=== PATIENT | male | born 1985 | race Asian ===

== ENCOUNTER 2016-11-24 19:05 | Outpatient (CLI) | payer MEDICAID, OTHER | END 2016-11-24 19:06 | disposition EMS.NT | LOC: EMS 19:05 | PROVIDERS: ATTEND Surgery | DX: M79.622 Pain in left upper arm (principal); V03.19XA Pedestrian with other conveyance injured in collision with car, pick-up truck or van in traffic accident, initial encounter; Y92.488 Other paved roadways as the place of occurrence of the external cause ==

== ENCOUNTER 2016-11-24 20:21 | Emergency (ER) | payer OTHER, MEDICAID ==
--- NOTE | 2016-11-24 21:12 | XRAY Preliminary Report ---
Exam: XR Wrist 3 View LT IMPRESSION: No fracture or subluxation. [facility] SITE ID: [id number]
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
--- NOTE | 2016-11-24 21:15 | XRAY Preliminary Report ---
Exam: XR Humerus LT IMPRESSION: No acute fracture. [facility] SITE ID: [id number]
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
--- NOTE | 2016-11-24 21:22 | XRAY Preliminary Report ---
Exam: XR Forearm LT IMPRESSION: No fracture demonstrated. [facility] SITE ID: [id number]
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
[2016-11-24] MEDS ORDERED: IBUPROFEN 600 MG TABLET PO STA (21:47)
[2016-11-24] MEDS ORDERED: ACETAMINOPHEN 325 MG TABLET PO STA (21:47)
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
[2016-11-24 21:52] VITALS: BP 137/75
[2016-11-24] MEDS ORDERED: ACETAMINOPHEN 325 MG TABLET PO ONE (21:52)
[2016-11-24] MEDS ORDERED: IBUPROFEN 600 MG TABLET PO ONE (21:52)
== END 2016-11-24 22:07 | disposition home or self-care (01) ==
LOC: ED 20:21
DX: S40.022A Contusion of left upper arm, initial encounter (principal); V89.2XXA Person injured in unspecified motor-vehicle accident, traffic, initial encounter; Y92.413 State road as the place of occurrence of the external cause; G71.12 Myotonia congenita; J45.909 Unspecified asthma, uncomplicated; K21.9 Gastro-esophageal reflux disease without esophagitis
CPT/HCPCS: 73060; 73090; 73110; 99283; A9270

== ENCOUNTER 2017-01-31 13:31 | Outpatient (CLI) | payer MEDICAID ==
[2017-01-31 14:20] LABS: BASOPHILS % (AUTO) 0.8 %; EOSINOPHILS # (AUTO) 0.1 10^3/uL (0.0-0.7); EOSINOPHILS % (AUTO) 1.7 %; HCT - HEMATOCRIT 48.3 % (42.0-52.0); HGB - HEMOGLOBIN 15.9 g/dL (14.0-18.0); LYMPHOCYTES # (AUTO) 1.9 10^3/uL (1.5-3.5); MEAN CORPUSCULAR HEMOGLOBIN 27.9 pg (27.0-31.0); MEAN CORPUSCULAR HGB CONC 32.9 g/dL (32.0-36.0); MEAN CORPUSCULAR VOLUME 84.6 fL (80.0-94.0); MEAN PLATELET VOLUME 9.7 fL (7.4-11.4); MONOCYTES # (AUTO) 0.5 10^3/uL (0.0-1.0); NEUTROPHILS # (AUTO) 2.7 10^3/uL (1.5-6.6); NEUTROPHILS % (AUTO) 52.5 %; RED BLOOD COUNT 5.71 10^6/uL (4.70-6.10); RED CELL DISTRIBUTION WIDTH 15.4 % (12.0-15.0); UNCORRECTED WHITE BLOOD COUNT 5.2 x10^3/uL; WHITE BLOOD COUNT 5.2 x10^3/uL (4.8-10.8)
[2017-01-31 14:35] LABS: ALBUMIN/GLOBULIN RATIO 1.5 (1.0-2.2); BILIRUBIN,TOTAL 0.6 mg/dL (0.2-1.0); BUN - BLOOD UREA NITROGEN 12 mg/dL (6-20); CALCIUM 9.5 mg/dL (8.5-10.3); CARBON DIOXIDE - CO2 28 mmol/L (21-32); CHLORIDE 108 mmol/L (101-111); CHOL/HDL RATIO 7.1 (<5.0); CHOLESTEROL 228 mg/dL; CREATININE 0.7 mg/dL (0.6-1.2); GFR - MDRD 133 (>89); GLUCOSE 93 mg/dL (70-100); HDL CHOLESTEROL 32 mg/dL; LDL/HDL RATIO 3.7 (<3.6); SODIUM 144 mmol/L (135-145); TOTAL PROTEIN 6.7 g/dL (6.7-8.2); TRIGLYCERIDES 395 mg/dL; VLDL CHOLESTEROL 79 mg/dL
[2017-01-31 14:44] LABS: PLATELET ESTIMATE, MANUAL NORMAL (130-450,000) (NORMAL); PLATELET MORPHOLOGY 1+ LARGE PLATELETS (NORMAL)
== END 2017-01-31 13:32 | disposition home or self-care (01) ==
LOC: LAB 13:31
PROVIDERS: ATTEND Family Medicine
DX: Z00.00 Encounter for general adult medical examination without abnormal findings (principal)
CPT/HCPCS: 36415; 80053; 80061; 84443; 85025

== ENCOUNTER 2017-09-16 00:12 | Emergency (ER) | payer MEDICAID ==
[2017-09-16] MEDS ORDERED: ONDANSETRON 4 MG/2 ML VIAL IVP STA (00:33)
[2017-09-16] MEDS ORDERED: SODIUM CHLORIDE 0.9% 1,000 ML IV ONE (00:33)
[2017-09-16] MEDS ORDERED: MORPHINE 2 MG/ML CARPUJECT IVP STA ×2 (00:33→01:34)
[2017-09-16 00:45] LABS: BASOPHILS % (AUTO) 0.5 %; EOSINOPHILS % (AUTO) 0.4 %; HGB - HEMOGLOBIN 17.1 g/dL (14.0-18.0); LYMPHOCYTES # (AUTO) 1.2 10^3/uL (1.5-3.5); LYMPHOCYTES % (AUTO) 15.6 %; MEAN CORPUSCULAR HEMOGLOBIN 28.3 pg (27.0-31.0); MEAN CORPUSCULAR HGB CONC 34.1 g/dL (32.0-36.0); MEAN CORPUSCULAR VOLUME 82.9 fL (80.0-94.0); MEAN PLATELET VOLUME 9.3 fL (7.4-11.4); MONOCYTES # (AUTO) 0.4 10^3/uL (0.0-1.0); MONOCYTES % (AUTO) 5.4 %; NEUTROPHILS # (AUTO) 6.1 10^3/uL (1.5-6.6); NEUTROPHILS % (AUTO) 78.1 %; PLT - PLATELET COUNT 187 10^3/uL (130-450); RED BLOOD COUNT 6.05 10^6/uL (4.70-6.10); WHITE BLOOD COUNT 7.8 x10^3/uL (4.8-10.8)
[2017-09-16 00:55] LABS: ALBUMIN 4.1 g/dL (3.2-5.5); ALBUMIN/GLOBULIN RATIO 1.4 (1.0-2.2); BILIRUBIN,TOTAL 0.2 mg/dL (0.2-1.0); CALCIUM 8.9 mg/dL (8.5-10.3); CREATININE 0.8 mg/dL (0.6-1.2)
[2017-09-16 01:08] LABS: BILIRUBIN,URINE NEGATIVE (NEGATIVE); GLUCOSE, URINE (UA) NEGATIVE (NEGATIVE); KETONES,URINE (UA) NEGATIVE (NEGATIVE); LEUKOCYTE ESTERASE, URINE NEGATIVE (NEGATIVE); NITRITE,URINE NEGATIVE (NEGATIVE); OCCULT BLOOD,URINE NEGATIVE (NEGATIVE); PROTEIN,URINE NEGATIVE (NEGATIVE); UROBILINOGEN,URINE 0.2 (NORMAL) E.U./dL (NORMAL)
[2017-09-16 01:09] LABS: CLARITY,URINE CLEAR (CLEAR)
[2017-09-16] MEDS ORDERED: IOPAMIDOL-300 100 ML VIAL ONE (01:29)
[2017-09-16] MEDS ORDERED: IOPAMIDOL-300 100 ML VIAL IVP ONE (02:02)
--- NOTE | 2017-09-16 02:36 | CT Preliminary Report ---
Exam: CT ABDOMEN/PELVIS W/ IMPRESSION: Acute appendicitis without apparent complication. [facility] SITE ID: [id number]
--- NOTE | 2017-09-16 02:40 | CT Report ---
EXAM: CT ABDOMEN AND PELVIS EXAM DATE: 09/16/2017 02:15 AM. CLINICAL HISTORY: Diffuse abdominal pain, worse periumbilical region. COMPARISONS: None. TECHNIQUE: Routine helical CT imaging was performed through the abdomen and pelvis. IV contrast: Yes . Enteric contrast: No . Reconstructions: Coronal and sagittal. In accordance with CT protocol optimization, one or more of the following dose reduction techniques w ere utilized for this exam: automated exposure control, adjustment of mA and/or KV based on patient s ize, or use of iterative reconstructive technique. FINDINGS: Lung Bases: Unremarkable. Liver: Unremarkable. No suspicious masses. Gallbladder/Bile Ducts: Unremarkable. Spleen: Unremarkable. Pancreas: Unremarkable. Adrenal Glands: Unremarkable. Kidneys: Unremarkable. No suspicious masses or hydronephrosis. Peritoneal Cavity/Bowel: Abnormal inflamed appendix is best visualized on axial images 56 through 62 in the posterolateral right lower abdomen with a maximum diameter of 13 mm and mild surrounding infl ammatory changes. No gross perforation or abscess. Bowel otherwise appears unremarkable. Pelvic Organs: Bladder and prostate appear unremarkable. Vasculature: No aneurysms or other significant abnormality. Bones: No significant abnormality. Other: None. IMPRESSION: Acute appendicitis without apparent complication. [facility] Referring Provider Line: [phone] SITE ID: [id number]
--- NOTE | 2017-09-16 02:59 | ED Physician Documentation ---
PD HPI ABD PAIN - Stated complaint Stated Complaint: ABDOMINAL PAIN - Chief complaint Chief Complaint: Abd Pain - History obtained from History obtained from: Patient, Family - History of Present Illness Timing - onset: Today Timing - details: Gradual onset, Still present Quality: Cramping, Sharp Location: Periumbilical Worsened by: Eating Associated symptoms: Nausea. No: Fever, Vomiting, Diarrhea, Constipation Similar symptoms before: Has not had sx before Recently seen: Not recently seen - Additional information Additional information: Patient is a 32 year old male with a history of muscular dystrophy who is presenting to the emergency department for abdominal pain. Mother states that his symptoms started this evening. The pain is sharp and cramping and near the umbilicus. Patient has an issue with urinary retention at times but does not need to self cath. patient had chills but no fever. Upon initial evaluation in the emergency department patient is dry heaving and crying in pain. Review of Systems Constitutional: reports: Chills. denies: Fever Eyes: reports: Reviewed and negative Ears: reports: Reviewed and negative Nose: reports: Reviewed and negative Throat: reports: Reviewed and negative Cardiac: reports: Reviewed and negative Respiratory: reports: Reviewed and negative GI: reports: Abdominal Pain, Nausea. denies: Vomiting, Constipation, Diarrhea : denies: Dysuria, Frequency Skin: denies: Rash, Lesions Neurologic: denies: Generalized weakness, Focal weakness Immunocompromised: denies: Immunocompromised PD PAST MEDICAL HISTORY - Past Medical History Past Medical History: Yes Cardiovascular: None Respiratory: Asthma Neuro: None Endocrine/Autoimmune: None GI: GERD, Other : None HEENT: None Psych: None Musculoskeletal: Other Derm: None Other Past Medical History: Myotonic Dystrophy - Past Surgical History Past Surgical History: Yes HEENT: Cataracts - Present Medications Home Medications: Ambulatory Orders Medication Instructions Recorded Confirmed Albuterol [Ventolin Hfa] 2 puffs INH Q4H PRN 08/09/13 08/20/15 Omeprazole [PriLOSEC] 20 mg PO BID 08/09/13 08/20/15 traMADol [Ultram] 50 mg PO Q4-6H 08/09/13 08/20/15 - Allergies Allergies/Adverse Reactions: Allergies Allergy/AdvReac Type Severity Reaction Status Date / Time promethazine HCl * AdvReac Unknown Anxiety Verified 09/16/17 01:08 [From Phenergan] Sulfa (Sulfonamide AdvReac Unknown Rash Verified 09/16/17 01:08 Antibiotics) - Social History Does the pt smoke?: No Smoking Status: Never smoker Does the pt drink ETOH?: No Does the pt have substance abuse?: No - Immunizations Immunizations are current?: Yes - POLST Patient has POLST: No PD ED PE NORMAL - Vitals Vital signs reviewed: Yes - General General: Alert and oriented X 3 - HEENT HEENT: Atraumatic - Cardiac Cardiac: RRR - Respiratory Respiratory: No respiratory distress - Abdomen Abdomen: Soft - Derm Derm: Normal color, No rash - Neuro Neuro: Alert and oriented X 3 Eye Opening: Spontaneous PD ED PE EXPANDED - General General: Alert, In Pain - HEENT HEENT: Dental decay - Abdomen Abdomen: Tender to palpation, Periumbilical. No: Rebound, Guarding - Extremities Extremities: Right foot, Left foot (contractures of bilateral feet) Results - Vitals Vitals: Vital Signs - 24 hr 09/16/17 09/16/17 09/16/17 00:17 01:07 01:35 Temperature 36.6 C Heart Rate 116 H 80 75 Respiratory 20 18 18 Rate Blood Pressure 133/99 H 124/85 H 127/79 O2 Saturation 98 100 100 09/16/17 09/16/17 09/16/17 01:50 02:27 03:28 Temperature 36.3 C L Heart Rate 86 81 97 Respiratory 16 16 16 Rate Blood Pressure 127/79 132/82 H 114/71 O2 Saturation 100 98 97 09/16/17 04:19 Temperature 36.3 C L Heart Rate 94 Respiratory 16 Rate Blood Pressure 105/66 O2 Saturation 98 Oxygen O2 Source Room air - Labs Labs: Laboratory Tests 09/16/17 09/16/17 09/16/17 00:30 00:30 01:05 WBC 7.8 RBC 6.05 Hgb 17.1 Hct 50.2 MCV 82.9 MCH 28.3 MCHC 34.1 RDW 15.0 Plt Count 187 MPV 9.3 Neut # 6.1 Lymph # 1.2 L [place] # 0.4 Eos # 0.0 Baso # 0.0 Absolute Nucleated RBC 0.01 Nucleated RBC % 0.1 PT INR APTT Sodium 144 Potassium 3.3 L Chloride 111 Carbon Dioxide 22 Anion Gap 11.0 BUN 16 Creatinine 0.8 Estimated GFR (MDRD) 114 Glucose 148 H Calcium 8.9 Total Bilirubin 0.2 AST 31 ALT 31 Alkaline Phosphatase 85 Total Protein 7.0 Albumin 4.1 Globulin 2.9 Albumin/Globulin Ratio 1.4 Lipase 28 Urine Color YELLOW Urine Clarity CLEAR Urine pH 8.0 H Ur Specific [place] 1.015 Urine Protein NEGATIVE Urine Glucose (UA) NEGATIVE Urine Ketones NEGATIVE Urine Occult Blood NEGATIVE Urine Nitrite NEGATIVE Urine Bilirubin NEGATIVE Urine Urobilinogen 0.2 (NORMAL) Ur Leukocyte Esterase NEGATIVE Ur Microscopic Review NOT INDICATED Urine Culture Comments NOT INDICATED Blood Type Blood Type Recheck Antibody Screen 09/16/17 09/16/17 09/16/17 03:20 03:20 03:20 WBC RBC Hgb Hct MCV MCH MCHC RDW Plt Count MPV Neut # Lymph # [place] # Eos # Baso # Absolute Nucleated RBC Nucleated RBC % PT 11.6 INR 1.0 APTT 27.5 Sodium Potassium Chloride Carbon Dioxide Anion Gap BUN Creatinine Estimated GFR (MDRD) Glucose Calcium Total Bilirubin AST ALT Alkaline Phosphatase Total Protein Albumin Globulin Albumin/Globulin Ratio Lipase Urine Color Urine Clarity Urine pH Ur Specific [place] Urine Protein Urine Glucose (UA) Urine Ketones Urine Occult Blood Urine Nitrite Urine Bilirubin Urine Urobilinogen Ur Leukocyte Esterase Ur Microscopic Review Urine Culture Comments Blood Type A POSITIVE Blood Type Recheck A POSITIVE Antibody Screen NEGATIVE - Rads (name of study) ct abdomen and pelvis Radiology: Final report received (acute appendicits) PD MEDICAL DECISION MAKING - ED course Complexity details: reviewed old records, reviewed results, re-evaluated patient , considered differential, d/w patient, d/w family, d/w pres[facility] consultant ED course: patient was seen and examined at bedside. IV access was gained and labs were drawn. patient was started on IV fluids, zofran and morphine 4 mg. Urine was collected. patient had no signs of acute urinary retention. Patient continued to cry out in pain and was treated with additional morphine and imaging was ordered. when patient returned from imaging the results were reviewed and patient was found to have acute appendicitis. [employer] surgery was contacted and the case was discussed with him. He wanted zosyn and flagyl. While he was evaluating the patient the family stated that they wanted to go to [facility] where patient had been treated in the past. Patient signed out ama. Copies of the imaging and labs were made. [facility] er was contacted and made aware that the family was signing out and heading there. Departure - Departure Disposition: 07 Against Medical Advice Clinical Impression: Appendicitis, acute Condition: Good Discharge Date/Time: 09/16/17 04:28
[2017-09-16] MEDS ORDERED: PIPERACILLIN/TAZOBACTAM 4.5 GM in SODIUM CHLORIDE 0.9% MINIBAG 100 ML IV STA (03:04)
[2017-09-16] MEDS ORDERED: metroNIDAZOLE 500 MG/100 ML 500 MG/100 ML BAG IV ONE (03:05)
[2017-09-16 03:54] LABS: PT - PROTHROMBIN TIME 11.6 secs (9.9-12.6)
[2017-09-16 04:20] VITALS: BP 105/66
--- NOTE | 2017-09-18 13:46 | CONSULTATION NOTE ---
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 He had nausea and vomiting x3 with dry heaves. No fever. No prior episodes. ER doc ended up getting a CT scan and labs, and his white count is normal. The CT scan shows apparent early appendicitis and they called me around 2:30 in the morning. His regular doctor is somebody named Della, at [facility] in [place]. ALLERGIES: HE IS ALLERGIC TO SULFA. MEDICATIONS Include: 1. Prilosec. 2. Tramadol. 3. Albuterol. 4. Senna. PAST SURGICAL HISTORY: Operations include laparoscopy, cataracts, hernias, arm fractures, leg fractures. The patient's history is obtained through him and his parents. PAST MEDICAL HISTORY: He denies hypertension, diabetes, tuberculosis, seizures or transfusion. SOCIAL HISTORY: Does not smoke or use alcohol. There is no history of thromboembolic disease. He lives with his parents. His hobbies are riding a scooter, working with his [employer], board games. REVIEW OF SYSTEMS His review of systems is positive for: 1. Myotonic dystrophy. 2. Being a little bit overweight. 3. Negative for [place]. Negative for angina. Negative for stroke. Negative for lung disease. Positive for this current GI issue. It sounds like he has had a history of GI problems with what appears to be constipation, probably related to immobility. Negative for musculoskeletal problems, but has had some procedures to try to get his bones straightened out. Negative for problems or skin problems such as psoriasis. Negative for blood problems. Negative for lymphatic problems. Negative for endocrine problems. Positive for myotonic dystrophy and disability. PHYSICAL EXAMINATION HEAD, EYES, EARS, NOSE, AND THROAT: Appear normal. His dentition is somewhat compromised. NECK: Without jugular venous distention, masses, or bruits. CHEST: While he is lying on the gurney I can hear okay breath sounds anteriorly on his chest. ABDOMEN: Obese. He has got bowel tones and he showed periumbilically where he had the pain. I do not detect any right lower quadrant tenderness. I did review the CT scan and CT report, where there is apparent early appendicitis. My primary recommendation was going to be to the family to tuck him in, give him antibiotics, take him to the OR the first thing in the morning. I initially saw him around 3 a.m. The patient's parents have concerns about him being a special needs patient due to his other issues, and they have had his healthcare at elsewhere places. They were somewhat concerned about his ability to tolerate anesthesia here at [facility], and I tried to reassure them that we had excellent anesthesia. They wanted to make some phone calls. I did tell them that if they were nervous and concerned about having his healthcare here, that it certainly is okay for them to go somewhere else to be managed, and I did advise them that if he goes to another institution, they may elect to observe him and watch him. They may recommend appendectomy, either open or laparoscopic, in my hands it is usually open, and told them that I would expect him to have a good outcome wherever he went. They got on the phone later in the middle of the night and talked to some physician somewhere, and the short and long of it is that with that telephone discussion, the patient and the patient's parents have decided that they want to go to [facility], which I think is okay. This is Sofie. You are allowed to negotiate for your care. ER doc should arrange him to get out of here, and we wish everybody good luck, good health, and I think it is a reasonable decision. The parents were quite concerned about their child with other medical issues to go to a larger institution if that is what they wish. In my hands, I would not make him sign out AMA just because I do not normally do that. I just make sure people understand they have options and understand what my recommendations are. I did not go into any PARQ about the expected conduct of surgery, potential complications, etc., etc., with the patient or his family, once I realized that it appeared that they were going to want to be going somewhere else. TD: 09/16/2017 04:33
== END 2017-09-16 04:28 | disposition left against medical advice (07) ==
LOC: ED 00:12
DX: K35.80 Unspecified acute appendicitis (principal); Z53.29 Procedure and treatment not carried out because of patient's decision for other reasons; J45.909 Unspecified asthma, uncomplicated; K21.9 Gastro-esophageal reflux disease without esophagitis
CPT/HCPCS: 36415; 51798; 74177; 80053; 81003; 83690; 85025; 85610; 85730; 86850; 86900; 86901; 96361; 96365; 96368; 96375; 96376; 99284; Q9967; 81001; 87086

== ENCOUNTER 2017-10-04 13:50 | Outpatient (CLI) | payer MEDICAID ==
[2017-10-04 15:23] LABS: BASOPHILS % (AUTO) 0.7 %; EOSINOPHILS # (AUTO) 0.2 10^3/uL (0.0-0.7); EOSINOPHILS % (AUTO) 2.7 %; HGB - HEMOGLOBIN 11.6 g/dL (14.0-18.0); LYMPHOCYTES # (AUTO) 0.9 10^3/uL (1.5-3.5); LYMPHOCYTES % (AUTO) 15.5 %; MEAN CORPUSCULAR HEMOGLOBIN 26.8 pg (27.0-31.0); MEAN CORPUSCULAR HGB CONC 31.8 g/dL (32.0-36.0); MEAN CORPUSCULAR VOLUME 84.4 fL (80.0-94.0); MEAN PLATELET VOLUME 9.2 fL (7.4-11.4); MONOCYTES # (AUTO) 0.6 10^3/uL (0.0-1.0); MONOCYTES % (AUTO) 10.2 %; NEUTROPHILS # (AUTO) 4.2 10^3/uL (1.5-6.6); NEUTROPHILS % (AUTO) 70.9 %; PLT - PLATELET COUNT 451 10^3/uL (130-450); RED BLOOD COUNT 4.33 10^6/uL (4.70-6.10); RED CELL DISTRIBUTION WIDTH 14.9 % (12.0-15.0); WHITE BLOOD COUNT 5.9 x10^3/uL (4.8-10.8)
[2017-10-04 15:54] LABS: BUN - BLOOD UREA NITROGEN < 5 mg/dL (6-20); CALCIUM 8.2 mg/dL (8.5-10.3); CARBON DIOXIDE - CO2 29 mmol/L (21-32); CHLORIDE 102 mmol/L (101-111); CREATININE 0.5 mg/dL (0.6-1.2); GFR - MDRD 195 (>89); GLUCOSE 62 mg/dL (70-100); SODIUM 144 mmol/L (135-145)
== END 2017-10-04 13:51 | disposition home or self-care (01) ==
LOC: LAB.R 13:50
PROVIDERS: ATTEND Family Medicine
DX: K65.9 Peritonitis, unspecified (principal)
CPT/HCPCS: 80048; 85025

== ENCOUNTER 2017-12-12 09:54 | Outpatient (CLI) | payer MEDICAID ==
[2017-12-12] MEDS ORDERED: IOPAMIDOL-300 50 ML VIAL ONE (10:12)
[2017-12-12] MEDS ORDERED: IOPAMIDOL-300 100 ML VIAL ONE (10:12)
[2017-12-12] MEDS ORDERED: IOPAMIDOL-300 100 ML VIAL IVP ONE (13:49)
[2017-12-12] MEDS ORDERED: IOPAMIDOL-300 50 ML VIAL PO ONE (13:49)
--- NOTE | 2017-12-13 11:05 | CT Report ---
Procedure Date: 12/12/2017 Accession Number: [id number] / [id number] Procedure: CT - Abdomen/Pelvis W/ CPT Code: FULL RESULT: EXAM: CT ABDOMEN AND PELVIS EXAM DATE: 12/12/2017 12:04 PM. CLINICAL HISTORY: RLQ ABDOMINAL PAIN AND NAUSEA AFTER RECENT APPENDICITIS AND INTERVENTION. PREVIOUSLY SHE HAD 3 DRAINS IN RIGHT LOWER QUADRANT TO DRAIN. APPENDICEAL ABSCESS. COMPARISONS: 09/16/2017. 08/03/2014. TECHNIQUE: Routine helical CT imaging was performed through the abdomen and pelvis. IV contrast: ISOVUE 300 100mL. Enteric contrast: Positive. Reconstructions: Coronal and sagittal. In accordance with CT protocol optimization, one or more of the following dose reduction techniques were utilized for this exam: automated exposure control, adjustment of mA and/or KV based on patient size, or use of iterative reconstructive technique. FINDINGS: Lung Bases: Unremarkable. Liver: Normal. No masses. Gallbladder/Bile Ducts: Unremarkable. Spleen: Normal. Pancreas: Normal. Adrenal Glands: Normal. Kidneys: Normal. No masses or hydronephrosis. Peritoneal Cavity/Bowel: Stomach is mildly distended and unremarkable. No small bowel wall thickening although details limited due to motion. No free air. Small volume of stool in the colon. No diverticulitis. Appendix measures up to 12-13 months and by the base of the appendix there are inflammatory changes which have progressed in the interval compared to the CT from 09/16/2017. No evidence for abscess. Pelvic Organs: Normal. The bladder and visualized pelvic organs are within normal limits. Vasculature: No aneurysms or other significant abnormality. Bones: No significant abnormality. Other: None. IMPRESSION: 1. Enlarged appendix measuring 12-13 mm with interval development periappendiceal inflammatory changes surrounding the base and proximal appendix consistent with acute appendicitis. No periappendiceal abscess or free air. Findings are new compared to 09/16/2017 [facility]
== END 2017-12-12 09:55 | disposition home or self-care (01) ==
LOC: DI 09:54
PROVIDERS: ATTEND Family Medicine
DX: R10.31 Right lower quadrant pain (principal); R11.2 Nausea with vomiting, unspecified
CPT/HCPCS: 74177; Q9967

== ENCOUNTER 2018-02-20 00:02 | Outpatient (CLI) | payer MEDICAID | END 2018-02-20 00:03 | disposition critical access hospital (66) | LOC: EMS 00:02 | PROVIDERS: ATTEND Surgery | DX: R10.31 Right lower quadrant pain (principal) | CPT/HCPCS: A0425; A0429 ==

== ENCOUNTER 2018-02-21 00:37 | Emergency (ER) | payer MEDICAID ==
--- NOTE | 2018-02-21 00:48 | ED Physician Documentation ---
PD HPI ABD PAIN - Stated complaint Stated Complaint: ABD PAIN - Chief complaint Chief Complaint: Abd Pain - History obtained from History obtained from: Patient, Family, EMS - History of Present Illness Timing - onset: Today Timing - details: Abrupt onset, Still present Quality: Cramping, Aching, Sharp Location: RLQ Associated symptoms: No: Fever, Nausea, Vomiting, Diarrhea, Constipation, Dysuria Similar symptoms before: Work up / diagnostics, Treatment Recently seen: Not recently seen - Additional information Additional information: Patient is a 32 year old male with a history of muscular dystrophy and recurrent appendicitis who is presenting to the emergency department for right lower quadrant pain. According to patient, family, previous records and ems patient was diagnosed with appendicitis. Patient signed out ama and patient was eventually treated with IV antibiotics because of being a high surgical risk. Patient subsequently developed an abscess and had drains placed and went through a prolonged course of antibiotics. Patient never ended up having surgery. Mother states that tonight the patient developed abdominal pain in the right lower quadrant. patient was treated with a left over hydrocodone. Upon initial evaluation in the emergency department patient's pain was well controlled. family denied nausea, vomiting, fever or chills. Review of Systems Ten Systems: 10 systems reviewed and negative Constitutional: denies: Fever, Chills GI: denies: Nausea, Vomiting, Constipation, Diarrhea : denies: Dysuria PD PAST MEDICAL HISTORY - Past Medical History Cardiovascular: None Respiratory: Asthma Endocrine/Autoimmune: None GI: GERD, Other : None HEENT: None Psych: None Musculoskeletal: Other Derm: None - Past Surgical History Past Surgical History: Yes HEENT: Cataracts - Present Medications Home Medications: Ambulatory Orders Medication Instructions Recorded Confirmed Albuterol [Ventolin Hfa] 2 puffs INH Q4H PRN 08/09/13 02/21/18 Omeprazole [PriLOSEC] 20 mg PO BID 08/09/13 02/21/18 traMADol [Ultram] 50 mg PO Q4-6H 08/09/13 02/21/18 Hydrocodone/Acetaminophen 1 tab PO Q6H PRN 02/21/18 02/21/18 [Hydrocodone-Acetamin 5-325 mg] - Allergies Allergies/Adverse Reactions: Allergies Allergy/AdvReac Type Severity Reaction Status Date / Time promethazine HCl * AdvReac Unknown Anxiety Verified 02/21/18 00:44 [From Phenergan] Sulfa (Sulfonamide AdvReac Unknown Rash Verified 02/21/18 00:44 Antibiotics) - Social History Does the pt smoke?: No Smoking Status: Never smoker Does the pt drink ETOH?: No Does the pt have substance abuse?: No - Immunizations Immunizations are current?: Yes - POLST Patient has POLST: No PD ED PE NORMAL - Vitals Vital signs reviewed: Yes - General General: No acute distress - HEENT HEENT: Atraumatic - Cardiac Cardiac: RRR, No murmur - Respiratory Respiratory: No respiratory distress - Abdomen Abdomen: Soft, Non distended - Derm Derm: Normal color, Warm and dry - Neuro Neuro: Alert and oriented X 3 Eye Opening: Spontaneous PD ED PE EXPANDED - Abdomen Abdomen: Tender to palpation, RLQ. No: Rebound, Guarding Results - Vitals Vitals: Vital Signs - 24 hr 02/21/18 02/21/18 02/21/18 00:41 02:04 02:35 Temperature 36.9 C 36.5 C 36.2 C L Heart Rate 92 95 72 Respiratory 18 18 16 Rate Blood Pressure 120/76 123/79 123/76 O2 Saturation 99 98 99 Oxygen O2 Source Room air - Labs Labs: Laboratory Tests 02/21/18 02/21/18 00:50 00:50 WBC 3.5 L RBC 4.51 L Hgb 14.1 Hct 41.1 L MCV 91.3 MCH 31.4 H MCHC 34.4 RDW 17.6 H Plt Count 219 MPV 8.2 Neut # (Auto) 2.2 Lymph # (Auto) 0.9 L [place] # (Auto) 0.3 Eos # (Auto) 0.0 Baso # (Auto) 0.0 Absolute Nucleated RBC 0.00 Nucleated RBC % 0.1 Sodium 141 Potassium 3.2 L Chloride 105 Carbon Dioxide 28 Anion Gap 8.0 BUN 10 Creatinine 0.5 L Estimated GFR (MDRD) 195 Glucose 103 H Calcium 8.2 L Total Bilirubin 0.4 AST 24 ALT 17 Alkaline Phosphatase 74 Total Protein 5.0 L Albumin 2.4 L Globulin 2.6 Albumin/Globulin Ratio 0.9 L Lipase 24 - Rads (name of study) ct abd and pelvis Radiology: Final report received, Discussed with rads (multiple chronic findings including inflammation of right lower quadrant but no signs of acute appendicitis.) PD MEDICAL DECISION MAKING - ED course Complexity details: reviewed old records, reviewed results, re-evaluated patient , considered differential, d/w patient, d/w family ED course: Patient was seen and examined at bedside. IV access was gained and labs were drawn. Imaging was ordered. When patient returned from imaging the case was discussed with the radiologist. there were multiple chronic findings but no acute changes. Patient and family were made aware of the findings. patient required no further inpatient work up and was stable for discharge with outpatient follow up. - Sepsis Event Vital Signs: Vital Signs - 24 hr 02/21/18 02/21/18 02/21/18 00:41 02:04 02:35 Temperature 36.9 C 36.5 C 36.2 C L Heart Rate 92 95 72 Respiratory 18 18 16 Rate Blood Pressure 120/76 123/79 123/76 O2 Saturation 99 98 99 Oxygen O2 Source Room air Departure - Departure Disposition: 01 Home, Self Care Clinical Impression: Right lower quadrant pain Condition: Good Instructions: ED Abdominal Pain Appendx Poss Follow-Up: Edy Hull MD [Primary Care Provider] - Tomorrow Comments: Your diagnostics today showed no acute changes. You still have inflammation in the area of your appendix from all of your previous infections and procedures but no new acute process. You should follow up with your doctor/surgeon if the symptoms persist or become more frequent. You can continue with your home medications. You should return to the emergency department at any time for new , worsening or uncontrollable symptoms. Discharge Date/Time: 02/21/18 02:37
[2018-02-21] MEDS ORDERED: IOPAMIDOL-300 100 ML VIAL ONE (01:04)
[2018-02-21 01:17] LABS: BASOPHILS % (AUTO) 0.9 %; EOSINOPHILS % (AUTO) 0.8 %; HGB - HEMOGLOBIN 14.1 g/dL (14.0-18.0); LYMPHOCYTES # (AUTO) 0.9 10^3/uL (1.5-3.5); LYMPHOCYTES % (AUTO) 26.5 %; MEAN CORPUSCULAR HEMOGLOBIN 31.4 pg (27.0-31.0); MEAN CORPUSCULAR HGB CONC 34.4 g/dL (32.0-36.0); MEAN CORPUSCULAR VOLUME 91.3 fL (80.0-94.0); MEAN PLATELET VOLUME 8.2 fL (7.4-11.4); MONOCYTES # (AUTO) 0.3 10^3/uL (0.0-1.0); MONOCYTES % (AUTO) 8.7 %; NEUTROPHILS # (AUTO) 2.2 10^3/uL (1.5-6.6); NEUTROPHILS % (AUTO) 63.1 %; PLT - PLATELET COUNT 219 10^3/uL (130-450); RED BLOOD COUNT 4.51 10^6/uL (4.70-6.10); RED CELL DISTRIBUTION WIDTH 17.6 % (12.0-15.0); WHITE BLOOD COUNT 3.5 x10^3/uL (4.8-10.8)
[2018-02-21 01:22] LABS: ALBUMIN 2.4 g/dL (3.2-5.5); ALBUMIN/GLOBULIN RATIO 0.9 (1.0-2.2); BILIRUBIN,TOTAL 0.4 mg/dL (0.2-1.0); CALCIUM 8.2 mg/dL (8.5-10.3); CREATININE 0.5 mg/dL (0.6-1.2)
[2018-02-21] MEDS ORDERED: IOPAMIDOL-300 100 ML VIAL IVP ONE (01:57)
--- NOTE | 2018-02-21 02:23 | CT Report ---
Procedure Date: 02/21/2018 Accession Number: [id number] / [id number] Procedure: CT - Abdomen/Pelvis W/ CPT Code: FULL RESULT: EXAM: CT ABDOMEN AND PELVIS EXAM DATE: 02/21/2018 01:58 AM. CLINICAL HISTORY: Right lower quadrant pain, hx of appendicitis and periappendiceal abscess drainage. COMPARISONS: ABDOMEN/PELVIS W/ 12/12/2017 11:54 AM. TECHNIQUE: Routine helical CT imaging was performed through the abdomen and pelvis. IV contrast: ISOVUE 300 100mL. Enteric contrast: No. Reconstructions: Coronal and sagittal. In accordance with CT protocol optimization, one or more of the following dose reduction techniques were utilized for this exam: automated exposure control, adjustment of mA and/or KV based on patient size, or use of iterative reconstructive technique. FINDINGS: Lung Bases: Unremarkable. Liver: Fatty infiltration. Gallbladder/Bile Ducts: Unremarkable. Spleen: Normal. Pancreas: Normal. Adrenal Glands: Normal. Kidneys: Normal. No masses or hydronephrosis. Peritoneal Cavity/Bowel: Images are degraded due to motion artifact. There is mild dilatation and fecalization of distal small bowel loops. No abnormal air-fluid levels are seen. No diverticulitis is noted. There is moderate stool in the colon. No free air or free fluid is identified. No lymphadenopathy is seen. Appendix is not optimally seen due to motion. There could be a persistent dilated inflamed appendix but no abscess is seen. Pelvic Organs: Normal. The bladder and visualized pelvic organs are within normal limits. Vasculature: No aneurysms or other significant abnormality. Bones: No significant abnormality. Other: None. IMPRESSION: 1. Appendix suboptimally seen due to motion artifact. Persistent dilated inflamed appendix could be present but no periappendiceal abscess is seen. 2. Mild dilatation and fecalization of distal small bowel possibly representing low-grade chronic obstruction related to the inflammatory process. 3. No free air or free fluid. 4. Fatty liver. RADIA The above findings were discussed with Oleg Joseph by Dr. Dawson Garg at 02:22 hrs on 02/21/18.
[2018-02-21 02:37] VITALS: BP 123/76
== END 2018-02-21 02:37 | disposition home or self-care (01) ==
LOC: EDUNIT# → ED 00:37 → SUPCPDRO 00:37 → ED 02:37
DX: R10.31 Right lower quadrant pain (principal); G71.0 Muscular dystrophy
CPT/HCPCS: 36415; 74177; 80053; 83690; 85025; 99283; Q9967

== ENCOUNTER 2018-11-05 05:43 | Outpatient (CLI) | payer MEDICAID | END 2018-11-05 05:44 | disposition critical access hospital (66) | LOC: EMS 05:43 | PROVIDERS: ATTEND Surgery | DX: R10.9 Unspecified abdominal pain (principal) | CPT/HCPCS: A0425; A0429; A0999 ==

== ENCOUNTER 2018-11-05 06:22 | Emergency (ER) | payer MEDICAID ==
[2018-11-05 06:49] LABS: BILIRUBIN,URINE NEGATIVE (NEGATIVE); GLUCOSE, URINE (UA) NEGATIVE (NEGATIVE); KETONES,URINE (UA) NEGATIVE (NEGATIVE); LEUKOCYTE ESTERASE, URINE NEGATIVE (NEGATIVE); NITRITE,URINE NEGATIVE (NEGATIVE); OCCULT BLOOD,URINE NEGATIVE (NEGATIVE); PH,URINE 7.5 PH (5.0-7.5); PROTEIN,URINE NEGATIVE (NEGATIVE); UROBILINOGEN,URINE 0.2 (NORMAL) E.U./dL (NORMAL)
[2018-11-05 06:53] LABS: BASOPHILS % (AUTO) 0.7 %; EOSINOPHILS # (AUTO) 0.1 10^3/uL (0.0-0.7); EOSINOPHILS % (AUTO) 1.2 %; LYMPHOCYTES # (AUTO) 0.9 10^3/uL (1.5-3.5); LYMPHOCYTES % (AUTO) 14.1 %; MEAN CORPUSCULAR HEMOGLOBIN 28.7 pg (27.0-31.0); MEAN CORPUSCULAR HGB CONC 33.3 g/dL (32.0-36.0); MEAN CORPUSCULAR VOLUME 86.4 fL (80.0-94.0); MEAN PLATELET VOLUME 9.1 fL (7.4-11.4); MONOCYTES # (AUTO) 0.4 10^3/uL (0.0-1.0); MONOCYTES % (AUTO) 6.6 %; NEUTROPHILS # (AUTO) 4.7 10^3/uL (1.5-6.6); NEUTROPHILS % (AUTO) 77.4 %; PLT - PLATELET COUNT 189 10^3/uL (130-450); RED BLOOD COUNT 4.88 10^6/uL (4.70-6.10); RED CELL DISTRIBUTION WIDTH 14.4 % (12.0-15.0); WHITE BLOOD COUNT 6.1 x10^3/uL (4.8-10.8)
[2018-11-05 06:55] LABS: CLARITY,URINE CLEAR (CLEAR)
[2018-11-05 07:08] LABS: ALBUMIN 3.5 g/dL (3.2-5.5); ALBUMIN/GLOBULIN RATIO 1.1 (1.0-2.2); BILIRUBIN,TOTAL 0.2 mg/dL (0.2-1.0); CALCIUM 8.9 mg/dL (8.5-10.3); CREATININE 0.7 mg/dL (0.6-1.2); TOTAL PROTEIN 6.6 g/dL (6.7-8.2)
[2018-11-05] MEDS ORDERED: SODIUM CHLORIDE 0.9% 500 ML IV ONE (07:13)
[2018-11-05] MEDS ORDERED: LACTATED RINGERS 1,000 ML IV STA (07:13)
--- NOTE | 2018-11-05 07:21 | ED Physician Documentation ---
PD HPI ABD PAIN - Stated complaint Stated Complaint: ABD PAIN - Chief complaint Chief Complaint: Abd Pain - History obtained from History obtained from: Patient, Family, EMS - History of Present Illness Timing - onset: How many hours ago (4) Timing - duration: Hours (4) Timing - details: Abrupt onset Pain level max: 10 Pain level now: 4 Quality: Aching, Pain Location: Other (Right flank) Radiation: Other (Nonradiating) Improved by: Meds (Oxycodone) Worsened by: Moving, Palpation Associated symptoms: Constipation (Started while having a hard bowel movement). No: Fever, Nausea, Vomiting, Hematemesis, Diarrhea, Melena, Hematochezia, Dysuria, Hematuria, Chest pain, Dizzy, Near syncope / syncope, Loss of appetite, Weight loss, Testicular pain Recently seen: Not recently seen - Additional information Additional information: 33-year-old male with muscular dystrophy presents to the emergency department with right-sided abdominal pain today. No history of ureteral stones. Mother states he was screaming at home. Pain improved with oxycodone. Review of Systems Constitutional: denies: Fever, Chills Cardiac: denies: Chest pain / pressure Respiratory: denies: Cough GI: denies: Vomiting, Diarrhea Skin: denies: Rash Musculoskeletal: denies: Neck pain, Back pain Neurologic: denies: Focal weakness, Numbness, Headache PD PAST MEDICAL HISTORY - Past Medical History Past Medical History: Yes Cardiovascular: None Respiratory: Asthma Endocrine/Autoimmune: None GI: GERD, Other : None HEENT: None Psych: None Musculoskeletal: Other Derm: None Other Past Medical History: muscular dystrophy - Past Surgical History Past Surgical History: Yes General: Appendectomy HEENT: Cataracts - Present Medications Home Medications: Ambulatory Orders Medication Instructions Recorded Confirmed Albuterol [Ventolin Hfa] 2 puffs INH Q4H PRN 08/09/13 11/05/18 Omeprazole [PriLOSEC] 20 mg PO BID 08/09/13 11/05/18 oxyCODONE ER [OxyCONTIN] 5 mg PO Q12H PRN 11/05/18 11/05/18 - Allergies Allergies/Adverse Reactions: Allergies Allergy/AdvReac Type Severity Reaction Status Date / Time promethazine HCl * AdvReac Unknown Anxiety Verified 02/21/18 00:44 [From Phenergan] Sulfa (Sulfonamide AdvReac Unknown Rash Verified 02/21/18 00:44 Antibiotics) - Social History Does the pt smoke?: No Smoking Status: Never smoker Does the pt drink ETOH?: No Does the pt have substance abuse?: No - Immunizations Immunizations are current?: Yes - POLST Patient has POLST: No PD ED PE NORMAL - Vitals Vital signs reviewed: Yes - General General: Alert and oriented X 3, No acute distress - HEENT HEENT: Moist mucous membranes - Neck Neck: Supple, no meningeal sign - Cardiac Cardiac: RRR - Respiratory Respiratory: No respiratory distress, Clear bilaterally - Abdomen Abdomen: Soft, Non distended, Other (Tender to palpation right lower quadrant. No peritoneal signs) - Back Back: No CVA TTP, No spinal TTP - Derm Derm: Warm and dry, No rash - Neuro Neuro: Alert and oriented X 3 - Psych Psych: Normal mood, Normal affect Results - Vitals Vitals: Vital Signs - 24 hr 11/05/18 11/05/18 06:21 06:30 Temperature 36.1 C L Heart Rate 89 86 Respiratory 16 Rate Blood Pressure 144/97 H O2 Saturation 96 Oxygen O2 Source Room air - Labs Labs: Laboratory Tests 11/05/18 11/05/18 11/05/18 06:42 06:43 06:43 WBC 6.1 RBC 4.88 Hgb 14.0 Hct 42.2 MCV 86.4 MCH 28.7 MCHC 33.3 RDW 14.4 Plt Count 189 MPV 9.1 Neut # (Auto) 4.7 Lymph # (Auto) 0.9 L [place] # (Auto) 0.4 Eos # (Auto) 0.1 Baso # (Auto) 0.0 Absolute Nucleated RBC 0.01 Nucleated RBC % 0.1 Sodium 146 H Potassium 4.1 Chloride 110 Carbon Dioxide 27 Anion Gap 9.0 BUN 16 Creatinine 0.7 Estimated GFR (MDRD) 132 Glucose 110 H Calcium 8.9 Total Bilirubin 0.2 AST 29 ALT 27 Alkaline Phosphatase 98 Total Protein 6.6 L Albumin 3.5 Globulin 3.1 Albumin/Globulin Ratio 1.1 Lipase 31 Urine Color YELLOW Urine Clarity CLEAR Urine pH 7.5 Ur [address] [place] 1.015 Urine Protein NEGATIVE Urine Glucose (UA) NEGATIVE Urine Ketones NEGATIVE Urine Occult Blood NEGATIVE Urine Nitrite NEGATIVE Urine Bilirubin NEGATIVE Urine Urobilinogen 0.2 (NORMAL) Ur Leukocyte Esterase NEGATIVE Ur Microscopic Review NOT INDICATED Urine Culture Comments NOT INDICATED - Rads (name of study) CT abdomen pelvis Radiology: Prelim report reviewed, EMP read contemporaneously, See rad report (Mildly prominent appendix measuring up to 7 mm although smaller compared to the prior studies. No significant surrounding inflammatory changes are identified on the current study. Adjacent to the expected position of the distal aspect of the appendix is a low-density area measuring 1.5 x 0.9 cm which may represent a small volume of residual fluid adjacent and amongst clustered right lower quadrant bowel loops. No surrounding inflammatory changes are identified. 2. No nephrolithiasis. No hydronephrosis. No CT evidence of pyelonephritis. 3. No diverticulitis. No bowel obstruction. ) PD MEDICAL DECISION MAKING - ED course Complexity details: reviewed results, re-evaluated patient, considered differential, d/w patient, d/w family ED course: 33-year-old male with muscular dystrophy who presents with right flank pain. Unclear etiology. No evidence of ureteral stone. Pain resolved in the emergency department. His low back was hurting prior to the symptoms starting, possible muscle spasm? Will have him follow-up with his doctor for further evaluation and care. he is well-appearing, nontoxic. Patient and family counseled regarding signs and symptoms for which I believe and urgent re-evaluation would be necessary. Patient with good understanding of and agreement to plan and is comfortable going home at this time This document was made in part using voice recognition software. While efforts are made to proofread this document, sound alike and grammatical errors may occur. Abdomen is soft, nontender nondistended on serial exam Departure - Departure Disposition: 01 Home, Self Care Clinical Impression: Flank pain Condition: Good Instructions: ED Abdominal Pain Unkn Cause Follow-Up: Edy Hull MD [Primary Care Provider] - Within 1 week Comments: The cause of your symptoms is unclear. Return if you worsen. Your testing is normal today. Follow-up with your doctor for further care.
[2018-11-05] MEDS ORDERED: IOVERSOL 320 100 ML VIAL IVP ONE ×2 (07:32→14:04)
--- NOTE | 2018-11-05 08:26 | CT Report ---
Reason: RLQ abd pain Procedure Date: 11/05/2018 Accession Number: [id number] / [id number] Procedure: CT - Abdomen/Pelvis W CPT Code: FULL RESULT: EXAM: CT ABDOMEN AND PELVIS EXAM DATE: 11/05/2018 07:53 AM. CLINICAL HISTORY: Right lower quadrant pain. COMPARISONS: ABDOMEN/PELVIS W/ 02/21/2018 1:47 AM ABDOMEN/PELVIS W/ 12/12/2017 11:54 AM. TECHNIQUE: Routine helical CT imaging was performed through the abdomen and pelvis. IV contrast: OPTI 320 100 mL. Enteric contrast: No. Reconstructions: Coronal and sagittal. In accordance with CT protocol optimization, one or more of the following dose reduction techniques were utilized for this exam: automated exposure control, adjustment of mA and/or KV based on patient size, or use of iterative reconstructive technique. FINDINGS: Lung Bases: Minimal bibasilar scarring/atelectasis. Heart size is normal. Small hiatal hernia. Liver: 3 mL low attenuation lesion in the posterior medial right lobe of the liver, unchanged. Patent portal vein. Gallbladder/Bile Ducts: Mild gallbladder wall enhancement, unchanged. No biliary ductal dilatation. No pericholecystic edema. Spleen: Normal. Pancreas: Normal. Adrenal Glands: Normal. Kidneys: Normal. No masses or hydronephrosis. Peritoneal Cavity/Bowel: Stomach is nondistended. No small bowel obstruction or small bowel wall thickening. No intra-abdominal fluid collections. Small to moderate volume of stool in the colon. No diverticulitis. No enlarged retroperitoneal or mesenteric lymph nodes. No free air. The appendix, if present, is small and is present along the margins of the distal small bowel in the right lower quadrant except for the presumed distal aspect of which there is a focal area of low attenuation seen on axial image 73, series 3 measuring 1.5 x 0.9 cm which may represent either distal aspect of the appendix or small volume of fluid. The appendix is smaller in comparison to the prior studies and if present measures a maximal size of 7 mm. This is smaller compared to the CT scans. No significant adjacent inflammatory changes. Pelvic Organs: Urinary bladder is mildly distended and unremarkable. Prostate gland and seminal vesicles are unremarkable. No pelvic adenopathy. No pelvic free fluid. Vasculature: No aneurysms or other significant abnormality. Bones: No acute osseous abnormalities. Mild degenerative changes. Other: None. IMPRESSION: 1. Mildly prominent appendix measuring up to 7 mm although smaller compared to the prior studies. No significant surrounding inflammatory changes are identified on the current study. Adjacent to the expected position of the distal aspect of the appendix is a low-density area measuring 1.5 x 0.9 cm which may represent a small volume of residual fluid adjacent and amongst clustered right lower quadrant bowel loops. No surrounding inflammatory changes are identified. 2. No nephrolithiasis. No hydronephrosis. No CT evidence of pyelonephritis. 3. No diverticulitis. No bowel obstruction. RADIA The call report notification system was initiated by Dr. Tan Lau at 08:09 AM on 11/05/2018. The above call report findings were discussed with Chito Cunningham by Dr. Tan Lau at 08:24 AM on 11/05/2018.
[2018-11-05 09:04] VITALS: BP 120/74
== END 2018-11-05 09:04 | disposition home or self-care (01) ==
LOC: EDUNIT# → ED 06:22
DX: R10.31 Right lower quadrant pain (principal); M54.5 Low back pain; G71.00 Muscular dystrophy, unspecified
CPT/HCPCS: 36415; 74177; 80053; 81003; 83690; 85025; 99283; J7120; Q9967; 81001; 87086

== ENCOUNTER 2019-06-23 19:49 | Outpatient (CLI) | payer MEDICAID | END 2019-06-23 19:50 | disposition critical access hospital (66) | LOC: EMS 19:49 | PROVIDERS: ATTEND Surgery | DX: R10.33 Periumbilical pain (principal); R11.10 Vomiting, unspecified | CPT/HCPCS: A0425; A0427; A0999 ==

== ENCOUNTER 2019-06-23 20:23 | Emergency (ER) | payer MEDICAID ==
[2019-06-23] MEDS ORDERED: SODIUM CHLORIDE 0.9% 1,000 ML IV ONE (20:31)
--- NOTE | 2019-06-23 20:35 | ED Physician Documentation ---
PD HPI ABD PAIN - Stated complaint Stated Complaint: N/V/D - History obtained from History obtained from: Patient (limited due to DD), Family - History of Present Illness Timing - onset: How many days ago (3) Timing - duration: Days (3) Timing - details: Waxing and waning Location: All over / everywhere Improved by: Other (nothing) Worsened by: Other (no apparent exacerbating factors) Associated symptoms: Vomiting, Diarrhea Recently seen: Not recently seen - Additional information Additional information: BIBA. Limited HPI / ROS due to DD. abdominal pain x 3 days. diarrhea on days 1 and 2 but no BM all day today. Vomiting x 3 days. family gave patient a dose of PRN oxycodone (brought rx to ED and it 02/22/19; per family's description, I believe this was written for post- appendectomy pain control). patient reportedly had no relief of symptoms after oxycodone. family says patient has h/o bowel obstructions. Review of Systems Unable to obtain: Other (limited due to DD (repeatedly saying he doesn't want ID bracelet because it itches; repeatedly asks me to spell my name for him).) GI: reports: Abdominal Pain, Vomiting, Diarrhea PD PAST MEDICAL HISTORY - Past Medical History Cardiovascular: None Respiratory: Asthma Endocrine/Autoimmune: None GI: GERD, Other : None HEENT: None Psych: None Musculoskeletal: Other Derm: None - Past Surgical History Past Surgical History: Yes General: Appendectomy HEENT: Cataracts - Present Medications Home Medications: Ambulatory Orders Medication Instructions Recorded Confirmed Albuterol [Ventolin Hfa] 2 puffs INH Q4H PRN 08/09/13 11/05/18 Omeprazole [PriLOSEC] 20 mg PO BID 08/09/13 11/05/18 oxyCODONE ER [OxyCONTIN] 5 mg PO Q12H PRN 11/05/18 11/05/18 - Allergies Allergies/Adverse Reactions: Allergies Allergy/AdvReac Type Severity Reaction Status Date / Time promethazine HCl * AdvReac Unknown Anxiety Verified 02/21/18 00:44 [From Phenergan] Sulfa (Sulfonamide AdvReac Unknown Rash Verified 02/21/18 00:44 Antibiotics) - Social History Does the pt smoke?: No Smoking Status: Never smoker Does the pt drink ETOH?: No Does the pt have substance abuse?: No - Immunizations Immunizations are current?: Yes - POLST Patient has POLST: No PD ED PE NORMAL - Vitals Vital signs reviewed: Yes - General General: No acute distress, Well developed/nourished, Other (awake, alert, animated, loudly repeating that he does not want ID bracelet put on him because it itches ) - HEENT HEENT: Moist mucous membranes - Neck Neck: Supple, no meningeal sign - Cardiac Cardiac: RRR, No murmur - Respiratory Respiratory: No respiratory distress, Clear bilaterally - Abdomen Abdomen: Normal bowel sounds, Soft, Non distended, Other (epigastric and periumbilical tenderness, LLQ tenderness; there is a strong distractable component (stops reacting to palpation when palpation is accompanied by questions about PMH, HPI)) - Back Back: No CVA TTP - Derm Derm: Normal color, Warm and dry Results - Vitals Vitals: Vital Signs - 24 hr 06/23/19 06/23/19 06/24/19 20:25 22:36 00:00 Temperature 37.4 C Heart Rate 90 73 81 Respiratory 18 18 18 Rate Blood Pressure 133/83 H 125/67 126/81 H O2 Saturation 97 98 98 06/24/19 01:34 Temperature Heart Rate 83 Respiratory 18 Rate Blood Pressure 126/72 O2 Saturation 99 Oxygen O2 Source Room air - Labs Labs: Laboratory Tests 06/23/19 06/23/19 06/23/19 20:40 20:40 21:15 WBC 5.4 RBC 5.69 Hgb 15.7 Hct 48.7 MCV 85.6 MCH 27.6 MCHC 32.2 RDW 14.5 Plt Count 250 MPV 11.3 Neut # (Auto) 3.6 Lymph # (Auto) 1.1 L [place] # (Auto) 0.7 Eos # (Auto) 0.1 Baso # (Auto) 0.0 Absolute Nucleated RBC 0.00 Nucleated RBC % 0.0 Sodium 143 Potassium 3.6 Chloride 104 Carbon Dioxide 26 Anion Gap 13.0 BUN 19 Creatinine 0.9 Estimated GFR (MDRD) 98 Glucose 107 H Calcium 9.0 Total Bilirubin 0.9 AST 17 ALT 18 Alkaline Phosphatase 85 Total Protein 7.0 Albumin 3.8 Globulin 3.2 Albumin/Globulin Ratio 1.2 Lipase 22 Urine Color YELLOW Urine Clarity CLEAR Urine pH 5.5 Ur Specific [place] 1.020 Urine Protein NEGATIVE Urine Glucose (UA) NEGATIVE Urine Ketones 15 H Urine Occult Blood NEGATIVE Urine Nitrite NEGATIVE Urine Bilirubin MODERATE H Urine Urobilinogen 0.2 (NORMAL) Ur Leukocyte Esterase NEGATIVE Ur Microscopic Review NOT INDICATED Urine Culture Comments NOT INDICATED - Rads (name of study) CT A/P Radiology: Prelim report reviewed, See rad report PD MEDICAL DECISION MAKING - ED course Complexity details: reviewed old records, reviewed results, re-evaluated patient, considered differential, d/w patient, d/w family ED course: Appears well on reevaluation, sleeping but easily awoken. He reports resolution of pain, has not vomited during ED stay, tolerated both the PO contrast as well as juice, and is passing gas. Labs are reassuring. I discussed the case, including CT findings, with on-call surgery (Dr. Loo); as patient has had this before and has had resolution of SBO without surgical intervention (I confirmed this with patient's mother), and patient is feeling well, tolerating PO, and passing gas, can d/c with return if worse, f/u w/ his PMD (or GI or surgeon). Patient and mother are comfortable with this plan Departure - Departure Disposition: 01 Home, Self Care Clinical Impression: Intestinal obstruction Condition: Good Instructions: ED Abdominal Pain Unkn Cause Discharge Date/Time: 06/24/19 02:05
[2019-06-23] MEDS ORDERED: IOVERSOL 320 100 ML VIAL IVP ONE ×2 (20:41→22:41)
[2019-06-23] MEDS ORDERED: IOVERSOL 320 50 ML VIAL ONE (20:41)
[2019-06-23 20:44] LABS: BASOPHILS % (AUTO) 0.4 %; EOSINOPHILS # (AUTO) 0.1 10^3/uL (0.0-0.7); EOSINOPHILS % (AUTO) 1.1 %; HGB - HEMOGLOBIN 15.7 g/dL (14.0-18.0); LYMPHOCYTES # (AUTO) 1.1 10^3/uL (1.5-3.5); LYMPHOCYTES % (AUTO) 19.7 %; MEAN CORPUSCULAR HEMOGLOBIN 27.6 pg (27.0-31.0); MEAN CORPUSCULAR HGB CONC 32.2 g/dL (32.0-36.0); MEAN CORPUSCULAR VOLUME 85.6 fL (80.0-94.0); MEAN PLATELET VOLUME 11.3 fL (7.4-11.4); MONOCYTES # (AUTO) 0.7 10^3/uL (0.0-1.0); MONOCYTES % (AUTO) 13.3 %; NEUTROPHILS # (AUTO) 3.6 10^3/uL (1.5-6.6); NEUTROPHILS % (AUTO) 65.3 %; PLT - PLATELET COUNT 250 10^3/uL (130-450); RED BLOOD COUNT 5.69 10^6/uL (4.70-6.10); RED CELL DISTRIBUTION WIDTH 14.5 % (12.0-15.0); WHITE BLOOD COUNT 5.4 x10^3/uL (4.8-10.8)
[2019-06-23] MEDS ORDERED: KETOROLAC 30 MG/ML VIAL IVP STA (20:46)
[2019-06-23 20:58] LABS: ALBUMIN 3.8 g/dL (3.2-5.5); ALBUMIN/GLOBULIN RATIO 1.2 (1.0-2.2); BILIRUBIN,TOTAL 0.9 mg/dL (0.2-1.0); CREATININE 0.9 mg/dL (0.6-1.2)
[2019-06-23 21:35] LABS: GLUCOSE, URINE (UA) NEGATIVE (NEGATIVE); KETONES,URINE (UA) 15 mg/dL (NEGATIVE); LEUKOCYTE ESTERASE, URINE NEGATIVE (NEGATIVE); NITRITE,URINE NEGATIVE (NEGATIVE); OCCULT BLOOD,URINE NEGATIVE (NEGATIVE); PH,URINE 5.5 PH (5.0-7.5); PROTEIN,URINE NEGATIVE (NEGATIVE); UROBILINOGEN,URINE 0.2 (NORMAL) E.U./dL (NORMAL)
[2019-06-23 21:42] LABS: BILIRUBIN,URINE MODERATE (NEGATIVE); CLARITY,URINE CLEAR (CLEAR); ICTOTEST,URINE POSITIVE
[2019-06-23] MEDS ORDERED: IOVERSOL 320 50 ML VIAL PO ONE (22:35)
--- NOTE | 2019-06-23 23:00 | CT Report ---
Reason: abd. pain Procedure Date: 06/23/2019 Accession Number: [id number] / [id number] Procedure: CT - Abdomen/Pelvis W CPT Code: Final Report FULL RESULT: EXAM: CT ABDOMEN AND PELVIS EXAM DATE: 06/23/2019 10:38 PM. CLINICAL HISTORY: Abd. pain. COMPARISONS: ABDOMEN/PELVIS W/ 11/05/2018 7:43 AM ABDOMEN/PELVIS W02/21/2018 1:47 AM ABDOMEN/PELVIS W12/12/2017 11:54 AM. TECHNIQUE: Routine helical CT imaging was performed through the abdomen and pelvis. IV contrast: OPTI 320 100ML. Enteric contrast: Yes. Reconstructions: Coronal and sagittal. In accordance with CT protocol optimization, one or more of the following dose reduction techniques were utilized for this exam: automated exposure control, adjustment of mA and/or KV based on patient size, or use of iterative reconstructive technique. FINDINGS: Lung Bases: Unremarkable. Liver: Normal. No masses. Gallbladder/Bile Ducts: Unremarkable. Spleen: Normal. Pancreas: Normal. Adrenal Glands: Normal. Kidneys: Normal. No masses or hydronephrosis. Peritoneal Cavity/Bowel: Small bowel dilatation, extending to the terminal ileum, where there is an abrupt caliber change and abnormal enhancement of the wall of the terminal ileum, suggestive of Crohn's disease. Pelvic Organs: Normal. The bladder and visualized pelvic organs are within normal limits. Vasculature: No aneurysms or other significant abnormality. Bones: No significant abnormality. Other: None. IMPRESSION: Small bowel dilatation, terminating at the terminal ileum, where there is a thickened, nondilated, enhancing segment of the ileum, suggestive of Crohn's disease. No perforation. RADIA
[2019-06-24 01:36] VITALS: BP 126/72
== END 2019-06-24 02:05 | disposition home or self-care (01) ==
LOC: EDUNIT# → ED 20:23
DX: K56.609 Unspecified intestinal obstruction, unspecified as to partial versus complete obstruction (principal)
CPT/HCPCS: 36415; 74177; 80053; 81003; 83690; 85025; 96361; 96374; 99283; 99284; Q9967; 81001; 87086

== ENCOUNTER 2019-08-20 02:09 | Outpatient (CLI) | payer MEDICAID | END 2019-08-20 02:10 | disposition critical access hospital (66) | LOC: EMS 02:09 | PROVIDERS: ATTEND Surgery | DX: M54.5 Low back pain (principal) | CPT/HCPCS: A0425; A0429 ==

== ENCOUNTER 2019-08-20 02:44 | Emergency (ER) | payer MEDICAID ==
--- NOTE | 2019-08-20 03:16 | ED Physician Documentation ---
PD HPI BACK PAIN - Stated complaint Stated Complaint: LOW BACK PAIN - Chief complaint Chief Complaint: Back Pain - History obtained from History obtained from: Patient, Family - History of Present Illness Timing - onset: Enter time (11PM), Today Timing - duration: Hours Timing - details: Gradual onset Location: Mid, Lower Quality: Pain, Similar to prior episodes Associated symptoms: No: Fever, Weakness Similar symptoms before: Diagnosis (chronic back pain, per mother (in ED at bedside)) Recently seen: Not recently seen - Additional information Additional information: unable to obtain HPI/ROS from patient due to baseline mental status and communication problems. mother says he has had gradually increasing midline low back pain since 11PM. she indicates he has chronic back pain. he says she gave him a dose of oxycontin (per mother), but he vomited it back up. Review of Systems Constitutional: denies: Fever Cardiac: reports: Reviewed and negative Respiratory: reports: Reviewed and negative GI: reports: Reviewed and negative : denies: Dysuria, Frequency, Hematuria Musculoskeletal: reports: Back pain Neurologic: denies: Generalized weakness, Focal weakness, Numbness PD PAST MEDICAL HISTORY - Past Medical History Cardiovascular: None Respiratory: Asthma Neuro: None Endocrine/Autoimmune: None GI: GERD, Other : None HEENT: None Psych: None Musculoskeletal: Other Derm: None Other Past Medical History: myotonic dystrophy - Past Surgical History Past Surgical History: Yes General: Appendectomy HEENT: Cataracts - Present Medications Home Medications: Ambulatory Orders Medication Instructions Recorded Confirmed Albuterol [Ventolin Hfa] 2 puffs INH Q4H PRN 08/09/13 11/05/18 Omeprazole [PriLOSEC] 20 mg PO BID 08/09/13 11/05/18 oxyCODONE ER [OxyCONTIN] 5 mg PO Q12H PRN 11/05/18 11/05/18 Cyclobenzaprine [Flexeril] 10 mg PO TID PRN #20 tablet 08/20/19 - Allergies Allergies/Adverse Reactions: Allergies Allergy/AdvReac Type Severity Reaction Status Date / Time promethazine HCl * AdvReac Unknown Anxiety Verified 02/21/18 00:44 [From Phenergan] Sulfa (Sulfonamide AdvReac Unknown Rash Verified 02/21/18 00:44 Antibiotics) - Social History Does the pt smoke?: No Smoking Status: Never smoker Does the pt drink ETOH?: No Does the pt have substance abuse?: No - Immunizations Immunizations are current?: Yes - POLST Patient has POLST: No PD ED PE NORMAL - Vitals Vital signs reviewed: Yes - General General: Well developed/nourished, Other (awake, alert, answers few questions with one-word answers; crying out in pain episodically) - HEENT HEENT: Moist mucous membranes - Cardiac Cardiac: RRR, No murmur - Respiratory Respiratory: No respiratory distress, Clear bilaterally - Abdomen Abdomen: Normal bowel sounds, Soft, Non tender - Back Back: No CVA TTP - Derm Derm: No rash Results - Vitals Vitals: Oxygen O2 Source Room air PD MEDICAL DECISION MAKING - ED course Complexity details: reviewed old records, reviewed results, re-evaluated patient, considered differential, d/w patient, d/w family ED course: excellent relief with toradol and dilaudid. on reevaluation, he is awake, alert, doing a word-search in NAD Departure - Departure Disposition: 01 Home, Self Care Clinical Impression: Back pain Condition: Good Instructions: ED Neck Back Pain General Prescriptions: Cyclobenzaprine [Flexeril] 10 mg PO TID PRN #20 tablet PRN Reason: Spasms Discharge Date/Time: 08/20/19 06:31
[2019-08-20] MEDS ORDERED: KETOROLAC 60 MG/2 ML VIAL IM STA (03:22)
[2019-08-20] MEDS ORDERED: HYDROmorphone 2 MG/ML VIAL IM STA (03:22)
--- NOTE | 2019-08-20 04:01 | XRAY Report ---
Reason: low back pain Procedure Date: 08/20/2019 Accession Number: [id number] / [id number] Procedure: XR - Lumbar Spine 2 View CPT Code: Final Report FULL RESULT: EXAM: LUMBOSACRAL SPINE RADIOGRAPHY EXAM DATE: 08/20/2019 03:52 AM. CLINICAL HISTORY: Low back pain. COMPARISONS: None. TECHNIQUE: 2 views. FINDINGS: Alignment: Normal. No spondylolisthesis or scoliosis. Bones: Five [id number] lumbar vertebral bodies are present. No fractures or bone lesions. Disks: Normal. Disk heights are maintained. Facets: No degenerative changes. Sacroiliac Joints: Unremarkable. Soft Tissues: Normal. The visualized bowel gas pattern is normal. IMPRESSION: Normal lumbar spine radiography. RADIA
[2019-08-20 06:30] VITALS: BP 138/79
== END 2019-08-20 06:31 | disposition home or self-care (01) ==
LOC: EDUNIT# → ED 02:44
DX: M54.5 Low back pain (principal); G89.29 Other chronic pain
CPT/HCPCS: 72100; 96372; 99284; J1170

== ENCOUNTER 2020-06-10 15:48 | Emergency (ER) | payer MEDICAID ==
[2020-06-10] MEDS ORDERED: SODIUM CHLORIDE 0.9% 1,000 ML IV STA (16:46)
[2020-06-10] MEDS ORDERED: ONDANSETRON 4 MG/2 ML VIAL IVP STA (16:46)
[2020-06-10] MEDS ORDERED: MORPHINE 2 MG/ML CARPUJECT IVP STA (16:46)
--- NOTE | 2020-06-10 16:50 | ED Physician Documentation ---
PD HPI ABD PAIN - Stated complaint Stated Complaint: FLU SYMPTOMS - Chief complaint Chief Complaint: Abd Pain - History obtained from History obtained from: Patient, Family (dad) - History of Present Illness Timing - onset: Today (35-year-old gentleman with history of muscular dystrophy started vomiting today and then while vomiting developed some high upper mid back pain and some chest pain. In contrast the nurses notes he denies abdominal pain to me. No diarrhea. No sick contacts. No fever.) Review of Systems Constitutional: denies: Fever, Chills Cardiac: reports: Chest pain / pressure. denies: Palpitations, Pedal edema, Calf pain Respiratory: reports: Cough. denies: Dyspnea GI: reports: Nausea, Vomiting. denies: Abdominal Pain, Diarrhea PD PAST MEDICAL HISTORY - Past Medical History Past Medical History: Yes Cardiovascular: None Respiratory: Asthma Neuro: None Endocrine/Autoimmune: None GI: GERD, Other : None HEENT: None Psych: None Musculoskeletal: Other Derm: None Other Past Medical History: MD - Past Surgical History Past Surgical History: Yes General: Appendectomy HEENT: Cataracts - Present Medications Home Medications: Ambulatory Orders Medication Instructions Recorded Confirmed Albuterol [Ventolin Hfa] 2 puffs INH Q4H PRN 08/09/13 06/10/20 Omeprazole [PriLOSEC] 40 mg PO DAILY 08/09/13 06/10/20 oxyCODONE ER [OxyCONTIN] 5 mg PO Q12H PRN 11/05/18 06/10/20 Ibuprofen [Motrin] 800 mg PO Q8H PRN #10 tablet 06/10/20 Ondansetron Odt [Zofran] 4 mg TL Q6H PRN #10 tablet 06/10/20 - Allergies Allergies/Adverse Reactions: Allergies Allergy/AdvReac Type Severity Reaction Status Date / Time promethazine HCl * AdvReac Unknown Anxiety Verified 06/10/20 15:59 [From Phenergan] Sulfa (Sulfonamide AdvReac Unknown Rash Verified 06/10/20 15:59 Antibiotics) - Social History Does the pt smoke?: No Smoking Status: Never smoker Does the pt drink ETOH?: No Does the pt have substance abuse?: No - Immunizations Immunizations are current?: Yes - POLST Patient has POLST: No PD ED PE NORMAL - Vitals Vital signs reviewed: Yes - General General: No acute distress, Well developed/nourished - HEENT HEENT: PERRL, EOMI - Neck Neck: Supple, no meningeal sign, No bony TTP - Cardiac Cardiac: RRR, No murmur - Respiratory Respiratory: No respiratory distress, Clear bilaterally - Abdomen Abdomen: Non tender - Back Back: No spinal TTP, Other (Muscular tenderness of the upper thoracic musc ulature on either side without midline spinal tenderness) - Derm Derm: Normal color, Warm and dry - Neuro Neuro: Alert and oriented X 3 - Psych Psych: Normal mood, Normal affect Results - Vitals Vitals: Vital Signs - 24 hr 06/10/20 06/10/20 06/10/20 15:55 17:01 17:53 Temperature 36.8 C 37.3 C 37 C Heart Rate 100 94 84 Respiratory 14 18 16 Rate Blood Pressure 132/88 H 124/77 115/69 O2 Saturation 96 95 94 06/10/20 18:25 Temperature 36.8 C Heart Rate 93 Respiratory 20 Rate Blood Pressure 102/68 O2 Saturation 98 Oxygen O2 Source Room air - Labs Labs: Laboratory Tests 06/10/20 06/10/20 17:00 17:00 WBC 8.3 RBC 5.99 Hgb 15.6 Hct 50.0 MCV 83.5 MCH 26.0 L MCHC 31.2 L RDW 15.7 H Plt Count 237 MPV 11.9 H Neut # (Auto) 6.7 H Lymph # (Auto) 0.8 L [place] # (Auto) 0.8 Eos # (Auto) 0.1 Baso # (Auto) 0.0 Absolute Nucleated RBC 0.00 Nucleated RBC % 0.0 Sodium 142 Potassium 3.9 Chloride 106 Carbon Dioxide 27 Anion Gap 9.0 BUN 16 Creatinine 0.7 Estimated GFR (MDRD) 130 Glucose 106 H Calcium 9.4 Total Bilirubin 0.7 AST 28 ALT 26 Alkaline Phosphatase 132 H Total Protein 8.0 Albumin 4.4 Globulin 3.6 Albumin/Globulin Ratio 1.2 Lipase 22 PD MEDICAL DECISION MAKING - ED course ED course: 35-year-old gentleman with now upper back pain and chest pain after vomiting. Suspect it is muscular from the vomiting but differential would also include Boerhaave syndrome. We will check a chest x-ray do some labs and treat him symptomatically. This 35-year-old gentleman with muscular dystrophy developed what seems like uncomplicated muscular pain of the chest and back while vomiting. His symptoms were relatively easy to control here with 2 mg of morphine and a dose of Zofran. He felt better after that. Chest x-ray, 2 views interpreted contemporaneously by me were negative. Departure - Departure Disposition: 01 Home, Self Care Clinical Impression: Vomiting, Back pain Condition: Good Record reviewed to determine appropriate education?: Yes Instructions: ED Nausea Vomiting Prescriptions: Ibuprofen [Motrin] 800 mg PO Q8H PRN #10 tablet PRN Reason: PAIN &/OR FEVER Ondansetron Odt [Zofran] 4 mg TL Q6H PRN #10 tablet PRN Reason: Nausea / Vomiting Comments: You have a Covid test pending. You need to self quarantine until the result is done and negative. Do not leave your house. Do not get near anybody. The results should be done in 48 to 72 hours. We will call with a positive result, the fastest way to get a negative result for confirmation though is to go to the hospital website at [email or web address], click on the my [facility] [employer] tab and sign up for the patient portal. If any friends or family get sick and would like to have a Covid test done, but do not have signs or symptoms that would necessitate being hospitalized, we encourage testing through our coronavirus swabbing station, call [phone] to schedule an appointment. Return in 24 hours if not improved, anytime if worsening. Discharge Date/Time: 06/10/20 18:42
[2020-06-10 17:15] LABS: BASOPHILS % (AUTO) 0.2 %; EOSINOPHILS # (AUTO) 0.1 10^3/uL (0.0-0.7); EOSINOPHILS % (AUTO) 0.7 %; HGB - HEMOGLOBIN 15.6 g/dL (14.0-18.0); LYMPHOCYTES # (AUTO) 0.8 10^3/uL (1.5-3.5); LYMPHOCYTES % (AUTO) 9.7 %; MEAN CORPUSCULAR HGB CONC 31.2 g/dL (32.0-36.0); MEAN CORPUSCULAR VOLUME 83.5 fL (80.0-94.0); MEAN PLATELET VOLUME 11.9 fL (7.4-11.4); MONOCYTES # (AUTO) 0.8 10^3/uL (0.0-1.0); MONOCYTES % (AUTO) 9.1 %; NEUTROPHILS # (AUTO) 6.7 10^3/uL (1.5-6.6); NEUTROPHILS % (AUTO) 80.1 %; PLT - PLATELET COUNT 237 10^3/uL (130-450); RED BLOOD COUNT 5.99 10^6/uL (4.70-6.10); RED CELL DISTRIBUTION WIDTH 15.7 % (12.0-15.0); WHITE BLOOD COUNT 8.3 x10^3/uL (4.8-10.8)
[2020-06-10 17:28] LABS: ALBUMIN 4.4 g/dL (3.2-5.5); ALBUMIN/GLOBULIN RATIO 1.2 (1.0-2.2); BILIRUBIN,TOTAL 0.7 mg/dL (0.2-1.0); CALCIUM 9.4 mg/dL (8.5-10.3); CREATININE 0.7 mg/dL (0.6-1.2)
--- NOTE | 2020-06-10 17:34 | XRAY Report ---
PROCEDURE: Chest 2 View X-Ray INDICATIONS: back pain/vomiting TECHNIQUE: 2 view(s) of the chest. COMPARISON: None. FINDINGS: Surgical changes and devices: None. Lungs and pleura: No pleural effusions or pneumothorax. Lungs are clear. Mediastinum: Mediastinal contours are normal. Heart size is normal. Bones and chest wall: No suspicious bony abnormalities. Soft tissues appear unremarkable. IMPRESSION: No acute cardiopulmonary pathology. Reviewed by: Enrique Nelson MD on 06/10/2020 4:32 PM [facility] Approved by: Enrique Nelson MD on 06/10/2020 4:32 PM [facility] Station ID: [id number]
[2020-06-10 18:26] VITALS: BP 102/68
== END 2020-06-10 18:42 | disposition home or self-care (01) ==
LOC: ED 15:48
DX: R11.2 Nausea with vomiting, unspecified (principal); M54.6 Pain in thoracic spine; R07.9 Chest pain, unspecified; G71.00 Muscular dystrophy, unspecified; Z20.828 Contact with and (suspected) exposure to other viral communicable diseases
CPT/HCPCS: 36415; 80053; 83690; 85025; 96374; 99283

== ENCOUNTER 2020-06-12 04:55 | Observation (INO) | payer MEDICAID ==
--- NOTE | 2020-06-12 05:13 | ED Physician Documentation ---
PD HPI ABD PAIN - Stated complaint Stated Complaint: ABD PX - History obtained from History obtained from: Patient, Family (mother) - History of Present Illness Timing - onset: Enter time (2199), Last night Timing - duration: Hours Timing - details: Abrupt onset, Still present Quality: Sharp, Pain Location: Periumbilical Improved by: Laying still Worsened by: Moving, Breathing, Position, Palpation Associated symptoms: Nausea, Vomiting. No: Fever, Diarrhea, Constipation Similar symptoms before: Diagnosis (appendicitis) Recently seen: Emergency Dept - Additional information Additional information: 35-year-old male with a history of muscular dystrophy has developed vomiting yesterday and ended up with some back pain was seen in the emergency department. Today he has abdominal pain in the periumbilical area that is severe he has been whining and crying since about 10 PM last night. His mother states that he was feeling well all day long and then about 10 PM began to have pain he vomited 3 times and pain has progressed and persisted. She indicates that this was similar to what happened to him when he had appendicitis and at that time he had an attempt at treatment with antibiotic which failed and he required a drainage tube. They were reluctant to operate on him at [facility] secondary to some difficulty with breathing. Review of Systems Constitutional: denies: Fever Eyes: denies: Decreased vision Ears: denies: Ear pain Nose: denies: Congestion Throat: denies: Sore throat Cardiac: denies: Chest pain / pressure, Palpitations Respiratory: denies: Dyspnea, Cough GI: reports: Abdominal Pain, Nausea, Vomiting : denies: Dysuria, Frequency PD PAST MEDICAL HISTORY - Past Medical History Cardiovascular: None Respiratory: Asthma Neuro: None Endocrine/Autoimmune: None GI: GERD, Other : None HEENT: None Psych: None Musculoskeletal: Other Derm: None - Past Surgical History Past Surgical History: Yes General: Appendectomy HEENT: Cataracts - Present Medications Home Medications: Ambulatory Orders Medication Instructions Recorded Confirmed Albuterol [Ventolin Hfa] 2 puffs INH Q4H PRN 08/09/13 06/12/20 Omeprazole [PriLOSEC] 40 mg PO DAILY 08/09/13 06/12/20 oxyCODONE ER [OxyCONTIN] 5 mg PO Q12H PRN 11/05/18 06/12/20 Ibuprofen [Motrin] 800 mg PO Q8H PRN #10 tablet 06/10/20 06/12/20 Ondansetron Odt [Zofran] 4 mg TL Q6H PRN #10 tablet 06/10/20 06/12/20 - Allergies Allergies/Adverse Reactions: Allergies Allergy/AdvReac Type Severity Reaction Status Date / Time promethazine HCl * AdvReac Unknown Anxiety Verified 06/12/20 05:11 [From Phenergan] Sulfa (Sulfonamide AdvReac Unknown Rash Verified 06/12/20 05:11 Antibiotics) - Social History Does the pt smoke?: No Smoking Status: Never smoker Does the pt drink ETOH?: No Does the pt have substance abuse?: No - Immunizations Immunizations are current?: Yes - POLST Patient has POLST: No PD ED PE NORMAL - Vitals Vital signs reviewed: Yes - General General: Alert and oriented X 3, Well developed/nourished, Other (a whine is heard with breathing) - HEENT HEENT: Atraumatic, PERRL, EOMI - Cardiac Cardiac: RRR, No murmur - Respiratory Respiratory: No respiratory distress, Clear bilaterally - Abdomen Abdomen: Soft, Non distended, No organomegaly, Other (There are diminished bowel sounds and specific tenderness to the librado-umbilical area with some garding. ) - Back Back: No CVA TTP, No spinal TTP - Derm Derm: Normal color, Warm and dry, No rash - Extremities Extremities: No deformity, No edema - Neuro Neuro: Alert and oriented X 3, hot patcher 2-12 intact, Other (speech is dysarthric at baseline) Motor: Obeys Commands Verbal: Oriented Results - Vitals Vitals: Vital Signs - 24 hr 06/12/20 06/12/20 06/12/20 05:00 05:45 06:04 Temperature 36.8 C Heart Rate 84 80 91 Respiratory 17 17 16 Rate Blood Pressure 131/73 H 134/87 H 150/83 H O2 Saturation 99 92 91 L Oxygen O2 Source Oxymask - Labs Labs: Laboratory Tests 06/12/20 06/12/20 05:18 05:18 WBC 6.6 RBC 5.48 Hgb 14.4 Hct 45.5 MCV 83.0 MCH 26.3 L MCHC 31.6 L RDW 15.3 H Plt Count 204 MPV 11.1 Neut # (Auto) 5.5 Lymph # (Auto) 0.4 L [place] # (Auto) 0.6 Eos # (Auto) 0.1 Baso # (Auto) 0.0 Absolute Nucleated RBC 0.00 Nucleated RBC % 0.0 Sodium 142 Potassium 3.7 Chloride 106 Carbon Dioxide 24 Anion Gap 12.0 BUN 9 Creatinine 0.7 Estimated GFR (MDRD) 130 Glucose 126 H Calcium 9.0 Total Bilirubin 1.3 H AST 18 ALT 21 Alkaline Phosphatase 108 Total Protein 6.9 Albumin 3.7 Globulin 3.2 Albumin/Globulin Ratio 1.2 Lipase 16 L - Rads (name of study) CT ab/pel with Radiology: Prelim report reviewed (Impression: 1. Mechanical small bowel obstruction. No perforation identified. Severity is similar to previous CT scan. 2 Nonobstructing polyp in the proximal jejunum unchanged. 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 He is subsequently administered Dilaudid 1 mg intravenously with good relief and some apnea. The patient has had small bowel obstruction previously even prior to his appendectomy and this was eventually thought to be secondary to his myotonic dystrophy.He is administered maintenance IV fluids and the surgeon, Dr. Cerda is consulted in the case and recommends admission to medicine and he will consult between cases today. Dr. Keenan is consulted in the case and will admit to observation. The patient has previously cleared this in a short period of time. Departure - Departure Disposition: ED Place in Observation Clinical Impression: Small bowel obstruction Condition: Stable
[2020-06-12] MEDS ORDERED: MORPHINE 2 MG/ML CARPUJECT IVP STA (05:14)
[2020-06-12] MEDS ORDERED: ONDANSETRON 4 MG/2 ML VIAL IVP STA (05:15)
[2020-06-12] MEDS ORDERED: IOVERSOL 320 100 ML VIAL IVP ONE (05:23)
[2020-06-12 05:27] LABS: BASOPHILS % (AUTO) 0.3 %; EOSINOPHILS # (AUTO) 0.1 10^3/uL (0.0-0.7); EOSINOPHILS % (AUTO) 0.9 %; HGB - HEMOGLOBIN 14.4 g/dL (14.0-18.0); LYMPHOCYTES # (AUTO) 0.4 10^3/uL (1.5-3.5); LYMPHOCYTES % (AUTO) 6.2 %; MEAN CORPUSCULAR HEMOGLOBIN 26.3 pg (27.0-31.0); MEAN CORPUSCULAR HGB CONC 31.6 g/dL (32.0-36.0); MEAN PLATELET VOLUME 11.1 fL (7.4-11.4); MONOCYTES # (AUTO) 0.6 10^3/uL (0.0-1.0); MONOCYTES % (AUTO) 9.7 %; NEUTROPHILS # (AUTO) 5.5 10^3/uL (1.5-6.6); NEUTROPHILS % (AUTO) 82.6 %; PLT - PLATELET COUNT 204 10^3/uL (130-450); RED BLOOD COUNT 5.48 10^6/uL (4.70-6.10); RED CELL DISTRIBUTION WIDTH 15.3 % (12.0-15.0); WHITE BLOOD COUNT 6.6 x10^3/uL (4.8-10.8)
[2020-06-12] MEDS ORDERED: HYDROmorphone 1 MG/ML CARPUJECT IVP STA (05:32)
[2020-06-12 05:40] LABS: ALBUMIN 3.7 g/dL (3.2-5.5); ALBUMIN/GLOBULIN RATIO 1.2 (1.0-2.2); BILIRUBIN,TOTAL 1.3 mg/dL (0.2-1.0); CREATININE 0.7 mg/dL (0.6-1.2); TOTAL PROTEIN 6.9 g/dL (6.7-8.2)
[2020-06-12] MEDS ORDERED: SODIUM CHLORIDE 0.9% 1,000 ML IV STA (06:41)
[2020-06-12] MEDS ORDERED: ONDANSETRON 4 MG/2 ML VIAL IVP PRN (06:52)
[2020-06-12] MEDS ORDERED: SODIUM CHLORIDE FLUSH 0.9% 10 ML SYRINGE IVP PRN (06:52)
[2020-06-12] MEDS ORDERED: MORPHINE 2 MG/ML CARPUJECT IVP PRN (06:52)
[2020-06-12] MEDS: LACTATED RINGERS 1,000 ML IV SCH ×2 (08:11→18:55)
[2020-06-12] MEDS: SODIUM CHLORIDE FLUSH 0.9% 10 ML SYRINGE IVP SCH ×2 (08:15→18:49)
--- NOTE | 2020-06-12 08:16 | CT Report ---
PROCEDURE: Abdomen/Pelvis W INDICATIONS: periumbilical pain/tenderness CONTRAST: IV CONTRAST: Optiray 320 ml: 100 PO CONTRAST: *NO PO CONTRAST TECHNIQUE: After the administration of IV contrast, 5 mm thick sections acquired from the diaphragms to the symp hysis. 5 mm thick coronal and sagittal reformats were acquired. For radiation dose reduction, the f ollowing was used: automated exposure control, adjustment of mA and/or kV according to patient size. COMPARISON: CT abdomen pelvis dated 06/23/2019. FINDINGS: Image quality: Excellent. ABDOMEN: Lung bases: Question bilateral lower lobe ill-defined and patchy opacities. Heart size is normal. Solid organs: Liver and spleen are normal in size and enhancement. Gallbladder unremarkable Biliar y system is non dilated. Pancreas enhances normally. No adrenal nodules. Kidneys demonstrate alicia l size and enhancement, without hydronephrosis. Peritoneum and bowel: Small bowel obstruction is seen with dilated small bowel loops, scattered air-f luid levels. No definite mural thickening. Probable transition point seen in the mid ileum in the mid right abdomen, for example image 47/3 The colon appears relatively decompressed. Nodule within the jejunum is noted on image 49/3, present on the prior study and grossly unchanged. On image 49/3 this measures 2.6 x 1.4 cm. No free fluid or air. Normal appendix. Nodes and vessels: No retroperitoneal or mesenteric adenopathy by size criteria. Aorta and inferior vena cava are normal in size. Miscellaneous: No ventral hernias. PELVIS: Genitourinary: Bladder wall thickness is normal. Miscellaneous: No inguinal hernias or adenopathy. Bones: No suspicious bony lesions. No vertebral body compression fractures. IMPRESSION: Small bowel obstruction as detailed above, with severity similar to prior CT scan from 1 08/24/2018 Redemonstrated intraluminal polyp within the jejunum, grossly unchanged. Bibasilar patchy opacities in both lung bases posteriorly. Recommend clinical correlation to assess f or infection, aspiration and/or scarring/atelectasis. Findings are concordant with the preliminary study interpretation provided at the time of the study. Reviewed by: Chance Avelar MD on 06/12/2020 8:15 AM PST Approved by: Chance Avelar MD on 06/12/2020 8:15 AM PST Station ID: [id number]
[2020-06-12] MEDS ORDERED: ENOXAPARIN 40 MG/0.4 ML SYRINGE SUBQ SCH (09:00)
[2020-06-12 09:46] LABS: CLARITY,URINE CLEAR (CLEAR); GLUCOSE, URINE (UA) NEGATIVE (NEGATIVE); KETONES,URINE (UA) 15 mg/dL (NEGATIVE); LEUKOCYTE ESTERASE, URINE NEGATIVE (NEGATIVE); NITRITE,URINE NEGATIVE (NEGATIVE); OCCULT BLOOD,URINE NEGATIVE (NEGATIVE); PH,URINE 6.5 PH (5.0-7.5); PROTEIN,URINE NEGATIVE (NEGATIVE); UROBILINOGEN,URINE 1 (NORMAL) E.U./dL (NORMAL)
[2020-06-12 09:49] LABS: BILIRUBIN,URINE NEGATIVE (NEGATIVE); ICTOTEST,URINE NEGATIVE
[2020-06-12] MEDS: ACETAMINOPHEN 325 MG TABLET PO PRN ×2 (09:49→16:10)
--- NOTE | 2020-06-12 09:53 | HISTORY & PHYSICAL EXAMINATION ---
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 His abdominal pain started last night around 9 or 10pm after dinner. It is noted by both the patient and his mother that he has had abdominal pain many times in the past due to small bowel obstruction. He had a exploratory laparoscopy in 2011 that did not show any abnormality. Patient has oxycodone PRN at home for his abdominal pain. He reports taking 5mg of oxycodone last night but did not get any pain relief. It was decided he should go to the emergency room to be evaluated. Patient denies fever, chills, or changes in weight. He is not dyspneic and denies any respiratory symptoms. He does not have any chest pain. He admits to having severe abdominal pain last night but is now resolved after a dose of IV morphine. He received Zofran in the emergency room for nausea, which he also says has improved. His last bowel movement was last night and is passing gas. No melena, hematochezia, or hematuria. Denies urinary urgency, frequency, or dysuri a. His vitals in the emergency room was heart rate in the 80s, slightly hypertensive 150s/70s--most likely due to pain. Repeat blood pressure is normal. Saturating well on room air and is afebrile. His labs are within normal range. No leukocytosis. An abdominal/pelvis CT was done showing small bowel obstruction and dilated small bowel loops. Because of patient's severe abdominal pain, nausea/vomiting, and small bowel obstruction on CT, it was determined to admit him to observations. General surgery consulted and will assess patient. (Arabella Stockton) Attestation that the patient was seen and examined with a separate encounter after being seen by DNP student Arabella Stockton. I reviewed the student's documentation including patient history, physical examination, laboratory, imaging, clinical assessment and treatment plan. I have discussed the management of the patient with the student, with the patient, and with his mother. There are no changes. (Gila Chung) History - Past Medical History Cardiovascular: reports: None Respiratory: reports: Asthma Neuro: reports: None Endocrine/Autoimmune: reports: None GI: reports: GERD, Hiatal hernia, Other : reports: None HEENT: reports: None Psych: reports: None Musculoskeletal: reports: Other Derm: reports: None MRSA Hx?: No Other Past Medical History: Myotonic dystrophy, sleep apnea, ruptured appendix - Past Surgical History General: reports: Other HEENT: reports: Cataracts - Family & Social History Family History: Mother: Alive and Well, Father: Alive and Well, Brother: Alive and Well Family History Comment/Other: Non-contributory Living arrangement: Assisted living Living Situation: With family Social History Notes: Patient is a 35 year old male with myotonia dystrophy who lives with his parents and younger brother in [place]. He is on disability and does not work. He denies ever smoking, drinking, or other drug use. - Substance History Use: Uses substance without health or social issues: NONE - POLST Patient has POLST: No POLST Status: Full Code <Arabella Stockton - Last Filed: 06/12/20 10:02> Meds/Allgy <Arabella Stockton - Last Filed: 06/12/20 10:02> <Gila Chung - Last Filed: 06/12/20 17:41> - Home Medications Home Medications: Ambulatory Orders Medication Instructions Recorded Confirmed Albuterol [Ventolin Hfa] 2 puffs INH Q4H PRN 08/09/13 06/12/20 Omeprazole [PriLOSEC] 20 mg PO BID 08/09/13 06/12/20 Ibuprofen [Motrin] 800 mg PO Q8H PRN #10 tablet 06/10/20 06/12/20 Ondansetron Odt [Zofran Odt] 4 mg TL Q6H PRN #10 tablet 06/10/20 06/12/20 - Allergies Allergies/Adverse Reactions: Allergies Allergy/AdvReac Type Severity Reaction Status Date / Time promethazine HCl * AdvReac Unknown Anxiety Verified 06/12/20 05:11 [From Phenergan] Sulfa (Sulfonamide AdvReac Unknown Rash Verified 06/12/20 05:11 Antibiotics) Review of Systems - Constitutional Constitutional: denies: Fatigue, Fever, Chills, Malaise, Weakness, Diaphoresis, Night sweats, Weight gain, Weight loss - Eyes Eyes: denies: Pain, Irritation, Blurred vision, Field loss, Vision loss, Corrective lenses - Ears, Nose & Throat Ears, Nose & Throat: denies: Ear pain, Hearing loss, Nasal pain, Nasal congestion, Sore throat - Cardiovascular Cariovascular: denies: Irregular heart rate, Palpitations, Chest pain, Edema, Lightheadedness, Syncope, Exertional dyspnea - Respiratory Respiratory: denies: Cough, Sputum production, Wheezing, Hemoptysis, Orthopnea, SOB at rest - Gastrointestinal Gastrointestinal: reports: Abdominal pain, Nausea, Vomiting, Reflux/heartburn. denies: Abdominal distention, Constipation, Diarrhea, Change in bowel habits, Black stools, Bloody stools, Bile emesis, Juan blood emesis, Coffee grounds emesis, Bloating - Genitourinary Genitourinary: denies: Dysuria, Frequency, Urgency, Hematuria, Incontinence, Flank pain - Musculoskeletal Musculoskeletal: reports: Muscle weakness - Integumentary Integumentary: denies: Rash, Pruritis, Lesions, Dryness - Neurological Neurological: denies: General weakness, Headache, Dizziness, Numbness, Seizures, Incoordination, Slurred speech - Psychiatric Psychiatric: denies: Depression - Endocrine Endocrine: denies: Polyuria, Polydypsia, Polyphagia - Hematologic/Lymphatic Hematologic/Lymphatic: denies: Anemia, Blood clots, Bleeding tendencies <Arabella Stockton - Last Filed: 06/12/20 10:02> <Arabella Stockton - Last Filed: 06/12/20 10:02> Prior Level of Functionality: Patient has weakness of his lower and upper extremities due to muscular d ystrophy. He is able to ambulate with a walker and can walk around his house and a block outside without any issues. He is able to perform his ADLs such as dressing, bathing, and feeding himself. He is dependent on his parents to drive him to places, cook, and get groceries. (Arabella Stockton) Exam - Vital Signs Reviewed Vital Signs: Yes - Physical Exam General Appearance: positive: No acute distress, Alert, Other (His physical appearance correlates with patients with muscular dystrophy: hypotonia of his limbs, neck, and facial muscles. He is alert and is conversing appropriately.) Eyes Bilateral: positive: Normal inspection, PERRL, EOMI, No lid inflammation, Conjunctivae nml, No scleral icterus ENT: positive: ENT inspection nml, Pharynx nml, No signs of dehydration, Dry mucous membranes Neck: positive: Nml inspection, Thyroid nml, No JVD, Trachea midline. negative: Thyromegaly, Stiff neck, Carotid bruit, Tracheal deviation Respiratory: positive: Chest non-tender, No respiratory distress, Breath sounds nml. negative: Wheezes, Rales, Rhonchi Cardiovascular: positive: Regular rate & rhythm, No murmur, No gallop. negative: JVD present, Systolic murmur, Diastolic murmur, Gallop/S3, Gallop/S4 Peripheral Pulses: positive: 2+ Abdomen: positive: Nml bowel sounds, Tenderness (mild tenderness in the LUQ to palpation. No rebound tenderness or guarding.). negative: Guarding, Rebound Skin: positive: Color nml, No rash, Warm, Dry. negative: Cyanosis, Diaphoresis, Pallor Extremities: positive: Non-tender, Other (Inward clubfoot of the right foot. 4/5 strength in all extremities.) Neurologic/Psychiatric: positive: Oriented x3, Sensation nml, Mood/affect nml. negative: Sensory loss, Facial droop, Slurred/abnml speech, Depressed mood/affect <Arabella Stockton - Last Filed: 06/12/20 10:02> - Vital Signs Vital Signs: Vital Signs x48h Temp Pulse Resp BP Pulse Ox 06/12/20 15:51 36.8 C 72 18 122/70 94 06/12/20 11:41 36.8 C 69 16 121/88 H 95 Conclusion/Plan - Problem List (1) Small bowel obstruction Conclusion/Plan: Patient's abdominal/pelvis CT shows small bowel obstruction with dilated bowel loops and scattered air and fluid level that is unchanged from his previous CT from 06/23/2019. He was having severe pain and nausea/vomiting overnight and this morning that was unrelieved by PO oxygen at home. Because of his unrelieved abdominal pain and nausea, he was admitted to observations. However, when I evaluated the patient on the acute care unit, the patient reports feeling much better after the morphine and zofran and no longer has abdominal pain or nausea. His mother states his symptoms were similar to the past when he had small bowel obstructions. He never had to undergo surgical interventions as they all resolved on its own. Will plan on starting him on a liquid diet then advanced to a general diet if tolerated. If patient does not have abdominal pain or nausea/vomiting, he may be discharged home today. (2) Abdominal pain Conclusion/Plan: His abdominal pain is most likely secondary to small bowel obstruction seen on today's abdominal/pelvis CT scan. His abdominal pain is now resolved per patient. Patient has oxycodone PRN for pain. Will continue to monitor his pain for the next few hours. If no worsening of pain after eating, he will mostly daniel redmond be discharged home today. - Lab Results Lab results reviewed: Yes Addison Dee: 06/12/20 05:18 06/12/20 05:18 - Diagnostic Imaging Results Diagnostic Imaging Results: positive: Prelim report reviewed, Final report reviewed - EKG Results EKG Interpreted Independently: Yes EKG Comparison: Unchanged from prior EKG <Arabella Stockton - Last Filed: 06/12/20 10:02> - Lab Results Addison Dee: 06/12/20 05:18 06/12/20 05:18 <Gila Chung - Last Filed: 06/12/20 17:41> Core Measures - Anticipated LOS I expect patient to be DC'd or transferred within 96 hours.: Yes - DVT/VTE - Prophylaxis VTE/DVT Device ordered at admit?: Yes VTE/DVT Prophylaxis med ordered at admit?: No Not Ordered - Medical Reason: Not indicated - Stroke - Rehab Assessment Rehab services assessment to be ordered?: No Not Ordered - Medical Reason: Not indicated - AMI - Statin at Admit Aspirin Prescribed on Admit: No Not Ordered - Medical Reason: Not indicated <Arabella Stockton - Last Filed: 06/12/20 10:02>
--- NOTE | 2020-06-12 13:43 | PHARMACY PROGRESS NOTE ---
- Best Possible Medication History Admit Date and Time: 06/12/20 0652 Processed by: Pharmacy Medication History completed: Yes Patient Interview: Completed Secondary Source(s): Pharmacy records, Insurance records As the person ultimately responsible for medication therapy, providers are able to order a medication from an existing home medication list in [facility] via the "Reconcile Routine" prior to Confirmation of that medication by learning support services director. Such practice is discouraged except when the physician, in their clinical judgment, deems that a medical need exists for a medication without regard to previous use.
--- NOTE | 2020-06-12 15:32 | Discharge Plan ---
Discharge Plan Problem Reviewed?: Yes Disposition: Home, Self Care Condition: Stable Diet: Regular (but low fiber) Activity Restrictions: Activity as Tolerated Shower Restrictions: No Driving Restrictions: Yes (no driving) Health Concerns: You have a known history of multiple small bowel obstructions starting from a very young age. You had an exploratory laparotomy in 2011. You have also had a ruptured appendix. At times your disease has been attributed to muscle dysfunction from your myotonic dystrophy history of. You presented again with abdominal pain, nausea and vomiting. Your last bowel movement was yesterday, and you came to the emergency room. In the emergency room you did not have a fever. Your lab work was normal. CT of the abdomen showed the small bowel obstruction. Within a few hours you were passing flatus. You were hungry. You tolerated clear liquids and advance to a regular diet and wanted to go home. Plan of Treatment: 1. Follow-up with your primary care provider in the next 1 to 2 weeks. 2. Eat a low fiber diet to see if that will help in avoiding recurrent episodes. Care Goals: Patient and his mother who is at the bedside understand care goals and will follow through No Smoking: If you smoke, Please STOP! Call for help. Follow-up with: LUPE PACHECO MD [Primary Care Provider] -
--- NOTE | 2020-06-12 17:32 | PROVIDER PROGRESS NOTE ---
Progress Note June 12, 2020 1730 p.m. Patient was placed in observation for recurrent small bowel obstruction. He has had numerous episodes throughout his lifetime and he and his mother are very cognizant aware of his body and his changes. He did not have a fever or white cell count. He was seen in the emergency room and even by the time he was trans ferred to [facility], his abdominal pain had resolved and he was having flatus. We immediately gave him a clear liquid diet. He tolerated that. We then progressed him to a regular diet and he tolerated that. No nausea, no vomiting, normal bowel sounds. Flatus. Last bowel movement was yesterday. He and his mom would prefer for him to be home now. As such he is discharged in stable condition with a temperature 36.8, pulse 72, blood pressure 122/70, respirations 18 and 94% on room air. He is a 95 kg white male who is 5 foot 9 inches tall, disheveled, cranial malformation, lungs low-lying jawline, prominent upper bite, slurred speech which is his baseline. Coarse upper airway breath sounds. No tachypnea. Normal bowel sounds, nontender. No distention. He is asked to follow-up with his primary care provider. To try to start eating a low fiber diet.
[2020-06-12 18:58] VITALS: BP 119/75
== END 2020-06-12 19:10 | disposition home or self-care (01) ==
LOC: ED 04:55 → MS2 06:52
PROVIDERS: ADMIT Internal Medicine; ATTEND Specialist
DX: K56.609 Unspecified intestinal obstruction, unspecified as to partial versus complete obstruction (principal); G71.11 Myotonic muscular dystrophy; G47.30 Sleep apnea, unspecified
CPT/HCPCS: 36415; 74177; 80053; 81003; 83690; 85025; 96372; 96374; 96375; 99284; 99285; A9270; G0378; J1170; J1650; J7120; Q9967; 81001; 87086

== ENCOUNTER 2020-08-21 23:00 | Emergency (ER) | payer MEDICAID ==
--- NOTE | 2020-08-21 23:03 | ED Physician Documentation ---
PD HPI CHEST PAIN - Stated complaint Stated Complaint: CP - History obtained from History obtained from: Patient - History of Present Illness Timing - onset: How many hours ago (3), Today Timing - onset during: Rest Timing - duration: Hours (3) Timing - details: Abrupt onset (while sitting in chair. Had eaten hour or two prior without problems.) Quality: Tightness, Aching, Pain Location: Substernal Radiation: Back. No: Jaw, Neck, Abdominal Improved by: No: Rest Worsened by: No: Inspiration, Palpation Associated symptoms: Nausea, Feeling faint / dizzy. No: Shortness of air, Palpitations, Cough Similar symptoms before: Has not had sx before (history of reflux but had not had pain like this with it.) Review of Systems Constitutional: denies: Fever, Chills Nose: denies: Rhinorrhea / runny nose, Congestion Throat: denies: Sore throat Cardiac: reports: Pedal edema (commonly with legs down for the day). denies: Palpitations, Calf pain Respiratory: denies: Dyspnea, Cough GI: reports: Nausea. denies: Abdominal Pain, Vomiting Neurologic: denies: Focal weakness, Near syncope PD PAST MEDICAL HISTORY - Past Medical History Cardiovascular: None Respiratory: Asthma Neuro: Cerebral palsy Endocrine/Autoimmune: None GI: GERD, Hiatal hernia, Other : None HEENT: None Psych: None Musculoskeletal: Other Derm: None - Past Surgical History Past Surgical History: Yes General: Other HEENT: Cataracts - Present Medications Home Medications: Ambulatory Orders Medication Instructions Recorded Confirmed Albuterol [Ventolin Hfa] 2 puffs INH Q4H PRN 08/09/13 08/21/20 Omeprazole [PriLOSEC] 20 mg PO BID 08/09/13 08/21/20 Ibuprofen [Motrin] 800 mg PO Q8H PRN #10 tablet 06/10/20 08/21/20 Ondansetron Odt [Zofran Odt] 4 mg TL Q6H PRN #10 tablet 06/10/20 08/21/20 Lidocaine Viscous 2% [Xylocaine 5 ml PO Q4H PRN #100 ml 08/22/20 Viscous 2%] Sucralfate [Carafate] 1 gm PO ACHS #28 tab 08/22/20 - Allergies Allergies/Adverse Reactions: Allergies Allergy/AdvReac Type Severity Reaction Status Date / Time promethazine HCl * AdvReac Unknown Anxiety Verified 08/21/20 23:10 [From Phenergan] Sulfa (Sulfonamide AdvReac Unknown Rash Verified 08/21/20 23:10 Antibiotics) - Social History Does the pt smoke?: No Smoking Status: Never smoker Does the pt drink ETOH?: No Does the pt have substance abuse?: No - Immunizations Immunizations are current?: Yes - POLST Patient has POLST: No POLST Status: Full Code PD ED PE NORMAL - Vitals Vital signs reviewed: Yes - General General: Alert and oriented X 3, Well developed/nourished - HEENT HEENT: Moist mucous membranes, Pharynx benign - Neck Neck: Supple, no meningeal sign, No adenopathy - Cardiac Cardiac: RRR, No murmur - Respiratory Respiratory: No respiratory distress, Clear bilaterally, Other (there is some local tenderness upper left parasternal cartilage without redness, rash nor deformity. ) - Abdomen Abdomen: Soft, Non tender - Derm Derm: Normal color, Warm and dry - Extremities Extremities: No calf tenderness / cord, Other (1+ edema in both lower legs without tenderness nor rash. some clubbing deformity noted of ankles, and strength/movement of legs antalgic c/w CP.) - Neuro Neuro: Alert and oriented X 3, Normal speech Results - Vitals Vitals: Vital Signs - 24 hr 08/21/20 08/21/20 08/22/20 23:07 23:10 00:41 Temperature 36.8 C 36.8 C 36.8 C Heart Rate 99 84 74 Respiratory 18 18 17 Rate Blood Pressure 144/77 H 144/77 H 134/78 H O2 Saturation 99 99 99 08/22/20 01:06 Temperature 36.8 C Heart Rate 78 Respiratory 17 Rate Blood Pressure 133/78 H O2 Saturation 99 Oxygen O2 Source Room air - EKG (time done) 23:04 Rate: Rate (enter#) (98) Rhythm: NSR [place]: Normal Intervals: Normal SC QRS: Normal Ischemia: Normal ST segments, ST elevation c/w repol. No: ST depression - Labs Labs: Laboratory Tests 08/22/20 08/22/20 08/22/20 00:00 00:00 00:00 WBC 5.0 RBC 5.31 Hgb 13.9 L Hct 45.4 MCV 85.5 MCH 26.2 L MCHC 30.6 L RDW 16.1 H Plt Count 214 MPV 11.5 H Neut # (Auto) 3.9 Lymph # (Auto) 0.8 L [place] # (Auto) 0.3 Eos # (Auto) 0.0 Baso # (Auto) 0.0 Absolute Nucleated RBC 0.00 Nucleated RBC % 0.0 Sodium 144 Potassium 3.5 Chloride 110 Carbon Dioxide 26 Anion Gap 8.0 BUN 10 Creatinine 0.7 Estimated GFR (MDRD) 130 Glucose 103 H Calcium 8.7 Total Bilirubin 0.5 AST 27 ALT 30 Alkaline Phosphatase 103 Troponin I High Sens 6.7 C-Reactive Protein < 1.0 Total Protein 6.4 L Albumin 3.7 Globulin 2.7 Albumin/Globulin Ratio 1.4 Lipase 24 - Rads (name of study) chest xray Radiology: Prelim report reviewed, See rad report PD MEDICAL DECISION MAKING - ED course Complexity details: reviewed results, re-evaluated patient (improved with GI cocktail, so suggests esophagitis. However he did have fairly distinct chest wall tenderness left parasternal area. No redness nor rash. So ma also have some element of costchondral tenderness/pain. ), considered differential (more likely esophagitis or costochondritis, but still concern for AMI, myocarditis, lung process, so will get CXR, ECG, troponin, CRP. ), d/w patient Departure - Departure Disposition: 01 Home, Self Care Clinical Impression: Substernal pain, Esophagitis Condition: Stable Record reviewed to determine appropriate education?: Yes Instructions: ED GERD Follow-Up: LUPE PACHECO MD [Primary Care Provider] - Prescriptions: Sucralfate [Carafate] 1 gm PO ACHS #28 tab Lidocaine Viscous 2% [Xylocaine Viscous 2%] 5 ml PO Q4H PRN #100 ml PRN Reason: Pain Comments: Continue usual medicines. Add sucralfate 4 times a day as directed to coat the esophagus better. You can also add antacids periodically if needed for discomfort and makes some lidocaine with it if needed, similar to what we gave you here. Add Tylenol 500 mg 4 times a day as needed for pains. Recheck if not consistently better over the next several days and resolved by 3 to 5 days. Your EKG shows some changes that are likely consistent with being younger and muscular in the chest wall, called early repolarization. No signs of acute injury. Blood tests and chest x-ray are normal as well. We can provide you a copy of your EKG to have on hand for comparisons if it is repeated again as prior EKGs are often helpful when assessing them. Discharge Date/Time: 08/22/20 01:20
[2020-08-21] MEDS ORDERED: MAG HYDROX/AL HYDROX/SIMETH 30 ML UDC PO STA (23:38)
[2020-08-21] MEDS ORDERED: KETOROLAC 30 MG/ML VIAL IVP STA (23:38)
[2020-08-21] MEDS ORDERED: LIDOCAINE VISCOUS 2% 15 ML UDC MM STA (23:38)
[2020-08-21] MEDS ORDERED: MORPHINE 2 MG/ML CARPUJECT IVP STA (23:38)
[2020-08-22 00:09] LABS: BASOPHILS % (AUTO) 0.6 %; EOSINOPHILS % (AUTO) 0.4 %; HGB - HEMOGLOBIN 13.9 g/dL (14.0-18.0); LYMPHOCYTES # (AUTO) 0.8 10^3/uL (1.5-3.5); LYMPHOCYTES % (AUTO) 16.2 %; MEAN CORPUSCULAR HEMOGLOBIN 26.2 pg (27.0-31.0); MEAN CORPUSCULAR HGB CONC 30.6 g/dL (32.0-36.0); MEAN CORPUSCULAR VOLUME 85.5 fL (80.0-94.0); MEAN PLATELET VOLUME 11.5 fL (7.4-11.4); MONOCYTES # (AUTO) 0.3 10^3/uL (0.0-1.0); MONOCYTES % (AUTO) 5.6 %; NEUTROPHILS # (AUTO) 3.9 10^3/uL (1.5-6.6); PLT - PLATELET COUNT 214 10^3/uL (130-450); RED BLOOD COUNT 5.31 10^6/uL (4.70-6.10); RED CELL DISTRIBUTION WIDTH 16.1 % (12.0-15.0)
[2020-08-22 00:24] LABS: ALBUMIN 3.7 g/dL (3.2-5.5); ALBUMIN/GLOBULIN RATIO 1.4 (1.0-2.2); ALKALINE PHOSPHATASE 103 IU/L (42-121); ALT ALANINE AMINOTRANSFERASE 30 IU/L (10-60); AST ASPARTATE AMINOTRANSFERASE 27 IU/L (10-42); BILIRUBIN,TOTAL 0.5 mg/dL (0.2-1.0); BUN - BLOOD UREA NITROGEN 10 mg/dL (6-20); CALCIUM 8.7 mg/dL (8.5-10.3); CARBON DIOXIDE - CO2 26 mmol/L (21-32); CHLORIDE 110 mmol/L (101-111); CREATININE 0.7 mg/dL (0.6-1.2); GLUCOSE 103 mg/dL (70-100); LIPASE 24 U/L (22-51); TOTAL PROTEIN 6.4 g/dL (6.7-8.2)
[2020-08-22 00:26] LABS: CRP - C-REACTIVE PROTEIN < 1.0 mg/dL (0-1.0)
[2020-08-22 01:08] VITALS: BP 133/78
--- NOTE | 2020-08-22 10:03 | XRAY Report ---
PROCEDURE: Chest 1 View X-Ray INDICATIONS: Chest Pain TECHNIQUE: One view of the chest was acquired. COMPARISON: 06/10/2020 FINDINGS: Surgical changes and devices: None. Lungs and pleura: An incomplete inspiratory result is noted, with low lung volumes and crowding of t he vascular markings. No focal infiltrates are seen. No large pneumothorax or large pleural effusion can be seen. Mediastinum: Mediastinal contours appear normal. Heart size is normal. Bones and chest wall: No suspicious bony lesions. Overlying soft tissues appear unremarkable. IMPRESSION: Portable chest within normal limits for age. Note: No significant discrepancy from the preliminary report. Reviewed by: Julio C Bullard MD on 08/22/2020 9:01 AM [facility] Approved by: Julio C Bullard MD on 08/22/2020 9:01 AM [facility] Station ID: [id number]
== END 2020-08-22 01:20 | disposition home or self-care (01) ==
LOC: ED 23:00
DX: K21.00 Gastro-esophageal reflux disease with esophagitis, without bleeding (principal); R07.89 Other chest pain; G80.9 Cerebral palsy, unspecified
CPT/HCPCS: 36415; 71045; 80053; 83690; 84484; 85025; 86140; 93005; 96374; 96375; 99284; A9270

== ENCOUNTER 2020-12-16 21:49 | Emergency (ER) | payer MEDICAID ==
[2020-12-16] MEDS ORDERED: SODIUM CHLORIDE 0.9% 1,000 ML IV STA (22:48)
[2020-12-16] MEDS ORDERED: FAMOTIDINE 20 MG/2 ML VIAL IVP STA (22:48)
[2020-12-16] MEDS ORDERED: ONDANSETRON 4 MG/2 ML VIAL IVP STA (22:48)
[2020-12-16 23:06] LABS: BASOPHILS % (AUTO) 0.3 %; EOSINOPHILS % (AUTO) 0.4 %; HCT - HEMATOCRIT 49.5 % (42.0-52.0); HGB - HEMOGLOBIN 15.3 g/dL (14.0-18.0); LYMPHOCYTES # (AUTO) 0.6 10^3/uL (1.5-3.5); LYMPHOCYTES % (AUTO) 6.5 %; MEAN CORPUSCULAR HEMOGLOBIN 25.7 pg (27.0-31.0); MEAN CORPUSCULAR HGB CONC 30.9 g/dL (32.0-36.0); MEAN CORPUSCULAR VOLUME 83.1 fL (80.0-94.0); MEAN PLATELET VOLUME 11.2 fL (7.4-11.4); MONOCYTES # (AUTO) 0.8 10^3/uL (0.0-1.0); MONOCYTES % (AUTO) 7.8 %; NEUTROPHILS # (AUTO) 8.1 10^3/uL (1.5-6.6); NEUTROPHILS % (AUTO) 84.7 %; PLT - PLATELET COUNT 268 10^3/uL (130-450); RED BLOOD COUNT 5.96 10^6/uL (4.70-6.10); WHITE BLOOD COUNT 9.6 x10^3/uL (4.8-10.8)
[2020-12-16 23:16] LABS: ALBUMIN 4.1 g/dL (3.2-5.5); ALBUMIN/GLOBULIN RATIO 1.3 (1.0-2.2); BILIRUBIN,TOTAL 0.8 mg/dL (0.2-1.0); CALCIUM 9.3 mg/dL (8.5-10.3); CREATININE 0.8 mg/dL (0.6-1.2); POTASSIUM 4.4 mmol/L (3.5-5.0); TOTAL PROTEIN 7.3 g/dL (6.7-8.2)
[2020-12-17 00:08] LABS: GLUCOSE, URINE (UA) NEGATIVE (NEGATIVE); KETONES,URINE (UA) TRACE mg/dL (NEGATIVE); LEUKOCYTE ESTERASE, URINE NEGATIVE (NEGATIVE); NITRITE,URINE NEGATIVE (NEGATIVE); OCCULT BLOOD,URINE NEGATIVE (NEGATIVE); PROTEIN,URINE NEGATIVE (NEGATIVE); UROBILINOGEN,URINE 0.2 (NORMAL) E.U./dL (NORMAL)
[2020-12-17 00:09] LABS: CLARITY,URINE CLEAR (CLEAR)
[2020-12-17 00:12] LABS: BILIRUBIN,URINE NEGATIVE (NEGATIVE); ICTOTEST,URINE NEGATIVE
[2020-12-17 01:06] VITALS: BP 125/70
--- NOTE | 2020-12-17 01:20 | ED Physician Documentation ---
History of Present Illness - Stated complaint Stated Complaint: ABD PX, VOMITING - Chief complaint Chief Complaint: Abd Pain - History obtained from History obtained from: Patient, Family (mother) - Additonal information Additional information: 35-year-old man with history of cerebral palsy, myotonic dystrophy, GERD, asthma, presents with 7 episodes of nonbloody nonbilious nausea and vomiting since 10 AM today not relieved with Pepcid or Pepto-Bismol, as well as mild epigastric abdominal pain that is burning in quality, nonradiating, gradual in onset, worse with vomiting. Patient also had a forehead temperature of 100 degrees that then resolved later in the day. Denies diarrhea, back pain, urinary symptoms. No sick contacts or recent travel. Review of Systems Ten Systems: 10 systems reviewed and negative Constitutional: reports: Fever Cardiac: denies: Chest pain / pressure GI: reports: Abdominal Pain, Nausea, Vomiting. denies: Diarrhea : denies: Dysuria PD PAST MEDICAL HISTORY - Past Medical History Past Medical History: Yes Cardiovascular: None Respiratory: Asthma Neuro: Cerebral palsy Endocrine/Autoimmune: None GI: GERD, Hiatal hernia, Other : None HEENT: None Psych: None Musculoskeletal: Other Derm: None - Past Surgical History Past Surgical History: Yes General: Other HEENT: Cataracts - Present Medications Home Medications: Ambulatory Orders Medication Instructions Recorded Confirmed Omeprazole [PriLOSEC] 20 mg PO BID 08/09/13 12/17/20 Famotidine [Pepcid] 20 mg PO BID PRN #60 tablet 12/17/20 Ondansetron Odt [Zofran] 4 mg TL Q6H PRN #10 tablet 12/17/20 - Allergies Allergies/Adverse Reactions: Allergies Allergy/AdvReac Type Severity Reaction Status Date / Time promethazine HCl * AdvReac Unknown Anxiety Verified 12/16/20 22:33 [From Phenergan] Sulfa (Sulfonamide AdvReac Unknown Rash Verified 12/16/20 22:33 Antibiotics) - Social History Does the pt smoke?: No Smoking Status: Never smoker Does the pt drink ETOH?: No Does the pt have substance abuse?: No - Immunizations Immunizations are current?: Yes - POLST Patient has POLST: No POLST Status: Full Code PD ED PE NORMAL - Vitals Vital signs reviewed: Yes - General General: Alert and oriented X 3, No acute distress, Well developed/nourished - HEENT HEENT: Atraumatic, PERRL, EOMI - Neck Neck: Supple, no meningeal sign - Cardiac Cardiac: RRR - Respiratory Respiratory: No respiratory distress, Clear bilaterally - Abdomen Abdomen: Non tender, Non distended - Back Back: No CVA TTP - Derm Derm: Normal color, Warm and dry - Extremities Extremities: Other (Muscle wasting to extremities) - Neuro Neuro: Alert and oriented X 3 - Psych Psych: Normal mood, Normal affect Results - Vitals Vitals: Vital Signs - 24 hr 12/16/20 12/16/20 12/17/20 22:31 22:55 00:33 Temperature 36.2 C L Heart Rate 105 H 102 H 86 Respiratory 16 15 16 Rate Blood Pressure 116/83 H 118/75 103/68 O2 Saturation 97 91 L 95 12/17/20 01:06 Temperature Heart Rate 93 Respiratory 16 Rate Blood Pressure 125/70 O2 Saturation 95 Oxygen O2 Source Room air - Labs Labs: Laboratory Tests 12/16/20 12/16/20 12/17/20 22:55 22:55 00:00 WBC 9.6 RBC 5.96 Hgb 15.3 Hct 49.5 MCV 83.1 MCH 25.7 L MCHC 30.9 L RDW 15.0 Plt Count 268 MPV 11.2 Neut # (Auto) 8.1 H Lymph # (Auto) 0.6 L [place] # (Auto) 0.8 Eos # (Auto) 0.0 Baso # (Auto) 0.0 Absolute Nucleated RBC 0.00 Nucleated RBC % 0.0 Sodium 146 H Potassium 4.4 Chloride 107 Carbon Dioxide 27 Anion Gap 12.0 BUN 16 Creatinine 0.8 Estimated GFR (MDRD) 111 Glucose 122 H Calcium 9.3 Total Bilirubin 0.8 AST 23 ALT 29 Alkaline Phosphatase 112 Total Protein 7.3 Albumin 4.1 Globulin 3.2 Albumin/Globulin Ratio 1.3 Lipase 20 L Urine Color YELLOW Urine Clarity CLEAR Urine pH 7.0 Ur Specific [place] 1.015 Urine Protein NEGATIVE Urine Glucose (UA) NEGATIVE Urine Ketones TRACE Urine Occult Blood NEGATIVE Urine Nitrite NEGATIVE Urine Bilirubin NEGATIVE Urine Urobilinogen 0.2 (NORMAL) Ur Leukocyte Esterase NEGATIVE Ur Microscopic Review NOT INDICATED Urine Culture Comments NOT INDICATED PD MEDICAL DECISION MAKING - ED course ED course: 35-year-old man with past medical history of gastroesophageal reflux presents with burning epigastric pain and nausea and vomiting intermittent since 10 AM. Differential considered. Patient with normal lab work and benign abdominal exam as well as normal vital signs. He is feeling better after symptomatic treatment here in the emergency department. Strict return precautions given. He will follow up with his primary doctor. Departure - Departure Disposition: Home, Self Care Clinical Impression: Abdominal pain, Nausea Condition: Good Instructions: ED Abdominal Pain Unkn Cause Follow-Up: TREVON HAMMER MD [Physician No Access] - Prescriptions: Famotidine [Pepcid] 20 mg PO BID PRN #60 tablet PRN Reason: Nausea / Vomiting Ondansetron Odt [Zofran] 4 mg TL Q6H PRN #10 tablet PRN Reason: Nausea / Vomiting Comments: You were seen in the emergency department for nausea and abdominal pain. Your lab work was noncontributory. Since you are feeling better, I am going to have you go home and follow-up with your doctor in regards to your symptoms. You may benefit from seeing a trade specialist. I am referring you to one of our [place] based gastroenterologists. Please return to the emergency department if you experience any new or worsening symptoms or have other concerns. Discharge Date/Time: 12/17/20 01:45
== END 2020-12-17 01:45 | disposition home or self-care (01) ==
LOC: ED 21:49
DX: R10.13 Epigastric pain (principal); R11.2 Nausea with vomiting, unspecified; K21.9 Gastro-esophageal reflux disease without esophagitis; G80.9 Cerebral palsy, unspecified; G71.11 Myotonic muscular dystrophy; J45.909 Unspecified asthma, uncomplicated
CPT/HCPCS: 36415; 80053; 81001; 81003; 83690; 85025; 87086; 96361; 96374; 96375; 99284

== ENCOUNTER 2021-03-25 10:40 | Outpatient (CLI) | payer MEDICAID | END 2021-03-25 10:41 | disposition EMS.NT | LOC: EMS 10:40 | DX: S01.01XA Laceration without foreign body of scalp, initial encounter (principal); W05.0XXA Fall from non-moving wheelchair, initial encounter; Y93.89 Activity, other specified; Y92.009 Unspecified place in unspecified non-institutional (private) residence as the place of occurrence of the external cause ==

== ENCOUNTER 2021-03-25 11:46 | Emergency (ER) | payer MEDICAID ==
[2021-03-25 12:00] VITALS: BP 144/77
[2021-03-25] MEDS ORDERED: LIDOCAINE-EPINEPH-TETRACAINE 3 ML SYRINGE TOP STA (12:09)
--- NOTE | 2021-03-25 12:10 | ED Physician Documentation ---
PD HPI HEAD INJURY - Stated complaint Stated Complaint: GLF/HEAD LAC - Chief complaint Chief Complaint: Laceration - History obtained from History obtained from: Patient, Family - Additional information Additional information: 35-year-old gentleman with muscular dystrophy fell and hit his head on the wall while transferring today. He has a scalp laceration. He had no loss of consciousness. He does have a headache and mid neck pain. No other injuries. Tetanus status is unknown. That said review of [place] immunization system shows that last tetanus was on 01/13/2017. Review of Systems Constitutional: denies: Fever, Chills Nose: denies: Rhinorrhea / runny nose, Congestion Throat: denies: Sore throat Cardiac: denies: Chest pain / pressure Respiratory: denies: Dyspnea PD PAST MEDICAL HISTORY - Past Medical History Cardiovascular: None Respiratory: Asthma Neuro: Cerebral palsy Endocrine/Autoimmune: None GI: GERD, Hiatal hernia, Other : None HEENT: None Psych: None Musculoskeletal: Other Derm: None - Past Surgical History Past Surgical History: Yes General: Other HEENT: Cataracts - Present Medications Home Medications: Ambulatory Orders Medication Instructions Recorded Confirmed Omeprazole [PriLOSEC] 20 mg PO BID 08/09/13 12/17/20 Famotidine [Pepcid] 20 mg PO BID PRN #60 tablet 12/17/20 Ondansetron Odt [Zofran] 4 mg TL Q6H PRN #10 tablet 12/17/20 - Allergies Allergies/Adverse Reactions: Allergies Allergy/AdvReac Type Severity Reaction Status Date / Time promethazine HCl * AdvReac Unknown Anxiety Verified 03/25/21 12:00 [From Phenergan] Sulfa (Sulfonamide AdvReac Unknown Rash Verified 03/25/21 12:00 Antibiotics) - Social History Does the pt smoke?: No Smoking Status: Never smoker Does the pt drink ETOH?: No Does the pt have substance abuse?: No - Immunizations Immunizations are current?: Yes - POLST Patient has POLST: No POLST Status: Full Code PD ED PE NORMAL - Vitals Vital signs reviewed: Yes - General General: No acute distress, Well developed/nourished - HEENT HEENT: PERRL, EOMI, Other (4 cm right high parietal scalp laceration) - Neck Neck: Other (Mild upper C-spine tenderness) - Neuro Neuro: Alert and oriented X 3 Eye Opening: Spontaneous Motor: Obeys Commands Verbal: Confused GCS Score: 14 - Psych Psych: Normal mood, Normal affect Results - Vitals Vitals: Vital Signs - 24 hr 03/25/21 11:51 Temperature 36.9 C Heart Rate 107 H Respiratory 17 Rate Blood Pressure 144/77 H O2 Saturation 98 Oxygen O2 Source Room air - Rads (name of study) CT Head and Cspine Radiology: EMP read contemporaneously (NAD, thyroid nodule, bony overgrowth) Procedures - Laceration (location) scalp Length in cm: 4 Wound type: Linear, Into subcut fat Anesthesia: LET Wound preparation: Irrigated copiously NS Skin layer closure: Darshan (9) Other: Tetanus UTD Departure - Departure Disposition: 01 Home, Self Care Clinical Impression: Scalp laceration, Head injury, Neck strain Condition: Good Record reviewed to determine appropriate education?: Yes Instructions: ED Head Injury Closed, ED Laceration Scalp Stitch Or Stap Comments: Come back for any signs of infection which would include: Redness, swelling, drainage, increased pain, or fevers. You can wash it soap and water. Keep it covered and moist with bacitracin ointment which is available over the counter; avoid neosporin. Follow-up with your physician in 7-10 days for staple removal (9) removal.
--- NOTE | 2021-03-25 12:38 | CT Report ---
PROCEDURE: CERVICAL SPINE WO INDICATIONS: head inj/neck pain TECHNIQUE: Noncontrast 3 mm thick sections acquired from the skull base to the T4 level. Sagittal and coronal r eformats were then constructed. For radiation dose reduction, the following was used: automated exp osure control, adjustment of mA and/or kV according to patient size. COMPARISON: Correlation is made with a gambling head CT, 03/25/2021. FINDINGS: Image quality: This study is limited by quantum mottle artifact. Bones: No fractures or dislocations. Visualized superior ribs are intact. Soft tissues: Prevertebral soft tissues are normal in thickness. No paravertebral hematomas. No ap ical pneumothoraces. There is an apparent exophytic nodule along the inferior aspect of the left thy roid that measures 2.8 cm, with internal calcification. IMPRESSION: Negative for fracture. Apparent exophytic nodule is incidentally noted along the inferior aspect of the left thyroid. When c linically appropriate, please consider a dedicated thyroid ultrasound for further evaluation. Reviewed by: Julio C Bullard MD on 03/25/2021 11:36 AM KAVITHA Approved by: Julio C Bullard MD on 03/25/2021 11:36 AM KAVITHA Station ID: [id number]
--- NOTE | 2021-03-25 12:39 | CT Report ---
PROCEDURE: HEAD WO INDICATIONS: head inj/neck pain TECHNIQUE: Noncontrast 4.5 mm thick angled axial sections acquired from the foramen magnum to the vertex. For r adiation dose reduction, the following was used: automated exposure control, adjustment of mA and/or kV according to patient size. COMPARISON: Correlation is made with the accompanying cervical spine CT, 03/25/2021 FINDINGS: Image quality: Excellent. CSF spaces: Basal cisterns are patent. No extra-axial fluid collections. Ventricles are normal in size and shape. Brain: No midline shift. No intracranial masses or hemorrhage. [place]-white matter interface is norm al. Skull and face: Calvarium and visualized facial bones are intact, without suspicious lesions. There is prominent chalky-appearing bony overgrowth seen of the calvarium, particularly anteriorly. Sinuses: Visualized sinuses and mastoids are clear. IMPRESSION: No intracranial hemorrhage is seen. No significant intracranial abnormality is seen. Prominent bony overgrowth can be seen of the calvarium. Please correlate with known patient history a nd please consider an underlying metabolic disorder, such as Paget's disease. No displaced calvarial fracture is seen. Reviewed by: Julio C Bullard MD on 03/25/2021 11:38 AM KAVITHA Approved by: Julio C Bullard MD on 03/25/2021 11:38 AM KAVITHA Station ID: [id number]
== END 2021-03-25 13:12 | disposition home or self-care (01) ==
LOC: ED 11:46
DX: S01.01XA Laceration without foreign body of scalp, initial encounter (principal); S09.90XA Unspecified injury of head, initial encounter; W19.XXXA Unspecified fall, initial encounter; G71.00 Muscular dystrophy, unspecified
CPT/HCPCS: 12002; 99283; 99284

== ENCOUNTER 2021-04-05 11:12 | Emergency (ER) | payer MEDICAID ==
[2021-04-05 11:22] VITALS: BP 138/82
--- NOTE | 2021-04-05 12:04 | ED Physician Documentation ---
PD HPI SKIN - Stated complaint Stated Complaint: SAMANTHA REMOVAL - Chief complaint Chief Complaint: Wound - History obtained from History obtained from: Patient, Family - Additional information Additional information: Pt is brought to the ED by mom for CC of needing scalp samantha removed. Placed 10 days ago. No drainage. No other complaints at this time. Review of Systems Ten Systems: 10 systems reviewed and negative Constitutional: reports: Reviewed and negative Eyes: reports: Reviewed and negative Ears: reports: Reviewed and negative Nose: reports: Reviewed and negative Throat: reports: Reviewed and negative Cardiac: reports: Reviewed and negative Respiratory: reports: Reviewed and negative GI: reports: Reviewed and negative : reports: Reviewed and negative Skin: reports: Reviewed and negative Musculoskeletal: reports: Reviewed and negative Neurologic: reports: Reviewed and negative Psychiatric: reports: Reviewed and negative Endocrine: reports: Reviewed and negative Immunocompromised: reports: Reviewed and negative PD PAST MEDICAL HISTORY - Past Medical History Cardiovascular: None Respiratory: Asthma Neuro: Cerebral palsy Endocrine/Autoimmune: None GI: GERD, Hiatal hernia, Other : None HEENT: None Psych: None Musculoskeletal: Other Derm: None - Past Surgical History Past Surgical History: Yes General: Other HEENT: Cataracts - Present Medications Home Medications: Ambulatory Orders Medication Instructions Recorded Confirmed Omeprazole [PriLOSEC] 20 mg PO BID 08/09/13 12/17/20 Famotidine [Pepcid] 20 mg PO BID PRN #60 tablet 12/17/20 Ondansetron Odt [Zofran] 4 mg TL Q6H PRN #10 tablet 12/17/20 - Allergies Allergies/Adverse Reactions: Allergies Allergy/AdvReac Type Severity Reaction Status Date / Time promethazine HCl * AdvReac Unknown Anxiety Verified 03/25/21 12:00 [From Phenergan] Sulfa (Sulfonamide AdvReac Unknown Rash Verified 03/25/21 12:00 Antibiotics) - Social History Does the pt smoke?: No Smoking Status: Never smoker Does the pt drink ETOH?: No Does the pt have substance abuse?: No - Immunizations Immunizations are current?: Yes - POLST Patient has POLST: No POLST Status: Full Code PD ED PE NORMAL - Vitals Vital signs reviewed: Yes - General General: Alert and oriented X 3, No acute distress - HEENT HEENT: PERRL, Other (Well-healed linear scalp laceration at crown of head with [address] No induration, erythema, or fluctuance.) - Neck Neck: Supple, no meningeal sign - Cardiac Cardiac: RRR, No murmur - Respiratory Respiratory: Clear bilaterally - Abdomen Abdomen: Normal bowel sounds, Soft, Non tender, Non distended - Derm Derm: Warm and dry - Extremities Extremities: No deformity - Neuro Neuro: Alert and oriented X 3 - Psych Psych: Normal mood, Normal affect Results - Vitals Vitals: Vital Signs - 24 hr 04/05/21 11:17 Temperature 36.4 C L Heart Rate 72 Respiratory 16 Rate Blood Pressure 138/82 H O2 Saturation 100 Oxygen O2 Source Room air Procedures - Suture/staple Removal (location) scalp Suture/staple removal: # samantha (9), No complications PD MEDICAL DECISION MAKING - ED course Complexity details: considered differential, d/w patient, d/w family ED course: Samantha removed. We have discussed wound management at home. Departure - Departure Disposition: 01 Home, Self Care Clinical Impression: Removal of samantha Condition: Stable Instructions: ED Stap Removal No Complication Discharge Date/Time: 04/05/21 12:12
== END 2021-04-05 12:12 | disposition home or self-care (01) ==
LOC: ED 11:12
DX: S01.01XD Laceration without foreign body of scalp, subsequent encounter (principal); X58.XXXD Exposure to other specified factors, subsequent encounter
CPT/HCPCS: 99281; 99282

== ENCOUNTER 2022-07-05 10:32 | Outpatient (CLI) | payer MEDICAID ==
[2022-07-05 11:11] LABS: BASOPHILS % (AUTO) 0.4 %; EOSINOPHILS # (AUTO) 0.1 10^3/uL (0.0-0.7); HCT - HEMATOCRIT 52.8 % (42.0-52.0); HGB - HEMOGLOBIN 17.1 g/dL (14.0-18.0); LYMPHOCYTES # (AUTO) 1.5 10^3/uL (1.5-3.5); LYMPHOCYTES % (AUTO) 29.5 %; MEAN CORPUSCULAR HEMOGLOBIN 28.8 pg (27.0-31.0); MEAN CORPUSCULAR HGB CONC 32.4 g/dL (32.0-36.0); MEAN PLATELET VOLUME 10.7 fL (7.4-11.4); MONOCYTES # (AUTO) 0.5 10^3/uL (0.0-1.0); MONOCYTES % (AUTO) 9.4 %; NEUTROPHILS # (AUTO) 2.9 10^3/uL (1.5-6.6); NEUTROPHILS % (AUTO) 58.3 %; PLT - PLATELET COUNT 220 10^3/uL (130-450); RED BLOOD COUNT 5.93 10^6/uL (4.70-6.10); RED CELL DISTRIBUTION WIDTH 14.3 % (12.0-15.0)
[2022-07-05 11:20] LABS: ALBUMIN 3.9 g/dL (3.2-5.5); ALBUMIN/GLOBULIN RATIO 1.3 (1.0-2.2); BILIRUBIN,TOTAL 0.6 mg/dL (0.2-1.0); CALCIUM 9.1 mg/dL (8.5-10.3); CREATININE 0.7 mg/dL (0.6-1.2); POTASSIUM 4.1 mmol/L (3.5-5.0); TOTAL PROTEIN 6.8 g/dL (6.7-8.2)
== END 2022-07-05 10:33 | disposition home or self-care (01) ==
LOC: LAB 10:32
PROVIDERS: ATTEND Internal Medicine Medical Oncology
DX: D64.9 Anemia, unspecified (principal)
CPT/HCPCS: 36415; 80053; 85025

== ENCOUNTER 2022-08-06 01:08 | Emergency (ER) | payer MEDICAID ==
--- NOTE | 2022-08-06 01:41 | ED Physician Documentation ---
PD HPI ABD PAIN - Stated complaint Stated Complaint: ABD PAIN - Chief complaint Chief Complaint: Abd Pain - History obtained from History obtained from: Family (mother of patient (patient has DD)) - Additional information Additional information: HPI is primarily from patient's mother due to patient's DD. Patient slept most of the day which is atypical for him. He woke this evening with abdominal pain, waxing and waning intensity, associated with vomiting. Mother says this is a similar pattern of symptoms associated with his many previous SBO. She says they often resolve spontaneously , sometimes within hours of onset. Review of Systems Unable to obtain: Other (limited due to DD) Constitutional: denies: Fever GI: reports: Abdominal Pain, Vomiting PD PAST MEDICAL HISTORY - Past Medical History Past Medical History: Yes Cardiovascular: None Respiratory: Asthma Neuro: Cerebral palsy Endocrine/Autoimmune: None GI: GERD, Hiatal hernia, Other : None HEENT: None Psych: None Musculoskeletal: Other Derm: None - Past Surgical History Past Surgical History: Yes General: Other HEENT: Cataracts - Present Medications Home Medications: Ambulatory Orders Medication Instructions Recorded Confirmed Omeprazole [PriLOSEC] 20 mg PO BID 08/09/13 08/06/22 Metoclopramide [Reglan] 10 mg PO Q6H PRN #14 tablet 08/06/22 - Allergies Allergies/Adverse Reactions: Allergies Allergy/AdvReac Type Severity Reaction Status Date / Time promethazine HCl * AdvReac Unknown Anxiety Verified 08/06/22 01:16 [From Phenergan] Sulfa (Sulfonamide AdvReac Unknown Rash Verified 08/06/22 01:16 Antibiotics) - Social History Does the pt smoke?: No Smoking Status: Never smoker Does the pt drink ETOH?: No Does the pt have substance abuse?: No - Immunizations Immunizations are current?: Yes - POLST Patient has POLST: No POLST Status: Full Code PD ED PE NORMAL - Vitals Vital signs reviewed: Yes - General General: Well developed/nourished, Other (awake, alert, makes eye contact. episodically cries out in apparent painful distress) - Cardiac Cardiac: RRR, No murmur - Respiratory Respiratory: No respiratory distress, Clear bilaterally - Abdomen Abdomen: Normal bowel sounds, Soft, Non distended, Other (difficult to assess for tenderness; does not seem to react (wincing, guarding) with palpation. ) Results - Vitals Vitals: Oxygen O2 Source Room air - Labs Labs: Laboratory Tests 08/06/22 08/06/22 08/06/22 01:25 01:25 02:19 WBC 10.3 RBC 6.38 H Hgb 18.3 H Hct 56.5 H MCV 88.6 MCH 28.7 MCHC 32.4 RDW 14.3 Plt Count 272 MPV 11.2 Neut # (Auto) 7.8 H Lymph # (Auto) 1.6 [place] # (Auto) 0.8 Eos # (Auto) 0.1 Baso # (Auto) 0.0 Absolute Nucleated RBC 0.00 Nucleated RBC % 0.0 Sodium 144 Potassium 3.4 L Chloride 107 Carbon Dioxide 20 L Anion Gap 17.0 H BUN 19 Creatinine 0.9 Estimated GFR (MDRD) 96 Glucose 161 H Calcium 9.8 Total Bilirubin 0.9 AST 28 ALT 39 Alkaline Phosphatase 127 H Total Protein 7.5 Albumin 4.4 Globulin 3.1 Albumin/Globulin Ratio 1.4 Lipase 27 Urine Color YELLOW Urine Clarity CLEAR Urine pH 5.5 Ur Specific [place] >=1.030 H Urine Protein NEGATIVE Urine Glucose (UA) NEGATIVE Urine Ketones TRACE Urine Occult Blood NEGATIVE Urine Nitrite NEGATIVE Urine Bilirubin NEGATIVE Urine Urobilinogen 0.2 (NORMAL) Ur Leukocyte Esterase NEGATIVE Ur Microscopic Review NOT INDICATED Urine Culture Comments NOT INDICATED - Rads (name of study) CT A/P with IV contrast Radiology: Prelim report reviewed, EMP read indepedently, See rad report PD Medical Decision Making - ED course Complexity details: reviewed old records, reviewed results, re-evaluated patient, considered differential, d/w patient, d/w family ED course: IV established and patient is given 1mg IV dilaudid, 4mg IV zofran, 10mg IV reglan, and 1 liter NS IV. Tests ordered and reviewed by me: CBC, ER abdominal panel, UA, CT A/P with IV contrast. No concerning findings on blood tests. Mildly elevated hgb, suspect due to dehydration. CT A/P consistent with partial SBO. On reevaluation, he is awake and alert and in NAD. He is nontender on reexamination of abdomen. He is no longer crying out in pain. Previous notes reviewed from admission to [facility] 06/12/20 for SBO: patient was discharged same day as admission, as the symptoms had improved rapidly and he was passing gas and stool shortly after arriving to floor (consistent with mother's report that patient's small bowel obstructions typically resolve within hours of onset of symptoms). I discussed results with patient and mother of patient. They are comfortable with d/c home at this time. Given take-home pack of percocet. Return precautions discussed. Departure - Departure Disposition: 01 Home, Self Care Clinical Impression: Small bowel obstruction Condition: Good Instructions: Obstruction Sm Bowel Follow-Up: Kamala Oconnell MD [Primary Care Provider] - Prescriptions: Metoclopramide [Reglan] 10 mg PO Q6H PRN #14 tablet PRN Reason: Nausea / Vomiting Comments: There were no significant nor concerning abnormalities on the blood tests performed tonight. The CT scan does show a small bowel obstruction, although it appears to be a partial (and not a complete) obstruction. It is possible that the obstruction resolves without any specific treatment; of course, it is also possible that the partial bowel obstruction progresses to a complete bowel obstruction. A complete bowel obstruction is typically associated with increasingly frequent waves of pain, becoming constant, as well as episodes of nausea and vomiting that progressed to the point of not being able to tolerate anything including liquids by mouth, as well as no gas or stool output from below. Based on several of your previous episodes of bowel obstruction resolving rapidly and, quite often, without any specific intervention, and given that your symptoms appear to be well controlled at this time, it is reasonable to discharge you home provided that you come back if your symptoms worsen. You are given an antinausea medication (Zofran) in the emergency department towards the beginning of your stay, and you are also given a dose of a different antinausea and (metoclopramide) prior to discharge. This second antinauseant was given because it has some effect on the intestines, specifically that it can help increase the motility of the intestines which, in turn, can sometimes prevent a partial bowel obstruction from progressing to a complete bowel obstruction. I have electronically submitted a prescription for this antinausea medication to the [facility] in [place]. Discharge Date/Time: 08/06/22 04:36
[2022-08-06 01:43] LABS: BASOPHILS % (AUTO) 0.4 %; EOSINOPHILS # (AUTO) 0.1 10^3/uL (0.0-0.7); EOSINOPHILS % (AUTO) 1.3 %; HCT - HEMATOCRIT 56.5 % (42.0-52.0); HGB - HEMOGLOBIN 18.3 g/dL (14.0-18.0); LYMPHOCYTES # (AUTO) 1.6 10^3/uL (1.5-3.5); LYMPHOCYTES % (AUTO) 15.1 %; MEAN CORPUSCULAR HEMOGLOBIN 28.7 pg (27.0-31.0); MEAN CORPUSCULAR HGB CONC 32.4 g/dL (32.0-36.0); MEAN CORPUSCULAR VOLUME 88.6 fL (80.0-94.0); MEAN PLATELET VOLUME 11.2 fL (7.4-11.4); MONOCYTES # (AUTO) 0.8 10^3/uL (0.0-1.0); NEUTROPHILS # (AUTO) 7.8 10^3/uL (1.5-6.6); NEUTROPHILS % (AUTO) 74.9 %; PLT - PLATELET COUNT 272 10^3/uL (130-450); RED BLOOD COUNT 6.38 10^6/uL (4.70-6.10); RED CELL DISTRIBUTION WIDTH 14.3 % (12.0-15.0); WHITE BLOOD COUNT 10.3 x10^3/uL (4.8-10.8)
[2022-08-06 01:56] LABS: ALBUMIN 4.4 g/dL (3.2-5.5); ALBUMIN/GLOBULIN RATIO 1.4 (1.0-2.2); BILIRUBIN,TOTAL 0.9 mg/dL (0.2-1.0); CALCIUM 9.8 mg/dL (8.5-10.3); CREATININE 0.9 mg/dL (0.6-1.2); POTASSIUM 3.4 mmol/L (3.5-5.0); TOTAL PROTEIN 7.5 g/dL (6.7-8.2)
[2022-08-06] MEDS ORDERED: SODIUM CHLORIDE 0.9% 1,000 ML IV STA (02:06)
[2022-08-06] MEDS ORDERED: ONDANSETRON 4 MG/2 ML VIAL IVP STA (02:06)
[2022-08-06] MEDS ORDERED: HYDROmorphone 1 MG/ML CARPUJECT IVP STA (02:06)
[2022-08-06] MEDS ORDERED: HYDROmorphone 1 MG/ML CARPUJECT ONE (02:07)
[2022-08-06] MEDS ORDERED: ONDANSETRON 4 MG/2 ML VIAL ONE (02:08)
[2022-08-06] MEDS ORDERED: iohexoL-300 100 ML VIAL ONE (02:16)
[2022-08-06 02:37] LABS: BILIRUBIN,URINE NEGATIVE (NEGATIVE); GLUCOSE, URINE (UA) NEGATIVE (NEGATIVE); KETONES,URINE (UA) TRACE mg/dL (NEGATIVE); LEUKOCYTE ESTERASE, URINE NEGATIVE (NEGATIVE); NITRITE,URINE NEGATIVE (NEGATIVE); OCCULT BLOOD,URINE NEGATIVE (NEGATIVE); PH,URINE 5.5 PH (5.0-7.5); PROTEIN,URINE NEGATIVE (NEGATIVE); UROBILINOGEN,URINE 0.2 (NORMAL) E.U./dL (NORMAL)
[2022-08-06 02:38] LABS: CLARITY,URINE CLEAR (CLEAR)
[2022-08-06] MEDS ORDERED: iohexoL-300 100 ML VIAL IVP ONE (03:04)
[2022-08-06 04:08] VITALS: BP 104/69
[2022-08-06] MEDS ORDERED: oxyCODONE/ACET 5/325 Prepack 4 PO STA (04:25)
[2022-08-06] MEDS ORDERED: METOCLOPRAMIDE 10 MG/2 ML VIAL IVP STA (04:25)
--- OUTSIDE RECORDS SUMMARY | 2022-08-06 08:14 | EXTERNAL MEDICAL SUMMARY RPT | Continuity of Care Document ---
:1985 Author Organization [place] Address [address] [place] [address] Phone Allergies No information. Encounters No information. Functional Status No information. Immunizations No information. Medications No information. 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 [facility] 2022-06-23 09:37 Iron deficiency anemia, unspecified [facility] 2022-06-23 09:37 Decreased white blood cell count, [facility] 2022-06-23 09:37 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 [facility] 2022-07-04 08:53 Iron deficiency anemia, unspecified [facility] 2022-07-04 08:53 Decreased white blood cell count, [facility] 2022-07-04 08:53 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 [facility] 2022-07-04 09:49 Iron deficiency anemia, unspecified [facility] 2022-07-04 09:49 Decreased white blood cell count, [facility] 2022-07-04 09:49 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 [facility] 2022-07-04 14:40 Iron deficiency anemia, unspecified [facility] 2022-07-04 14:40 Decreased white blood cell count, [facility] 2022-07-04 14:40 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 [facility] 2022-07-05 10:21 Iron deficiency anemia, unspecified [facility] 2022-07-05 10:21 Decreased white blood cell count, [facility] 2022-07-05 10:21 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 Results/Labs test date author facility value unit interpret ation Result panel 1 (unknown) (no (unknown) (unknown) (no value) (units (unk nown) date) unknown) (unknown) (no (unknown) (unknown) % Saturation 10 % (units (unknown) date) (20-50) L 10/06/21 unknown) 14:57 (unknown) (no (unknown) (unknown) (1) Leukopenia (units (unknown) date) unknown) (unknown) (no (unknown) (unknown) - Date of Visit (units (unknown) date) unknown) (unknown) (no (unknown) (unknown) - Imaging (units (unkn own) date) unknown) (unknown) (no (unknown) (unknown) - Labs (units (unkno wn) date) unknown) (unknown) (no (unknown) (unknown) - Patient (units (unkn own) date) Self-Reported unknown) Symptoms (unknown) (no (unknown) (unknown) 07/06/22 14:47 (units (unknown) date) 98.2 F 70 18 127/78 unknown) 97 (unknown) (no (unknown) (unknown) 36 year old male (units (unknown) date) referred for unknown) evaluation of leukopenia and anemia after recent (unknown) (no (unknown) (unknown) ALT 61 IU/L (<50) (units (unknown) date) H 10/06/21 14:57 unknown) (unknown) (no (unknown) (unknown) ANTIBIOTICS)] (units ( unknown) date) unknown) (unknown) (no (unknown) (unknown) AST 51 IU/L (units (un known) date) (17-59) 10/06/21 unknown) 14:57 (unknown) (no (unknown) (unknown) Additional (units (unk nown) date) studies: unknown) (unknown) (no (unknown) (unknown) Age/Sex: 37 / M (units (unknown) date) unknown) (unknown) (no (unknown) (unknown) Albumin (PEP) 3.3 (units (unknown) date) g/dL (2.9-4.4) unknown) 10/06/21 14:57 (unknown) (no (unknown) (unknown) Albumin 3.7 g/dL (units (unknown) date) (3.5-5.0) 10/06/21 unknown) 14:57 (unknown) (no (unknown) (unknown) Albumin/Globulin (units (unknown) date) (PEP) 1.1 (0.7-1.7) unknown) 10/06/21 14:57 (unknown) (no (unknown) (unknown) Albumin/Globulin (units (unknown) date) Ratio 1.3 (1.0-2.8) unknown) 10/06/21 14:57 (unknown) (no (unknown) (unknown) Alkaline (units (unkno wn) date) Phosphatase 107 U/L unknown) (38-126) 10/06/21 14:57 (unknown) (no (unknown) (unknown) Allergies (units (unkn own) date) unknown) (unknown) (no (unknown) (unknown) Allergy/AdvReac (units (unknown) date) Type Severity unknown) Reaction Status Date / Time (unknown) (no (unknown) (unknown) Knbfh-9-Fdgddrxrz (units (unknown) date) 0.3 g/dL (0.0-0.4) unknown) 10/06/21 14:57 (unknown) (no (unknown) (unknown) Ntwfu-7-Mmrohkmdu (units (unknown) date) 0.9 g/dL (0.4-1.0) unknown) 10/06/21 14:57 (unknown) (no (unknown) (unknown) Antibiotics) (units (u nknown) date) unknown) (unknown) (no (unknown) (unknown) Approach, New (units ( unknown) date) Technology Group 5 unknown) (08/13/21) (unknown) (no (unknown) (unknown) Assessment and (units (unknown) date) Plan unknown) (unknown) (no (unknown) (unknown) BUN 7 mg/dL (9-20) (units (unknown) date) L 10/06/21 14:57 unknown) (unknown) (no (unknown) (unknown) BUN/Creatinine (units (unknown) date) Ratio 11.3 (6-22) unknown) 10/06/21 14:57 (unknown) (no (unknown) (unknown) Baso # (Auto) 100 (units (unknown) date) /uL (0-100) unknown) 12/22/21 11:13 (unknown) (no (unknown) (unknown) Baso % (Auto) 1.4 (units (unknown) date) % (0-2) 12/22/21 unknown) 11:13 (unknown) (no (unknown) (unknown) Beta Globulins 1.2 (units (unknown) date) g/dL (0.7-1.3) unknown) 10/06/21 14:57 (unknown) (no (unknown) (unknown) Calcium 8.8 mg/dL (units (unknown) date) (8.4-10.2) 10/06/21 unknown) 14:57 (unknown) (no (unknown) (unknown) Carbon Dioxide 28 (units (unknown) date) mmol/L (22-32) unknown) 10/06/21 14:57 (unknown) (no (unknown) (unknown) Chief Complaint: (units (unknown) date) Follow-up anemia unknown) (unknown) (no (unknown) (unknown) Chloride 112 (units (u nknown) date) mmol/L (98-107) H unknown) 10/06/21 14:57 (unknown) (no (unknown) (unknown) Creatinine 0.62 (units (unknown) date) mg/dL (0.66-1.25) L unknown) 10/06/21 14:57 (unknown) (no (unknown) (unknown) : 1985 (units (unknown) date) Acct:[id number] unknown) (unknown) (no (unknown) (unknown) Date of Service: (units (unknown) date) 07/06/22 unknown) (unknown) (no (unknown) (unknown) Date of visit: (units (unknown) date) 07/06/22 unknown) (unknown) (no (unknown) (unknown) Eos # (Auto) 100 (units (unknown) date) /uL (0-450) unknown) 12/22/21 11:13 (unknown) (no (unknown) (unknown) Eos % (Auto) 2.5 % (units (unknown) date) (2-4) 12/22/21 unknown) 11:13 (unknown) (no (unknown) (unknown) Estimated GFR > (units (unknown) date) 60.0 mL/min (>60) unknown) 10/06/21 14:57 (unknown) (no (unknown) (unknown) Exam (units (unkno wn) date) unknown) (unknown) (no (unknown) (unknown) Ferritin 5 ng/mL (units (unknown) date) (18-464) L 10/06/21 unknown) 14:57 (unknown) (no (unknown) (unknown) Folate 9.2 ng/mL (units (unknown) date) (2.76-20.0) unknown) 10/06/21 14:57 (unknown) (no (unknown) (unknown) GI workup. He will (units (unknown) date) talk to his primary unknown) care provider about this as well. (unknown) (no (unknown) (unknown) Gamma Glob/Tot (units (unknown) date) Protein 2.9 g/dL unknown) (2.2-3.9) 10/06/21 14:57 (unknown) (no (unknown) (unknown) Gamma Globulins (units (unknown) date) 0.6 g/dL (0.4-1.8) unknown) 10/06/21 14:57 (unknown) (no (unknown) (unknown) Globulin 2.9 g/dL (units (unknown) date) (1.7-4.1) 10/06/21 unknown) 14:57 (unknown) (no (unknown) (unknown) Glucose 98 mg/dL (units (unknown) date) (70-100) 10/06/21 unknown) 14:57 (unknown) (no (unknown) (unknown) Hct 43.5 % (41-53) (units (unknown) date) 12/22/21 11:13 unknown) (unknown) (no (unknown) (unknown) Hgb 13.9 g/dL (units ( unknown) date) (13.5-17.5) unknown) 12/22/21 11:13 (unknown) (no (unknown) (unknown) Home Medications (units (unknown) date) and Allergies unknown) (unknown) (no (unknown) (unknown) Home Medications (units (unknown) date) unknown) (unknown) (no (unknown) (unknown) Interval history: (units (unknown) date) unknown) (unknown) (no (unknown) (unknown) Introduction of (units (unknown) date) Baricitinib into unknown) Mouth and Pharynx, External Approach, New (unknown) (no (unknown) (unknown) Introduction of (units (unknown) date) Remdesivir unknown) Anti-infective into Peripheral Vein, Percutaneous (unknown) (no (unknown) (unknown) Iron 52 ug/dL (units ( unknown) date) (49-181) 10/06/21 unknown) 14:57 (unknown) (no (unknown) (unknown) [facility] (units (unknown) date) [address] [place] [address] unknown) [place] [address] (unknown) (no (unknown) (unknown) Jesse is a very (units (unknown) date) pleasant unknown) 36-year-old gentleman referred for evaluation of (unknown) (no (unknown) (unknown) Lab results today (units (unknown) date) indicate that he unknown) does have vitamin B12 deficiency as well as (unknown) (no (unknown) (unknown) Laboratory Last (units (unknown) date) Values unknown) (unknown) (no (unknown) (unknown) Lactate (units (unkno wn) date) Dehydrogenase 544 unknown) U/L (313-618) 10/06/21 14:57 (unknown) (no (unknown) (unknown) Lymph # (Auto) (units (unknown) date) 1600 /uL unknown) (7162-2185) 12/22/21 11:13 (unknown) (no (unknown) (unknown) Lymph % (Auto) (units (unknown) date) 43.1 % (25-40) H unknown) 12/22/21 11:13 (unknown) (no (unknown) (unknown) M-Lloyd Not (units (un known) date) observed g/dL (Not unknown) Observed) 10/06/21 14:57 (unknown) (no (unknown) (unknown) [id number] (units (unk nown) date) unknown) (unknown) (no (unknown) (unknown) MCH 26.0 PG (units (un known) date) (26-34) 12/22/21 unknown) 11:13 (unknown) (no (unknown) (unknown) MCHC 32.0 % (units (un known) date) (30-36) 12/22/21 unknown) 11:13 (unknown) (no (unknown) (unknown) MCV 81.3 fL (units (un known) date) (80-100) 12/22/21 unknown) 11:13 (unknown) (no (unknown) (unknown) Medication (units (unk nown) date) Instructions unknown) Recorded Confirmed Type (unknown) (no (unknown) (unknown) Dukes # (Auto) 400 (units (unknown) date) /uL (0-900) unknown) 12/22/21 11:13 (unknown) (no (unknown) (unknown) Dukes % (Auto) 10.3 (units (unknown) date) % (3-14) 12/22/21 unknown) 11:13 (unknown) (no (unknown) (unknown) Neut # (Auto) 1600 (units (unknown) date) /uL (5050-1864) unknown) 12/22/21 11:13 (unknown) (no (unknown) (unknown) Neut % (Auto) 42.7 (units (unknown) date) % (50-75) L unknown) 12/22/21 11:13 (unknown) (no (unknown) (unknown) Okay to stop iron (units (unknown) date) and B12 unknown) (unknown) (no (unknown) (unknown) Oncology Progress (units (unknown) date) Note unknown) (unknown) (no (unknown) (unknown) PN -Subjective (units (unknown) date) unknown) (unknown) (no (unknown) (unknown) Patient: (units (unkno wn) date) Anthony Tejeda W unknown) MR#: (unknown) (no (unknown) (unknown) Plan (units (unkno wn) date) unknown) (unknown) (no (unknown) (unknown) Plt Count 189 (units ( unknown) date) X103/uL (150-400) unknown) 12/22/21 11:13 (unknown) (no (unknown) (unknown) Potassium 4.4 (units ( unknown) date) mmol/L (3.4-5.1) unknown) 10/06/21 14:57 (unknown) (no (unknown) (unknown) Procedures (units (unk nown) date) unknown) (unknown) (no (unknown) (unknown) Provider: (units (unkn own) date) Finn Swift MD unknown) (unknown) (no (unknown) (unknown) RBC 5.35 X106/uL (units (unknown) date) (4.5-5.9) 12/22/21 unknown) 11:13 (unknown) (no (unknown) (unknown) RDW 18.8 % (units (unk nown) date) (11.6-14.8) H unknown) 12/22/21 11:13 (unknown) (no (unknown) (unknown) Ref Lab Notation (units (unknown) date) Comment (.) unknown) 10/06/21 14:57 (unknown) (no (unknown) (unknown) Results (units (unkno wn) date) unknown) (unknown) (no (unknown) (unknown) Return to clinic (units (unknown) date) in 6 months for unknown) ongoing monitoring of his anemia. (unknown) (no (unknown) (unknown) SR Cardiovascular (units (unknown) date) issues: Extreme unknown) swelling (unknown) (no (unknown) (unknown) SR Constitution: (units (unknown) date) Fatigue/Malaise unknown) (unknown) (no (unknown) (unknown) SR Endocrine (units (u nknown) date) issues: Excessive unknown) thirst (unknown) (no (unknown) (unknown) SR (units (unkno wn) date) Gastrointestinal unknown) issues: Heartburn (unknown) (no (unknown) (unknown) SR Genitourinary (units (unknown) date) issues: Frequent unknown) urination (unknown) (no (unknown) (unknown) SR Musculoskeletal (units (unknown) date) issues: Joint pain unknown) or swelling, Muscle weakness, Muscle pain (unknown) (no (unknown) (unknown) SR Neuro issues: (units (unknown) date) Difficulty unknown) balancing (unknown) (no (unknown) (unknown) SR Skin issues: (units (unknown) date) Dry skin unknown) (unknown) (no (unknown) (unknown) SR ears, nose, (units (unknown) date) mouth, throat unknown) issues: Cough (unknown) (no (unknown) (unknown) SR respiratory (units (unknown) date) issues: Cough unknown) (unknown) (no (unknown) (unknown) Signed By: (units (unk nown) date) unknown) (unknown) (no (unknown) (unknown) Sodium 144 mmol/L (units (unknown) date) (137-145) 10/06/21 unknown) 14:57 (unknown) (no (unknown) (unknown) Status: Acute (units ( unknown) date) unknown) (unknown) (no (unknown) (unknown) Sulfa (Sulfonamide (units (unknown) date) Allergy Unknown unknown) Verified 08/13/21 14:34 (unknown) (no (unknown) (unknown) TIBC 530 ug/dL (units (unknown) date) (261-462) H unknown) 10/06/21 14:57 (unknown) (no (unknown) (unknown) Technology Group 6 (units (unknown) date) (08/13/21) unknown) (unknown) (no (unknown) (unknown) Temp Pulse Resp BP (units (unknown) date) Pulse Ox unknown) (unknown) (no (unknown) (unknown) Total Bilirubin (units (unknown) date) 0.3 mg/dL (0.2-1.3) unknown) 10/06/21 14:57 (unknown) (no (unknown) (unknown) Total Protein (units ( unknown) date) (PEP) 6.2 g/dL unknown) (6.0-8.5) 10/06/21 14:57 (unknown) (no (unknown) (unknown) Total Protein 6.6 (units (unknown) date) g/dL (6.3-8.2) unknown) 10/06/21 14:57 (unknown) (no (unknown) (unknown) Transferrin 430 (units (unknown) date) mg/dL (206-381) H unknown) 10/06/21 14:57 (unknown) (no (unknown) (unknown) Vital Signs (units (un known) date) unknown) (unknown) (no (unknown) (unknown) Vital signs: (units (u nknown) date) unknown) (unknown) (no (unknown) (unknown) Vitamin B12 204 (units (unknown) date) pg/mL (239-931) L unknown) 10/06/21 14:57 (unknown) (no (unknown) (unknown) WBC 3.7 X103/uL (units (unknown) date) (4.5-11.0) L unknown) 12/22/21 11:13 (unknown) (no (unknown) (unknown) [SULFA (units (unkno wn) date) (SULFONAMIDE unknown) (unknown) (no (unknown) (unknown) an iron (units (unkno wn) date) deficiency. He unknown) started iron sulfate 325 mg 3 times a day and is also on (unknown) (no (unknown) (unknown) appears to have (units (unknown) date) normalized now with unknown) good response. With continued improvement (unknown) (no (unknown) (unknown) covid infection (units (unknown) date) requiring unknown) hospitalization. He has recovered from his covid (unknown) (no (unknown) (unknown) famotidine 10 (units ( unknown) date) mg/mL intravenous unknown) 10 mg BID 10/06/21 07/06/22 History (unknown) (no (unknown) (unknown) fevers chills (units ( unknown) date) nausea vomiting unknown) headaches or blood in the stools. He was started (unknown) (no (unknown) (unknown) followed by (units (un known) date) monthly. Presents unknown) today for further follow-up after initiating (unknown) (no (unknown) (unknown) have continued (units ( unknown) date) decreases in his unknown) hematocrit consideration may be given to further (unknown) (no (unknown) (unknown) his visit on (units (u nknown) date) initial unknown) consultation. Currently he is feeling well and denies any (unknown) (no (unknown) (unknown) in his hematocrit (units (unknown) date) now at 52% he can unknown) discontinue his iron and B12. We will plan (unknown) (no (unknown) (unknown) infection but was (units (unknown) date) noted to have unknown) abnormalities on his cbc. (unknown) (no (unknown) (unknown) leukopenia and (units (unknown) date) anemia. He did have unknown) a recent COVID infection/pneumonia prior to (unknown) (no (unknown) (unknown) months with (units (un known) date) improved energy unknown) levels overall. (unknown) (no (unknown) (unknown) omeprazole 20 mg (units (unknown) date) capsule,delayed 20 unknown) mg PO QAM 08/13/21 07/06/22 History (unknown) (no (unknown) (unknown) on iron sulfate 325 (units (unknown) date) mg 3 times a day as unknown) well as vitamin B12 injections weekly x4 (unknown) (no (unknown) (unknown) or cramps, Back or (units (unknown) date) neck pain, Cold unknown) hands or feet, Difficulty walking (unknown) (no (unknown) (unknown) promethazine (units (u nknown) date) [PROMETHAZINE] unknown) AdvReac Unknown Verified 08/13/21 14:34 (unknown) (no (unknown) (unknown) release (units (unkno wn) date) unknown) (unknown) (no (unknown) (unknown) solution (units (unkno wn) date) unknown) (unknown) (no (unknown) (unknown) to monitor him (units (unknown) date) after this and have unknown) her return to clinic in 6 months. He does (unknown) (no (unknown) (unknown) treatment. (units (unk nown) date) Currently feels unknown) well and has no complaints. Now on treatment for 6 (unknown) (no (unknown) (unknown) vitamin B12 (units (un known) date) injections and has unknown) done well on these. Overall his hematocrit Result panel 2 (unknown) (no (unknown) (unknown) (no value) (units (unk nown) date) unknown) (unknown) (no (unknown) (unknown) % Saturation 10 % (units (unknown) date) (20-50) L 10/06/21 unknown) 14:57 (unknown) (no (unknown) (unknown) (1) Leukopenia (units (unknown) date) unknown) (unknown) (no (unknown) (unknown) - Date of Visit (units (unknown) date) unknown) (unknown) (no (unknown) (unknown) - Imaging (units (unkn own) date) unknown) (unknown) (no (unknown) (unknown) - Labs (units (unkno wn) date) unknown) (unknown) (no (unknown) (unknown) - Patient (units (unkn own) date) Self-Reported unknown) Symptoms (unknown) (no (unknown) (unknown) 07/06/22 14:47 (units (unknown) date) 98.2 F 70 18 127/78 unknown) 97 (unknown) (no (unknown) (unknown) 36 year old male (units (unknown) date) referred for unknown) evaluation of leukopenia and anemia after recent (unknown) (no (unknown) (unknown) ALT 61 IU/L (<50) (units (unknown) date) H 10/06/21 14:57 unknown) (unknown) (no (unknown) (unknown) ANTIBIOTICS)] (units ( unknown) date) unknown) (unknown) (no (unknown) (unknown) AST 51 IU/L (units (un known) date) (17-59) 10/06/21 unknown) 14:57 (unknown) (no (unknown) (unknown) Additional (units (unk nown) date) studies: unknown) (unknown) (no (unknown) (unknown) Age/Sex: 37 / M (units (unknown) date) unknown) (unknown) (no (unknown) (unknown) Albumin (PEP) 3.3 (units (unknown) date) g/dL (2.9-4.4) unknown) 10/06/21 14:57 (unknown) (no (unknown) (unknown) Albumin 3.7 g/dL (units (unknown) date) (3.5-5.0) 10/06/21 unknown) 14:57 (unknown) (no (unknown) (unknown) Albumin/Globulin (units (unknown) date) (PEP) 1.1 (0.7-1.7) unknown) 10/06/21 14:57 (unknown) (no (unknown) (unknown) Albumin/Globulin (units (unknown) date) Ratio 1.3 (1.0-2.8) unknown) 10/06/21 14:57 (unknown) (no (unknown) (unknown) Alkaline (units (unkno wn) date) Phosphatase 107 U/L unknown) (38-126) 10/06/21 14:57 (unknown) (no (unknown) (unknown) Allergies (units (unkn own) date) unknown) (unknown) (no (unknown) (unknown) Allergy/AdvReac (units (unknown) date) Type Severity unknown) Reaction Status Date / Time (unknown) (no (unknown) (unknown) Bgjcw-4-Ebhnbqaxj (units (unknown) date) 0.3 g/dL (0.0-0.4) unknown) 10/06/21 14:57 (unknown) (no (unknown) (unknown) Gueqi-2-Rclxpmrgn (units (unknown) date) 0.9 g/dL (0.4-1.0) unknown) 10/06/21 14:57 (unknown) (no (unknown) (unknown) Antibiotics) (units (u nknown) date) unknown) (unknown) (no (unknown) (unknown) Approach, New (units ( unknown) date) Technology Group 5 unknown) (08/13/21) (unknown) (no (unknown) (unknown) Assessment and (units (unknown) date) Plan unknown) (unknown) (no (unknown) (unknown) BUN 7 mg/dL (9-20) (units (unknown) date) L 10/06/21 14:57 unknown) (unknown) (no (unknown) (unknown) BUN/Creatinine (units (unknown) date) Ratio 11.3 (6-22) unknown) 10/06/21 14:57 (unknown) (no (unknown) (unknown) Baso # (Auto) 100 (units (unknown) date) /uL (0-100) unknown) 12/22/21 11:13 (unknown) (no (unknown) (unknown) Baso % (Auto) 1.4 (units (unknown) date) % (0-2) 12/22/21 unknown) 11:13 (unknown) (no (unknown) (unknown) Beta Globulins 1.2 (units (unknown) date) g/dL (0.7-1.3) unknown) 10/06/21 14:57 (unknown) (no (unknown) (unknown) Calcium 8.8 mg/dL (units (unknown) date) (8.4-10.2) 10/06/21 unknown) 14:57 (unknown) (no (unknown) (unknown) Carbon Dioxide 28 (units (unknown) date) mmol/L (22-32) unknown) 10/06/21 14:57 (unknown) (no (unknown) (unknown) Chief Complaint: (units (unknown) date) Follow-up anemia unknown) (unknown) (no (unknown) (unknown) Chloride 112 (units (u nknown) date) mmol/L (98-107) H unknown) 10/06/21 14:57 (unknown) (no (unknown) (unknown) Creatinine 0.62 (units (unknown) date) mg/dL (0.66-1.25) L unknown) 10/06/21 14:57 (unknown) (no (unknown) (unknown) : 1985 (units (unknown) date) Acct:[id number] unknown) (unknown) (no (unknown) (unknown) Date of Service: (units (unknown) date) 07/06/22 unknown) (unknown) (no (unknown) (unknown) Date of visit: (units (unknown) date) 07/06/22 unknown) (unknown) (no (unknown) (unknown) Eos # (Auto) 100 (units (unknown) date) /uL (0-450) unknown) 12/22/21 11:13 (unknown) (no (unknown) (unknown) Eos % (Auto) 2.5 % (units (unknown) date) (2-4) 12/22/21 unknown) 11:13 (unknown) (no (unknown) (unknown) Estimated GFR > (units (unknown) date) 60.0 mL/min (>60) unknown) 10/06/21 14:57 (unknown) (no (unknown) (unknown) Exam (units (unkno wn) date) unknown) (unknown) (no (unknown) (unknown) Ferritin 5 ng/mL (units (unknown) date) (18-464) L 10/06/21 unknown) 14:57 (unknown) (no (unknown) (unknown) Folate 9.2 ng/mL (units (unknown) date) (2.76-20.0) unknown) 10/06/21 14:57 (unknown) (no (unknown) (unknown) GI workup. He will (units (unknown) date) talk to his primary unknown) care provider about this as well. (unknown) (no (unknown) (unknown) Gamma Glob/Tot (units (unknown) date) Protein 2.9 g/dL unknown) (2.2-3.9) 10/06/21 14:57 (unknown) (no (unknown) (unknown) Gamma Globulins (units (unknown) date) 0.6 g/dL (0.4-1.8) unknown) 10/06/21 14:57 (unknown) (no (unknown) (unknown) Globulin 2.9 g/dL (units (unknown) date) (1.7-4.1) 10/06/21 unknown) 14:57 (unknown) (no (unknown) (unknown) Glucose 98 mg/dL (units (unknown) date) (70-100) 10/06/21 unknown) 14:57 (unknown) (no (unknown) (unknown) Hct 43.5 % (41-53) (units (unknown) date) 12/22/21 11:13 unknown) (unknown) (no (unknown) (unknown) Hgb 13.9 g/dL (units ( unknown) date) (13.5-17.5) unknown) 12/22/21 11:13 (unknown) (no (unknown) (unknown) Home Medications (units (unknown) date) and Allergies unknown) (unknown) (no (unknown) (unknown) Home Medications (units (unknown) date) unknown) (unknown) (no (unknown) (unknown) Interval history: (units (unknown) date) unknown) (unknown) (no (unknown) (unknown) Introduction of (units (unknown) date) Baricitinib into unknown) Mouth and Pharynx, External Approach, New (unknown) (no (unknown) (unknown) Introduction of (units (unknown) date) Remdesivir unknown) Anti-infective into Peripheral Vein, Percutaneous (unknown) (no (unknown) (unknown) Iron 52 ug/dL (units ( unknown) date) (49-181) 10/06/21 unknown) 14:57 (unknown) (no (unknown) (unknown) [facility] (units (unknown) date) [address] unknown) [place] [address] (unknown) (no (unknown) (unknown) Jesse is a very (units (unknown) date) pleasant unknown) 36-year-old gentleman referred for evaluation of (unknown) (no (unknown) (unknown) Lab results today (units (unknown) date) indicate that he unknown) does have vitamin B12 deficiency as well as (unknown) (no (unknown) (unknown) Laboratory Last (units (unknown) date) Values unknown) (unknown) (no (unknown) (unknown) Lactate (units (unkno wn) date) Dehydrogenase 544 unknown) U/L (313-618) 10/06/21 14:57 (unknown) (no (unknown) (unknown) Lymph # (Auto) (units (unknown) date) 1600 /uL unknown) ([id number]) 12/22/21 11:13 (unknown) (no (unknown) (unknown) Lymph % (Auto) (units (unknown) date) 43.1 % (25-40) H unknown) 12/22/21 11:13 (unknown) (no (unknown) (unknown) M-Lloyd Not (units (un known) date) observed g/dL (Not unknown) Observed) 10/06/21 14:57 (unknown) (no (unknown) (unknown) [id number] (units (unk nown) date) unknown) (unknown) (no (unknown) (unknown) MCH 26.0 PG (units (un known) date) (26-34) 12/22/21 unknown) 11:13 (unknown) (no (unknown) (unknown) MCHC 32.0 % (units (un known) date) (30-36) 12/22/21 unknown) 11:13 (unknown) (no (unknown) (unknown) MCV 81.3 fL (units (un known) date) (80-100) 12/22/21 unknown) 11:13 (unknown) (no (unknown) (unknown) Medication (units (unk nown) date) Instructions unknown) Recorded Confirmed Type (unknown) (no (unknown) (unknown) Dukes # (Auto) 400 (units (unknown) date) /uL (0-900) unknown) 12/22/21 11:13 (unknown) (no (unknown) (unknown) Dukes % (Auto) 10.3 (units (unknown) date) % (3-14) 12/22/21 unknown) 11:13 (unknown) (no (unknown) (unknown) Neut # (Auto) 1600 (units (unknown) date) /uL (7195-5272) unknown) 12/22/21 11:13 (unknown) (no (unknown) (unknown) Neut % (Auto) 42.7 (units (unknown) date) % (50-75) L unknown) 12/22/21 11:13 (unknown) (no (unknown) (unknown) Okay to stop iron (units (unknown) date) and B12 unknown) (unknown) (no (unknown) (unknown) Oncology Progress (units (unknown) date) Note unknown) (unknown) (no (unknown) (unknown) PN -Subjective (units (unknown) date) unknown) (unknown) (no (unknown) (unknown) Patient: (units (unkno wn) date) Anthony Tejeda W unknown) MR#: (unknown) (no (unknown) (unknown) Plan (units (unkno wn) date) unknown) (unknown) (no (unknown) (unknown) Plt Count 189 (units ( unknown) date) X103/uL (150-400) unknown) 12/22/21 11:13 (unknown) (no (unknown) (unknown) Potassium 4.4 (units ( unknown) date) mmol/L (3.4-5.1) unknown) 10/06/21 14:57 (unknown) (no (unknown) (unknown) Procedures (units (unk nown) date) unknown) (unknown) (no (unknown) (unknown) Provider: (units (unkn own) date) Finn Swift MD unknown) (unknown) (no (unknown) (unknown) RBC 5.35 X106/uL (units (unknown) date) (4.5-5.9) 12/22/21 unknown) 11:13 (unknown) (no (unknown) (unknown) RDW 18.8 % (units (unk nown) date) (11.6-14.8) H unknown) 12/22/21 11:13 (unknown) (no (unknown) (unknown) Ref Lab Notation (units (unknown) date) Comment (.) unknown) 10/06/21 14:57 (unknown) (no (unknown) (unknown) Results (units (unkno wn) date) unknown) (unknown) (no (unknown) (unknown) Return to clinic (units (unknown) date) in 6 months for unknown) ongoing monitoring of his anemia. (unknown) (no (unknown) (unknown) SR Cardiovascular (units (unknown) date) issues: Extreme unknown) swelling (unknown) (no (unknown) (unknown) SR Constitution: (units (unknown) date) Fatigue/Malaise unknown) (unknown) (no (unknown) (unknown) SR Endocrine (units (u nknown) date) issues: Excessive unknown) thirst (unknown) (no (unknown) (unknown) SR (units (unkno wn) date) Gastrointestinal unknown) issues: Heartburn (unknown) (no (unknown) (unknown) SR Genitourinary (units (unknown) date) issues: Frequent unknown) urination (unknown) (no (unknown) (unknown) SR Musculoskeletal (units (unknown) date) issues: Joint pain unknown) or swelling, Muscle weakness, Muscle pain (unknown) (no (unknown) (unknown) SR Neuro issues: (units (unknown) date) Difficulty unknown) balancing (unknown) (no (unknown) (unknown) SR Skin issues: (units (unknown) date) Dry skin unknown) (unknown) (no (unknown) (unknown) SR ears, nose, (units (unknown) date) mouth, throat unknown) issues: Cough (unknown) (no (unknown) (unknown) SR respiratory (units (unknown) date) issues: Cough unknown) (unknown) (no (unknown) (unknown) Signed (units (unkno wn) date) By:<Electronically unknown) signed by Finn Swift MD>07/06/22 1602 (unknown) (no (unknown) (unknown) Sodium 144 mmol/L (units (unknown) date) (137-145) 10/06/21 unknown) 14:57 (unknown) (no (unknown) (unknown) Status: Acute (units ( unknown) date) unknown) (unknown) (no (unknown) (unknown) Sulfa (Sulfonamide (units (unknown) date) Allergy Unknown unknown) Verified 08/13/21 14:34 (unknown) (no (unknown) (unknown) TIBC 530 ug/dL (units (unknown) date) (261-462) H unknown) 10/06/21 14:57 (unknown) (no (unknown) (unknown) [employer] 6 (units (unknown) date) (08/13/21) unknown) (unknown) (no (unknown) (unknown) Temp Pulse Resp BP (units (unknown) date) Pulse Ox unknown) (unknown) (no (unknown) (unknown) Total Bilirubin (units (unknown) date) 0.3 mg/dL (0.2-1.3) unknown) 10/06/21 14:57 (unknown) (no (unknown) (unknown) Total Protein (units ( unknown) date) (PEP) 6.2 g/dL unknown) (6.0-8.5) 10/06/21 14:57 (unknown) (no (unknown) (unknown) Total Protein 6.6 (units (unknown) date) g/dL (6.3-8.2) unknown) 10/06/21 14:57 (unknown) (no (unknown) (unknown) Transferrin 430 (units (unknown) date) mg/dL (206-381) H unknown) 10/06/21 14:57 (unknown) (no (unknown) (unknown) Vital Signs (units (un known) date) unknown) (unknown) (no (unknown) (unknown) Vital signs: (units (u nknown) date) unknown) (unknown) (no (unknown) (unknown) Vitamin B12 204 (units (unknown) date) pg/mL (239-931) L unknown) 10/06/21 14:57 (unknown) (no (unknown) (unknown) WBC 3.7 X103/uL (units (unknown) date) (4.5-11.0) L unknown) 12/22/21 11:13 (unknown) (no (unknown) (unknown) [SULFA (units (unkno wn) date) (SULFONAMIDE unknown) (unknown) (no (unknown) (unknown) an iron (units (unkno wn) date) deficiency. He unknown) started iron sulfate 325 mg 3 times a day and is also on (unknown) (no (unknown) (unknown) appears to have (units (unknown) date) normalized now with unknown) good response. With continued improvement (unknown) (no (unknown) (unknown) covid infection (units (unknown) date) requiring unknown) hospitalization. He has recovered from his covid (unknown) (no (unknown) (unknown) famotidine 10 (units ( unknown) date) mg/mL intravenous unknown) 10 mg BID 10/06/21 07/06/22 History (unknown) (no (unknown) (unknown) fevers chills (units ( unknown) date) nausea vomiting unknown) headaches or blood in the stools. He was started (unknown) (no (unknown) (unknown) followed by (units (un known) date) monthly. Presents unknown) today for further follow-up after initiating (unknown) (no (unknown) (unknown) have continued (units ( unknown) date) decreases in his unknown) hematocrit consideration may be given to further (unknown) (no (unknown) (unknown) his visit on (units (u nknown) date) initial unknown) consultation. Currently he is feeling well and denies any (unknown) (no (unknown) (unknown) in his hematocrit (units (unknown) date) now at 52% he can unknown) discontinue his iron and B12. We will plan (unknown) (no (unknown) (unknown) infection but was (units (unknown) date) noted to have unknown) abnormalities on his cbc. (unknown) (no (unknown) (unknown) leukopenia and (units (unknown) date) anemia. He did have unknown) a recent COVID infection/pneumonia prior to (unknown) (no (unknown) (unknown) months with (units (un known) date) improved energy unknown) levels overall. (unknown) (no (unknown) (unknown) omeprazole 20 mg (units (unknown) date) capsule,delayed 20 unknown) mg PO QAM 08/13/21 07/06/22 History (unknown) (no (unknown) (unknown) on iron sulfate 325 (units (unknown) date) mg 3 times a day as unknown) well as vitamin B12 injections weekly x4 (unknown) (no (unknown) (unknown) or cramps, Back or (units (unknown) date) neck pain, Cold unknown) hands or feet, Difficulty walking (unknown) (no (unknown) (unknown) promethazine (units (u nknown) date) [PROMETHAZINE] unknown) AdvReac Unknown Verified 08/13/21 14:34 (unknown) (no (unknown) (unknown) release (units (unkno wn) date) unknown) (unknown) (no (unknown) (unknown) solution (units (unkno wn) date) unknown) (unknown) (no (unknown) (unknown) to monitor him (units (unknown) date) after this and have unknown) her return to clinic in 6 months. He does (unknown) (no (unknown) (unknown) treatment. (units (unk nown) date) Currently feels unknown) well and has no complaints. Now on treatment for 6 (unknown) (no (unknown) (unknown) vitamin B12 (units (un known) date) injections and has unknown) done well on these. Overall his hematocrit Result panel 3 (unknown) (no (unknown) (unknown) (no value) (units (unk nown) date) unknown) (unknown) (no (unknown) (unknown) 07/29/22 (units (unkno wn) date) unknown) (unknown) (no (unknown) (unknown) [address] [place] [address] (units (unknown) date) unknown) (unknown) (no (unknown) (unknown) 3 compartments (units (unknown) date) of the knee. unknown) Small knee joint effusion. No fracture or (unknown) (no (unknown) (unknown) : [id number] (units (u nknown) date) unknown) (unknown) (no (unknown) (unknown) Accession (units (unkn own) date) Number: unknown) [id number] (unknown) (no (unknown) (unknown) Accession (units (unkn own) date) Number: unknown) [id number] (unknown) (no (unknown) (unknown) Age/Sex: 37 / M (units (unknown) date) Date of Service: unknown) (unknown) (no (unknown) (unknown) CHOCO Najera (units ( unknown) date) [id number] unknown) (unknown) (no (unknown) (unknown) Approved by: (units (u nknown) date) Austin Bryant, unknown) Aileen on 07/29/2022 at 15:02 (unknown) (no (unknown) (unknown) Approved by: (units (u nknown) date) noel Johnson) M.D. on 07/29/2022 at 15:03 (unknown) (no (unknown) (unknown) Bones: Joint (units (u nknown) date) spaces unknown) maintained. Features of arthritis or degenerative change. (unknown) (no (unknown) (unknown) COMPARISON: (units (un known) date) None. unknown) (unknown) (no (unknown) (unknown) : 1985 (units (unknown) date) Acct:[id number] unknown) (unknown) (no (unknown) (unknown) Dictated by: (units (u nknown) date) Austin Bryant unknown) M.D. on 07/29/2022 at 15:00 (unknown) (no (unknown) (unknown) Dictated by: (units (u nknown) date) Austin Bryant unknown) M.D. on 07/29/2022 at 15:02 (unknown) (no (unknown) (unknown) FINDINGS: (units (unkn own) date) unknown) (unknown) (no (unknown) (unknown) IMPRESSION: No (units (unknown) date) acute finding or unknown) significant degenerative change. (unknown) (no (unknown) (unknown) IMPRESSION: (units (un known) date) Small knee joint unknown) effusion with mild osteoarthritic change in the (unknown) (no (unknown) (unknown) INDICATIONS: (units (u nknown) date) BILATERAL KNEE unknown) PAIN (unknown) (no (unknown) (unknown) [facility] (units (unknown) date) unknown) (unknown) (no (unknown) (unknown) Loc: RAD (units (unkno wn) date) unknown) (unknown) (no (unknown) (unknown) Mild narrowing (units (unknown) date) of the lateral unknown) patellofemoral compartment with mild patellar (unknown) (no (unknown) (unknown) No (units (unkno wn) date) unknown) (unknown) (no (unknown) (unknown) Ordering (units (unkno wn) date) Provider: unknown) Angella Mccormack (unknown) (no (unknown) (unknown) PROCEDURE: XR (units ( unknown) date) KNEE LT 3V unknown) (unknown) (no (unknown) (unknown) PROCEDURE: XR (units ( unknown) date) KNEE RT 3V unknown) (unknown) (no (unknown) (unknown) Patient: (units (unkno wn) date) Dre Tejedaathan unknown) W MR# (unknown) (no (unknown) (unknown) Procedure: XR (units ( unknown) date) knee LT 3V unknown) (unknown) (no (unknown) (unknown) Procedure: XR (units ( unknown) date) knee RT 3V unknown) (unknown) (no (unknown) (unknown) Signed (units (unkno wn) date) unknown) (unknown) (no (unknown) (unknown) Soft tissues: No (units (unknown) date) joint effusion. unknown) No suspicious soft tissue calcifications. (unknown) (no (unknown) (unknown) TECHNIQUE: 3 (units (u nknown) date) views of the knee unknown) were acquired. (unknown) (no (unknown) (unknown) XRay Report (units (un known) date) unknown) (unknown) (no (unknown) (unknown) dislocation. (units (u nknown) date) unknown) (unknown) (no (unknown) (unknown) fractures or (units (u nknown) date) dislocations. No unknown) suspicious bony lesions. (unknown) (no (unknown) (unknown) medial (units (unkno wn) date) femorotibial unknown) compartment joint space narrowing. Small marginal (unknown) (no (unknown) (unknown) osteophytes in (units (unknown) date) all unknown) (unknown) (no (unknown) (unknown) patellofemoral (units (unknown) date) and medial unknown) femorotibial compartments. (unknown) (no (unknown) (unknown) tilt. Mild (units (unk nown) date) unknown) Social History No information. Vital Signs No information.
--- NOTE | 2022-08-06 09:23 | CT Report ---
PROCEDURE: CT abdomen pelvis with contrast INDICATIONS: abd. pain, n/v, h/o SBO CONTRAST: 100 ml omni 300 TECHNIQUE: After the administration of contrast, 5 mm thick sections acquired from the diaphragms to the sym physis. 5 mm thick coronal and sagittal reformats were acquired. For radiation dose reduction, the following was used: automated exposure control, adjustment of mA and/or kV according to patient size . COMPARISON: 06/12/2020 FINDINGS: Image quality: Excellent. ABDOMEN: Lung bases: Lung bases are clear. Heart size is normal. Solid organs: Liver and spleen are normal in size and enhancement. Gallbladder unremarkable Biliar y system is non dilated. Pancreas enhances normally. No adrenal nodules. Kidneys demonstrate alicia l size and enhancement, without hydronephrosis. Peritoneum and bowel: Proximal small bowel is dilated up to 4 cm, and the distal small bowel is decom pressed. There is evidence of stasis in the mid small bowel on the right with a focal area of transit ion in the central mid small bowel on image 3/15. No evidence of free air or free fluid. No organized abscess. Nodes and vessels: No retroperitoneal or mesenteric adenopathy by size criteria. Aorta and inferior vena cava are normal in size. Miscellaneous: No ventral hernias. PELVIS: Genitourinary: Bladder wall thickness is normal. Miscellaneous: No inguinal hernias or adenopathy. Bones: No suspicious bony lesions. No vertebral body compression fractures. IMPRESSION: Small bowel obstruction. No evidence of perforation or abscess Note: Final report is concordant with preliminary interpretation provided by [employer] Reviewed by: Antonio Kilgore MD on 08/06/2022 8:21 AM [facility] Approved by: Antonio Kilgore MD on 08/06/2022 8:21 AM [place] Station ID: [id number]
== END 2022-08-06 04:36 | disposition home or self-care (01) ==
LOC: ED 01:08
DX: K56.609 Unspecified intestinal obstruction, unspecified as to partial versus complete obstruction (principal)
CPT/HCPCS: 36415; 74177; 80053; 81003; 83690; 85025; 96361; 96374; 96375; 99283; 99284; J1170; J2765; Q9967; 81001; 87086

== ENCOUNTER 2022-10-25 20:12 | Emergency (ER) | payer MEDICAID ==
--- OUTSIDE RECORDS SUMMARY | 2022-10-25 20:44 | EXTERNAL MEDICAL SUMMARY RPT | Continuity of Care Document ---
:1985 Author Organization [facility] Address [address] [place] [address] Phone Allergies No information. Encounters No information. Functional Status No information. Immunizations No information. Medications No information. Problems date description facility 2022-07-29 14:21 Pain in right knee [facility] 2022-07-29 14:21 Pain in left knee [facility] 2022-09-18 11:28 Acute respiratory failure with hypoxia [facility] 2022-09-18 11:28 Unspecified abnormal findings in urine [facility] 2022-09-18 11:28 [facility] [place] [address] Procedures No information. Results/Labs test date author facility value unit interpret ation Result panel 1 (unknown) (no (unknown) (unknown) (no value) (units (unk nown) date) unknown) (unknown) (no (unknown) (unknown) 07/29/22 (units (unkno wn) date) unknown) (unknown) (no (unknown) (unknown) [address] [place] [address] (units (unknown) date) unknown) (unknown) (no (unknown) (unknown) 3 compartments (units (unknown) date) of the knee. unknown) Small knee joint effusion. No fracture or (unknown) (no (unknown) (unknown) : [id number] (units (u nknown) date) unknown) (unknown) (no (unknown) (unknown) Accession (units (unkn own) date) Number: unknown) [id number] (unknown) (no (unknown) (unknown) Accession (units (unkn own) date) Number: unknown) [id number] (unknown) (no (unknown) (unknown) Age/Sex: 37 / M (units (unknown) date) Date of Service: unknown) (unknown) (no (unknown) (unknown) [place] Najera (units ( unknown) date) [id number] unknown) (unknown) (no (unknown) (unknown) Approved by: (units (u nknown) date) Austin Bryant unknown) Aileen on 07/29/2022 at 15:02 (unknown) (no (unknown) (unknown) Approved by: (units (u nknown) date) noel Johnson) Aileen on 07/29/2022 at 15:03 (unknown) (no (unknown) (unknown) Bones: Joint (units (u nknown) date) spaces unknown) maintained. Features of arthritis or degenerative change. (unknown) (no (unknown) (unknown) COMPARISON: (units (un known) date) None. unknown) (unknown) (no (unknown) (unknown) : 1985 (units (unknown) date) Acct:[id number] unknown) (unknown) (no (unknown) (unknown) Dictated by: (units (u nknown) date) noel Johnson) Aileen on 07/29/2022 at 15:00 (unknown) (no (unknown) (unknown) Dictated by: (units (u nknown) date) noel Johnson) Aileen on 07/29/2022 at 15:02 (unknown) (no [...] KNEE unknown) PAIN (unknown) (no (unknown) (unknown) [facility] (units (unknown) date) unknown) (unknown) (no (unknown) [...]
[2022-10-25] MEDS ORDERED: SODIUM CHLORIDE 0.9% 1,000 ML IV STA (20:48)
[2022-10-25 20:58] LABS: BASOPHILS % (AUTO) 0.3 %; EOSINOPHILS % (AUTO) 0.3 %; HCT - HEMATOCRIT 56.1 % (42.0-52.0); HGB - HEMOGLOBIN 18.2 g/dL (14.0-18.0); LYMPHOCYTES # (AUTO) 0.8 10^3/uL (1.5-3.5); LYMPHOCYTES % (AUTO) 12.9 %; MEAN CORPUSCULAR HEMOGLOBIN 28.7 pg (27.0-31.0); MEAN CORPUSCULAR HGB CONC 32.4 g/dL (32.0-36.0); MEAN CORPUSCULAR VOLUME 88.5 fL (80.0-94.0); MONOCYTES # (AUTO) 0.8 10^3/uL (0.0-1.0); MONOCYTES % (AUTO) 12.4 %; NEUTROPHILS # (AUTO) 4.5 10^3/uL (1.5-6.6); NEUTROPHILS % (AUTO) 73.9 %; PLT - PLATELET COUNT 286 10^3/uL (130-450); RED BLOOD COUNT 6.34 10^6/uL (4.70-6.10); RED CELL DISTRIBUTION WIDTH 14.3 % (12.0-15.0); WHITE BLOOD COUNT 6.1 x10^3/uL (4.8-10.8)
[2022-10-25] MEDS ORDERED: iohexoL-300 100 ML VIAL ONE (21:04)
[2022-10-25 21:05] VITALS: BP 130/87
[2022-10-25 21:11] LABS: ALBUMIN 4.2 g/dL (3.2-5.5); ALBUMIN/GLOBULIN RATIO 1.3 (1.0-2.2); BILIRUBIN,TOTAL 0.8 mg/dL (0.2-1.0); CALCIUM 9.4 mg/dL (8.5-10.3); CREATININE 0.7 mg/dL (0.6-1.2); POTASSIUM 3.9 mmol/L (3.5-5.0); TOTAL PROTEIN 7.4 g/dL (6.7-8.2)
--- NOTE | 2022-10-25 21:33 | ED Physician Documentation ---
History of Present Illness - Stated complaint Stated Complaint: ABD PX - Chief complaint Chief Complaint: Abd Pain - Additonal information Additional information: 35-year-old man with history of cerebral palsy, myotonic dystrophy, GERD, asth ma, presents with cramping mid LQ abd pain and nonbloody bilious vomiting since 299. Last BM yesterday. Patient has a history of recurrent SBO. Denies diarrhea, back pain, urinary symptoms. No sick contacts or recent travel. Review of Systems Constitutional: denies: Fever GI: reports: Abdominal Pain, Nausea, Vomiting. denies: Diarrhea : denies: Dysuria PD PAST MEDICAL HISTORY - Past Medical History Cardiovascular: None Respiratory: Asthma Neuro: Cerebral palsy Endocrine/Autoimmune: None GI: GERD, Hiatal hernia, Other : None HEENT: None Psych: None Musculoskeletal: Other Derm: None - Past Surgical History Past Surgical History: Yes General: Other HEENT: Cataracts - Present Medications Home Medications: Ambulatory Orders Medication Instructions Recorded Confirmed Omeprazole [PriLOSEC] 20 mg PO BID 08/09/13 10/25/22 Metoclopramide [Reglan] 10 mg PO Q6H PRN #14 tablet 08/06/22 10/25/22 - Allergies Allergies/Adverse Reactions: Allergies Allergy/AdvReac Type Severity Reaction Status Date / Time promethazine HCl * AdvReac Unknown Anxiety Verified 10/25/22 20:37 [From Phenergan] Sulfa (Sulfonamide AdvReac Unknown Rash Verified 10/25/22 20:37 Antibiotics) - Social History Does the pt smoke?: No Smoking Status: Never smoker Does the pt drink ETOH?: No Does the pt have substance abuse?: No - Immunizations Immunizations are current?: Yes - POLST Patient has POLST: No POLST Status: Full Code PD ED PE NORMAL - Vitals Vital signs reviewed: Yes - General General: Alert and oriented X 3, No acute distress - HEENT HEENT: Atraumatic, PERRL, EOMI - Neck Neck: Supple, no meningeal sign - Cardiac Cardiac: RRR - Respiratory Respiratory: No respiratory distress, Clear bilaterally - Abdomen Abdomen: Non tender, Non distended, Other (discomfort diffusely to palpation) - Back Back: No CVA TTP - Derm Derm: Normal color, Warm and dry - Extremities Extremities: Other (muscle wasting to extremities c/w muscular dystrophy) - Neuro Neuro: Alert and oriented X 3 Results - Vitals Vitals: Vital Signs - 24 hr 10/25/22 10/25/22 10/25/22 20:35 21:04 21:34 Temperature 36.0 C L Heart Rate 104 H 95 Respiratory 19 16 16 Rate Blood Pressure 138/104 H 130/87 H O2 Saturation 96 96 10/25/22 10/25/22 21:45 22:31 Temperature Heart Rate 89 Respiratory 20 17 Rate Blood Pressure O2 Saturation 96 Oxygen O2 Source Room air - Labs Labs: Laboratory Tests 10/25/22 10/25/22 20:50 20:50 WBC 6.1 RBC 6.34 H Hgb 18.2 H Hct 56.1 H MCV 88.5 MCH 28.7 MCHC 32.4 RDW 14.3 Plt Count 286 MPV 11.0 Neut # (Auto) 4.5 Lymph # (Auto) 0.8 L Peach # (Auto) 0.8 Eos # (Auto) 0.0 Baso # (Auto) 0.0 Absolute Nucleated RBC 0.00 Nucleated RBC % 0.0 Sodium 144 Potassium 3.9 Chloride 108 Carbon Dioxide 25 Anion Gap 11.0 BUN 19 Creatinine 0.7 Estimated GFR (MDRD) 128 Glucose 124 H Calcium 9.4 Total Bilirubin 0.8 AST 22 ALT 42 Alkaline Phosphatase 124 H Total Protein 7.4 Albumin 4.2 Globulin 3.2 Albumin/Globulin Ratio 1.3 Lipase 24 PD Medical Decision Making - ED course ED course: 37yM with hx severe MR and recurrent sbo p/w n/v and abdominal pain today. He was provided with IVF and IV morphine with improvement in pain. Labwork ordered including cbc, abdominal panel unremarkable with only some polycythemia 18.[address]. will f/u results. Patient with partial SBO, multiple air fluid levels. d/w Dr. Echols, surgeon threat monitoring analyst who will evaluate. no beds available. mother requesting to take him home. they are refusing ng tube. I advised that if they leave now they will need to do so AMA. we will wait for Dr. Echols's recs. Last time in august was very similar and improved with ivf and bowel rest. Dr. Echols recommends observing in the ED overnight and then hopefully discharge in the morning if passing flatus and continuing to feel better. d/w parents who request to sign out AMA. risks of leaving including /disability discussed. advised to return gaye for worsening symptoms. plan to f/u outpatient surgery clinic. Departure - Departure Disposition: 07 Against Medical Advice Clinical Impression: SBO (small bowel obstruction) Condition: Serious Instructions: Obstruction Sm Bowel Follow-Up: Chelsy Echols MD [Provider Admit Priv/Credential] - Comments: Your child was seen in the emergency department for small bowel obstruction. He should avoid eating or drinking anything for at least 12 to 24 hours and then progress to clear liquid diet before going back to normal food. Please return immediately if your symptoms worsen.
[2022-10-25] MEDS ORDERED: MORPHINE 2 MG/ML CARPUJECT IVP STA (21:35)
[2022-10-25] MEDS ORDERED: ONDANSETRON 4 MG/2 ML VIAL IVP STA (21:45)
--- NOTE | 2022-10-25 23:20 | CT Report ---
PROCEDURE: ABDOMEN/PELVIS W INDICATIONS: abd pain CONTRAST: 100mL Omni 300 TECHNIQUE: After the administration of intravenous contrast, 5 mm thick sections acquired from the diaphragms to the symphysis. 5 mm thick coronal and sagittal reformats were acquired. For radiation dose reducti on, the following was used: automated exposure control, adjustment of mA and/or kV according to earnest ent size. COMPARISON: CT abdomen pelvis 08/06/2022 FINDINGS: Image quality: Excellent. Lung bases:There is mild dependent atelectasis. Heart: Heart is normal in size. There is mild fluid distention of the visualized distal esophagus. ABDOMEN: Liver: No mass lesion. Gallbladder: Within normal limits without calcified gallstones. Biliary ducts: No biliary ductal dilatation. Pancreas: Unremarkable. Spleen: Normal in size. Adrenal Glands: No adrenal nodules. Kidneys and Ureters: No hydronephrosis. Stomach and Bowel:There is segmental distention of multiple loops of small bowel measuring up to yas roximately 4.1 cm with air-fluid levels. There is a gradual transition in the right lower quadrant to nondistended distal ileal loops. Colon is normal in caliber and wall thickness, with nondistention o f the distal colon. Appendix appears within normal limits. Peritoneum: No abnormal intraperitoneal fluid. No free air. Ventral Wall: No hernia. Abdominal Nodes: No retroperitoneal or mesenteric adenopathy by size criteria. Vessels: Aorta and inferior vena cava are normal in size. PELVIS: Pelvic Organs: Unremarkable. Bladder: Unremarkable. Pelvic Nodes: No enlarged lymph nodes. Miscellaneous: No inguinal hernias. Bones: Visualized osseous structures demonstrate no suspicious lesions. IMPRESSION: 1. Multiple distended loops of small bowel with air-fluid levels extending to a gradual transition po int in the right lower quadrant. The differential includes an incomplete obstruction versus ileus or gastroenteritis. Reviewed by: Oleg Norman MD on 10/25/2022 11:19 PM PDT Approved by: Oleg Norman MD on 10/25/2022 11:19 PM PDT Station ID: [id number]
[2022-10-25] MEDS ORDERED: SODIUM CHLORIDE 0.9% 1,000 ML IV SCH (23:45)
[2022-10-25] MEDS ORDERED: iohexoL-300 100 ML VIAL IVP ONE (23:58)
[2022-10-26] MEDS ORDERED: MORPHINE 2 MG/ML CARPUJECT IVP PRN (00:01)
[2022-10-26] MEDS ORDERED: oxyCODONE/ACET 5/325 Prepack 4 PO STA (00:31)
== END 2022-10-26 01:37 | disposition left against medical advice (07) ==
LOC: ED 20:12
DX: K56.600 Partial intestinal obstruction, unspecified as to cause (principal)
CPT/HCPCS: 36415; 74177; 80053; 83690; 85025; 96374; 96375; 99284; 99285; Q9967

== ENCOUNTER 2023-02-16 05:58 | Emergency (ER) | payer MEDICAID ==
[2023-02-16] MEDS ORDERED: HYDROmorphone 1 MG/ML CARPUJECT IVP STA (06:16)
[2023-02-16] MEDS ORDERED: METOCLOPRAMIDE 10 MG/2 ML VIAL IVP STA (06:16)
[2023-02-16] MEDS ORDERED: SODIUM CHLORIDE 0.9% 1,000 ML IV STA (06:18)
[2023-02-16 06:21] LABS: BASOPHILS % (AUTO) 0.2 %; EOSINOPHILS % (AUTO) 0.3 %; HCT - HEMATOCRIT 47.7 % (42.0-52.0); HGB - HEMOGLOBIN 15.5 g/dL (14.0-18.0); LYMPHOCYTES # (AUTO) 1.1 10^3/uL (1.5-3.5); LYMPHOCYTES % (AUTO) 11.6 %; MEAN CORPUSCULAR HEMOGLOBIN 28.3 pg (27.0-31.0); MEAN CORPUSCULAR HGB CONC 32.5 g/dL (32.0-36.0); MEAN PLATELET VOLUME 10.4 fL (7.4-11.4); MONOCYTES # (AUTO) 0.7 10^3/uL (0.0-1.0); NEUTROPHILS # (AUTO) 7.6 10^3/uL (1.5-6.6); NEUTROPHILS % (AUTO) 80.7 %; PLT - PLATELET COUNT 219 10^3/uL (130-450); RED BLOOD COUNT 5.48 10^6/uL (4.70-6.10); RED CELL DISTRIBUTION WIDTH 14.4 % (12.0-15.0); WHITE BLOOD COUNT 9.4 x10^3/uL (4.8-10.8)
[2023-02-16 06:33] LABS: ALBUMIN/GLOBULIN RATIO 1.7 (1.0-2.2); BILIRUBIN,TOTAL 0.5 mg/dL (0.2-1.0); CREATININE 0.6 mg/dL (0.6-1.2); POTASSIUM 3.8 mmol/L (3.5-5.0); TOTAL PROTEIN 6.4 g/dL (6.7-8.2)
--- NOTE | 2023-02-16 06:55 | ED Physician Documentation ---
PD HPI ABD PAIN - Stated complaint Stated Complaint: STOMACH PX - Chief complaint Chief Complaint: Abd Pain - History obtained from History obtained from: Patient, Family - Additional information Additional information: Patient presents with abdominal pain, diffuse and sudden onset approximately 8 PM last night. Onset of pain was at home, at rest; no inciting event, nor exacerbating/ameliorating factors. Patient is in obvious painful distress, episodically crying out in painful distress, limiting HPI/ROS at this time. Patient has had several similar previous presentations to this emergency department due to SBO. Review of Systems GI: reports: Abdominal Pain. denies: Abdominal Swelling, Nausea, Vomiting PD PAST MEDICAL HISTORY - Past Medical History Past Medical History: Yes Cardiovascular: None Respiratory: Asthma Neuro: Cerebral palsy Endocrine/Autoimmune: None GI: GERD, Hiatal hernia, Other : None HEENT: None Psych: None Musculoskeletal: Other Derm: None - Past Surgical History Past Surgical History: Yes General: Other HEENT: Cataracts - Present Medications Home Medications: Ambulatory Orders Medication Instructions Recorded Confirmed Omeprazole [PriLOSEC] 20 mg PO BID 08/09/13 10/25/22 Metoclopramide [Reglan] 10 mg PO Q6H PRN #14 tablet 08/06/22 10/25/22 - Allergies Allergies/Adverse Reactions: Allergies Allergy/AdvReac Type Severity Reaction Status Date / Time promethazine HCl * AdvReac Unknown Anxiety Verified 02/16/23 06:08 [From Phenergan] Sulfa (Sulfonamide AdvReac Unknown Rash Verified 02/16/23 06:08 Antibiotics) - Social History Does the pt smoke?: No Smoking Status: Never smoker Does the pt drink ETOH?: No Does the pt have substance abuse?: No - Immunizations Immunizations are current?: Yes - POLST Patient has POLST: No POLST Status: Full Code PD ED PE NORMAL - Vitals Vital signs reviewed: Yes - General General: Well developed/nourished, Other (crying out in pain ) - Cardiac Cardiac: RRR - Respiratory Respiratory: No respiratory distress, Clear bilaterally - Abdomen Abdomen: Soft, Non tender, Other (absent bowel sounds) Results - Vitals Vitals: Vital Signs - 24 hr 02/16/23 02/16/23 02/16/23 06:04 06:34 06:50 Temperature 36.4 C L Heart Rate 83 71 74 Respiratory 18 14 16 Rate Blood Pressure 130/89 H 124/94 H 124/94 H O2 Saturation 99 79 L 99 If not protocol 2 : Oxygen Flow, liters/minute Oxygen O2 Source Nasal cannula Oxygen Flow Rate 2 - Labs Labs: Laboratory Tests 02/16/23 02/16/23 02/16/23 06:17 06:17 07:35 WBC 9.4 RBC 5.48 Hgb 15.5 Hct 47.7 MCV 87.0 MCH 28.3 MCHC 32.5 RDW 14.4 Plt Count 219 MPV 10.4 Neut # (Auto) 7.6 H Lymph # (Auto) 1.1 L [place] # (Auto) 0.7 Eos # (Auto) 0.0 Baso # (Auto) 0.0 Absolute Nucleated RBC 0.00 Nucleated RBC % 0.0 Sodium 142 Potassium 3.8 Chloride 109 Carbon Dioxide 27 Anion Gap 6.0 BUN 12 Creatinine 0.6 Estimated GFR (MDRD) 153 Glucose 125 H Calcium 9.0 Total Bilirubin 0.5 AST 29 ALT 34 Alkaline Phosphatase 107 Total Protein 6.4 L Albumin 4.0 Globulin 2.4 Albumin/Globulin Ratio 1.7 Lipase 28 Urine Color YELLOW Urine Clarity CLEAR Urine pH 7.5 Ur Specific [place] 1.015 Urine Protein NEGATIVE Urine Glucose (UA) NEGATIVE Urine Ketones NEGATIVE Urine Occult Blood NEGATIVE Urine Nitrite NEGATIVE Urine Bilirubin NEGATIVE Urine Urobilinogen 0.2 (NORMAL) Ur Leukocyte Esterase NEGATIVE Ur Microscopic Review NOT INDICATED Urine Culture Comments NOT INDICATED PD Medical Decision Making - ED course Complexity details: considered differential, d/w patient, d/w family ED course: No remarkable nor diagnostic findings on blood tests (CBC, ER abdominal panel). He is given 1mg IV dilaudid, 10mg IV reglan, and 1 liter NS IV bolus. Shortly after the dilaudid was given, patient stopped yelling/crying out. He subsequently had hypoxia down to upper 70s with good pleth. I went into the room and he appears to be asleep. I was about to wake him and tell him to take deep breaths, but he then opened his eyes briefly and his pulse ox rapidly increased to 93-94%. 2 liters NC oxygen placed. The hypoxia is likely due to hypopnea secondary to the dilaudid. CT A/P is ordered and the test has yet to be undertaken at end of my shift. Care of patient is turned over to oncoming ED physician (Dr. Escobar) at end of my shift, pending CT results , reevaluation, and appropriate disposition. Departure - Departure Forms: PCP List
[2023-02-16 07:42] LABS: BILIRUBIN,URINE NEGATIVE (NEGATIVE); GLUCOSE, URINE (UA) NEGATIVE (NEGATIVE); KETONES,URINE (UA) NEGATIVE (NEGATIVE); LEUKOCYTE ESTERASE, URINE NEGATIVE (NEGATIVE); NITRITE,URINE NEGATIVE (NEGATIVE); OCCULT BLOOD,URINE NEGATIVE (NEGATIVE); PH,URINE 7.5 PH (5.0-7.5); PROTEIN,URINE NEGATIVE (NEGATIVE); UROBILINOGEN,URINE 0.2 (NORMAL) E.U./dL (NORMAL)
[2023-02-16 07:47] LABS: CLARITY,URINE CLEAR (CLEAR)
--- NOTE | 2023-02-16 08:58 | CT Report ---
PROCEDURE: ABDOMEN/PELVIS W INDICATIONS: abdominal pain, h/o SBO CONTRAST: 100mL Omni 300 TECHNIQUE: After the administration of intravenous contrast, 5 mm thick sections acquired from the diaphragms to the symphysis. 5 mm thick coronal and sagittal reformats were acquired. For radiation dose reducti on, the following was used: automated exposure control, adjustment of mA and/or kV according to earnest ent size. COMPARISON: CT 10/25/2022 FINDINGS: Image quality: Excellent. Lung bases and heart: Unremarkable. Liver: No solid mass. Gallbladder and biliary tree: No radiopaque stones or wall thickening. No biliary dilation. Spleen: No splenomegaly. Pancreas: No pancreatic ductal dilation. Adrenals: No adrenal nodule. Kidneys and ureters: No hydronephrosis. No renal cystic lesion which requires follow up. No solid mas s. Bowel and peritoneum: The appendix is dilated, measuring 13 mm. There is wall thickening and periappe ndiceal fat stranding. No appendicolith is identified. Lymph nodes: No central or retroperitoneal adenopathy. Vessels: No infrarenal aortic aneurysm. PELVIS Reproductive organs: Unremarkable. Bladder: No abnormal wall thickening, accounting for underdistension. Pelvic lymph nodes: No pelvic adenopathy by size criteria. Bones: No aggressive osseous abnormality. Other: No significant ventral or inguinal hernia. IMPRESSION: Acute appendicitis without perforation. Reviewed by: Subhash Daugherty on 02/16/2023 8:56 AM PDT Approved by: Subhash Daugherty on 02/16/2023 8:56 AM PDT Station ID: [id number]
[2023-02-16] MEDS ORDERED: PIPERACILLIN/TAZOBACTAM 3.375 GM in SODIUM CHLORIDE 0.9% MINIBAG 100 ML IV STA (09:13)
--- NOTE | 2023-02-16 09:35 | ED Physician Documentation ---
ED Addendum - Addendum Addendum: 02/16/23 09:10 - CT results reviewed which show acute appendicitis. On review of patient's history he appears to have had 2 admissions for acute appendicitis in 2018 at [facility] that were both managed nonoperatively. Per notes it appears there was concern for surgery and that he would be considered high risk due to his muscular dystrophy. Reviewed the findings with patient and father who are at the bedside. Patient's mother is admitted currently at [facility] and they do prefer transfer there for any care. Patient does have right lower quadrant tenderness on palpation. I discussed the case with on-call general surgeon Dr. Cerda and reviewed his past history including prior admissions for acute appendicitis. Per Dr. Cerda this patient would benefit from care at a tertiary care facility given his history of muscular dystrophy and would not be an appropriate surgical candidate for here. He also feels that the patient would benefit from surgery at this time and would not recommend just trying to treat him nonoperatively. 02/16/23 11:00 - Discussed with [facility] transfer center. Once they receive the images they will reach out to their surgical team. 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 I spoke to the patient's father again and explained again that beds are limited everywhere and that we are waiting for [facility] to reach back out to us. He states that 2 hours seems to be too long to be waiting for this. I explained that in the meanwhile patient will continue to receive pain medications and antibiotics until he can be trans ferred elsewhere and that this is the treatment he has received previously. Patient's father threatens to take him in his private vehicle to [place] if we are not able to make the transfer happen quicker.He states that his is already over there as a patient and he would like his son to also be there. I asked for him to be more understanding and again explained that we are working on it the best we can. I also advised him of the risks of leaving AGAINST MEDICAL ADVICE Including pain, perforation, or disability. 02/16/23 11:55 Patient's father is demanding that we remove the IVs and he will drive him to [facility] on his own. He does not want to have any further conversation with me regarding His desires to leave AGAINST MEDICAL ADVICE. Images have already been pushed to [facility] and [facility]. I have also asked the charge nurse to communicate with the [facility] emergency department to give them a heads up. Departure - Departure Disposition: Against Medical Advice Clinical Impression: Acute appendicitis, Muscular dystrophy Condition: Good Forms: PCP List Discharge Date/Time: 02/16/23 11:59
[2023-02-16] MEDS ORDERED: HYDROmorphone 1 MG/ML CARPUJECT IVP PRN (09:48)
[2023-02-16 11:30] VITALS: BP 129/78; O2SAT 95
[2023-02-16] MEDS ORDERED: PIPERACILLIN/TAZOBACTAM 3.375 GM in SODIUM CHLORIDE 0.9% MINIBAG 100 ML IV SCH (13:00)
[2023-02-16] MEDS ORDERED: iohexoL-300 100 ML VIAL IVP ONE (15:55)
== END 2023-02-16 11:59 | disposition left against medical advice (07) ==
LOC: ED 05:58
DX: R09.02 Hypoxemia (principal); K35.80 Unspecified acute appendicitis; G71.00 Muscular dystrophy, unspecified
CPT/HCPCS: 36415; 74177; 80053; 81003; 83690; 85025; 96365; 96375; 96376; 99284; J1170; J2765; Q9967; 81001; 87086

== ENCOUNTER 2023-05-30 19:52 | Emergency (ER) | payer MEDICAID ==
[2023-05-30] MEDS ORDERED: HYDROmorphone 1 MG/ML CARPUJECT IVP STA ×2 (20:28→21:49)
[2023-05-30] MEDS ORDERED: SODIUM CHLORIDE 0.9% 1,000 ML IV STA (20:28)
[2023-05-30] MEDS ORDERED: ONDANSETRON 4 MG/2 ML VIAL IVP STA (20:28)
--- NOTE | 2023-05-30 20:29 | ED Physician Documentation ---
PD HPI ABD PAIN - Stated complaint Stated Complaint: ABD PX - Chief complaint Chief Complaint: Abd Pain - History obtained from History obtained from: Patient, Family - Additional information Additional information: 38-year-old gentleman with muscular dystrophy and recurrent small bowel obstructions although its been a few years since his last one with negative laparoscopy in 2011. More recently over the last few years had rare short appendicitis that was managed nonoperatively because of his muscular dystrophy and he has had 2 recurrences, both treated with antibiotics. Last normal bowel movement was yesterday and today has not had a bowel movement we think. Noting history is somewhat limited because of his developmental delay and much of the history is from the parents. He has had abdominal pain today with vomiting. No reported fevers. PD PAST MEDICAL HISTORY - Past Medical History Past Medical History: Yes Cardiovascular: None Respiratory: Asthma Neuro: Cerebral palsy Endocrine/Autoimmune: None GI: GERD, Hiatal hernia, Other : None HEENT: None Psych: None Musculoskeletal: Other Derm: None - Past Surgical History Past Surgical History: Yes General: Other HEENT: Cataracts - Present Medications Home Medications: Ambulatory Orders Medication Instructions Recorded Confirmed Omeprazole [PriLOSEC] 20 mg PO BID 08/09/13 10/25/22 Metoclopramide [Reglan] 10 mg PO Q6H PRN #14 tablet 08/06/22 10/25/22 - Allergies Allergies/Adverse Reactions: Allergies Allergy/AdvReac Type Severity Reaction Status Date / Time promethazine HCl * AdvReac Unknown Anxiety Verified 05/30/23 20:18 [From Phenergan] Sulfa (Sulfonamide AdvReac Unknown Rash Verified 05/30/23 20:18 Antibiotics) - Social History Does the pt smoke?: No Smoking Status: Never smoker Does the pt drink ETOH?: No Does the pt have substance abuse?: No - Immunizations Immunizations are current?: Yes - POLST Patient has POLST: No POLST Status: Full Code PD ED PE NORMAL - Vitals Vital signs reviewed: Yes - General General: No acute distress, Well developed/nourished - Cardiac Cardiac: RRR, No murmur - Respiratory Respiratory: No respiratory distress, Clear bilaterally - Abdomen Abdomen: Other (Tender in the low abdomen with absent bowel sounds) Results - Vitals Vitals: Vital Signs - 24 hr 05/30/23 05/30/23 05/30/23 20:15 20:18 23:03 Temperature 36.6 C 36.6 C Heart Rate 108 H 108 H 95 Respiratory 18 18 14 Rate Blood Pressure 133/97 H 133/97 H 138/73 H O2 Saturation 98 98 90 L Oxygen O2 Source Room air - Labs Labs: Laboratory Tests 05/30/23 05/30/23 20:40 20:40 WBC 7.2 RBC 6.39 H Hgb 17.5 Hct 55.2 H MCV 86.4 MCH 27.4 MCHC 31.7 L RDW 15.2 H Plt Count 279 MPV 10.6 Neut # (Auto) 5.3 Lymph # (Auto) 0.9 L [place] # (Auto) 0.8 Eos # (Auto) 0.0 Baso # (Auto) 0.0 Absolute Nucleated RBC 0.00 Nucleated RBC % 0.0 Sodium 144 Potassium 3.7 Chloride 110 Carbon Dioxide 25 Anion Gap 9.0 BUN 13 Creatinine 0.7 Estimated GFR (MDRD) 128 Glucose 126 H Calcium 9.7 Total Bilirubin 0.6 AST 23 ALT 37 Alkaline Phosphatase 114 Total Protein 6.6 Albumin 4.1 Globulin 2.5 Albumin/Globulin Ratio 1.6 Lipase 11 PD Medical Decision Making - ED course ED course: 38-year-old gentleman with muscular dystrophy and developmental delay presents with abdominal pain and vomiting. Exam most consistent with small bowel obstruction. CBC showing mild hemoconcentration, CMP normal save very mild hypoglycemia hyperglycemia. Care to overnight emergency physician at shift change pending CT read. To my eye it does appear like recurrent SBO. Departure - Departure Disposition: Against Medical Advice Clinical Impression: Small bowel obstruction Condition: Good Instructions: Obstruction Sm Bowel Comments: You have elected to go home AGAINST MEDICAL ADVICE. As we discussed, there is clear demonstration of small bowel obstruction on your CT of your abdomen and pelvis. The danger of treating this in the outpatient setting is potential for progression of the small bowel obstruction. Typically, this leads to increasing pain, but, more importantly, decreasing ability to tolerate any solids or liquids by mouth. This, in turn, leads to dehydration and electrolyte abnormalities; these problems can culminate in permanent disability or even . Please return to the emergency department at any time you wish to be reevaluated. As we discussed, an incidental finding on the CT scan that will need follow-up is a mass in the small intestine (jejunum). This is not causing the obstruction, but it is very important that you see your primary care provider and mention this finding; further tests, at your doctor's discretion, might be indicated to determine the nature of this mass and whether or not it is cause for concern. Forms: PCP List Discharge Date/Time: 05/31/23 01:43
[2023-05-30 20:57] LABS: BASOPHILS % (AUTO) 0.4 %; EOSINOPHILS % (AUTO) 0.6 %; HCT - HEMATOCRIT 55.2 % (42.0-52.0); HGB - HEMOGLOBIN 17.5 g/dL (14.0-18.0); LYMPHOCYTES # (AUTO) 0.9 10^3/uL (1.5-3.5); LYMPHOCYTES % (AUTO) 12.8 %; MEAN CORPUSCULAR HEMOGLOBIN 27.4 pg (27.0-31.0); MEAN CORPUSCULAR HGB CONC 31.7 g/dL (32.0-36.0); MEAN CORPUSCULAR VOLUME 86.4 fL (80.0-94.0); MEAN PLATELET VOLUME 10.6 fL (7.4-11.4); MONOCYTES # (AUTO) 0.8 10^3/uL (0.0-1.0); MONOCYTES % (AUTO) 11.6 %; NEUTROPHILS # (AUTO) 5.3 10^3/uL (1.5-6.6); NEUTROPHILS % (AUTO) 74.5 %; PLT - PLATELET COUNT 279 10^3/uL (130-450); RED BLOOD COUNT 6.39 10^6/uL (4.70-6.10); RED CELL DISTRIBUTION WIDTH 15.2 % (12.0-15.0); WHITE BLOOD COUNT 7.2 x10^3/uL (4.8-10.8)
[2023-05-30 21:14] LABS: ALBUMIN 4.1 g/dL (3.2-5.5); ALBUMIN/GLOBULIN RATIO 1.6 (1.0-2.2); BILIRUBIN,TOTAL 0.6 mg/dL (0.2-1.0); CALCIUM 9.7 mg/dL (8.5-10.3); CREATININE 0.7 mg/dL (0.6-1.3); POTASSIUM 3.7 mmol/L (3.5-4.5); TOTAL PROTEIN 6.6 g/dL (6.4-8.9)
[2023-05-30] MEDS ORDERED: iohexoL-300 100 ML VIAL IVP ONE (22:40)
[2023-05-30 23:10] VITALS: BP 138/73; O2SAT 90
--- NOTE | 2023-05-30 23:44 | CT Report ---
PROCEDURE: ABDOMEN/PELVIS W INDICATIONS: IV only, abd pain CONTRAST: Omni 300 100ml TECHNIQUE: After the administration of intravenous contrast, 5 mm thick sections acquired from the diaphragms to the symphysis. 5 mm thick coronal and sagittal reformats were acquired. For radiation dose reducti on, the following was used: automated exposure control, adjustment of mA and/or kV according to earnest ent size. COMPARISON: CT abdomen pelvis 02/16/2023, 10/25/2022. FINDINGS: Image quality: Excellent. Lung bases and heart: Unremarkable. Liver: No solid mass. Gallbladder and biliary tree: No radiopaque stones or wall thickening. No biliary dilation. Spleen: No splenomegaly. Pancreas: No pancreatic ductal dilation. Adrenals: No adrenal nodule. Kidneys and ureters: No hydronephrosis. No renal cystic lesion which requires follow up. No solid mas s. Bowel and peritoneum: Distal stool contents in the distal colon and rectum. The appendix is not dilat ed. Dilated loops of small bowel. Small air-fluid levels. Mass or polyp in the proximal jejunum measu ring 2.5 cm, (11/26). Nodule transition to a normal caliber. The terminal ileum is not dilated. [place]om[place] h is not dilated. Lymph nodes: No central or retroperitoneal adenopathy. Vessels: No infrarenal aortic aneurysm. PELVIS Reproductive organs: Uterus is absent. Bladder: No abnormal wall thickening, accounting for underdistention. Pelvic lymph nodes: No pelvic adenopathy by size criteria. Bones: No aggressive osseous abnormality. Other: No significant ventral or inguinal hernia. IMPRESSION: 1. Small bowel obstruction. No discrete transition point. 2. No free fluid. No pneumoperitoneum. 3. Mass in the proximal jejunum measuring 2.5 cm. Results were communicated to Dr. Rubio at 05/30/2023 11:42 PM PST. Reviewed by: Domo Saucedo MD on 05/30/2023 11:42 PM PST Approved by: Domo Saucedo MD on 05/30/2023 11:42 PM PST Station ID: [id number]
--- NOTE | 2023-05-31 01:09 | ED Physician Documentation ---
ED Addendum - Addendum Addendum: 05/31/23 01:05 I received turnover of care of this patient from Dr. Manning; please see his note for complete history and physical. Patient has been evaluated many times in this emergency department for similar symptoms, frequently diagnosed with small bowel obstruction as the etiology. The CT of the abdomen pelvis performed tonight does indeed show recurrence of small bowel obstruction. Also noted is a mass in the jejunum which is felt to be incidental (no evidence that this is the lead point for the obstruction). I went to discuss the results with patient and family, but before I could discuss these results, the family immediately is insisting on going home. They were amenable to at least letting me discuss results with them and I included, even emphasized, that there is a mass in the small intestines that will need to be looked further into in the outpatient setting. Emphasized that is important that they do not forget that this finding is noted on the CT and should be mentioned to his primary care provider at the next available appointment. As for the family wishes to take patient home, this is not an uncommon occurrence with this patient in this situation, and there have been instances in the past and sometimes patient had (presumable) resolution of the obstruction as evidenced by gradually resolving pain, vomiting, as well as increasing passing of stool and gas. The family is expressing to me understanding of return precautions and tell me that they have every intention of returning immediately if the patient seems worse in any way, or if he develops new/concerning signs/symptoms (such as fever, blood in vomitus, unable to tolerate any p.o.). 05/31/23 01:09 Family is requesting some medication to take home for pain, and I will be ordering a take-home pack of Percocet as well as a take-home pack of Zofran.
[2023-05-31] MEDS ORDERED: oxyCODONE/ACET 5/325 Prepack 4 PO STA (01:10)
[2023-05-31] MEDS ORDERED: ONDANSETRON ODT 4 MG Prepack 2 TL STA (01:10)
== END 2023-05-31 01:43 | disposition left against medical advice (07) ==
LOC: ED 19:52
DX: K56.609 Unspecified intestinal obstruction, unspecified as to partial versus complete obstruction (principal)
CPT/HCPCS: 36415; 74177; 80053; 83690; 85025; 96374; 96375; 99284; J1170; Q9967

== ENCOUNTER 2023-08-16 23:24 | Outpatient (CLI) | payer MEDICAID | END 2023-08-16 23:25 | disposition critical access hospital (66) | LOC: EMS 23:24 | DX: R10.11 Right upper quadrant pain (principal); R10.12 Left upper quadrant pain; R10.811 Right upper quadrant abdominal tenderness; R10.812 Left upper quadrant abdominal tenderness; R11.2 Nausea with vomiting, unspecified | CPT/HCPCS: A0425; A0427; A0999 ==

== ENCOUNTER 2023-08-17 00:01 | Emergency (ER) | payer MEDICAID ==
[2023-08-17] MEDS: SODIUM CHLORIDE 0.9% 1,000 ML IV STA (00:48)
[2023-08-17] MEDS: ONDANSETRON 4 MG/2 ML VIAL IVP STA (00:51)
[2023-08-17 00:57] LABS: BASOPHILS % (AUTO) 0.2 %; EOSINOPHILS # (AUTO) 0.1 10^3/uL (0.0-0.7); EOSINOPHILS % (AUTO) 0.5 %; HCT - HEMATOCRIT 52.4 % (42.0-52.0); HGB - HEMOGLOBIN 16.8 g/dL (14.0-18.0); LYMPHOCYTES # (AUTO) 0.6 10^3/uL (1.5-3.5); LYMPHOCYTES % (AUTO) 6.2 %; MEAN CORPUSCULAR HEMOGLOBIN 27.6 pg (27.0-31.0); MEAN CORPUSCULAR HGB CONC 32.1 g/dL (32.0-36.0); MEAN CORPUSCULAR VOLUME 86.2 fL (80.0-94.0); MEAN PLATELET VOLUME 10.6 fL (7.4-11.4); MONOCYTES # (AUTO) 0.8 10^3/uL (0.0-1.0); MONOCYTES % (AUTO) 8.7 %; NEUTROPHILS # (AUTO) 7.7 10^3/uL (1.5-6.6); NEUTROPHILS % (AUTO) 84.1 %; PLT - PLATELET COUNT 223 10^3/uL (130-450); RED BLOOD COUNT 6.08 10^6/uL (4.70-6.10); RED CELL DISTRIBUTION WIDTH 15.1 % (12.0-15.0); WHITE BLOOD COUNT 9.2 x10^3/uL (4.8-10.8)
[2023-08-17 01:15] LABS: ALBUMIN 4.1 g/dL (3.2-5.5); ALBUMIN/GLOBULIN RATIO 1.4 (1.0-2.2); BILIRUBIN,TOTAL 0.7 mg/dL (0.2-1.0); CALCIUM 9.4 mg/dL (8.5-10.3); CREATININE 0.7 mg/dL (0.6-1.3); POTASSIUM 3.7 mmol/L (3.5-4.5)
[2023-08-17] MEDS ORDERED: iohexoL-300 100 ML VIAL ONE (01:37)
[2023-08-17] MEDS: HYDROmorphone 1 MG/ML CARPUJECT IVP STA ×2 (02:05→03:48)
[2023-08-17] MEDS: iohexoL-300 100 ML VIAL IVP ONE (02:13)
--- NOTE | 2023-08-17 03:37 | ED Physician Documentation ---
History of Present Illness - Stated complaint Stated Complaint: ABD PX/NAUSEA - Chief complaint Chief Complaint: Abd Pain - History obtained from History obtained from: Patient, Family - Additonal information Additional information: PT presents to the ED with parents for CC of abd pain and nausea that started aboiut 1.5 hours ago. The pt has a h/o bowel obstructions, and parents state they wanted to get him checked out because of this. He had eaten chicken, and they wonder if this set things off. The pt states the pain comes in waves. He is passing gas. Pt had a BM earlier today. No other complaints or symptoms of illness. PD PAST MEDICAL HISTORY - Past Medical History Cardiovascular: None Respiratory: Asthma Neuro: Cerebral palsy Endocrine/Autoimmune: None GI: GERD, Hiatal hernia, Other : None HEENT: None Psych: None Musculoskeletal: Other Derm: None - Past Surgical History Past Surgical History: Yes General: Other HEENT: Cataracts - Present Medications Home Medications: Ambulatory Orders Medication Instructions Recorded Confirmed Omeprazole [PriLOSEC] 20 mg PO BID 08/09/13 08/17/23 HYDROcod/ACETAM 5/325 [[place] 5/325] 1 - 2 tablet PO Q6H PRN #7 tablet 08/17/23 Ondansetron Odt [Zofran] 4 mg TL Q6H PRN #10 tablet 08/17/23 - Allergies Allergies/Adverse Reactions: Allergies Allergy/AdvReac Type Severity Reaction Status Date / Time promethazine HCl * AdvReac Unknown Anxiety Verified 08/17/23 00:10 [From Phenergan] Sulfa (Sulfonamide AdvReac Unknown Rash Verified 08/17/23 00:10 Antibiotics) - Social History Does the pt smoke?: No Smoking Status: Never smoker Does the pt drink ETOH?: No Does the pt have substance abuse?: No - Immunizations Immunizations are current?: Yes - POLST Patient has POLST: No POLST Status: Full Code PD ED PE NORMAL - Vitals Vital signs reviewed: Yes - General General: No acute distress, Well developed/nourished, Other (alert, answering questions appropriately) - HEENT HEENT: Atraumatic, PERRL, EOMI, Moist mucous membranes - Neck Neck: Supple, no meningeal sign - Cardiac Cardiac: RRR, No murmur - Respiratory Respiratory: No respiratory distress, Clear bilaterally - Abdomen Abdomen: Soft, Non distended, Other (moderate periumbilical tenderness.) - Derm Derm: Normal color, Warm and dry, No rash - Extremities Extremities: Other (deformity bilateral distal LE.) - Neuro Neuro: Alert and oriented X 3 - Psych Psych: Normal mood, Normal affect Results - Vitals Vitals: Oxygen O2 Source Room air - Labs Labs: Laboratory Tests 08/17/23 08/17/23 00:53 00:53 WBC 9.2 RBC 6.08 Hgb 16.8 Hct 52.4 H MCV 86.2 MCH 27.6 MCHC 32.1 RDW 15.1 H Plt Count 223 MPV 10.6 Neut # (Auto) 7.7 H Lymph # (Auto) 0.6 L [place] # (Auto) 0.8 Eos # (Auto) 0.1 Baso # (Auto) 0.0 Absolute Nucleated RBC 0.00 Nucleated RBC % 0.0 Sodium 143 Potassium 3.7 Chloride 108 Carbon Dioxide 26 Anion Gap 9.0 BUN 11 Creatinine 0.7 Estimated GFR (MDRD) 128 Glucose 119 H Calcium 9.4 Total Bilirubin 0.7 AST 26 ALT 25 Alkaline Phosphatase 107 Total Protein 7.0 Albumin 4.1 Globulin 2.9 Albumin/Globulin Ratio 1.4 Lipase 14 - Rads (name of study) CT abd/pelvis Relevant Findings:: Final report received, See rad report (parial SBO) PD Medical Decision Making - ED course Complexity details: reviewed old records, reviewed results, re-evaluated patient, considered differential, d/w patient, d/w family ED course: The pt was treated symptomatically with IV fluids, antiemetics, and analgesics, and worked up with labs and CT in the ED. The pt demonstrated clinical improvement. Labs were unremarkable, but CT showed partial SBO. I arranged for pt to be admitted, but parents and pt stated they preferred to manage the sx at home. They stated that the pt has been through this many times before, and given his disability, he is much more comfortable at home. Family asked for pain meds for pt, and I informed them that he would be given very little, due to the propensity toward constipation and slowing of the bowels, which would be counterproductive in this case. They expressed understanding. We have discussed home management of the sx, as well as the usual indications for return. Departure - Departure Disposition: 01 Home, Self Care Clinical Impression: Partial small bowel obstruction Condition: Stable Instructions: Obstruction Sm Bowel Prescriptions: HYDROcod/ACETAM 5/325 [[place] 5/325] 1 - 2 tablet PO Q6H PRN #7 tablet PRN Reason: Pain Ondansetron Odt [Zofran] 4 mg TL Q6H PRN #10 tablet PRN Reason: Nausea / Vomiting Comments: Your CT scan shows a partial small bowel obstruction, meaning a spot where the passage of bowel contents is slow and causing some backup. This can be due to variety of reasons including inflammation of that segment of the bowel, or simply slowing of the movement of the bowel wall itself. In general, these do clear up on their own, but it is best to drink plenty of fluids and not to try to eat anything while you have symptoms. Additionally, while we have prescribed a small amount of pain medication for you, it is best if you can avoid taking them because they do cause constipation which can prolong your partial bowel obstruction. It is important that you keep your appointment with the specialist to discuss what is going on in your abdomen. Please do not miss this appointment. You may take the pain medication and nausea medication prescribed. The prescriptions have been electronically transmitted to the [facility] in [place]. Forms: PCP List Discharge Date/Time: 08/17/23 04:40
[2023-08-17] MEDS: METOCLOPRAMIDE 10 MG/2 ML VIAL IVP STA (03:44)
[2023-08-17 04:47] VITALS: BP 106/67; O2SAT 92
--- NOTE | 2023-08-17 11:08 | CT Report ---
PROCEDURE: Abdomen/Pelvis W INDICATIONS: abdominal pain LLQ, vomiting, h/o obstruction CONTRAST: Omni 300, 100mls TECHNIQUE: After the administration of intravenous contrast, a CT scan of the abdomen and pelvis was performed. Images were recorded and evaluated at appropriate window settings. Reformats: coronal and sagittal. F or radiation dose reduction, the following was used: automated exposure control, adjustment of mA and /or kV according to patient size. COMPARISON: CT abdomen and pelvis, 05/22/2023. FINDINGS: Image quality: Diagnostic. Lower chest: Right basilar atelectasis. The distal esophagus is distended, likely secondary to gastro esophageal reflux. Liver: No solid mass. Normal size. Mild hepatic steatosis. Gallbladder and biliary tree: No gallstones. No biliary dilation. Spleen: No splenomegaly. Pancreas: No pancreatic ductal dilation. Adrenals: No adrenal nodule. Kidneys and ureters: No hydronephrosis. No renal cystic lesion which requires follow up. No solid mas s. Stomach, bowel and peritoneum: Small bowel distension canal to 4.5 cm. There are multiple air-fluid l evels. There is a transitional point in the mid abdomen with decompressed distal small intestine (ser ies 2 image 100; series 4 image 61). There is a 2.1 x 2.3 cm mass in the proximal jejunum just beyond the duodenal jejunal junction (series 2 image 80; series 4 image 52). There is not significantly briseida nged from the last exam. No pathologic free fluid. No free air. Lymph nodes: No central or retroperitoneal adenopathy. Vessels: No infrarenal aortic aneurysm. PELVIS Reproductive organs: Unremarkable. Bladder: No abnormal wall thickening, accounting for underdistention. Pelvic lymph nodes: No pelvic adenopathy by size criteria. Bones: No aggressive osseous abnormality. Other: No significant ventral or inguinal hernia. IMPRESSION: 1. Small bowel obstruction. The transitional point is in the mid abdomen. 2. A 2.1 x 2.3 cm mass in the proximal jejunum just beyond the duodenal jejunal junction. Recommend e ndoscopic examination and tissue diagnosis. No significant discrepancy with the preliminary interpretation. Reviewed by: Unique Dye MD on 08/17/2023 11:07 AM [facility] Approved by: Unique Dye MD on 08/17/2023 11:07 AM PST Station ID: [id number]
== END 2023-08-17 04:40 | disposition home or self-care (01) ==
LOC: EDUNIT# → ED 00:01
DX: K56.600 Partial intestinal obstruction, unspecified as to cause (principal)
CPT/HCPCS: 36415; 74177; 80053; 83690; 85025; 96374; 96375; 99283; 99284; J1170; J2765; Q9967

== ENCOUNTER 2023-09-13 13:08 | Outpatient (CLI) | payer MEDICAID | END 2023-09-13 23:59 | disposition EMS.NT | LOC: EMS 13:08 | DX: S09.90XA Unspecified injury of head, initial encounter (principal); W01.190A Fall on same level from slipping, tripping and stumbling with subsequent striking against furniture, initial encounter; Z91.81 History of falling; Y92.009 Unspecified place in unspecified non-institutional (private) residence as the place of occurrence of the external cause; G71.00 Muscular dystrophy, unspecified ==

== ENCOUNTER 2023-09-13 14:14 | Emergency (ER) | payer MEDICAID ==
--- NOTE | 2023-09-13 15:18 | ED Physician Documentation ---
PD HPI HEAD INJURY - Stated complaint Stated Complaint: HEAD INJ - Chief complaint Chief Complaint: Laceration - Additional information Additional information: 38-year-old male presents emergency department for head injury. Patient has spina bifida he tends to have weak legs as he was doing a stand pivot transfer he fell backwards and hit the back of his head on the corner of his dresser. He had no loss of consciousness no seizure-like activity no nausea vomiting patient is here with his father who reports that he is neurologically at his baseline. Their main concern is that he might need a stitch to the back of the head to help stop the bleeding. Bleeding is overall well-controlled he is on any blood thinners, up-to-date with tetanus shot. PD PAST MEDICAL HISTORY - Past Medical History Past Medical History: Yes Cardiovascular: None Respiratory: Asthma Neuro: Cerebral palsy Endocrine/Autoimmune: None GI: GERD, Hiatal hernia, Other : None HEENT: None Psych: None Musculoskeletal: Other Derm: None - Past Surgical History Past Surgical History: Yes General: Other HEENT: Cataracts - Present Medications Home Medications: Ambulatory Orders Medication Instructions Recorded Confirmed Omeprazole [PriLOSEC] 20 mg PO BID 08/09/13 08/17/23 HYDROcod/ACETAM 5/325 [[place] 5/325] 1 - 2 tablet PO Q6H PRN #7 tablet 08/17/23 Ondansetron Odt [Zofran] 4 mg TL Q6H PRN #10 tablet 08/17/23 - Allergies Allergies/Adverse Reactions: Allergies Allergy/AdvReac Type Severity Reaction Status Date / Time promethazine HCl * AdvReac Unknown Anxiety Verified 09/13/23 14:35 [From Phenergan] Sulfa (Sulfonamide AdvReac Unknown Rash Verified 09/13/23 14:35 Antibiotics) - Social History Does the pt smoke?: No Smoking Status: Never smoker Does the pt drink ETOH?: No Does the pt have substance abuse?: No - Immunizations Immunizations are current?: Yes - POLST Patient has POLST: No POLST Status: Full Code PD ED PE NORMAL - Vitals Vital signs reviewed: Yes - General General: Alert and oriented X 3, No acute distress, Well developed/nourished - HEENT HEENT: PERRL, EOMI, Moist mucous membranes, Other (Scalp laceration to the posterior portion of the head.) - Neck Neck: No bony TTP, C-Spine cleared by NEXUS criteria - Back Back: No spinal TTP Results - Vitals Vitals: Vital Signs - 24 hr 09/13/23 09/13/23 14:35 15:44 Temperature 36.5 C Heart Rate 80 60 Respiratory 18 17 Rate Blood Pressure 128/80 119/67 O2 Saturation 97 98 Oxygen O2 Source Room air Procedures - Laceration (location) Scalp Posterior Length in cm: 2 (posterior scalp) Wound type: Stellate, Superficial, Clean Neurovascular status: Sensory intact Anesthesia: Lidocaine 1% Wound preparation: Irrigated copiously NS Skin layer closure: [place] (3), Other Other: Patient tolerated well, No complications, Tetanus UTD PD Medical Decision Making - ED course ED course: Wound inspected under direct bright light with good visualization. Area with laceration across soft tissue through adipose without exposure of skull. No ov ert foreign body. Area hemostatic. Area extensively irrigated with sterile normal saline under pressure. Laceration repaired in simple fashion with a total of 3 samantha (please see procedure note for further details). Patient tolerated procedure well. Cautious return precautions discussed w/ full understanding. Wound care discussed. Prompt follow up with primary care physician discussed and return for staple removal in 7-10 days. Patient not lose consciousness does not meet criteria per [place] head CT score. They are given cautious return precautions all questions answered safe for discharge. Departure - Departure Disposition: 01 Home, Self Care Clinical Impression: Head injury Qualifiers: Encounter type: initial encounter Qualified Code(s): S09.90XA - Unspecified injury of head, initial encounter Laceration of head Qualifiers: Encounter type: initial encounter Location of open wound of head: scalp Foreign body presence: without foreign body Qualified Code(s): S01.01XA - Laceration without foreign body of scalp, initial encounter Instructions: ED Laceration Scalp Stitch Or Stap Comments: Come back for any signs of infection which would include: Redness, swelling, drainage, increased pain, or fevers. You can wash it soap and water. Keep it covered and moist with bacitracin ointment which is available over the counter; avoid neosporin. Follow-up with your physician in 7-10 days for staple removal. Forms: PCP List Discharge Date/Time: 09/13/23 15:44
[2023-09-13 15:48] VITALS: BP 119/67; O2SAT 98
== END 2023-09-13 15:44 | disposition home or self-care (01) ==
LOC: ED 14:14
DX: S01.01XA Laceration without foreign body of scalp, initial encounter (principal); W19.XXXA Unspecified fall, initial encounter; Q05.9 Spina bifida, unspecified
CPT/HCPCS: 12001; 99282

== ENCOUNTER 2023-09-15 01:56 | Outpatient (CLI) | payer MEDICAID | END 2023-09-15 01:57 | disposition critical access hospital (66) | LOC: EMS 01:56 | DX: R10.33 Periumbilical pain (principal); R11.2 Nausea with vomiting, unspecified | CPT/HCPCS: A0425; A0427; A0999 ==

== ENCOUNTER 2023-09-15 02:28 | Emergency (ER) | payer MEDICAID ==
[2023-09-15] MEDS: FAMOTIDINE 20 MG/2 ML VIAL IVP STA (03:05)
[2023-09-15] MEDS: SODIUM CHLORIDE 0.9% 1,000 ML IV STA (03:05)
[2023-09-15 03:09] LABS: BASOPHILS % (AUTO) 0.2 %; EOSINOPHILS # (AUTO) 0.1 10^3/uL (0.0-0.7); EOSINOPHILS % (AUTO) 0.9 %; HGB - HEMOGLOBIN 15.5 g/dL (14.0-18.0); LYMPHOCYTES # (AUTO) 0.9 10^3/uL (1.5-3.5); LYMPHOCYTES % (AUTO) 11.1 %; MEAN CORPUSCULAR HEMOGLOBIN 27.6 pg (27.0-31.0); MEAN CORPUSCULAR HGB CONC 31.6 g/dL (32.0-36.0); MEAN CORPUSCULAR VOLUME 87.2 fL (80.0-94.0); MEAN PLATELET VOLUME 10.6 fL (7.4-11.4); MONOCYTES # (AUTO) 0.8 10^3/uL (0.0-1.0); MONOCYTES % (AUTO) 9.3 %; NEUTROPHILS # (AUTO) 6.4 10^3/uL (1.5-6.6); NEUTROPHILS % (AUTO) 78.4 %; PLT - PLATELET COUNT 220 10^3/uL (130-450); RED BLOOD COUNT 5.62 10^6/uL (4.70-6.10); RED CELL DISTRIBUTION WIDTH 14.7 % (12.0-15.0); WHITE BLOOD COUNT 8.1 x10^3/uL (4.8-10.8)
[2023-09-15 03:15] VITALS: BP 98/62; O2SAT 98
[2023-09-15 03:27] LABS: ALBUMIN 3.8 g/dL (3.2-5.5); ALBUMIN/GLOBULIN RATIO 1.8 (1.0-2.2); BILIRUBIN,TOTAL 0.5 mg/dL (0.2-1.0); CALCIUM 8.8 mg/dL (8.5-10.3); CREATININE 0.6 mg/dL (0.6-1.3); POTASSIUM 3.4 mmol/L (3.5-4.5); TOTAL PROTEIN 5.9 g/dL (6.4-8.9)
--- NOTE | 2023-09-15 04:03 | ED Physician Documentation ---
History of Present Illness - Stated complaint Stated Complaint: ABD PX - Chief complaint Chief Complaint: Abd Pain - History obtained from History obtained from: Patient PD PAST MEDICAL HISTORY - Past Medical History Cardiovascular: None Respiratory: Asthma Neuro: Cerebral palsy Endocrine/Autoimmune: None GI: GERD, Hiatal hernia, Other : None HEENT: None Psych: None Musculoskeletal: Other Derm: None - Past Surgical History Past Surgical History: Yes General: Other HEENT: Cataracts - Present Medications Home Medications: Ambulatory Orders Medication Instructions Recorded Confirmed Omeprazole [PriLOSEC] 20 mg PO BID 08/09/13 09/15/23 HYDROcod/ACETAM 5/325 [[place] 5/325] 1 - 2 tablet PO Q6H PRN #7 tablet 08/17/23 09/15/23 Ondansetron Odt [Zofran] 4 mg TL Q6H PRN #10 tablet 08/17/23 09/15/23 Ondansetron Odt [Zofran Odt] 4 mg TL Q6H PRN #10 tablet 09/15/23 - Allergies Allergies/Adverse Reactions: Allergies Allergy/AdvReac Type Severity Reaction Status Date / Time promethazine HCl * AdvReac Unknown Anxiety Verified 09/15/23 02:37 [From Phenergan] Sulfa (Sulfonamide AdvReac Unknown Rash Verified 09/15/23 02:37 Antibiotics) - Social History Does the pt smoke?: No Smoking Status: Never smoker Does the pt drink ETOH?: No Does the pt have substance abuse?: No - Immunizations Immunizations are current?: Yes - POLST Patient has POLST: No POLST Status: Full Code Results - Vitals Vitals: Vital Signs - 24 hr 09/15/23 09/15/23 02:38 03:12 Temperature 36.7 C Heart Rate 99 87 Respiratory 16 17 Rate Blood Pressure 107/74 98/62 O2 Saturation 93 98 Oxygen O2 Source Room air - Labs Labs: Laboratory Tests 09/15/23 09/15/23 03:01 03:01 WBC 8.1 RBC 5.62 Hgb 15.5 Hct 49.0 MCV 87.2 MCH 27.6 MCHC 31.6 L RDW 14.7 Plt Count 220 MPV 10.6 Neut # (Auto) 6.4 Lymph # (Auto) 0.9 L [place] # (Auto) 0.8 Eos # (Auto) 0.1 Baso # (Auto) 0.0 Absolute Nucleated RBC 0.00 Nucleated RBC % 0.0 Sodium 144 Potassium 3.4 L Chloride 111 Carbon Dioxide 25 Anion Gap 8.0 BUN 9 Creatinine 0.6 Estimated GFR (MDRD) 152 Glucose 115 H Calcium 8.8 Total Bilirubin 0.5 AST 18 ALT 16 Alkaline Phosphatase 83 Total Protein 5.9 L Albumin 3.8 Globulin 2.1 Albumin/Globulin Ratio 1.8 Lipase 13 Departure - Departure Disposition: 01 Home, Self Care Clinical Impression: Abdominal pain, Nausea Condition: Stable Instructions: Abdominal Pain Prescriptions: Ondansetron Odt [Zofran Odt] 4 mg TL Q6H PRN #10 tablet PRN Reason: Nausea / Vomiting Comments: You were seen in the emergency department for abdominal pain and nausea. Prescription for zofran sent electronically to [facility]. Please follow-up with your primary care provider and return to the emergency department if you have any new or worsening symptoms or other concerns.
[2023-09-15 04:04] LABS: B. PARAPERTUSSIS- RESP PCR PAN NOT DETECTED; B. PERTUSSIS- RESP PCR PANEL NOT DETECTED; C. PNEUMONIAE- RESP PCR PANEL NOT DETECTED; CORONAVIRUS 229E-RESP PCR NOT DETECTED; CORONAVIRUS HKU1-RESP PCR NOT DETECTED; CORONAVIRUS NL63-RESP PCR NOT DETECTED; CORONAVIRUS OC43-RESP PCR NOT DETECTED; HUMAN METAPNEUMOVIRUS NOT DETECTED; INFLUENZA A- RESP PCR PANEL NOT DETECTED; INFLUENZA B - RESP PCR PANEL NOT DETECTED; M. PNEUMONIAE- RESP PCR PANEL NOT DETECTED; PARAINFLUENZA VIRUS 1 NOT DETECTED; PARAINFLUENZA VIRUS 2 NOT DETECTED; PARAINFLUENZA VIRUS 3 NOT DETECTED; PARAINFLUENZA VIRUS 4 NOT DETECTED; RHINOVIRUS/ENTEROVIRUS NOT DETECTED; RSV- RESP PCR PANEL NOT DETECTED; SARS-CoV-2 -RESP PCR PANEL NOT DETECTED
== END 2023-09-15 04:46 | disposition home or self-care (01) ==
LOC: EDUNIT# → ED 02:28
DX: R10.9 Unspecified abdominal pain (principal); R11.0 Nausea
CPT/HCPCS: 36415; 80053; 83690; 85025; 87633; 96374; 99285

== ENCOUNTER 2023-09-15 19:05 | Outpatient (CLI) | payer MEDICAID | END 2023-09-15 19:06 | disposition critical access hospital (66) | LOC: EMS 19:05 | DX: R10.33 Periumbilical pain (principal); R10.815 Periumbilic abdominal tenderness; R10.32 Left lower quadrant pain; R10.31 Right lower quadrant pain; R10.814 Left lower quadrant abdominal tenderness; R10.813 Right lower quadrant abdominal tenderness; R11.2 Nausea with vomiting, unspecified | CPT/HCPCS: A0425; A0429; A0999 ==

== ENCOUNTER 2023-09-15 19:55 | Inpatient (IN) | payer MEDICAID ==
--- NOTE | 2023-09-15 20:28 | ED Physician Documentation ---
PD HPI ABD PAIN - Stated complaint Stated Complaint: ABD PAIN/N/V - Chief complaint Chief Complaint: Abd Pain - History obtained from History obtained from: Patient, Family (father) - History of Present Illness Timing - onset: Today Timing - duration: Hours Timing - details: Abrupt onset, Still present, Waxing and waning Quality: Sharp Location: Periumbilical Radiation: No: Chest, , Lower back, Left flank, Left shoulder, Right flank, Right shoulder, Upper back Improved by: Laying still Worsened by: Moving, Position, Palpation Associated symptoms: Nausea, Vomiting, Constipation Similar symptoms before: Diagnosis (SBO, appendicitis, abdominal pain), Work up / diagnostics (in the q for evaluation at [facility] for this abdominal pain) Recently seen: Emergency Dept (Seen at 0400 today here.) - Additional information Additional information: Jesse Tejeda is a 38-year-old disabled 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 He has intermittently developed periumbilical pain that can be severe and he has had pictures of bowel obstruction associated with this. He has been treated for appendicitis with antibiotic more than once. He has had small bowel obstruction a number of times and this usually self resolves. He has been admitted to the hospital previously and discharged later that same day. He has had small bowel obstruction in number of times and has left the hospital AGAINST MEDICAL ADVICE resolving his symptoms at home. He has been seen in our emergency department with abdominal painEarly in the morning of 14 September. He was given pain medication and discharged to home. He has now returned with persistent and worsening pain. Review of Systems Constitutional: denies: Fever Eyes: denies: Decreased vision Ears: denies: Ear pain Nose: denies: Rhinorrhea / runny nose, Congestion Throat: denies: Sore throat Cardiac: denies: Chest pain / pressure Respiratory: denies: Dyspnea, Cough GI: reports: Abdominal Pain, Nausea. denies: Vomiting, Diarrhea : denies: Dysuria, Frequency Skin: denies: Rash Musculoskeletal: denies: Neck pain, Back pain, Extremity pain PD PAST MEDICAL HISTORY - Past Medical History Cardiovascular: None Respiratory: Asthma Neuro: Cerebral palsy Endocrine/Autoimmune: None GI: GERD, Hiatal hernia, Other : None HEENT: None Psych: None Musculoskeletal: Other Derm: None - Past Surgical History Past Surgical History: Yes General: Other HEENT: Cataracts - Present Medications Home Medications: Ambulatory Orders Medication Instructions Recorded Confirmed Omeprazole [PriLOSEC] 20 mg PO BID 08/09/13 09/15/23 HYDROcod/ACETAM 5/325 [[place] 5/325] 1 - 2 tablet PO Q6H PRN #7 tablet 08/17/23 09/15/23 Ondansetron Odt [Zofran] 4 mg TL Q6H PRN #10 tablet 08/17/23 09/15/23 Ondansetron Odt [Zofran Odt] 4 mg TL Q6H PRN #10 tablet 09/15/23 - Allergies Allergies/Adverse Reactions: Allergies Allergy/AdvReac Type Severity Reaction Status Date / Time promethazine HCl * AdvReac Unknown Anxiety Verified 09/15/23 02:37 [From Phenergan] Sulfa (Sulfonamide AdvReac Unknown Rash Verified 09/15/23 02:37 Antibiotics) - Social History Does the pt smoke?: No Smoking Status: Never smoker Does the pt drink ETOH?: No Does the pt have substance abuse?: No - Immunizations Immunizations are current?: Yes - POLST Patient has POLST: No POLST Status: Full Code PD ED PE NORMAL - Vitals Vital signs reviewed: Yes (normal) - General General: Well developed/nourished, Other (38-year-old male with myoclonic dystrophy appears developmentally delayed but will answer questions appropriately. He periodically appears to be in pain with a high wine.) - HEENT HEENT: PERRL, EOMI, Other (There are samantha to the occiput on the left side without signs of inflammation. These were placed on 09/13/2023) - Neck Neck: Supple, no meningeal sign, No bony TTP - Cardiac Cardiac: RRR, No murmur - Respiratory Respiratory: No respiratory distress, Clear bilaterally - Abdomen Abdomen: Soft, Other (Mildly distended abdomen which is soft bowel sounds are present there is specific tenderness just below the umbilicus and all pain is referred to this same area. Palpation of the left upper quadrant right upper quadrant left lower quadrant or right lower quadrant refers pain to this specific spot.) - Back Back: No CVA TTP, No spinal TTP - Derm Derm: Normal color, Warm and dry, No rash - Extremities Extremities: No deformity, No edema - Neuro Neuro: machine feeder raw stock 2-12 intact, No motor deficit, No sensory deficit Eye Opening: Spontaneous Motor: Obeys Commands Verbal: Oriented GCS Score: 15 - Psych Psych: Normal mood, Normal affect Results - Vitals Vitals: Vital Signs - 24 hr 09/15/23 09/15/23 09/15/23 20:02 20:18 22:00 Temperature 35.8 C L 35.8 C L Heart Rate 86 86 77 Respiratory 18 18 17 Rate Blood Pressure 106/76 106/76 121/79 O2 Saturation 95 95 96 09/16/23 09/16/23 00:00 01:00 Temperature Heart Rate 76 74 Respiratory 15 16 Rate Blood Pressure 130/76 144/81 H O2 Saturation 90 L 99 Oxygen O2 Source Room air - Labs Labs: Laboratory Tests 09/15/23 09/15/23 20:51 20:51 WBC 6.4 RBC 5.95 Hgb 16.4 Hct 51.2 MCV 86.1 MCH 27.6 MCHC 32.0 RDW 14.9 Plt Count 254 MPV 10.6 Neut # (Auto) 5.1 Lymph # (Auto) 0.7 L [place] # (Auto) 0.6 Eos # (Auto) 0.0 Baso # (Auto) 0.0 Absolute Nucleated RBC 0.00 Nucleated RBC % 0.0 Sodium 143 Potassium 3.6 Chloride 109 Carbon Dioxide 27 Anion Gap 7.0 BUN 11 Creatinine 0.6 Estimated GFR (MDRD) 152 Glucose 112 H Calcium 9.2 Total Bilirubin 0.7 AST 17 ALT 16 Alkaline Phosphatase 101 Total Protein 6.5 Albumin 4.1 Globulin 2.4 Albumin/Globulin Ratio 1.7 Lipase < 10 L - Rads (name of study) CT ab pel with Relevant Findings:: Prelim report reviewed (Impression: 1. Dilated loops of small bowel in the abdomen are consistent with a small bowel obstruction. Transition point is seen in the central abdomen, similar to when compared to the CT from 08/17/2023. Internal luminal 2.3 cm mass again seen within the proximal jejunum), EMP independent interpretation of test PD Medical Decision Making - ED course Complexity details: reviewed old records, reviewed results, re-evaluated patient, considered differential, d/w patient, d/w family Reviewed Lab Results: We reviewed a complete blood cell count showing a normal white blood cell count normal hemoglobin hematocrit and platelets chemistries showed normal electrolytes normal kidney and liver function. These laboratory results did not contribute to any specific diagnosis. A CT scan of the abdomen and pelvis with contrast was obtained demonstrating a small bowel obstruction with multiple air- fluid levels and again redemonstrating the presence of a polyp in the jejunum. ED course: 38-year-old male with myoclonic dystrophy and recurrent small bowel obstruction presents tonight again with symptoms of small bowel obstruction. Seen earlier in the day in the early hours of the morning with abdominal pain treated with pain medication and released. He has had similar small bowel obstruction 1 month ago but refused hospitalization. Today in the Emergency Department he has severe pain he is administered adult Dilaudid with improvement in the pain he is administered intravenous fluid and a CT scan is obtained demonstrating the presence of small bowel obstruction. On my read this looks slightly more distended than his prior CT scan 1 month ago. Knowing that the patient had previously refused hospitalization I interrogated his inferior vena cava with POCUS and found that he still had a volume deficit and administered a second liter of saline. I was concerned about the patient refusing hospitalization and wanted to provide a buffer. When it came down to it the patient did not refuse hospitalization. I believe this is the correct course of action for this patient as it may take the rest of the day today to resolve this and the patient does have significant pain associated with this. I have contacted Dr. Benitez our italian tutor and she will admit the patient to observation and asked that we contact the surgeon for his input. Departure - Departure Disposition: ED Place in Observation Clinical Impression: Small bowel obstruction Condition: Stable Forms: PCP List
[2023-09-15 20:56] LABS: BASOPHILS % (AUTO) 0.3 %; EOSINOPHILS % (AUTO) 0.5 %; HCT - HEMATOCRIT 51.2 % (42.0-52.0); HGB - HEMOGLOBIN 16.4 g/dL (14.0-18.0); LYMPHOCYTES # (AUTO) 0.7 10^3/uL (1.5-3.5); LYMPHOCYTES % (AUTO) 10.5 %; MEAN CORPUSCULAR HEMOGLOBIN 27.6 pg (27.0-31.0); MEAN CORPUSCULAR VOLUME 86.1 fL (80.0-94.0); MEAN PLATELET VOLUME 10.6 fL (7.4-11.4); MONOCYTES # (AUTO) 0.6 10^3/uL (0.0-1.0); MONOCYTES % (AUTO) 9.8 %; NEUTROPHILS # (AUTO) 5.1 10^3/uL (1.5-6.6); NEUTROPHILS % (AUTO) 78.7 %; PLT - PLATELET COUNT 254 10^3/uL (130-450); RED BLOOD COUNT 5.95 10^6/uL (4.70-6.10); RED CELL DISTRIBUTION WIDTH 14.9 % (12.0-15.0); WHITE BLOOD COUNT 6.4 x10^3/uL (4.8-10.8)
[2023-09-15 21:11] LABS: ALBUMIN 4.1 g/dL (3.2-5.5); ALBUMIN/GLOBULIN RATIO 1.7 (1.0-2.2); ALKALINE PHOSPHATASE 101 IU/L (42-121); ALT ALANINE AMINOTRANSFERASE 16 IU/L (10-60); AST ASPARTATE AMINOTRANSFERASE 17 IU/L (10-42); BILIRUBIN,TOTAL 0.7 mg/dL (0.2-1.0); BUN - BLOOD UREA NITROGEN 11 mg/dL (6-20); CALCIUM 9.2 mg/dL (8.5-10.3); CARBON DIOXIDE - CO2 27 mmol/L (21-32); CHLORIDE 109 mmol/L (101-111); CREATININE 0.6 mg/dL (0.6-1.3); GFR - MDRD 152 (>89); GLUCOSE 112 mg/dL (74-104); POTASSIUM 3.6 mmol/L (3.5-4.5); SODIUM 143 mmol/L (135-145); TOTAL PROTEIN 6.5 g/dL (6.4-8.9)
[2023-09-15] MEDS: HYDROmorphone 1 MG/ML CARPUJECT IVP STA (21:20)
[2023-09-15] MEDS: ONDANSETRON 4 MG/2 ML VIAL IVP STA (21:20)
[2023-09-15] MEDS: SODIUM CHLORIDE 0.9% 1,000 ML IV STA ×2 (21:21→23:07)
[2023-09-15 21:45] LABS: LIPASE < 10 U/L (11-82)
[2023-09-15] MEDS: iohexoL-300 100 ML VIAL IVP ONE (22:34)
--- NOTE | 2023-09-15 23:59 | CT Report ---
PROCEDURE: Abdomen/Pelvis W INDICATIONS: infra-umbilical refered peritoneal pain CONTRAST: 100 ml omni 300 TECHNIQUE: After the administration of intravenous contrast, a CT scan of the abdomen and pelvis was performed. Images were recorded and evaluated at appropriate window settings. Reformats: coronal and sagittal. F or radiation dose reduction, the following was used: automated exposure control, adjustment of mA and /or kV according to patient size. COMPARISON: CT abdomen/pelvis 08/17/2023 FINDINGS: Image quality: Diagnostic. Lower chest: Suspected subsegmental atelectasis in the lung bases. Liver: No solid mass. Gallbladder and biliary tree: No radiopaque stones or wall thickening. No biliary dilation. Spleen: No splenomegaly. Pancreas: No pancreatic ductal dilation. Adrenals: No adrenal nodule. Kidneys and ureters: No hydronephrosis. No renal cystic lesion which requires follow up. No solid mas s. Stomach, bowel and peritoneum: Normal appendix. Multiple dilated fluid-filled loops of small bowel ar e seen in the central abdomen. A 2.3 cm enhancing intraluminal mass is seen within the proximal jejun um just distal to the ligament of [place]. There is transition point to decompressed bowel in the cent ral abdomen. Distal small bowel and colon are nondistended. Lymph nodes: No central or retroperitoneal adenopathy. Vessels: No infrarenal aortic aneurysm. PELVIS Reproductive organs: Unremarkable. Bladder: No abnormal wall thickening, accounting for underdistention. Pelvic lymph nodes: No pelvic adenopathy by size criteria. Bones: No aggressive osseous abnormality. Other: No significant ventral or inguinal hernia. IMPRESSION: 1.Dilated loops of small bowel in the abdomen are consistent with small bowel obstruction. Transition point is seen in the central abdomen, similar when compared to the CT from 08/17/2023. 2.Intraluminal 2.3 cm mass again seen within the proximal jejunum. Reviewed by: Sandeep Ramirez MD on 09/15/2023 11:57 PM PDT Approved by: Sandeep Ramirez MD on 09/15/2023 11:57 PM PDT Station ID: [id number]
[2023-09-16] MEDS: HYDROmorphone 1 MG/ML CARPUJECT IVP STA (01:52)
[2023-09-16 02:57] LABS: BILIRUBIN,URINE NEGATIVE (NEGATIVE); GLUCOSE, URINE (UA) NEGATIVE (NEGATIVE); KETONES,URINE (UA) 15 mg/dL (NEGATIVE); LEUKOCYTE ESTERASE, URINE NEGATIVE (NEGATIVE); NITRITE,URINE NEGATIVE (NEGATIVE); OCCULT BLOOD,URINE NEGATIVE (NEGATIVE); PH,URINE 5.5 PH (5.0-7.5); PROTEIN,URINE NEGATIVE (NEGATIVE); UROBILINOGEN,URINE 0.2 (NORMAL) E.U./dL (NORMAL)
[2023-09-16 03:06] LABS: CLARITY,URINE CLEAR (CLEAR)
--- NOTE | 2023-09-16 03:27 | HISTORY & PHYSICAL EXAMINATION ---
Chief Complaint - Chief Complaint Chief Complaint: abd pain History of Present Illness - Admitted From Admitted From:: home - History Obtained From History obtained from: patient and his father Exam Limitations: telemedicine - History of Present Illness HPI Comment/Other: Mr Tejeda is a 38 yo M with history of myoclonic dystrophy, recurrent small bowel obstruction. Presents to ER with c/o abd pain. Pt was evaluated in ER earlier in the day and discharged home, he returned with c/o ongoing pain. Pt reports onset of abd pain yesterday. Associated w/ nausea and approx 2-3 episodes of bilious emesis today. Denies hematemesis. Last BM 3 days ago - usual BM every other day. He just started passing some gas now while here in ER. He has not had any further N/V since receiving IV zofran in ER. Pain is currently well controlled. Denies cough, fevers, chills, dysuria, hematuria, bloody stools, cp, sob. Last SBO August resolved without intervention, pt reports he has never required surgery for SBO, denies any prior history of requiring NG tube. History - Past Medical History Cardiovascular: reports: None Respiratory: reports: Asthma Neuro: reports: Cerebral palsy Endocrine/Autoimmune: reports: None GI: reports: GERD, Hiatal hernia, Other : reports: None HEENT: reports: None Psych: reports: None Musculoskeletal: reports: Other Derm: reports: None MRSA Hx?: No - Past Surgical History General: reports: Other HEENT: reports: Cataracts - Family & Social History Family History: Mother: Alive and Well, Father: Alive and Well, Brother: Alive and Well Family History Comment/Other: Non-contributory Living Situation: With family Social History Notes: Patient is a 35 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 He is on disability and does not work. He denies ever smoking, drinking, or other drug use. - Substance History Use: Uses substance without health or social issues: NONE - POLST Patient has POLST: No POLST Status: Full Code Meds/Allgy - Home Medications Home Medications: Ambulatory Orders Medication Instructions Recorded Confirmed Omeprazole [PriLOSEC] 20 mg PO BID 08/09/13 09/15/23 HYDROcod/ACETAM 5/325 [[place] 5/325] 1 - 2 tablet PO Q6H PRN #7 tablet 08/17/23 09/15/23 Ondansetron Odt [Zofran] 4 mg TL Q6H PRN #10 tablet 08/17/23 09/15/23 Ondansetron Odt [Zofran Odt] 4 mg TL Q6H PRN #10 tablet 09/15/23 - Allergies Allergies/Adverse Reactions: Allergies Allergy/AdvReac Type Severity Reaction Status Date / Time promethazine HCl * AdvReac Unknown Anxiety Verified 09/15/23 02:37 [From Phenergan] Sulfa (Sulfonamide AdvReac Unknown Rash Verified 09/15/23 02:37 Antibiotics) Review of Systems - Constitutional Constitutional: reports: Poor appetite. denies: Fever, Chills - Eyes Eyes: denies: Blurred vision - Cardiovascular Cariovascular: denies: Palpitations, Chest pain - Gastrointestinal Gastrointestinal: reports: Abdominal pain, Constipation, Change in bowel habits, Nausea, Vomiting, Poor appetite. denies: Abdominal distention, Diarrhea, Black stools, Bloody stools - Genitourinary Genitourinary: denies: Dysuria, Frequency - Integumentary Integumentary: denies: Rash, Pruritis - Neurological Neurological: denies: General weakness, Headache, Dizziness - Psychiatric Psychiatric: denies: Depression, Anxiety - All Other Systems All Other Systems: reports: Reviewed and negative Prior Level of Functionality: uses walker or wheelchair Exam - Vital Signs Reviewed Vital Signs: Yes Vital Signs: Vital Signs x48h Temp Pulse Resp BP Pulse Ox 09/16/23 01:00 74 16 144/81 H 99 09/16/23 00:00 76 15 130/76 90 L 09/15/23 22:00 77 17 121/79 96 09/15/23 20:18 35.8 C L 86 18 106/76 95 09/15/23 20:02 35.8 C L 86 18 106/76 95 - Physical Exam General Appearance: positive: No acute distress, Alert Eyes Bilateral: positive: Normal inspection ENT: positive: ENT inspection nml Neck: positive: Nml inspection Respiratory: positive: No respiratory distress Skin: positive: Color nml, No rash Neurologic/Psychiatric: positive: Oriented x3, Weakness (chronic) Conclusion/Plan - Lab Results Lab results reviewed: Yes Fish Bones: 09/15/23 20:51 09/15/23 20:51 - Diagnostic Imaging Results Diagnostic Imaging Results Comments: CT abd: 1. Dilated loops of small bowel in the abdomen are consistent with a small bowel obstruction. Transition point is seen in the central abdomen, similar to when compared to the CT from 08/17/2023. Internal luminal 2.3 cm mass again seen within the proximal jejunum - Other Other Results/Comments: Small bowel obstruction -History of recurrent SBO, suspected to be related to history of myoclonic dystrophy -Now passing flatus -Continue NPO -IV fluids for hydration -IV antiemetics PRN -IV pain control Jejunal mass -Per pt currently work up underway with GI, next appt in October -No prior history of EGD/colonoscopy Myoclonic dystrophy -Baseline activity with walker or wheelchair DVT ppx: Lovenox sc Full code Telemedicine Consult Details - Provider Location & Consult Time Telemedicine consultation conducted via videoconferencing?: Yes List names and roles of persons who participated in consult:: Dr Benitez, patient, patient's father [place] location:: [place]
[2023-09-16] MEDS ORDERED: SODIUM CHLORIDE FLUSH 0.9% 10 ML SYRINGE IVP PRN (03:42)
[2023-09-16] MEDS: SODIUM CHLORIDE 0.9% 1,000 ML IV SCH (04:46)
[2023-09-16] MEDS: HYDROmorphone 0.5 MG/0.5 ML SYRINGE IVP PRN (08:45)
[2023-09-16] MEDS: ENOXAPARIN 40 MG/0.4 ML SYRINGE SUBQ SCH (08:47)
[2023-09-16] MEDS: FAMOTIDINE 20 MG/2 ML VIAL IVP SCH (08:47)
[2023-09-16] MEDS: SODIUM CHLORIDE FLUSH 0.9% 10 ML SYRINGE IVP SCH (08:47)
[2023-09-16] MEDS: ONDANSETRON 4 MG/2 ML VIAL IVP PRN (08:55)
--- NOTE | 2023-09-16 09:58 | PHARMACY PROGRESS NOTE ---
- Best Possible Medication History Admit Date and Time: 09/16/23 0342 Processed by: Pharmacy Medications reviewed in ED?: No Medication History completed: Yes Patient Interview: Pt unable to participate Secondary Source(s): Other family member, Caregiver, Pharmacy records, Insurance records As the person ultimately responsible for medication therapy, providers are able to order a medication from an existing home medication list in [facility] via the "Reconcile Routine" prior to Confirmation of that medication by it support specialist. Such practice is discouraged except when the physician, in their clinical judgment, deems that a medical need exists for a medication without regard to previous use.
--- NOTE | 2023-09-16 18:29 | CONSULTATION NOTE ---
Referring Provider Consult Date: 09/16/23 History - Past Medical History Cardiovascular: reports: None Respiratory: reports: Asthma Neuro: reports: Cerebral palsy Endocrine/Autoimmune: reports: None GI: reports: GERD, Hiatal hernia, Other : reports: None HEENT: reports: None Psych: reports: None Musculoskeletal: reports: Other Derm: reports: None MRSA Hx?: No Other Past Medical History: Myoclonic dystrophy - Past Surgical History General: reports: Other HEENT: reports: Cataracts - Family & Social History Family History: Mother: Alive and Well, Father: Alive and Well, Brother: Alive and Well Family History Comment/Other: Non-contributory Living Situation: With family Social History Notes: Patient is a 35 year old male with myotonia dystrophy who lives with his parents and younger brother in [place]. He is on disability and does not work. He denies ever smoking, drinking, or other drug use. - Substance History Use: Uses substance without health or social issues: NONE - POLST Patient has POLST: No POLST Status: Full Code Meds/Allgy - Home Medications Home Medications: Ambulatory Orders Medication Instructions Recorded Confirmed Omeprazole [PriLOSEC] 20 mg PO BID 08/09/13 09/16/23 - Allergies Allergies/Adverse Reactions: Allergies Allergy/AdvReac Type Severity Reaction Status Date / Time promethazine HCl * AdvReac Unknown Anxiety Verified 09/15/23 02:37 [From Phenergan] Sulfa (Sulfonamide AdvReac Unknown Rash Verified 09/15/23 02:37 Antibiotics) Exam - Vital Signs Vital Signs: Vital Signs x48h Temp Pulse Resp BP Pulse Ox 09/16/23 15:46 36.3 C L 73 14 133/81 H 97 Conclusion/Plan - Problem List (1) Abdominal pain Conclusion/Plan: as discussed with Dr sandhu early this am he is certainly note a surgical candidate at [facility]. Dr Sandhu mentioned he was not offered surgery at [facility] either. very high risk pulmonary complication. I believe he has myotonic dystrophy and not myoclonic. Clarification would be helpful. Myotonic dystrophy affects smooth muscle as well resulting in gi symptoms of pseudoobstruction. - Lab Results Lab results reviewed: Yes Fish Bones: 09/15/23 20:51 09/15/23 20:51
--- NOTE | 2023-09-17 10:06 | PROVIDER PROGRESS NOTE ---
Subjective - Subjective Pt reports feeling: Improved (states had a bm. denies pain or nausea. feels he can drink) Objective - Vital Signs/Intake & Output Vital Signs: Vital Signs x48h Temp Pulse Resp BP Pulse Ox 09/17/23 08:00 36.5 C 68 18 128/70 95 Intake & Output: Intake & Output 09/14/23 09/15/23 09/16/23 09/17/23 23:59 23:59 23:59 23:59 Intake Total 1000 2918.333 Output Total 375 275 Balance 1000 2543.333 -275 - Objective General Appearance: positive: No acute distress, Alert ENT: positive: No signs of dehydration Neck: positive: No JVD, Trachea midline Respiratory: positive: No respiratory distress Abdomen: positive: No distention - Lab Results Fish Bones: 09/15/23 20:51 09/15/23 20:51 Assessment/Plan - Problem List (1) Abdominal pain Impression: myotonic dystrophy and poor bowel motility for many years. no obstruction clears as tolerated
--- NOTE | 2023-09-17 16:09 | Discharge Plan ---
Discharge Plan Problem Reviewed?: Yes Disposition: Home, Self Care Condition: Stable Diet: Regular (with low fiber) Activity Restrictions: Activity as Tolerated Shower Restrictions: No Driving Restrictions: Yes (no driving) Health Concerns: You are a 38-year-old male who has myotonic dystrophy and a history of small bowel obstructions. All of them have been treated with expectant management. You have not needed an NG tube. We rest your bowel, we wait. And then it resolves on its own. Much like previous admissions, you did the same thing again. You had a bowel movement yesterday evening. We fed you clear liquids this morning. Then a regular diet at lunch and you have had no issues and are ready to go home. You do have a small bowel mass that is going to be evaluated by a surgeon in the next few weeks. We do not know if this is the cause of your small bowel obstructions but the plan is for you to have surgery. Plan of Treatment: Return to see your primary care provider in follow-up just for continuity of care in the next 2 to 3 weeks. Between now and your surgery make sure you are on a low fiber diet Care Goals: Did not have to come back to the hospital ever again with a small bowel obstruction Assessment: Is alert, oriented to person, place, time, situation. Dad has been a strong advocate and has been at the bedside on a daily basis. He also has been very helpful in illuminating this patient's history and care. No Smoking: If you smoke, Please STOP! Call for help.
--- NOTE | 2023-09-17 16:13 | DISCHARGE SUMMARY ---
"Discharge Summary Admit Date: 09/16/23 Discharge Date: 09/17/23 Discharging Provider: Gila Chung MD Primary Care Provider: Kamala Oconnell Code Status: Attempt Resuscitation Condition at Discharge: Stable Discharge Disposition: 01 Home, Self Care - DIAGNOSES Discharge Diagnoses with Status of Each Condition: 1. Recurrent small bowel obstruction 2. Myotonic dystrophy 3. Asthma 4. Cerebral palsy 5. GERD 6. Small bowel neoplasm uncertain behavior - HPI History of Present Illness: Mr Tejeda is a 38 yo M with history of myoclonic dystrophy, recurrent small bowel obstruction. Presents to ER with c/o abd pain. Pt was evaluated in ER earlier in the day and discharged home, he returned with c/o ongoing pain. Pt reports onset of abd pain yesterday. Associated w/ nausea and approx 2-3 episodes of bilious emesis today. Denies hematemesis. Last BM 3 days ago - usual BM every other day. He just started passing some gas now while here in ER. He has not had any further N/V since receiving IV zofran in ER. Pain is currently well controlled. Denies cough, fevers, chills, dysuria, hematuria, bloody stools, cp, sob. Last SBO August resolved without intervention, pt reports he has never required surgery for SBO, denies any prior history of requiring NG tube. - Past Medical History Cardiovascular: reports: None Respiratory: reports: Asthma Neuro: reports: Cerebral palsy Endocrine/Autoimmune: reports: None GI: reports: GERD, Hiatal hernia, Other : reports: None HEENT: reports: None Psych: reports: None Musculoskeletal: reports: Other Derm: reports: None MRSA Hx?: No - Past Surgical History General: reports: Other - CONSULTS | PROCEDURES Procedures: Abdomen pelvis CT with multiple dilated fluid-filled loops of small bowel seen at the central abdomen. A 2.3 cm enhancing intraluminal mass is seen within the proximal jejunum just distal to the ligament of Treitz. There is a transition point to decompressed bowel in the central abdomen. Distal small bowel and colon are not distended. There is no lymphadenopathy associated with this. - HOSPITAL COURSE Hospital Course: This patient usually takes 2 to 3 days to have resolution of his small bowel obstruction. We anticipated an inpatient stay of greater than 2 midnights. Fortunately he recovered very quickly. Was passing gas and stool on the day after admission. He was started on a clear liquid diet, progressed to regular diet which was low residue and he is tolerated that well. He is stable for discharge. At discharge temperature is 36.4. Heart rate 77. Blood pressure 138/86. Respirations 16. 97% on room air. 5 foot 10 inch white male, 88 kg. Dad at the bedside. He has been a wonderful advocate for his son and has illuminated his history and treatment in the past. Patient is due to have a tumor resection in [place] in the next few weeks. Patient has evidence of myotonic dystrophy, the muscle deformities associated with that. Facial deformity associated with that. He is alert, oriented to person, place, time and situation. Lungs are clear. Regular rate and rhythm. Abdomen is now soft, nondistended, nontender with normal bowel sounds. Asked him to stay on a low residue diet until his surgery. See his primary care provider in follow-up. This document was made in part using voice recognition software. While efforts are made to proofread this document, sound alike and grammatical errors may occur. - ALLERGIES Allergies/Adverse Reactions: Allergies Allergy/AdvReac Type Severity Reaction Status Date / Time promethazine HCl * AdvReac Unknown Anxiety Verified 09/15/23 02:37 [From Phenergan] Sulfa (Sulfonamide AdvReac Unknown Rash Verified 09/15/23 02:37 Antibiotics) - MEDICATIONS Home Medications: Ambulatory Orders Medication Instructions Recorded Confirmed Omeprazole [PriLOSEC] 20 mg PO BID 08/09/13 09/16/23 - LABS Result Diagrams: 09/15/23 20:51 09/15/23 20:51"
[2023-09-17 16:14] VITALS: BP 138/86; O2SAT 97
== END 2023-09-17 17:30 | disposition home or self-care (01) | DRG 390 ==
LOC: EDUNIT# → ED 19:55 → MS2 09-16 03:42
PROVIDERS: ADMIT Student in an Organized Health Care Education/Training Program; ATTEND Specialist
DX: K56.609 Unspecified intestinal obstruction, unspecified as to partial versus complete obstruction (principal); G71.11 Myotonic muscular dystrophy; J45.909 Unspecified asthma, uncomplicated; G80.9 Cerebral palsy, unspecified; K21.9 Gastro-esophageal reflux disease without esophagitis; D37.2 Neoplasm of uncertain behavior of small intestine; Z79.899 Other long term (current) drug therapy
CPT/HCPCS: 36415; 74177; 80053; 81003; 83690; 85025; J1170; J1650; Q9967; 81001; 87086; 96374; 96375

== ENCOUNTER 2023-09-29 12:19 | Emergency (ER) | payer MEDICAID ==
[2023-09-29 12:42] VITALS: BP 146/87; O2SAT 100
--- NOTE | 2023-09-29 12:43 | ED Physician Documentation ---
PD HPI WOUND RECHECK - Stated complaint Stated Complaint: STAPLE REMOVAL - Chief complaint Chief Complaint: Wound - Histroy obtained from History obtained from: Patient - History of Present Illness Location: Scalp (here for samantha removal, 3 of them. Healing well without problems.) PD PAST MEDICAL HISTORY - Past Medical History Cardiovascular: None Respiratory: Asthma Neuro: Cerebral palsy Endocrine/Autoimmune: None GI: GERD, Hiatal hernia, Other : None HEENT: None Psych: None Musculoskeletal: Other Derm: None - Past Surgical History Past Surgical History: Yes General: Other HEENT: Cataracts - Present Medications Home Medications: Ambulatory Orders Medication Instructions Recorded Confirmed Omeprazole [PriLOSEC] 20 mg PO BID 08/09/13 09/16/23 - Allergies Allergies/Adverse Reactions: Allergies Allergy/AdvReac Type Severity Reaction Status Date / Time promethazine HCl * AdvReac Unknown Anxiety Verified 09/29/23 12:36 [From Phenergan] Sulfa (Sulfonamide AdvReac Unknown Rash Verified 09/29/23 12:36 Antibiotics) - Social History Does the pt smoke?: No Smoking Status: Never smoker Does the pt drink ETOH?: No Does the pt have substance abuse?: No - Immunizations Immunizations are current?: Yes - POLST Patient has POLST: No POLST Status: Full Code PD ED PE NORMAL - Vitals Vital signs reviewed: Yes - General General: Other (rleftr frontal area with [address], healing wound without infection. Appear able to be removed. R) Results - Vitals Vitals: Oxygen O2 Source Room air PD Medical Decision Making - ED course Complexity details: considered differential (healing wound without infection. [place] removed by nursing. ), d/w patient Departure - Departure Disposition: 01 Home, Self Care Clinical Impression: Encounter for staple removal Condition: Stable Record reviewed to determine appropriate education?: Yes Instructions: ED Stap Removal No Complication Follow-Up: Kamala Oconnell MD [Primary Care Provider] - Forms: PCP List Discharge Date/Time: 09/29/23 12:54
== END 2023-09-29 12:54 | disposition home or self-care (01) ==
LOC: ED 12:19
DX: S01.01XD Laceration without foreign body of scalp, subsequent encounter (principal); X58.XXXD Exposure to other specified factors, subsequent encounter
CPT/HCPCS: 99281; 99282

== ENCOUNTER 2023-11-24 00:38 | Outpatient (CLI) | payer MEDICAID | END 2023-11-24 23:59 | disposition critical access hospital (66) | LOC: EMS 00:38 | DX: R10.30 Lower abdominal pain, unspecified (principal) | CPT/HCPCS: A0425; A0429; A0999 ==

== ENCOUNTER 2023-12-23 21:33 | Outpatient (CLI) | payer MEDICAID | END 2023-12-23 23:59 | disposition critical access hospital (66) | LOC: EMS 21:33 | DX: R10.33 Periumbilical pain (principal); R10.815 Periumbilic abdominal tenderness | CPT/HCPCS: A0425; A0427; A0999 ==

== ENCOUNTER 2023-12-23 22:08 | Observation (INO) | payer MEDICAID ==
--- NOTE | 2023-12-23 22:09 | ED Physician Documentation ---
PD HPI ABD PAIN - Stated complaint Stated Complaint: ABD PAIN - History obtained from History obtained from: Patient, EMS - Additional information Additional information: BIBA. HPI from patient as well as EMS report. Patient complains of generalized abdominal pain, predominantly periumbilical, since 8 PM today. Onset was while in bed at home. Pain does not radiate. Patient describes the pain as sharp. The pain waxes and wanes without apparent exacerbating or ameliorating factors. Patient reported substantial relief with 30 mg IM Toradol given by EMS en route. Patient's past medical history includes muscular dystrophy as well as multiple episodes of small bowel obstruction. Most recently, patient was admitted to [facility] for small bowel obstruction last month (October) as well as 3 months ago (August). Review of Systems Cardiac: reports: Reviewed and negative Respiratory: reports: Reviewed and negative GI: reports: Abdominal Pain. denies: Nausea, Vomiting, Diarrhea PD PAST MEDICAL HISTORY - Past Medical History Cardiovascular: None Respiratory: Asthma Neuro: Cerebral palsy Endocrine/Autoimmune: None GI: GERD, Hiatal hernia, Other (Recurrent small bowel obstruction. Evidence of acute jejunal mass) : None HEENT: None Psych: None Musculoskeletal: Other Derm: None - Past Surgical History Past Surgical History: Yes General: Other HEENT: Cataracts - Present Medications Home Medications: Ambulatory Orders Medication Instructions Recorded Confirmed Omeprazole [PriLOSEC] 20 mg PO BID 08/09/13 11/24/23 - Allergies Allergies/Adverse Reactions: Allergies Allergy/AdvReac Type Severity Reaction Status Date / Time promethazine HCl * AdvReac Unknown Anxiety Verified 12/23/23 22:14 [From Phenergan] Sulfa (Sulfonamide AdvReac Unknown Rash Verified 12/23/23 22:14 Antibiotics) - Social History Does the pt smoke?: No Smoking Status: Never smoker Does the pt drink ETOH?: No Does the pt have substance abuse?: No - Immunizations Immunizations are current?: Yes - POLST Patient has POLST: No POLST Status: Full Code PD ED PE NORMAL - Vitals Vital signs reviewed: Yes - General General: No acute distress, Well developed/nourished, Other (awake, alert, conversant and appropriate) - HEENT HEENT: Other (pasty mucous membranes) - Cardiac Cardiac: RRR, No murmur - Respiratory Respiratory: No respiratory distress, Clear bilaterally - Abdomen Abdomen: Normal bowel sounds, Soft, Non tender, Non distended - Derm Derm: Normal color, Warm and dry Results - Vitals Vitals: Vital Signs - 24 hr 12/23/23 12/23/23 12/24/23 22:10 22:15 01:00 Temperature 98.3 C H Heart Rate 98 95 Respiratory 18 14 Rate Blood Pressure 145/54 H 109/71 O2 Saturation 97 94 Oxygen O2 Source Room air - Labs Labs: Laboratory Tests 12/23/23 12/23/23 22:20 22:20 WBC 7.1 RBC 5.96 Hgb 16.4 Hct 51.3 MCV 86.1 MCH 27.5 MCHC 32.0 RDW 14.3 Plt Count 222 MPV 10.7 Neut # (Auto) 5.4 Lymph # (Auto) 1.0 L Ida # (Auto) 0.6 Eos # (Auto) 0.1 Baso # (Auto) 0.0 Absolute Nucleated RBC 0.00 Nucleated RBC % 0.0 Sodium 142 Potassium 3.5 Chloride 111 Carbon Dioxide 25 Anion Gap 6.0 BUN 11 Creatinine 0.6 Estimated GFR (MDRD) 152 Glucose 118 H Calcium 9.5 Total Bilirubin 0.5 AST 12 ALT 15 Alkaline Phosphatase 97 Total Protein 6.4 Albumin 4.1 Globulin 2.3 Albumin/Globulin Ratio 1.8 Lipase < 10 L - Rads (name of study) acute abd. series (xrays) Relevant Findings:: Prelim report reviewed, EMP independent interpretation of test (I reviewed these images and my interpretation is: some colonic gas but mutiple small bowel loops are also visualized s/o at least partial SBO), See rad report CT A/P with IV contrast (ordered w/ PO but unable to tolerate) Relevant Findings:: Prelim report reviewed, See rad report PD Medical Decision Making - ED course Complexity details: reviewed old records, reviewed results, re-evaluated patient , considered differential, d/w patient, d/w family (I reviewed results and plan (admit to [facility]) with patient's father (Sreekanth; has no questions and is comfortable with this plan)), d/w behavioral consultant (Dr. Jack) ED course: Patient presents with abdominal pain with similar features associated with previous episodes of small bowel obstruction. When I have been involved in previous ED visits for this patient, he often presents in obvious, severe painful distress, crying out in pain episodically. When he first arrived on tonight's visit, he is in NAD, cheerful and reports feeling substantial relief with IM Toradol given by EMS. Unremarkable CBC ER abdominal panel. Plain-film x-rays are undertaken of the abdomen; as noted above, unfortunately, the findings on this study are suggestive of at least partial small bowel obstruction. Thus, I ordered CT A/P with IV and p.o. contrast. Shortly after drinking a small amount of the PO contrast, his abdominal pain rapidly became severe and he began crying out in pain. IV fluids are ordered along with 1 mg IV Dilaudid; patient required repeat doses of the Dilaudid during the remainder of the ED stay for recurrence of the abdominal pain, although he did experience relief, albeit transient, with these interventions. Later in his stay, he reported nausea and was thus given 4 mg IV Zofran which provided effective relief per patient. CT A/P is consistent with small bowel obstruction with a transition point in the left side of the abdomen and decompression of downstream small bowel. I contacted the patient's father (Sreekanth) to update him of the test results and the plan to admit him to [facility]. Sreekanth says he is comfortable with this plan. Other relevant information: -Patient has routinely refused NG tube but both patient and patient's father indicated that his small bowel obstructions have always resolved, typically within no more than 2 to 3 days in the inpatient setting without NGT or surgical intervention. -Patient's father tells me patient has never had any abdominal surgery and that no cause has been determined regarding his recurrent SBO. Patient has been deemed a poor surgical candidate due to underlying medical problems (specifically his muscular dystrophy). This is reflected in previous [facility] surgical consults (notes in [facility]), but patient's father tells me he was told of similar concerns when patient was at [facility] last January for ruptured appendicitis; patient's father tells me that no surgery was undertaken on that inpatient stay although his description is s/o percutaneous drain placement. -Patient's father tells me patient does not have diagnosis of cerebral palsy (this is indicated as a diagnosis on several previous charts in [facility]). D/W Dr. Solorzano ([facility]), accepts admit to hospitalist service [facility]. He requests I d/w surgery as well. I then discussed this case with Dr. Jack (on- call surgery); no specific recommendation(s) at this time. Departure - Departure Disposition: [facility] DC/Jessica Clinical Impression: Small bowel obstruction Condition: Stable Discharge Date/Time: 12/24/23 03:40
[2023-12-23 22:39] LABS: BASOPHILS % (AUTO) 0.3 %; EOSINOPHILS # (AUTO) 0.1 10^3/uL (0.0-0.7); EOSINOPHILS % (AUTO) 0.8 %; HCT - HEMATOCRIT 51.3 % (42.0-52.0); HGB - HEMOGLOBIN 16.4 g/dL (14.0-18.0); MEAN CORPUSCULAR HEMOGLOBIN 27.5 pg (27.0-31.0); MEAN CORPUSCULAR VOLUME 86.1 fL (80.0-94.0); MEAN PLATELET VOLUME 10.7 fL (7.4-11.4); MONOCYTES # (AUTO) 0.6 10^3/uL (0.0-1.0); MONOCYTES % (AUTO) 8.2 %; NEUTROPHILS # (AUTO) 5.4 10^3/uL (1.5-6.6); NEUTROPHILS % (AUTO) 76.6 %; PLT - PLATELET COUNT 222 10^3/uL (130-450); RED BLOOD COUNT 5.96 10^6/uL (4.70-6.10); RED CELL DISTRIBUTION WIDTH 14.3 % (12.0-15.0); WHITE BLOOD COUNT 7.1 x10^3/uL (4.8-10.8)
[2023-12-23] MEDS: SODIUM CHLORIDE 0.9% 1,000 ML IV STA (22:40)
[2023-12-23 22:53] LABS: ALBUMIN 4.1 g/dL (3.2-5.5); ALBUMIN/GLOBULIN RATIO 1.8 (1.0-2.2); ALKALINE PHOSPHATASE 97 IU/L (42-121); ALT ALANINE AMINOTRANSFERASE 15 IU/L (10-60); AST ASPARTATE AMINOTRANSFERASE 12 IU/L (10-42); BILIRUBIN,TOTAL 0.5 mg/dL (0.2-1.0); BUN - BLOOD UREA NITROGEN 11 mg/dL (6-20); CALCIUM 9.5 mg/dL (8.5-10.3); CARBON DIOXIDE - CO2 25 mmol/L (21-32); CHLORIDE 111 mmol/L (101-111); CREATININE 0.6 mg/dL (0.6-1.3); GFR - MDRD 152 (>89); GLUCOSE 118 mg/dL (74-104); POTASSIUM 3.5 mmol/L (3.5-4.5); SODIUM 142 mmol/L (135-145); TOTAL PROTEIN 6.4 g/dL (6.4-8.9)
[2023-12-23 22:55] LABS: LIPASE < 10 U/L (11-82)
[2023-12-23] MEDS ORDERED: DIATRIZOATE MEGLU/DIATRIZO SOD 30 ML BOTTLE PO ONE (23:22)
[2023-12-23] MEDS ORDERED: iohexoL-300 100 ML VIAL ONE (23:22)
--- NOTE | 2023-12-23 23:30 | XRAY Report ---
rPROCEDURE: Abdomen Acute INDICATIONS: abd. pain, h/o SBO TECHNIQUE: Single frontal view of the chest as well as supine and upright views of the abdomen were o btained COMPARISON: None FINDINGS: Surgical changes and devices: None. Chest: Lungs are clear. Heart size is normal. No pleural effusions. No pneumoperitoneum. Bowel: Dilated small bowel measures up to 4.5 cm with air-fluid levels. No free air Soft tissues: Unremarkable Bones: No suspicious bony abnormalities. IMPRESSION: Dilated small bowel suspicious for small bowel obstruction. No acute cardio pulmonary findings Reviewed by: Antonio Kilgore MD on 12/23/2023 10:29 PM AKRUSTY Approved by: Antonio Kilgore MD on 12/23/2023 10:29 PM AKDT Station ID: [id number]
[2023-12-24] MEDS ORDERED: HYDROmorphone 1 MG/ML CARPUJECT ONE (00:36)
[2023-12-24] MEDS: HYDROmorphone 1 MG/ML CARPUJECT IVP STA ×2 (00:45→02:22)
[2023-12-24] MEDS: DIATRIZOATE MEGLU/DIATRIZO SOD 30 ML BOTTLE PO ONE (01:17)
[2023-12-24] MEDS: iohexoL-300 100 ML VIAL IVP ONE (01:17)
--- NOTE | 2023-12-24 01:41 | CT Report ---
PROCEDURE: CT abdomen pelvis with contrast INDICATIONS: abd. pain, h/o SBO TECHNIQUE: Helical axial CT of the abdomen and pelvis was obtained after intravenous contrast adminis tration and reformatted in multiple planes. Radiation dose reduction was achieved using automated exp osure control or adjustment of mA and/or kV according to patient size. COMPARISON: 11/24/2023 FINDINGS: Lower thorax: The lung bases are clear. Heart size normal. No hiatal hernia. Liver: Normal in size and attenuation. No contour deformity present. Biliary system: No calcified cholelithiasis or pericholecystic inflammation. No evidence of bile du ct dilatation. Pancreas: Unremarkable without mass or inflammation evident. Spleen: Normal in size and density. Adrenals: Normal morphology and density. Reproductive system: Unremarkable as visualized. Urinary system: Normal renal size and attenuation. No renal calculi, hydronephrosis, or solid mass p resent. Urinary bladder unremarkable. Gastrointestinal system: Proximal small bowel is dilated up to 3.5 cm while the distal small bowel i s completely decompressed. Transition in the left flank Peritoneal spaces: No mesenteric or retroperitoneal adenopathy. No free air. No free fluid. Vasculature: The IVC, aorta and iliac vasculature are unremarkable. Abdominal wall: Abdominal wall is intact without evidence of ventral or inguinal hernias. Musculoskeletal: Normal bone mineralization. No acute fractures. IMPRESSION: Small bowel obstruction. Transition in the mid small bowel is in the left flank Reviewed by: Antonio Kilgore MD on 12/24/2023 12:40 AM KAVITHA Approved by: Antonio Kilgore MD on 12/24/2023 12:40 AM AKDT Station ID: [id number]
[2023-12-24] MEDS: SODIUM CHLORIDE 0.9% 1,000 ML IV STA (02:22)
[2023-12-24] MEDS: ONDANSETRON 4 MG/2 ML VIAL IVP STA (02:45)
--- NOTE | 2023-12-24 02:56 | HISTORY & PHYSICAL EXAMINATION ---
Chief Complaint - Chief Complaint Chief Complaint: abd pain, nausea History of Present Illness - History of Present Illness HPI Comment/Other: pt with abd pain + nausea that developed over past couple of days. h/o same with h/o muscular dystrophy. high-risk surgical candidate. h/o sbo with symptoms feeling the same. has refused ngt in the past and sbo has usually self-resolved. no abdominal trauma. no chest pain, fevers, chills. no vomiting. no dysuria or hematuria. History - Past Medical History Cardiovascular: reports: None Respiratory: reports: Asthma Neuro: reports: Cerebral palsy Endocrine/Autoimmune: reports: None GI: reports: GERD, Hiatal hernia, Other (Recurrent small bowel obstruction. 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 He is on disability and does not work. He denies ever smoking, drinking, or other drug use. - Substance History Use: Uses substance without health or social issues: NONE - POLST Patient has POLST: No POLST Status: Full Code Meds/Allgy - Home Medications Home Medications: Ambulatory Orders Medication Instructions Recorded Confirmed Omeprazole [PriLOSEC] 20 mg PO BID 08/09/13 11/24/23 - Allergies Allergies/Adverse Reactions: Allergies Allergy/AdvReac Type Severity Reaction Status Date / Time promethazine HCl * AdvReac Unknown Anxiety Verified 12/23/23 22:14 [From Phenergan] Sulfa (Sulfonamide AdvReac Unknown Rash Verified 12/23/23 22:14 Antibiotics) Review of Systems - Other Findings Other Findings: 14 pt review done with positives per hpi; all others reviewed as negative Exam - Vital Signs Vital Signs: Vital Signs x48h Temp Pulse Resp BP Pulse Ox 12/24/23 01:00 95 14 109/71 94 12/23/23 22:15 98.3 C H 12/23/23 22:10 98 18 145/54 H 97 - Physical Exam Comments/Other: gen - aaox3, uncomfortable but cooperative with questions heen - eomi, nc/at heart - per ed charting lungs - per ed charting abd - diffuse tenderness and discomfort noted msk - pt with overall poor muscle tone d/t h/o muscular dystrophy Conclusion/Plan - Lab Results Fish Bones: 12/23/23 22:20 12/23/23 22:20 - Other Other Results/Comments: pt with - - acute abdominal pain d/t sbo no obvious infection noted h/o same high-risk surgical candidate no vomiting at this time, but has nausea gen surg being consulted by ED pain control, IVF, supportive mgmt - muscular dystrophy baseline, chronic contributory to above f/u labs, surgery recommendations, replete electrolytes further orders per clinical course
[2023-12-24] MEDS ORDERED: SODIUM CHLORIDE FLUSH 0.9% 10 ML SYRINGE IVP PRN (02:58)
[2023-12-24] MEDS ORDERED: ONDANSETRON 4 MG/2 ML VIAL IVP PRN (02:58)
[2023-12-24] MEDS ORDERED: ACETAMINOPHEN 325 MG TABLET PO PRN (02:58)
[2023-12-24] MEDS: LACTATED RINGERS 1,000 ML IV SCH (03:34)
[2023-12-24] MEDS ORDERED: MORPHINE 10 MG/ML VIAL IVP PRN (03:41)
[2023-12-24] MEDS: oxyCODONE 5 MG TABLET PO PRN (04:39)
[2023-12-24 05:19] LABS: BASOPHILS % (AUTO) 0.2 %; EOSINOPHILS % (AUTO) 0.5 %; HCT - HEMATOCRIT 44.4 % (42.0-52.0); HGB - HEMOGLOBIN 14.6 g/dL (14.0-18.0); LYMPHOCYTES # (AUTO) 0.2 10^3/uL (1.5-3.5); LYMPHOCYTES % (AUTO) 3.3 %; MEAN CORPUSCULAR HEMOGLOBIN 28.5 pg (27.0-31.0); MEAN CORPUSCULAR HGB CONC 32.9 g/dL (32.0-36.0); MEAN CORPUSCULAR VOLUME 86.5 fL (80.0-94.0); MEAN PLATELET VOLUME 10.9 fL (7.4-11.4); MONOCYTES # (AUTO) 0.6 10^3/uL (0.0-1.0); MONOCYTES % (AUTO) 10.4 %; NEUTROPHILS # (AUTO) 5.1 10^3/uL (1.5-6.6); NEUTROPHILS % (AUTO) 85.4 %; PLT - PLATELET COUNT 152 10^3/uL (130-450); RED BLOOD COUNT 5.13 10^6/uL (4.70-6.10); RED CELL DISTRIBUTION WIDTH 14.4 % (12.0-15.0)
[2023-12-24 05:45] LABS: ALBUMIN 3.5 g/dL (3.2-5.5); ALBUMIN/GLOBULIN RATIO 1.9 (1.0-2.2); BILIRUBIN,TOTAL 0.7 mg/dL (0.2-1.0); CALCIUM 8.9 mg/dL (8.5-10.3); CREATININE 0.5 mg/dL (0.6-1.3); MAGNESIUM 1.7 mg/dL (1.7-2.3); POTASSIUM 3.5 mmol/L (3.5-4.5); TOTAL PROTEIN 5.3 g/dL (6.4-8.9)
[2023-12-24 05:46] LABS: CHOL/HDL RATIO 4.8 (<5.0); CHOLESTEROL 152 mg/dL; HDL CHOLESTEROL 32 mg/dL; LDL CHOLESTEROL,CALCULATED 92 mg/dL; LDL/HDL RATIO 2.9 (<3.6); TRIGLYCERIDES 142 mg/dL (48-352); VLDL CHOLESTEROL 28 mg/dL
[2023-12-24 06:42] LABS: THYROID STIMULATING HORMONE 0.88 uIU/mL (0.34-5.60)
[2023-12-24 08:44] LABS: ESTIMATED AVERAGE GLUCOSE 94 mg/dL (70-100); HEMOGLOBIN A1c% 4.9 % (4.27-6.07)
[2023-12-24 09:15] VITALS: BP 101/68; O2SAT 95
[2023-12-24] MEDS: PANTOPRAZOLE 40 MG TABLET PO SCH (09:16)
[2023-12-24] MEDS: ENOXAPARIN 40 MG/0.4 ML SYRINGE SUBQ SCH (09:16)
[2023-12-24] MEDS: SODIUM CHLORIDE FLUSH 0.9% 10 ML SYRINGE IVP SCH (09:17)
--- NOTE | 2023-12-24 10:33 | PROVIDER PROGRESS NOTE ---
Subjective - Prog Note Date Prog Note Date: 12/24/23 Prog Note Time: 10:30 - Subjective Pt reports feeling: Improved Subjective: The patient was seen this morning. He is currently eating his clear liquid breakfast and tolerating it quite well. He says that his pain has resolved and is no longer having any nausea or vomiting. He would like to try eating a regular lunch and if he tolerates it would like to go home. He denies fever or chills. No chest pain or heart palpitations. No further abdominal pain nausea or vomiting. He has passed a little gas but has not yet had a bowel movement. No urinary complaints Current Medications - Current Medications Current Medications: Tylenol 650 mg p.o. every 6 hours as needed Lovenox 40 mg subcu daily Morphine 1 mg IV every 2 hours as needed Zofran 4 mg IV every 6 hours as needed Oxycodone 5 mg p.o. every 4 hours as needed Protonix 40 mg daily Objective - Vital Signs/Intake & Output Vital Signs: Vital Signs x48h Temp Pulse Resp BP Pulse Ox O2 Flow Rate 12/24/23 08:00 37.4 C 79 18 101/68 95 12/24/23 04:06 37.1 C 113 H 159/81 H 97 2 Intake & Output: Intake & Output 12/21/23 12/22/23 12/23/23 12/24/23 23:59 23:59 23:59 23:59 Intake Total 1000 Output Total 450 Balance 550 - Objective General Appearance: positive: No acute distress, Alert Eyes Bilateral: positive: Normal inspection ENT: positive: ENT inspection nml Neck: positive: Nml inspection Respiratory: positive: Chest non-tender, No respiratory distress, Breath sounds nml Cardiovascular: positive: Regular rate & rhythm, No murmur, No gallop. negative: Friction rub Abdomen: positive: Non-tender Skin: positive: Color nml, No rash, Warm - Lab Results Fish Bones: 12/24/23 04:55 12/24/23 04:55 Other Labs: Lab Results x24hrs 12/24/23 12/24/23 12/24/23 Range/Units 04:55 04:55 04:55 WBC (4.8-10.8) x10^3/uL RBC (4.70-6.10) 10^6/uL Hgb (14.0-18.0) g/dL Hct (42.0-52.0) % MCV (80.0-94.0) fL MCH (27.0-31.0) pg MCHC (32.0-36.0) g/dL RDW (12.0-15.0) % Plt Count (130-450) 10^3/uL MPV (7.4-11.4) fL Neut # (Auto) (1.5-6.6) 10^3/uL Lymph # (Auto) (1.5-3.5) 10^3/uL Coleman # (Auto) (0.0-1.0) 10^3/uL Eos # (Auto) (0.0-0.7) 10^3/uL Baso # (Auto) (0.0-0.1) 10^3/uL Absolute Nucleated RBC x10^3/uL Nucleated RBC % /100WBC Sodium 140 (135-145) mmol/L Potassium 3.5 (3.5-4.5) mmol/L Chloride 110 (101-111) mmol/L Carbon Dioxide 24 (21-32) mmol/L Anion Gap 6.0 (6-13) BUN 8 (6-20) mg/dL Creatinine 0.5 L (0.6-1.3) mg/dL Estimated GFR (MDRD) 188 (>89) Glucose 131 H (74-104) mg/dL Estimat Average Glucose 94 (70-100) mg/dL Hemoglobin A1c % 4.9 (4.27-6.07) % Calcium 8.9 (8.5-10.3) mg/dL Magnesium 1.7 (1.7-2.3) mg/dL Total Bilirubin 0.7 (0.2-1.0) mg/dL AST 15 (10-42) IU/L ALT 14 (10-60) IU/L Alkaline Phosphatase 85 (42-121) IU/L Total Protein 5.3 L (6.4-8.9) g/dL Albumin 3.5 (3.2-5.5) g/dL Globulin 1.8 L (2.1-4.2) g/dL Albumin/Globulin Ratio 1.9 (1.0-2.2) Triglycerides 142 (48-352) mg/dL Cholesterol 152 ( - 200) mg/dL LDL Cholesterol, Calc 92 ( - 129) mg/dL VLDL Cholesterol 28 mg/dL HDL Cholesterol 32 L (60 - ) mg/dL LDL/HDL Ratio 2.9 (<3.6) Cholesterol/HDL Ratio 4.8 (<5.0) Lipase (11-82) U/L TSH 0.88 (0.34-5.60) uIU/mL 12/24/23 12/23/23 12/23/23 Range/Units 04:55 22:20 22:20 WBC 6.0 7.1 (4.8-10.8) x10^3/uL RBC 5.13 5.96 (4.70-6.10) 10^6/uL Hgb 14.6 16.4 (14.0-18.0) g/dL Hct 44.4 51.3 (42.0-52.0) % MCV 86.5 86.1 (80.0-94.0) fL MCH 28.5 27.5 (27.0-31.0) pg MCHC 32.9 32.0 (32.0-36.0) g/dL RDW 14.4 14.3 (12.0-15.0) % Plt Count 152 222 (130-450) 10^3/uL MPV 10.9 10.7 (7.4-11.4) fL Neut # (Auto) 5.1 5.4 (1.5-6.6) 10^3/uL Lymph # (Auto) 0.2 L 1.0 L (1.5-3.5) 10^3/uL Coleman # (Auto) 0.6 0.6 (0.0-1.0) 10^3/uL Eos # (Auto) 0.0 0.1 (0.0-0.7) 10^3/uL Baso # (Auto) 0.0 0.0 (0.0-0.1) 10^3/uL Absolute Nucleated RBC 0.00 0.00 x10^3/uL Nucleated RBC % 0.0 0.0 /100WBC Sodium 142 (135-145) mmol/L Potassium 3.5 (3.5-4.5) mmol/L Chloride 111 (101-111) mmol/L Carbon Dioxide 25 (21-32) mmol/L Anion Gap 6.0 (6-13) BUN 11 (6-20) mg/dL Creatinine 0.6 (0.6-1.3) mg/dL Estimated GFR (MDRD) 152 (>89) Glucose 118 H (74-104) mg/dL Estimat Average Glucose (70-100) mg/dL Hemoglobin A1c % (4.27-6.07) % Calcium 9.5 (8.5-10.3) mg/dL Magnesium (1.7-2.3) mg/dL Total Bilirubin 0.5 (0.2-1.0) mg/dL AST 12 (10-42) IU/L ALT 15 (10-60) IU/L Alkaline Phosphatase 97 (42-121) IU/L Total Protein 6.4 (6.4-8.9) g/dL Albumin 4.1 (3.2-5.5) g/dL Globulin 2.3 (2.1-4.2) g/dL Albumin/Globulin Ratio 1.8 (1.0-2.2) Triglycerides (48-352) mg/dL Cholesterol ( - 200) mg/dL LDL Cholesterol, Calc ( - 129) mg/dL VLDL Cholesterol mg/dL HDL Cholesterol (60 - ) mg/dL LDL/HDL Ratio (<3.6) Cholesterol/HDL Ratio (<5.0) Lipase < 10 L (11-82) U/L TSH (0.34-5.60) uIU/mL ABX Reporting Has patient been on IV antibiotics over the past 48 hours?: No Sepsis Event Note (H) - Evaluation Current Stage of Sepsis: Ruled out Assessment/Plan - Problem List (1) Small bowel obstruction Impression: Improving. The patient always refuses an NG tube and usually turns around fairly quickly. Will advance his diet at lunchtime and consider possible discharge this afternoon if he tolerates his diet. (2) Small bowel mass Impression: The patient has a jejunal mass. During his last hospitalization it was noted that the patient was scheduled for surgery at the beginning of December at . The patient states that this was canceled and has not been rescheduled. He cannot tell me why but I suspect it is because he is a poor surgical candidate. Will try to touch base with his family prior to discharge (4) Abdominal pain Impression: Much improved (5) Hiatal hernia Impression: Continue Protonix 40 mg daily (6) Hyperglycemia Impression: Reactive (7) Ambulatory dysfunction Impression: He is at his baseline Time spent: 35 minutes
--- NOTE | 2023-12-24 11:03 | PHARMACY PROGRESS NOTE ---
- Best Possible Medication History Admit Date and Time: 12/24/23 0259 Processed by: Pharmacy Medications reviewed in ED?: No Medication History completed: Yes Patient Interview: Pt unable to participate Secondary Source(s): Prescription bottles, Other family member, Caregiver As the person ultimately responsible for medication therapy, providers are able to order a medication from an existing home medication list in [facility] via the "Reconcile Routine" prior to Confirmation of that medication by support representative. Such practice is discouraged except when the physician, in their clinical judgment, deems that a medical need exists for a medication without regard to previous use.
--- NOTE | 2023-12-24 13:14 | Discharge Plan ---
Discharge Plan Problem Reviewed?: Yes Disposition: Home, Self Care Condition: Stable Diet: Soft (Low residue) Activity Restrictions: No Restrictions Shower Restrictions: No Weight Bearing: Full Weight Health Concerns: Recurrent small bowel obstruction- resolved Assessment: 1. Recurrent partial small bowel obstruction Improved. The patient's pain has resolved. No further nausea and vomiting. He is tolerating a soft low residue diet at this point. 2. Small bowel mass Patient has a known jejunal mass. I spoke to the patient's father. He is followed closely by Dr. Santillan at . The mass is not malignant. They are following it closely and he is not considered a surgical candidate unless he develops an emergent situation. No plans currently are in place for resection 3. Abdominal pain Improved 4. Hiatal hernia He will continue his home dose of Omeprazole 20 mg daily 5. Hyperglycemia Likely reactive. Improved 6. Ambulatory dysfunction He is at his baseline. He ambulates with a walker at home No Smoking: If you smoke, Please STOP! Call for help. Follow-up with: Eliud Oconnell MD [Physician No Access] -
--- NOTE | 2023-12-24 13:19 | DISCHARGE SUMMARY ---
Discharge Summary Admit Date: 12/24/23 Discharge Date: 12/24/23 Discharging Provider: Beulah Child PA-C Primary Care Provider: Dr Oconnell Code Status: Attempt Resuscitation Condition at Discharge: Stable Discharge Disposition: 01 Home, Self Care - DIAGNOSES Discharge Diagnoses with Status of Each Condition: 1. Recurrent partial small bowel obstruction Improved. The patient's pain has resolved. No further nausea and vomiting. He is tolerating a soft low residue diet at this point. 2. Small bowel mass Patient has a known jejunal mass. I spoke to the patient's father. He is followed closely by Dr. Santillan at . The mass is not malignant. They are following it closely and he is not considered a surgical candidate unless he develops an emergent situation. No plans currently are in place for resection 3. Abdominal pain Improved 4. Hiatal hernia He will continue his home dose of Omeprazole 20 mg daily 5. Hyperglycemia Likely reactive. Improved 6. Ambulatory dysfunction He is at his baseline. He ambulates with a walker at home - HPI History of Present Illness: From the admission HP: pt with abd pain + nausea that developed over past couple of days. h/o same with h/o muscular dystrophy. high-risk surgical candidate. h/o sbo with symptoms feeling the same. has refused ngt in the past and sbo has usually self-resolved. no abdominal trauma. no chest pain, fevers, chills. no vomiting. no dysuria or hemat - HOSPITAL COURSE Hospital Course: The patient has had recurrent hospitalizations for recurrent small bowel obs tructions. 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 Santillan at . There are currently no plans to resect this mass unless it becomes an emergent situation due to his being a poor surgical candidate. In the emergency room the patient had a CT scan of the abdomen and pelvis which revealed that the proximal small bowel was dilated up to 3.5 cm while the distal small bowel was completely decompressed. The transition point was in the left flank. The patient was just hospitalized with this last month and he always refuses to have an NG tube placed. Usually he bounces back quite quickly with bowel rest, fluids and pain medication. When I went to see the patient this morning early he was already feeling much better. He was tolerating clear liquids and said that he felt like he was back to normal. I advanced his diet at lunchtime and the patient was able to eat 2 cookies some soup and some applesauce without difficulty. He is having no pain and no nausea and vomiting. At this point the patient states that he wants to go home and feels like he is back to his normal self. I did speak to the patient's father during this hospitalization who gave me the information about what the current plan is at . The patient will be discharged today in stable condition and should keep his follow-up appointments with his outpatient team. I would like him to see his primary care provider next week. - ALLERGIES Allergies/Adverse Reactions: Allergies Allergy/AdvReac Type Severity Reaction Status Date / Time promethazine HCl * AdvReac Unknown Anxiety Verified 12/23/23 22:14 [From Phenergan] Sulfa (Sulfonamide AdvReac Unknown Rash Verified 12/23/23 22:14 Antibiotics) - MEDICATIONS Home Medications: Ambulatory Orders Medication Instructions Recorded Confirmed Omeprazole [PriLOSEC] 20 mg PO DAILY 08/09/13 12/24/23 - PHYSICAL EXAM AT DISCHARGE General Appearance: positive: No acute distress, Alert Eyes Bilateral: positive: Normal inspection ENT: positive: ENT inspection nml Neck: positive: Nml inspection Respiratory: positive: Chest non-tender, No respiratory distress, Breath sounds nml Cardiovascular: positive: Regular rate & rhythm, No murmur, No gallop. negative: Gallop/S4 Abdomen: positive: Non-tender, No organomegaly, Nml bowel sounds, No distention Skin: positive: Color nml, No rash, Warm Extremities: positive: Non-tender Neurologic/Psychiatric: positive: Oriented x3, CN's nml (2-12) - LABS Result Diagrams: 12/24/23 04:55 12/24/23 04:55 - SEPSIS Current Stage of Sepsis: Ruled out - QUALITY (Female Hip Fx Only) Was patient sent home on osteoporosis medication?: No (N/A) - FOLLOW UP Follow Up: Dr Oconnell in 1 week - TIME SPENT Time Spent in Discharge (Minutes): 35
== END 2023-12-24 14:05 | disposition home or self-care (01) ==
LOC: EDUNIT# → ED 22:08 → MS2 12-24 02:59
PROVIDERS: ADMIT Student in an Organized Health Care Education/Training Program; ATTEND Physician Assistant
DX: K56.609 Unspecified intestinal obstruction, unspecified as to partial versus complete obstruction (principal); G71.00 Muscular dystrophy, unspecified; K63.89 Other specified diseases of intestine; K44.9 Diaphragmatic hernia without obstruction or gangrene; R73.9 Hyperglycemia, unspecified; J45.909 Unspecified asthma, uncomplicated; R26.2 Difficulty in walking, not elsewhere classified
CPT/HCPCS: 36415; 74022; 74177; 80053; 80061; 83036; 83690; 83735; 84443; 85025; 96372; 96374; 96375; 96376; 99285; A9270; G0378; J1170; J1650; J7120; Q9963; Q9967; 83721

== ENCOUNTER 2023-12-24 18:40 | Outpatient (CLI) | payer MEDICAID | END 2023-12-24 23:59 | disposition home or self-care (01) | LOC: EMS 18:40 | DX: K56.609 Unspecified intestinal obstruction, unspecified as to partial versus complete obstruction (principal) | CPT/HCPCS: A0425; A0429; A0999 ==

== ENCOUNTER 2023-12-24 19:13 | Inpatient (IN) | payer MEDICAID ==
[2023-12-24 20:38] LABS: BASOPHILS % (AUTO) 0.3 %; EOSINOPHILS # (AUTO) 0.2 10^3/uL (0.0-0.7); EOSINOPHILS % (AUTO) 3.5 %; HCT - HEMATOCRIT 43.9 % (42.0-52.0); HGB - HEMOGLOBIN 14.5 g/dL (14.0-18.0); LYMPHOCYTES # (AUTO) 0.8 10^3/uL (1.5-3.5); LYMPHOCYTES % (AUTO) 14.5 %; MEAN CORPUSCULAR HEMOGLOBIN 28.8 pg (27.0-31.0); MEAN CORPUSCULAR VOLUME 87.3 fL (80.0-94.0); MEAN PLATELET VOLUME 10.5 fL (7.4-11.4); MONOCYTES # (AUTO) 0.6 10^3/uL (0.0-1.0); MONOCYTES % (AUTO) 10.4 %; NEUTROPHILS # (AUTO) 4.1 10^3/uL (1.5-6.6); NEUTROPHILS % (AUTO) 71.1 %; PLT - PLATELET COUNT 164 10^3/uL (130-450); RED BLOOD COUNT 5.03 10^6/uL (4.70-6.10); RED CELL DISTRIBUTION WIDTH 14.8 % (12.0-15.0); WHITE BLOOD COUNT 5.8 x10^3/uL (4.8-10.8)
[2023-12-24] MEDS: SODIUM CHLORIDE 0.9% 1,000 ML IV STA (20:41)
--- NOTE | 2023-12-24 20:52 | XRAY Report ---
PROCEDURE: Abdomen Acute INDICATIONS: recurrent pain TECHNIQUE: 2 views of the abdomen were acquired. COMPARISON: CT of abdomen and pelvis dated 12/23/2023 and abdominal radiograph dated 12/23/2023 FINDINGS: Surgical changes and devices: None. Chest: Lungs are clear. Heart size is normal. No pleural effusions. No pneumoperitoneum. Bowel: No pneumoperitoneum. Air distended bowel loops are noted throughout the abdomen more notably in mid to lower left abdomen. No significant stool load. Soft tissues: No masses; visualized solid organ contours appear normal in size. No suspicious abdom inal calcifications. Bones: No suspicious bony abnormalities. IMPRESSION: Finding is consistent with CT finding of small bowel obstruction. No gross pneumoperitoneum. Reviewed by: Enrique Gallo MD on 12/24/2023 8:51 PM PDT Approved by: Enrique Gallo MD on 12/24/2023 8:51 PM PDT Station ID: [id number]
[2023-12-24 20:55] LABS: ALBUMIN 3.4 g/dL (3.2-5.5); ALBUMIN/GLOBULIN RATIO 1.8 (1.0-2.2); ALKALINE PHOSPHATASE 85 IU/L (42-121); ALT ALANINE AMINOTRANSFERASE 34 IU/L (10-60); AST ASPARTATE AMINOTRANSFERASE 32 IU/L (10-42); BILIRUBIN,TOTAL 0.5 mg/dL (0.2-1.0); BUN - BLOOD UREA NITROGEN 7 mg/dL (6-20); CARBON DIOXIDE - CO2 27 mmol/L (21-32); CHLORIDE 111 mmol/L (101-111); CREATININE 0.6 mg/dL (0.6-1.3); GFR - MDRD 152 (>89); GLUCOSE 101 mg/dL (74-104); POTASSIUM 3.6 mmol/L (3.5-4.5); SODIUM 143 mmol/L (135-145); TOTAL PROTEIN 5.3 g/dL (6.4-8.9)
[2023-12-24 21:00] LABS: LIPASE < 10 U/L (11-82)
--- NOTE | 2023-12-24 21:20 | ED Physician Documentation ---
PD HPI ABD PAIN - Stated complaint Stated Complaint: ABD PAIN - Chief complaint Chief Complaint: Abd Pain - History obtained from History obtained from: Patient, Other (Discharge summary from 12/24/2023) - Additional information Additional information: Patient is a 38-year-old male with a history of myotonic dystrophy, recurrent small bowel obstructions and known jejunal mass presenting to the emergency department for lower abdominal pain starting a few hours ago. Patient was seen last night in the emergency department with similar symptoms and found to have a small bowel obstruction on his CT scan. He was admitted to the hospitalist service. He was discharged around 2:00 this afternoon after apparently tolerating some p.o. intake and seemingly doing better. He has refused NG tube in the past. Patient reports that when he arrived home a few hours later he started having the pain again. No vomiting. He has not had a bowel movement yet today. He does Have a history of recurrent small bowel obstructions in the past. Usually refuses NG tube and these are managed nonoperatively with supportive care. Review of Systems Cardiac: denies: Chest pain / pressure Respiratory: denies: Dyspnea GI: reports: Abdominal Pain. denies: Vomiting PD PAST MEDICAL HISTORY - Past Medical History Cardiovascular: None Respiratory: Asthma Neuro: Cerebral palsy Endocrine/Autoimmune: None GI: GERD, Hiatal hernia, Other : None HEENT: None Psych: None Musculoskeletal: Other Derm: None - Past Surgical History Past Surgical History: Yes General: Other HEENT: Cataracts - Present Medications Home Medications: Ambulatory Orders Medication Instructions Recorded Confirmed Omeprazole [PriLOSEC] 20 mg PO DAILY 08/09/13 12/24/23 - Allergies Allergies/Adverse Reactions: Allergies Allergy/AdvReac Type Severity Reaction Status Date / Time promethazine HCl * AdvReac Unknown Anxiety Verified 12/24/23 19:28 [From Phenergan] Sulfa (Sulfonamide AdvReac Unknown Rash Verified 12/24/23 19:28 Antibiotics) - Social History Does the pt smoke?: No Smoking Status: Never smoker Does the pt drink ETOH?: No Does the pt have substance abuse?: No - Immunizations Immunizations are current?: Yes - POLST Patient has POLST: No POLST Status: Full Code PD ED PE NORMAL - General General: No acute distress, Other (Alert) - HEENT HEENT: Atraumatic, Other (Dry mucous membranes) - Neck Neck: Supple, no meningeal sign - Cardiac Cardiac: RRR - Respiratory Respiratory: No respiratory distress, Clear bilaterally - Abdomen Abdomen: Normal bowel sounds, Soft, Non distended, Other (Lower abdominal tenderness) - Extremities Extremities: No edema Results - Vitals Vitals: Vital Signs - 24 hr 12/24/23 12/24/23 19:26 21:57 Temperature 36.3 C L 36.5 C Heart Rate 92 81 Respiratory 18 16 Rate Blood Pressure 132/87 H 115/79 O2 Saturation 94 96 Oxygen O2 Source Room air - Labs Labs: Laboratory Tests 12/24/23 12/24/23 20:33 20:33 WBC 5.8 RBC 5.03 Hgb 14.5 Hct 43.9 MCV 87.3 MCH 28.8 MCHC 33.0 RDW 14.8 Plt Count 164 MPV 10.5 Neut # (Auto) 4.1 Lymph # (Auto) 0.8 L [place] # (Auto) 0.6 Eos # (Auto) 0.2 Baso # (Auto) 0.0 Absolute Nucleated RBC 0.00 Nucleated RBC % 0.0 Sodium 143 Potassium 3.6 Chloride 111 Carbon Dioxide 27 Anion Gap 5.0 L BUN 7 Creatinine 0.6 Estimated GFR (MDRD) 152 Glucose 101 Calcium 9.0 Total Bilirubin 0.5 AST 32 ALT 34 Alkaline Phosphatase 85 Total Protein 5.3 L Albumin 3.4 Globulin 1.9 L Albumin/Globulin Ratio 1.8 Lipase < 10 L PD Medical Decision Making - ED course Complexity details: reviewed results, re-evaluated patient, d/w patient, d/w family ED course: Patient is a 38-year-old male with a history of recurrent small bowel obstructions, history of myotonic dystrophy presenting with lower abdominal pain. Discharged earlier this afternoon after short stay on the inpatient unit for a small bowel obstruction diagnosed early this morning. Vital signs are stable. CBC and chemistries are unrevealing. Has a lower abdominal tenderness with no rebound or guarding. Abdominal x-rays were obtained which still showed dilated loops of small bowel consistent with small bowel obstruction seen on CT scan earlier today. Discussed with general surgeon on-call who will consult as needed. Agrees with admission back to hospitalist service. Discussed with Dr. Aponte of the hospitalist service. Also discussed with patient's father Sreekanth who agrees with plan. 2110 - D/W Dr. Jack (Gen Surgery). She had spoken to daytime team earlier today about this patient and they stated they would call her if needed for this patient. She Does agree that the patient should be readmitted to the hospitalist service - likely needs some more time. If he gets worse then her recommendations will likely be for NG placement and a p.o. contrast study. [id number] Father (Sreekanth) who agrees with plan for hospitalization here. Departure - Departure Disposition: ED Place in Observation Clinical Impression: Small bowel obstruction Condition: Stable Discharge Date/Time: 12/24/23 23:48
[2023-12-24] MEDS: KETOROLAC 30 MG/ML VIAL IVP STA (21:22)
--- NOTE | 2023-12-24 21:44 | HISTORY & PHYSICAL EXAMINATION ---
Chief Complaint - Chief Complaint Chief Complaint: Abdominal pain History of Present Illness - Admitted From Admitted From:: ER - History Obtained From Records Reviewed: Yes History obtained from: Pt, staff, chart Exam Limitations: Virtual exam - History of Present Illness HPI Comment/Other: H&P was conducted via video remotely, using Access Cart. Patient is in OR. Physician is in OR. No one is at bedside. 38 yo M with PMH of Muscular Dystrophy, Small bowel/jejunal mass and recurrent SBO presented back to the ER for c/o 1 day h/o increased abdominal pain. Pt has had multiple hospitalizations for SBO and has thus far done well with conservative management. Pt generally refuses NGT and SBO resolves with IVF and bowel rest. Pt has been evaluated for possible surgery for tumor removal, but he is a high-risk surgical candidate, so it is not recommended that he have this surgery, unless it is emergent. Pt was admitted to [facility] at 1A today for Abdominal pain, SBO. He later tolerated eating clear liquid breakfast and food for lunch w/o abdominal pain and was discharged home at 1P. Pt says that he had no pain when he left. After returning home, he did not eat, but his abdominal pain returned and he had N/V x 1: brownish emesis, no blood, so he came back to the ER at 9P. Abdominal pain: feels like his usual SBO pain, central, TTP, 10/10, constant, sharp. He says that Dilaudid has helped pain in the past. Last BM: 2 days ago. No F/C. No CP/SOB. In the ER, Abdominal Series Xray: air distended bowel loops mid to low abdomen. CT Abdo from 1A: SBO. Transition point is seen in the mid small bowel is in th e L flank. Pt was given IVF, Toradol in the ER. ER Provider D/W Dr. Jack (Gen Surgery): "She had spoken to daytime team earlier today about this patient and they stated they would call her if needed for this patient. She Does agree that the patient should be readmitted to the hospitalist service - likely needs some more time. If he gets worse then her recommendations will likely be for NG placement and a p.o. contrast study." History - Past Medical History Cardiovascular: reports: None Respiratory: reports: Asthma Neuro: reports: Cerebral palsy Endocrine/Autoimmune: reports: None GI: reports: GERD, Hiatal hernia, Other : reports: None HEENT: reports: None Psych: reports: None Musculoskeletal: reports: Other Derm: reports: None MRSA Hx?: No - Past Surgical History General: reports: Other HEENT: reports: Cataracts - Family & Social History Family History: Mother: Alive and Well, Father: Alive and Well, Brother: Alive and Well Family History Comment/Other: Non-contributory Living Situation: With family Social History Notes: 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 He is on disability and does not work. He denies ever smoking, drinking, or other drug use. - Substance History Use: Uses substance without health or social issues: NONE - POLST Patient has POLST: No POLST Status: Full Code Meds/Allgy - Home Medications Home Medications: Ambulatory Orders Medication Instructions Recorded Confirmed Omeprazole [PriLOSEC] 20 mg PO DAILY 08/09/13 12/24/23 - Allergies Allergies/Adverse Reactions: Allergies Allergy/AdvReac Type Severity Reaction Status Date / Time promethazine HCl * AdvReac Unknown Anxiety Verified 12/24/23 19:28 [From Phenergan] Sulfa (Sulfonamide AdvReac Unknown Rash Verified 12/24/23 19:28 Antibiotics) Review of Systems - All Other Systems All Other Systems: reports: Reviewed and negative Exam - Vital Signs Reviewed Vital Signs: Yes Vital Signs: Vital Signs x48h Temp Pulse Resp BP Pulse Ox 12/24/23 19:26 36.3 C L 92 18 132/87 H 94 - Physical Exam General Appearance: positive: No acute distress, Alert Eyes Bilateral: positive: EOMI, No scleral icterus ENT: positive: Dry mucous membranes Respiratory: positive: Other (Access cart stethoscope not working; per ER Provider: CTA B/L) Cardiovascular: positive: Other (Access cart stethoscope not working; per ER Provider: RRR, no murmurs) Abdomen: positive: Other ( per ER Provider: non-distended, Soft; per pt: TTP, no R/G) Extremities: positive: Other (per ER Provider: moves all extrem, no edema) Neurologic/Psychiatric: positive: Oriented x3, Other (limited mobility) Conclusion/Plan - Problem List (1) Small bowel obstruction Conclusion/Plan: Small bowel obstruction, recurrent Jejunal mass Abdominal pain Nausea/vomiting -Abdominal Series Xray: air distended bowel loops mid to low abdomen. -CT Abdo from 1A: SBO. Transition point is seen in the mid small bowel is in the L flank. -Pt was given IVF, Toradol in the ER. -ER Provider D/W Dr. Jack (Gen Surgery): "She had spoken to daytime team earlier today about this patient and they stated they would call her if needed for this patient. She Does agree that the patient should be readmitted to the hospitalist service - likely needs some more time. If he gets worse then her recommendations will likely be for NG placement and a p.o. contrast study." -SBO d/t mass; pt too high risk for surgical excision -Continue NPO -IV fluids for hydration -IV antiemetics PRN -IV pain control -pt refuses NGT -continue conservative mgmt per General Surgeon; appreciate recs GERD -continue PPI Myoclonic dystrophy Ambulatory dysfunction -at Baseline;uses walker or wheelchair -supportive care VTE Prophylaxis: Lovenox Code Status: Full Code ~Sivan Aponte MD Hospitalist - Lab Results Lab results reviewed: Yes Fish Bones: 12/24/23 20:33 12/24/23 20:33
[2023-12-24] MEDS ORDERED: SODIUM CHLORIDE FLUSH 0.9% 10 ML SYRINGE IVP PRN (22:12)
[2023-12-24] MEDS ORDERED: ONDANSETRON 4 MG/2 ML VIAL IVP PRN (22:12)
[2023-12-24] MEDS: LACTATED RINGERS 1,000 ML IV SCH (23:58)
[2023-12-24] MEDS: SODIUM CHLORIDE FLUSH 0.9% 10 ML SYRINGE IVP SCH (23:59)
[2023-12-25] MEDS: ONDANSETRON ODT 4 MG TABLET TL PRN (00:19)
[2023-12-25] MEDS: HYDROmorphone 0.5 MG/0.5 ML SYRINGE IVP PRN (00:35)
[2023-12-25 04:58] LABS: BASOPHILS % (AUTO) 0.4 %; EOSINOPHILS # (AUTO) 0.3 10^3/uL (0.0-0.7); EOSINOPHILS % (AUTO) 5.1 %; HCT - HEMATOCRIT 41.3 % (42.0-52.0); HGB - HEMOGLOBIN 12.8 g/dL (14.0-18.0); LYMPHOCYTES # (AUTO) 1.1 10^3/uL (1.5-3.5); LYMPHOCYTES % (AUTO) 22.2 %; MEAN CORPUSCULAR HEMOGLOBIN 27.4 pg (27.0-31.0); MEAN CORPUSCULAR VOLUME 88.4 fL (80.0-94.0); MEAN PLATELET VOLUME 11.1 fL (7.4-11.4); MONOCYTES # (AUTO) 0.6 10^3/uL (0.0-1.0); NEUTROPHILS # (AUTO) 3.1 10^3/uL (1.5-6.6); NEUTROPHILS % (AUTO) 60.1 %; PLT - PLATELET COUNT 167 10^3/uL (130-450); RED BLOOD COUNT 4.67 10^6/uL (4.70-6.10); RED CELL DISTRIBUTION WIDTH 14.9 % (12.0-15.0); WHITE BLOOD COUNT 5.1 x10^3/uL (4.8-10.8)
[2023-12-25 05:12] LABS: ALBUMIN/GLOBULIN RATIO 1.9 (1.0-2.2); BILIRUBIN,TOTAL 0.5 mg/dL (0.2-1.0); CALCIUM 8.4 mg/dL (8.5-10.3); CREATININE 0.6 mg/dL (0.6-1.3); MAGNESIUM 1.8 mg/dL (1.7-2.3); POTASSIUM 3.3 mmol/L (3.5-4.5); TOTAL PROTEIN 4.6 g/dL (6.4-8.9)
--- NOTE | 2023-12-25 07:02 | PHARMACY PROGRESS NOTE ---
- Best Possible Medication History Admit Date and Time: 12/24/232213 Processed by: Nursing Medications reviewed in ED?: Yes Medication History completed: Yes Patient Interview: Pt unable to participate Secondary Source(s): Spouse/Significant other, Pharmacy records, Insurance records, Previous admit records As the person ultimately responsible for medication therapy, providers are able to order a medication from an existing home medication list in [facility] via the "Reconcile Routine" prior to Confirmation of that medication by business support manager. Such practice is discouraged except when the physician, in their clinical judgment, deems that a medical need exists for a medication without regard to previous use.
[2023-12-25] MEDS: POTASSIUM CHLOR 10 MEQ/100 ML 10 MEQ/100 ML BAG IV SCH (08:17)
[2023-12-25] MEDS: PANTOPRAZOLE 40 MG VIAL IVP SCH (08:17)
[2023-12-25] MEDS: ENOXAPARIN 40 MG/0.4 ML SYRINGE SUBQ SCH (08:17)
--- NOTE | 2023-12-25 09:01 | PROVIDER PROGRESS NOTE ---
Subjective - Prog Note Date Prog Note Date: 12/25/23 Prog Note Time: 09:00 - Subjective Pt reports feeling: Improved Subjective: The patient is a 38-year-old male with a past medical history significant for cerebral palsy and myoclonic dystrophy. He has a small bowel/jejunal mass and has recurrent small bowel obstructions. He always refuses NG tube placement and his small bowel obstructions usually improve to the point that he can be discharged rather quickly. He was just hospitalized and I discharged him from the hospital yesterday. At that time he had tolerated lunch. He had eaten several cookies. He was having no abdominal pain and he indicated that he was ready to go home. Unfortunately when he got home he did not eat but his abdominal pain returned. He had 1 episode of nausea and vomiting and he presented back to the emergency room. His abdominal pain was like his usual small bowel obstruction pain and was constant and sharp. When I went to see the patient today he is sleeping. He says that his pain is now gone. We discussed that we are going to keep him on clear liquids today and monitor him closely. I spoke to his father yesterday and he is being followed closely at for this small bowel mass. Apparently it is nonmalignant and due to his myoclonic dystrophy he is not felt to be a good surgical candidate. Surgery will be performed only in an emergent situation. He does have recurrent admissions for small bowel obstructions but they usually improve fairly quickly. He denies fever or shaking chills. No chest pain or heart palpitations. He has had no further nausea or vomiting. Abdominal pain has improved. He states that he is passing little bit of gas. He has not had a bowel movement. He has no urinary complaints Current Medications - Current Medications Current Medications: Lovenox 40 mg subcu daily Hydromorphone 0.5 mg IV every 4 hours as needed pain Lactated Ringer's 100 mL an hour Ondansetron 4 mg ODT and IV every 6 hours as needed nausea and vomiting Protonix 40 mg IV daily Potassium chloride 40 mill equivalents IV Objective - Vital Signs/Intake & Output Vital Signs: Vital Signs x48h Temp Pulse Resp BP Pulse Ox 12/25/23 08:00 36.6 C 77 16 87/46 L 97 Intake & Output: Intake & Output 12/22/23 12/23/23 12/24/23 12/25/23 23:59 23:59 23:59 23:59 Intake Total 1000 Output Total 425 Balance 1000 -425 - Objective General Appearance: positive: No acute distress, Alert Eyes Bilateral: positive: Normal inspection ENT: positive: ENT inspection nml Neck: positive: Nml inspection Respiratory: positive: Chest non-tender, No respiratory distress, Breath sounds nml Cardiovascular: positive: Regular rate & rhythm, No murmur, No gallop. negative: Friction rub Abdomen: positive: Non-tender, No organomegaly, Nml bowel sounds Skin: positive: Color nml, No rash, Warm, Dry Extremities: positive: Non-tender, Full ROM Neurologic/Psychiatric: positive: Oriented x3, CN's nml (2-12) - Lab Results Fish Bones: 12/25/23 04:43 12/25/23 04:43 Other Labs: Lab Results x24hrs 12/25/23 12/25/23 12/24/23 Range/Units 04:43 04:43 20:33 WBC 5.1 (4.8-10.8) x10^3/uL RBC 4.67 L (4.70-6.10) 10^6/uL Hgb 12.8 L (14.0-18.0) g/dL Hct 41.3 L (42.0-52.0) % MCV 88.4 (80.0-94.0) fL MCH 27.4 (27.0-31.0) pg MCHC 31.0 L (32.0-36.0) g/dL RDW 14.9 (12.0-15.0) % Plt Count 167 (130-450) 10^3/uL MPV 11.1 (7.4-11.4) fL Neut # (Auto) 3.1 (1.5-6.6) 10^3/uL Lymph # (Auto) 1.1 L (1.5-3.5) 10^3/uL [place] # (Auto) 0.6 (0.0-1.0) 10^3/uL Eos # (Auto) 0.3 (0.0-0.7) 10^3/uL Baso # (Auto) 0.0 (0.0-0.1) 10^3/uL Absolute Nucleated RBC 0.00 x10^3/uL Nucleated RBC % 0.0 /100WBC Sodium 140 143 (135-145) mmol/L Potassium 3.3 L 3.6 (3.5-4.5) mmol/L Chloride 111 111 (101-111) mmol/L Carbon Dioxide 26 27 (21-32) mmol/L Anion Gap 3.0 L 5.0 L (6-13) BUN 7 7 (6-20) mg/dL Creatinine 0.6 0.6 (0.6-1.3) mg/dL Estimated GFR (MDRD) 152 152 (>89) Glucose 100 101 (74-104) mg/dL Calcium 8.4 L 9.0 (8.5-10.3) mg/dL Magnesium 1.8 (1.7-2.3) mg/dL Total Bilirubin 0.5 0.5 (0.2-1.0) mg/dL AST 35 32 (10-42) IU/L ALT 37 34 (10-60) IU/L Alkaline Phosphatase 92 85 (42-121) IU/L Total Protein 4.6 L 5.3 L (6.4-8.9) g/dL Albumin 3.0 L 3.4 (3.2-5.5) g/dL Globulin 1.6 L 1.9 L (2.1-4.2) g/dL Albumin/Globulin Ratio 1.9 1.8 (1.0-2.2) Lipase < 10 L (11-82) U/L // Range/Units 20:33 WBC 5.8 (4.8-10.8) x10^3/uL RBC 5.03 (4.70-6.10) 10^6/uL Hgb 14.5 (14.0-18.0) g/dL Hct 43.9 (42.0-52.0) % MCV 87.3 (80.0-94.0) fL MCH 28.8 (27.0-31.0) pg MCHC 33.0 (32.0-36.0) g/dL RDW 14.8 (12.0-15.0) % Plt Count 164 (130-450) 10^3/uL MPV 10.5 (7.4-11.4) fL Neut # (Auto) 4.1 (1.5-6.6) 10^3/uL Lymph # (Auto) 0.8 L (1.5-3.5) 10^3/uL Garland # (Auto) 0.6 (0.0-1.0) 10^3/uL Eos # (Auto) 0.2 (0.0-0.7) 10^3/uL Baso # (Auto) 0.0 (0.0-0.1) 10^3/uL Absolute Nucleated RBC 0.00 x10^3/uL Nucleated RBC % 0.0 /100WBC Sodium (135-145) mmol/L Potassium (3.5-4.5) mmol/L Chloride (101-111) mmol/L Carbon Dioxide (21-32) mmol/L Anion Gap (6-13) BUN (6-20) mg/dL Creatinine (0.6-1.3) mg/dL Estimated GFR (MDRD) (>89) Glucose (74-104) mg/dL Calcium (8.5-10.3) mg/dL Magnesium (1.7-2.3) mg/dL Total Bilirubin (0.2-1.0) mg/dL AST (10-42) IU/L ALT (10-60) IU/L Alkaline Phosphatase (42-121) IU/L Total Protein (6.4-8.9) g/dL Albumin (3.2-5.5) g/dL Globulin (2.1-4.2) g/dL Albumin/Globulin Ratio (1.0-2.2) Lipase (11-82) U/L ABX Reporting Has patient been on IV antibiotics over the past 48 hours?: No Sepsis Event Note (H) - Evaluation Current Stage of Sepsis: Ruled out Assessment/Plan - Problem List (1) Small bowel obstruction Impression: The patient has recurrent small bowel obstructions. Clearly these are partial small bowel obstruction as he recovers quite quickly with only supportive care. He was discharged home yesterday and came right back to the hospital. Will keep him on clear liquids today and monitor him closely. He says his pain has already resolved and he is somewhat hungry. He understands that we are going to do clear liquids today. If he does well today we could consider advancing his diet for his evening meal and making sure he tolerates it overnight. (2) Small bowel mass Impression: Surgery will only be done on an emergent basis. This small bowel mass/jejunal mass is nonmalignant according to the patient's father. He is followed closely at . (4) Abdominal pain Impression: Secondary to recurrent small bowel obstruction (5) Hyperglycemia Impression: Reactive. (6) Hypokalemia Impression: This will be repleted today with 40 mill equivalents of IV potassium. (7) Ambulatory dysfunction Impression: The patient is at his baseline. He ambulates with a cane and walker at home. Time spent: 35 minutes
[2023-12-25] MEDS: ACETAMINOPHEN 160 MG/5 ML SUSP UDC PO PRN (10:19)
[2023-12-26 05:30] LABS: BASOPHILS % (AUTO) 0.3 %; EOSINOPHILS # (AUTO) 0.2 10^3/uL (0.0-0.7); EOSINOPHILS % (AUTO) 6.8 %; HCT - HEMATOCRIT 41.3 % (42.0-52.0); HGB - HEMOGLOBIN 13.2 g/dL (14.0-18.0); LYMPHOCYTES # (AUTO) 1.2 10^3/uL (1.5-3.5); LYMPHOCYTES % (AUTO) 32.7 %; MEAN CORPUSCULAR HEMOGLOBIN 28.4 pg (27.0-31.0); MEAN CORPUSCULAR VOLUME 88.8 fL (80.0-94.0); MEAN PLATELET VOLUME 11.1 fL (7.4-11.4); MONOCYTES # (AUTO) 0.5 10^3/uL (0.0-1.0); MONOCYTES % (AUTO) 12.7 %; NEUTROPHILS # (AUTO) 1.7 10^3/uL (1.5-6.6); NEUTROPHILS % (AUTO) 47.2 %; PLT - PLATELET COUNT 162 10^3/uL (130-450); RED BLOOD COUNT 4.65 10^6/uL (4.70-6.10); RED CELL DISTRIBUTION WIDTH 14.9 % (12.0-15.0); WHITE BLOOD COUNT 3.6 x10^3/uL (4.8-10.8)
[2023-12-26 05:48] LABS: ALBUMIN 2.9 g/dL (3.2-5.5); ALBUMIN/GLOBULIN RATIO 1.6 (1.0-2.2); BILIRUBIN,TOTAL 0.3 mg/dL (0.2-1.0); CALCIUM 8.4 mg/dL (8.5-10.3); CREATININE 0.5 mg/dL (0.6-1.3); MAGNESIUM 1.9 mg/dL (1.7-2.3); POTASSIUM 3.6 mmol/L (3.5-4.5); TOTAL PROTEIN 4.7 g/dL (6.4-8.9)
--- NOTE | 2023-12-26 08:47 | PROVIDER PROGRESS NOTE ---
Subjective - Prog Note Date Prog Note Date: 12/26/23 Prog Note Time: 08:45 - Subjective Pt reports feeling: No change Subjective: He is it even though so it helps talk you out of where I when I went to see the patient this morning he is resting in the bed. He was easily arousable. Nursing staff reported that he had 10 out of 10 pain earlier this morning but when I saw him he states he has 0 pain at this time. He has been receiving clear liquids. I told him that we are going to allow him to have a bit of a diet today but we are going to keep him in the hospital to make sure that he can tolerate it as he came right back to the hospital after discharge last time. He is in agreement with this plan. At the time of my visit today he denies fever or chills. No chest pain or heart palpitations. No nausea or vomiting. No abdominal pain at the time of my visit. He has not had a bowel movement today. No urinary Current Medications - Current Medications Current Medications: Lovenox 40 mg subcu daily Hydromorphone 0.5 mg IV every 4 hours as needed pain Lactated Ringer's 100 mL an hour Ondansetron 4 mg ODT and IV every 6 hours as needed nausea and vomiting Protonix 40 mg IV daily Objective - Vital Signs/Intake & Output Reviewed Vital Signs: Yes Vital Signs: Vital Signs x48h Temp Pulse Resp BP Pulse Ox 12/26/23 08:05 36.3 C L 62 18 120/75 98 Intake & Output: Intake & Output 12/23/23 12/24/23 12/25/23 12/26/23 23:59 23:59 23:59 23:59 Intake Total 1000 3010 1000 Output Total 1975 325 Balance 1000 1035 675 - Objective General Appearance: positive: No acute distress, Alert Eyes Bilateral: positive: Normal inspection ENT: positive: ENT inspection nml Neck: positive: Nml inspection Respiratory: positive: Chest non-tender, No respiratory distress, Breath sounds nml Cardiovascular: positive: Regular rate & rhythm, No murmur, No gallop. negative: Friction rub Abdomen: positive: Non-tender Skin: positive: Color nml, No rash, Warm Extremities: positive: Non-tender, Full ROM Neurologic/Psychiatric: positive: Oriented x3, CN's nml (2-12) - Lab Results Fish Bones: 06/25/24 05:10 12/26/23 05:10 Other Labs: Lab Results x24hrs 12/26/23 12/26/23 Range/Units 05:10 05:10 WBC 3.6 L (4.8-10.8) x10^3/uL RBC 4.65 L (4.70-6.10) 10^6/uL Hgb 13.2 L (14.0-18.0) g/dL Hct 41.3 L (42.0-52.0) % MCV 88.8 (80.0-94.0) fL MCH 28.4 (27.0-31.0) pg MCHC 32.0 (32.0-36.0) g/dL RDW 14.9 (12.0-15.0) % Plt Count 162 (130-450) 10^3/uL MPV 11.1 (7.4-11.4) fL Neut # (Auto) 1.7 (1.5-6.6) 10^3/uL Lymph # (Auto) 1.2 L (1.5-3.5) 10^3/uL [place] # (Auto) 0.5 (0.0-1.0) 10^3/uL Eos # (Auto) 0.2 (0.0-0.7) 10^3/uL Baso # (Auto) 0.0 (0.0-0.1) 10^3/uL Absolute Nucleated RBC 0.00 x10^3/uL Nucleated RBC % 0.0 /100WBC Sodium 144 (135-145) mmol/L Potassium 3.6 (3.5-4.5) mmol/L Chloride 113 H (101-111) mmol/L Carbon Dioxide 28 (21-32) mmol/L Anion Gap 3.0 L (6-13) BUN 4 L (6-20) mg/dL Creatinine 0.5 L (0.6-1.3) mg/dL Estimated GFR (MDRD) 188 (>89) Glucose 81 (74-104) mg/dL Calcium 8.4 L (8.5-10.3) mg/dL Magnesium 1.9 (1.7-2.3) mg/dL Total Bilirubin 0.3 (0.2-1.0) mg/dL AST 19 (10-42) IU/L ALT 31 (10-60) IU/L Alkaline Phosphatase 84 (42-121) IU/L Total Protein 4.7 L (6.4-8.9) g/dL Albumin 2.9 L (3.2-5.5) g/dL Globulin 1.8 L (2.1-4.2) g/dL Albumin/Globulin Ratio 1.6 (1.0-2.2) ABX Reporting Has patient been on IV antibiotics over the past 48 hours?: No Sepsis Event Note (H) - Evaluation Current Stage of Sepsis: Ruled out Assessment/Plan - Problem List (1) Small bowel obstruction Impression: The patient is having pain that waxes and wanes. Will allow him to have a bit of a diet today. Will place him on a low residue diet and let him decide what to order. However we will keep him in the hospital 1 additional day to make sure that he does not worsen as he just came right back to the hospital after his previous hospitalization. It may be that he needs to follow-up with his doctor at . According to the patient's father he is not a candidate for surgery unless it becomes emergent. The patient has had frequent hospitalizations for small bowel obstruction and this last time was out of the hospital less than 24 hours before he came back. In the outpatient setting the patient should have PFTs and an echocardiogram and possibly get another opinion regarding whether he would benefit from surgery. (4) Abdominal pain Impression: This is waxing and waning secondary to recurrent partial small bowel obstruction (5) Hyperglycemia Impression: Reactive. Continue to monitor (6) Hypokalemia Impression: Repleted and resolved. He will have a chemistry panel in the morning (7) Ambulatory dysfunction Impression: The patient is at his baseline. He refuses physical therapy. Disposition: The patient will remain in the hospital for 1 more day. I want to advance his diet and make sure he can tolerate it overnight before sending him home as he recently was readmitted within 24 hours. Will see how he does today and make further decisions as we go along Time spent: 35 minutes
[2023-12-26] MEDS ORDERED: DIATRIZOATE MEGLU/DIATRIZO SOD 30 ML BOTTLE PO ONE (11:21)
--- NOTE | 2023-12-26 13:48 | XRAY Report ---
PROCEDURE: SBFT Challenge Panel INDICATIONS: RECURRENT SMALL BOWEL OBSTRUCTION COMPARISON: Abdominal radiograph 12/24/2023. CT abdomen and pelvis 12/23/2023. CONTRAST: Oral contrast administered. FINDINGS: KUB: Preprocedural conditioning room worker film demonstrates a few prominent loops of small bowel. No suspicious abdo ollie calcifications. Visualized solid organ contours appear normal. No suspicious bony abnormaliti es. Small bowel: Oral contrast has reached the colon at the 1 hour cali. Mucosal folds are smooth and of normal thickness. No strictures, intraluminal masses, or extrinsic mass effects are noted. IMPRESSION: A few prominent loops of small bowel. Oral contrast has reached the colon at the 1 hour cali. This suggests resolving small bowel obstructi on. Partial small bowel obstruction is also in the differential diagnosis. Recommend clinical correla tion. Reviewed by: Domo Saucedo MD on 12/26/2023 1:47 PM PDT Approved by: Domo Saucedo MD on 12/26/2023 1:47 PM PDT Station ID: [id number]
[2023-12-27 00:06] VITALS: O2SAT 99
[2023-12-27 06:11] LABS: BASOPHILS % (AUTO) 0.3 %; EOSINOPHILS % (AUTO) 4.8 %; HCT - HEMATOCRIT 40.4 % (42.0-52.0); HGB - HEMOGLOBIN 12.5 g/dL (14.0-18.0); LYMPHOCYTES % (AUTO) 33.7 %; MEAN CORPUSCULAR HEMOGLOBIN 27.5 pg (27.0-31.0); MEAN CORPUSCULAR HGB CONC 30.9 g/dL (32.0-36.0); MEAN CORPUSCULAR VOLUME 88.8 fL (80.0-94.0); MEAN PLATELET VOLUME 10.9 fL (7.4-11.4); MONOCYTES % (AUTO) 10.3 %; NEUTROPHILS % (AUTO) 50.9 %; PLT - PLATELET COUNT 162 10^3/uL (130-450); RED BLOOD COUNT 4.55 10^6/uL (4.70-6.10); RED CELL DISTRIBUTION WIDTH 14.8 % (12.0-15.0); WHITE BLOOD COUNT 2.9 x10^3/uL (4.8-10.8)
[2023-12-27 06:19] LABS: ABNORMAL LYMPHS % (MANUAL) 0 %
[2023-12-27 06:33] LABS: ALBUMIN 2.9 g/dL (3.2-5.5); ALBUMIN/GLOBULIN RATIO 1.6 (1.0-2.2); BILIRUBIN,TOTAL 0.3 mg/dL (0.2-1.0); CALCIUM 8.5 mg/dL (8.5-10.3); CREATININE 0.5 mg/dL (0.6-1.3); MAGNESIUM 1.9 mg/dL (1.7-2.3); POTASSIUM 3.7 mmol/L (3.5-4.5); TOTAL PROTEIN 4.7 g/dL (6.4-8.9)
[2023-12-27 06:38] LABS: BAND NEUTROPHILS % (MANUAL) 1 %; DIFFERENTIAL COMMENT MANUAL DIFFERENTIAL; EOSINOPHILS # (MANUAL) 0.1 10^3/uL (0-0.7); LYMPHOCYTES % (MANUAL) 36 %; MONOCYTES # (MANUAL) 0.1 10^3/uL (0.0-1.0); NEUTROPHILS # (MANUAL) 1.6 10^3/uL (1.5-6.6); PLATELET ESTIMATE, MANUAL NORMAL (130-450,000) (NORMAL); RBC MORPHOLOGY (MULTIPLE) NORMAL APPEARANCE (NORMAL)
[2023-12-27 07:31] VITALS: BP 139/90
--- NOTE | 2023-12-27 10:46 | Discharge Plan ---
Discharge Plan Problem Reviewed?: Yes Disposition: Home, Self Care Condition: Fair Prescriptions: Ondansetron Odt [Zofran Odt] 4 mg TL Q6HR PRN #60 tab PRN Reason: Nausea / Vomiting Hydrocodone/Acetaminophen [Hydrocodone-Acetamin 5-300 mg] 1 tab PO Q6H PRN #12 tablet PRN Reason: Abdominal Pain Diet: Soft (Low residue diet) Activity Restrictions: Activity as Tolerated Shower Restrictions: Yes Assistance Devices: Walker Weight Bearing: Full Weight Health Concerns: The patient has recurrent partial small bowel obstructions. He also may have an element of IBS. Would recommend that if he develops pain, nausea or vomiting at home that we try giving him the oral disintegrating Zofran and some pain medication first. I am reaching out to for further recommendations on how to manage him when he comes to our facility and I will call and let the patient and his family know. I have written a prescription for pain medication and Zofran to use at home. I would recommend close follow-up with and also would consider taking him to the emergency room there in the future if possible. If not bring him here. Also would recommend discussing with treatment for possible IBS as well. Assessment: 1. Recurrent partial small bowel obstruction The patient did have a small bowel follow-through on this occasion and he does have contrast that makes its way into the colon. The patient's pain waxes and wanes. Would recommend trying a trial of oral disintegrating Zofran along with some pain medication at home when this flares up. The family should place him on clear liquids at that time. I am reaching out today to for further recommendations on how to manage him when he is brought to this facility. I spoke to the patient's father today and he does have good follow-up at . 2. Possible IBS Would recommend discussing with his team at possible treatment for this. 3. 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 Surgery according to the patient's father will only be done on an emergent basis. 4. Hyperglycemia Likely reactive 5. Hypokalemia Repleted and resolved 6. Mild hypernatremia Due to IV fluids which have since been stopped 7. Ambulatory dysfunction The patient is at his baseline. He should ambulate with either a cane or a walker at home. No Smoking: If you smoke, Please STOP! Call for help. Follow-up with: Kamala Oconnell MD [Primary Care Provider] -
--- NOTE | 2023-12-27 10:53 | DISCHARGE SUMMARY ---
Discharge Summary Admit Date: 12/24/23 Discharge Date: 12/27/23 Discharging Provider: Beulah Child PA-C Primary Care Provider: Kamala Oconnell MD Code Status: Attempt Resuscitation Condition at Discharge: Fair Discharge Disposition: 01 Home, Self Care - DIAGNOSES Discharge Diagnoses with Status of Each Condition: 1. Recurrent partial small bowel obstruction The patient did have a small bowel follow-through on this occasion and he does have contrast that makes its way into the colon. The patient's pain waxes and wanes. Would recommend trying a trial of oral disintegrating Zofran along with some pain medication at home when this flares up. The family should place him on clear liquids at that time. I am reaching out today to for further r ecommendations on how to manage him when he is brought to this facility. I spoke to the patient's father today and he does have good follow-up at . Also the next time he comes into the emergency room would have a discussion with the family about a direct ER transfer to . We have very little to offer him at this facility 2. Possible IBS Would recommend discussing with his team at possible treatment for this. 3. 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 Surgery according to the patient's father will only be done on an emergent basis. 4. Hyperglycemia Likely reactive 5. Hypokalemia Repleted and resolved 6. Mild hypernatremia Due to IV fluids which have since been stopped 7. Ambulatory dysfunction The patient is at his baseline. He should ambulate with either a cane or a walker at home. - HPI History of Present Illness: From the admission HP: H&P was conducted via video remotely, using Access Cart. [place] is in [place]. Sadaf lundberg [place] in [place]. No one is at bedside. 38 yo M with PMH of Muscular Dystrophy, Small bowel/jejunal mass and recurrent SBO presented back to the ER for c/o 1 day h/o increased abdominal pain. Pt has had multiple hospitalizations for SBO and has thus far done well with conservative management. Pt generally refuses NGT and SBO resolves with IVF and bowel rest. Pt has been evaluated for possible surgery for tumor removal, but he is a high-risk surgical candidate, so it is not recommended that he have this surgery, unless it is emergent. Pt was admitted to [facility] at 1A today for Abdominal pain, SBO. He later tolerated eating clear liquid breakfast and food for lunch w/o abdominal pain and was discharged home at 1P. Pt says that he had no pain when he left. After returning home, he did not eat, but his abdominal pain returned and he had N/V x 1: brownish emesis, no blood, so he came back to the ER at 9P. Abdominal pain: feels like his usual SBO pain, central, TTP, 10/10, constant, sharp. He says that Dilaudid has helped pain in the past. Last BM: 2 days ago. No F/C. No CP/SOB. In the ER, Abdominal Series Xray: air distended bowel loops mid to low abdomen. CT Abdo from 1A: SBO. Transition point is seen in the mid small bowel is in the L flank. Pt was given IVF, Toradol in the ER. ER Provider D/W Dr. Jack (Gen Surgery): "She had spoken to daytime team earlier today about this patient and they stated they would call her if needed for this patient. She Does agree that the patient should be readmitted to the hospitalist service - likely needs some more time. If he gets worse then her recommendations will likely be for NG placement and a p.o. contrast study." - HOSPITAL COURSE Hospital Course: The patient was admitted to the hospital. He had previously been discharged about 12 hours before. He once again was made NPO. He received pain medication with some improvement. Yesterday he had a small bowel follow-through which did show that contrast was making its way into the colon. This morning the patient was able to eat a waffle but did have some pain afterwards. I have spoken on the phone with the patient's father who wants him to be discharged today. He has follow-up at . I have a consult request and to speak to his surgeon at and will add an addendum to this note once I speak to them. He will be discharged home. After talking to the patient father we have decided to write a prescription for some low-dose pain medication and some Zofran. Would recommend that the patient be made n.p.o. when he develops nausea vomiting or abdominal pain and be given some Zofran and pain medication and then slowly advance his diet back to a regular diet and possibly he could get through some of this at home. The patient's father also indicated that he may have IBS and I would recommend further workup for that at as well. At this point maximum hospital benefit has been reached. The patient will be discharged today in stable condition. Of note the next time that the patient comes to the emergency room I would have a discussion with the patient's father about transfer from the emergency room to as there is not much that we have to offer at this facility to help him. He is quite complex. - ALLERGIES Allergies/Adverse Reactions: Allergies Allergy/AdvReac Type Severity Reaction Status Date / Time promethazine HCl * AdvReac Unknown Anxiety Verified 12/24/23 19:28 [From Phenergan] Sulfa (Sulfonamide AdvReac Unknown Rash Verified 12/24/23 19:28 Antibiotics) - MEDICATIONS Home Medications: Ambulatory Orders Medication Instructions Recorded Confirmed Omeprazole [PriLOSEC] 20 mg PO DAILY 08/09/13 12/24/23 Hydrocodone/Acetaminophen 1 tab PO Q6H PRN #12 tablet 12/27/23 [Hydrocodone-Acetamin 5-300 mg] Ondansetron Odt [Zofran Odt] 4 mg TL Q6HR PRN #60 tab 12/27/23 - PHYSICAL EXAM AT DISCHARGE General Appearance: positive: No acute distress, Alert Eyes Bilateral: positive: Normal inspection ENT: positive: ENT inspection nml Neck: positive: Nml inspection Respiratory: positive: Chest non-tender, No respiratory distress, Breath sounds nml Cardiovascular: positive: Regular rate & rhythm, No murmur, No gallop. negative: Friction rub Abdomen: positive: Non-tender, No organomegaly, Nml bowel sounds Skin: positive: Color nml, No rash, Warm, Dry Extremities: positive: Non-tender, Full ROM, Nml appearance Neurologic/Psychiatric: positive: Oriented x3, CN's nml (2-12) - LABS Result Diagrams: 12/27/23 05:57 12/27/23 05:57 - SEPSIS Current Stage of Sepsis: Ruled out - QUALITY (Female Hip Fx Only) Was patient sent home on osteoporosis medication?: No (N/A) - FOLLOW UP Follow Up: The patient should follow-up with Dr. Oconnell in 1 week. Also closely follow-up with - TIME SPENT Time Spent in Discharge (Minutes): 45
== END 2023-12-27 11:52 | disposition home or self-care (01) | DRG 389 ==
LOC: EDUNIT# → ED 19:13 → MS2 22:14
PROVIDERS: ADMIT Internal Medicine; ATTEND Physician Assistant
DX: K56.600 Partial intestinal obstruction, unspecified as to cause (principal); E87.0 Hyperosmolality and hypernatremia; K58.9 Irritable bowel syndrome, unspecified; K63.89 Other specified diseases of intestine; R73.9 Hyperglycemia, unspecified; E87.6 Hypokalemia; G71.00 Muscular dystrophy, unspecified; G80.9 Cerebral palsy, unspecified; K21.9 Gastro-esophageal reflux disease without esophagitis; Z56.0 Unemployment, unspecified
CPT/HCPCS: 36415; 74022; 74250; 80053; 83690; 83735; 85025; 96374; 99285; A9270; J1170; J1650; J7120; Q0162; Q9963

== ENCOUNTER 2024-04-12 22:47 | Observation (INO) ==
[2024-04-12 23:02] LABS: BASOPHILS % (AUTO) 0.2 %; EOSINOPHILS % (AUTO) 0.3 %; HCT - HEMATOCRIT 48.8 % (42.0-52.0); HGB - HEMOGLOBIN 16.3 g/dL (14.0-18.0); LYMPHOCYTES # (AUTO) 0.4 10^3/uL (1.5-3.5); LYMPHOCYTES % (AUTO) 6.5 %; MEAN CORPUSCULAR HGB CONC 33.4 g/dL (32.0-36.0); MEAN CORPUSCULAR VOLUME 83.8 fL (80.0-94.0); MEAN PLATELET VOLUME 10.7 fL (7.4-11.4); MONOCYTES # (AUTO) 0.7 10^3/uL (0.0-1.0); MONOCYTES % (AUTO) 10.3 %; NEUTROPHILS # (AUTO) 5.4 10^3/uL (1.5-6.6); NEUTROPHILS % (AUTO) 82.5 %; PLT - PLATELET COUNT 225 10^3/uL (130-450); RED BLOOD COUNT 5.82 10^6/uL (4.70-6.10); RED CELL DISTRIBUTION WIDTH 13.9 % (12.0-15.0); WHITE BLOOD COUNT 6.6 x10^3/uL (4.8-10.8)
[2024-04-12 23:20] LABS: ALBUMIN/GLOBULIN RATIO 1.5 (1.0-2.2); BILIRUBIN,TOTAL 0.8 mg/dL (0.2-1.0); CALCIUM 9.5 mg/dL (8.5-10.3); CREATININE 0.7 mg/dL (0.6-1.3); POTASSIUM 3.8 mmol/L (3.5-4.5); TOTAL PROTEIN 6.7 g/dL (6.4-8.9)
[2024-04-12] MEDS ORDERED: iohexoL-300 100 ML VIAL ONE (23:43)
[2024-04-13] MEDS: HYDROmorphone 1 MG/ML CARPUJECT IVP STA (00:33)
[2024-04-13] MEDS: ONDANSETRON 4 MG/2 ML VIAL IVP STA ×2 (00:42→04:32)
[2024-04-13] MEDS: SODIUM CHLORIDE 0.9% 500 ML IV ONE (01:08)
[2024-04-13] MEDS: NALOXONE 0.4 MG/ML VIAL IVP STA (01:12)
--- NOTE | 2024-04-13 01:14 | ED Physician Documentation ---
PD HPI ABD PAIN Stated complaint Stated Complaint: ABD PAIN Chief complaint Chief Complaint: Abd Pain History obtained from History obtained from: Patient History of Present Illness Timing - onset: Enter time (pain started at 1600) Timing - details: Abrupt onset Quality: Aching Location: All over / everywhere Improved by: Laying still Worsened by: Palpation Associated symptoms: Nausea and Vomiting Similar symptoms before: Diagnosis (sbo) Additional information Additional information: 38-year-old man with history of cerebral palsy and frequent SBO presents with abdominal pain nausea and vomiting x 4 since 1600 yesterday. Meds/Allgy Home Medications Ambulatory Orders Medication Instructions Recorded Confirmed omeprazole 20 mg capsule,delayed 20 mg PO DAILY 08/09/12/24/23 release hydrocodone 5 mg-acetaminophen 300 1 tab PO Q6H PRN Abdominal Pain 12/27/23 mg tablet #12 tabs ondansetron 4 mg disintegrating 4 mg translingual Q6HR PRN Nausea 12/27/23 tablet / Vomiting #60 tabs hydrocodone 5 mg-acetaminophen 325 1 - 2 tab PO Q6H PRN Pain #10 tabs 12/29/23 mg tablet Allergies Allergies Allergy/AdvReac Type Severity Reaction Status Date / Time promethazine HCl * (From AdvReac Unknown Anxiety Verified 04/12/24 22:56 Phenergan) Sulfa (Sulfonamide AdvReac Unknown Rash Verified 04/12/24 22:56 Antibiotics) PFSH Social History Social History Smoking Status: Never smoker Do you dip or chew tobacco?: No Do you vape?: No Patient requests smoking cessation consult: No Initiate information on smoking cessation: No Living arrangement: Assisted living Living Condition: With family Relationship: Level: Assisted Home Mobility Equipment: Cane and Walker Do you feel safe in your home environment?: Yes Suffered physical, verbal, emotional, or financial abuse?: No History of Abuse: No Are you sexually active?: No POLST Patient has POLST: No POLST Status: Full Code Exam Constitutional normal general appearance, no apparent distress and average body habitus HENMT normocephalic and head/scalp atraumatic Eyes PERRL and EOMs intact bilaterally Chest inspection of chest normal Respiratory breath sounds equal bilaterally, normal respiratory effort and clear to auscultation bilaterally Cardiovascular normal heart rate noted and regular rhythm noted Gastrointestinal Abdomen diffusely tender to palpation Extremities extremity chronic contracture Results Vitals Vitals: Vital Signs - 24 hr 04/12/24 22:48 04/12/24 22:50 04/13/24 00:33 Temperature 36.8 C Temperature Source Oral Pulse Rate 88 Respiratory Rate 16 Blood Pressure 99/72 O2 Saturation 98 O2 Source Room air If not protocol: Oxygen Flow, liters/minute Pain Intensity 10 10 10 04/13/24 01:00 04/13/24 01:01 04/13/24 01:08 Temperature Temperature Source Pulse Rate 117 H Respiratory Rate Blood Pressure 140/102 H O2 Saturation 55 L 96 O2 Source Room air Non-rebreather mask If not protocol: Oxygen Flow, liters/minute Pain Intensity 0 04/13/24 01:13 04/13/24 01:27 04/13/24 01:55 Temperature Temperature Source Pulse Rate 99 H 101 H 93 H Respiratory Rate 21 12 13 Blood Pressure 141/72 H 128/72 121/67 O2 Saturation 97 98 96 O2 Source Room air Oxymask Oxymask If not protocol: Oxygen Flow, liters/minute 4 3 Pain Intensity 0 0 0 04/13/24 01:55 04/13/24 03:30 04/13/24 04:35 Temperature Temperature Source Pulse Rate 96 H 80 80 Respiratory Rate 18 14 19 Blood Pressure 121/67 110/65 113/83 O2 Saturation 96 94 96 O2 Source Oxymask Oxymask Oxymask If not protocol: Oxygen Flow, liters/minute 3 3 Pain Intensity 0 0 0 04/13/24 05:00 04/13/24 06:00 Temperature Temperature Source Pulse Rate 68 Respiratory Rate 17 Blood Pressure 105/73 O2 Saturation 94 O2 Source Oxymask If not protocol: Oxygen Flow, liters/minute 3 Pain Intensity 0 0 Oxygen O2 Source Oxymask Labs Labs: Laboratory Tests 04/12/24 22:56 WBC 6.6 RBC 5.82 Hgb 16.3 Hct 48.8 MCV 83.8 MCH 28.0 MCHC 33.4 RDW 13.9 Plt Count 225 MPV 10.7 Neut # (Auto) 5.4 Lymph # (Auto) 0.4 L [place] # (Auto) 0.7 Eos # (Auto) 0.0 Baso # (Auto) 0.0 Absolute Nucleated RBC 0.00 Nucleated RBC % 0.0 Sodium 145 Potassium 3.8 Chloride 111 Carbon Dioxide 23 Anion Gap 11.0 BUN 13 Creatinine 0.7 Estimated GFR (MDRD) 128 Glucose 138 H Calcium 9.5 Total Bilirubin 0.8 AST 14 ALT 18 Alkaline Phosphatase 108 Total Protein 6.7 Albumin 4.0 Globulin 2.7 Albumin/Globulin Ratio 1.5 Lipase 11 PD Medical Decision Making ED course ED course: 38-year-old man with history of cerebral palsy and frequent SBO presents with abdominal pain nausea and vomiting x 4 since 1600 yesterday. Lab work was ordered Including CBC and abdominal panel that all look benign. He was given 1 mg of IV Dilaudid and 4 mg of Zofran for pain and nausea and then went to CT scan. In CT scan patient developed decreased responsiveness and then had to be taken back to the department and given facemask oxygen. His o2 sat was in 70s but rapidly increased to 90s with facemask oxygen. 0.2mg IV narcan was ordered for suspected opiate induced respiratory depression. SBO on CT. d/w Dr. monzon who recommends admission to medicine and ng tube. patient refused. Discharge Plan Discharge Patient Disposition: 66 [facility] DC/Xfer Condition: Fair Clinical Impression: Intestinal obstruction Qualifiers: Intestinal obstruction type: unspecified Intestinal obstruction extent: unspecified extent Qualified Code(s): K56.609 - Unspecified intestinal obstruction, unspecified as to partial versus complete obstruction Interventions: ED Admission Assessment Last Done: 04/13/24 06:25
--- NOTE | 2024-04-13 02:05 | CT Report ---
PROCEDURE: CT Abdomen/Pelvis W INDICATIONS: abdominal pain, hx sbo CONTRAST: 100 ML OMNI 300 TECHNIQUE: After the administration of intravenous contrast, a CT scan of the abdomen and pelvis was performed. Images were recorded and evaluated at appropriate window settings. Reformats: coronal and sagittal. F or radiation dose reduction, the following was used: automated exposure control, adjustment of mA and /or kV according to patient size. COMPARISON: None. FINDINGS: Image quality: Diagnostic. Lower chest: Bibasilar consolidative opacities. Liver: No solid mass. Gallbladder: No radiopaque stones or wall thickening. Biliary tree: No intrahepatic or extrahepatic dilation, accounting for age. Spleen: No splenomegaly. Pancreas: No pancreatic ductal dilation. Adrenals: Stable subcentimeter left adrenal nodule containing fat. Kidneys and ureters: No hydronephrosis. No renal cystic lesion which requires follow up. No solid mas s. Stomach, bowel and peritoneum: Dilated loops of small bowel measuring up to 5 cm with air-fluid leve ls. Likely transition point within left mid abdomen (). No abnormal wall thickening. No pathologi c free fluid. Lymph nodes: No central or retroperitoneal adenopathy. Vessels: No infrarenal aortic aneurysm. Patent portal vein. PELVIS Reproductive organs: Unremarkable. Bladder: Decompressed, limiting evaluation. Pelvic lymph nodes: No pelvic adenopathy by size criteria. Bones: No aggressive osseous abnormality. Other: No significant ventral or inguinal hernia. IMPRESSION: 1.Findings consistent with small bowel obstruction transition point in the left mid abdomen. 2.Bibasilar consolidative opacities, concerning for infection. Reviewed by: Aden Mast MD on 04/13/2024 2:04 AM PDT Approved by: Aden Mast MD on 04/13/2024 2:04 AM PDT Station ID: [id number]
[2024-04-13] MEDS: iohexoL-300 100 ML VIAL IVP ONE (02:13)
[2024-04-13] MEDS: MORPHINE 2 MG/ML CARPUJECT IVP STA (05:00)
[2024-04-13] MEDS ORDERED: MELATONIN 3 MG TABLET PO PRN (05:55)
[2024-04-13] MEDS ORDERED: BENZONATATE 100 MG CAPSULE PO PRN (05:55)
[2024-04-13] MEDS ORDERED: oxyCODONE 5 MG TABLET PO PRN ×2 (05:59)
[2024-04-13] MEDS ORDERED: SODIUM CHLORIDE FLUSH 0.9% 10 ML SYRINGE IVP PRN (05:59)
--- NOTE | 2024-04-13 06:04 | HISTORY & PHYSICAL EXAMINATION ---
Chief Complaint Chief Complaint Chief Complaint: abd pain, nausea, vomiting History of Present Illness History of Present Illness HPI Comment/Other: pt with h/o cerebral palsy and sbo, presents with nausea, vomiting, abd pain for past several days. h/o same. no abd trauma reported. no falls, no ams, no loc. no chest pain, sob. some chills. advised by on-call surgeon to have ngt placed, but pt declined. pt apparently had brief episode of apnea while undergoing ct, likely d/t strong pain medication. pt is more awake, alert, and breathing spontaneously now. details of pe, ros, and hx obtained from chart review and ed discussion, d/t cart connection issues. Review of Systems [facility] Social History Social History Smoking Status: Never smoker Do you dip or chew tobacco?: No Do you vape?: No Patient requests smoking cessation consult: No Initiate information on smoking cessation: No Living arrangement: Assisted living Living Condition: With family Relationship: Level: Assisted Home Mobility Equipment: Cane and Walker Do you feel safe in your home environment?: Yes Suffered physical, verbal, emotional, or financial abuse?: No History of Abuse: No Are you sexually active?: No POLST Patient has POLST: No POLST Status: Full Code Meds/Allgy Home Medications Ambulatory Orders Medication Instructions Recorded Confirmed omeprazole 20 mg capsule,delayed 20 mg PO DAILY 08/09/13 12/24/23 release hydrocodone 5 mg-acetaminophen 300 1 tab PO Q6H PRN Abdominal Pain 12/27/23 mg tablet #12 tabs ondansetron 4 mg disintegrating 4 mg translingual Q6HR PRN Nausea 12/27/23 tablet / Vomiting #60 tabs hydrocodone 5 mg-acetaminophen 325 1 - 2 tab PO Q6H PRN Pain #10 tabs 12/29/23 mg tablet Allergies Allergies Allergy/AdvReac Type Severity Reaction Status Date / Time promethazine HCl * (From AdvReac Unknown Anxiety Verified 04/12/24 22:56 Phenergan) Sulfa (Sulfonamide AdvReac Unknown Rash Verified 04/12/24 22:56 Antibiotics) Exam Exam per ed charting Conclusion/Plan Problem List (1) Small bowel obstruction: (2) Vomiting: Qualifiers: Nausea presence: with nausea Vomiting type: unspecified Qualified Code(s): R11.2 - Nausea with vomiting, unspecified Lab Results 04/12/24 22:56 04/12/24 22:56 Other Other Results/Comments: pt with - - sbo with h/o same transition point in the left mid abdomen with nausea and vomiting ngt recommended by general surgery, but pt refused - bibasilar opacities no on ct imaging check cxr rocephin and azithromycin started check resp labs and viral panel - apnea likely d/t strong pain medication resolved now f/u labs, clinical status further orders per clinical course
[2024-04-13] MEDS: LACTATED RINGERS 1,000 ML IV SCH (06:32)
[2024-04-13] MEDS: ONDANSETRON ODT 4 MG TABLET TL PRN (07:49)
[2024-04-13 08:38] LABS: BILIRUBIN,URINE NEGATIVE (NEGATIVE); GLUCOSE, URINE (UA) NEGATIVE (NEGATIVE); KETONES,URINE (UA) NEGATIVE (NEGATIVE); LEUKOCYTE ESTERASE, URINE NEGATIVE (NEGATIVE); NITRITE,URINE NEGATIVE (NEGATIVE); OCCULT BLOOD,URINE NEGATIVE (NEGATIVE); PH,URINE 5.5 PH (5.0-7.5); PROTEIN,URINE NEGATIVE (NEGATIVE); UROBILINOGEN,URINE 0.2 (NORMAL) E.U./dL (NORMAL)
[2024-04-13 08:40] LABS: CLARITY,URINE CLEAR (CLEAR)
[2024-04-13] MEDS: cefTRIAXone 1 GM in SODIUM CHLORIDE 0.9% MINIBAG 100 ML IV SCH (08:54)
[2024-04-13 09:00] LABS: CHOL/HDL RATIO 5.1 (<5.0); CHOLESTEROL 190 mg/dL; HDL CHOLESTEROL 37 mg/dL; LDL CHOLESTEROL,CALCULATED 118 mg/dL; LDL/HDL RATIO 3.2 (<3.6); TRIGLYCERIDES 175 mg/dL; VLDL CHOLESTEROL 35 mg/dL
[2024-04-13] MEDS: ENOXAPARIN 40 MG/0.4 ML SYRINGE SUBQ SCH (09:03)
[2024-04-13] MEDS: FAMOTIDINE 20 MG/2 ML VIAL IVP SCH (09:03)
[2024-04-13] MEDS: ACETAMINOPHEN 325 MG TABLET PO PRN (09:04)
[2024-04-13] MEDS: LACTOBACILLUS RHAMNOSUS GG CAPSULE PO SCH (09:04)
[2024-04-13] MEDS: SODIUM CHLORIDE FLUSH 0.9% 10 ML SYRINGE IVP SCH (09:04)
--- NOTE | 2024-04-13 09:04 | PROVIDER PROGRESS NOTE ---
Subjective Prog Note Date Prog Note Date: 04/13/24 Prog Note Time: 08:00 Subjective Pt reports feeling: Improved Subjective: He denies any abdominal pain this morning he has refused NG tube placement. He states that he has passed flatus this morning. He has not had a bowel movement. I spoke with his father on the phone this morning and his father states that this happens when Jesse eats the wrong thing. Jesse has been eating greasy food this week and normally this will bring on a bowel obstruction. The patient has not had any upper respiratory infection symptoms recently. He has not had any fevers. In the ED apparently he was oversedated prior to CT scan and had an episode of apnea. He has been on oxygen since that time but has been able to wean to room air since presenting to the floor. Current Medications Current Medications Current Medications: Current Medications Generic Name Dose Route Start Last Admin Trade Name Freq PRN Reason Stop Dose Admin Acetaminophen 650 mg 04/13/24 05:59 Acetaminophen 325 Mg Tablet PO Q6H PRN Pain 1 to 4, or Fever Benzonatate 100 mg 04/13/24 05:55 Benzonatate 100 Mg Capsule PO TID PRN Cough Enoxaparin Sodium 40 mg 04/13/24 09:00 Enoxaparin 40 Mg/0.4 Ml Syringe SUBQ DAILY YANIRA Famotidine 20 mg 04/13/24 09:00 Famotidine 20 Mg/2 Ml Vial IVP BID YANIRA Lactated Ringer's 1,000 mls @ 125 mls/hr 04/13/24 06:00 04/13/24 06:32 Lr IV 125 mls/hr .Q8H YANIRA Administration Ceftriaxone Sodium 1 gm/ 100 mls @ 200 mls/hr 04/13/24 09:00 04/13/24 08:54 Sodium Chloride IV 200 mls/hr DAILY YANIRA Administration Azithromycin 500 mg/ Sodium 250 mls @ 250 mls/hr 04/13/24 09:00 Chloride IV DAILY YANIRA Lactobacillus Rhamnosus 1 cap 04/13/24 09:00 Lactobacillus Rhamnosus Gg Capsule PO DAILY YANIRA Melatonin 3 mg 04/13/24 05:55 Melatonin 3 Mg Tablet PO QPM PRN sleep Ondansetron HCl 4 mg 04/13/24 05:59 04/13/24 07:49 Ondansetron Odt 4 Mg Tablet TL 4 mg Q6HR PRN Administration Nausea / Vomiting Oxycodone HCl 5 mg 04/13/24 05:59 Oxycodone 5 Mg Tablet PO Q4HR PRN Pain 5 to 7 Oxycodone HCl 10 mg 04/13/24 05:59 Oxycodone 5 Mg Tablet PO Q6H PRN Pain 8 to 10 Sodium Chloride 10 ml 04/13/24 05:59 Sodium Chloride Flush 0.9% 10 Ml Syringe IVP PRN PRN NEEDED PER PROVIDER ORDERS Sodium Chloride 10 ml 04/13/24 09:00 Sodium Chloride Flush 0.9% 10 Ml Syringe IVP 0100,0900,1700 YANIRA Objective Vital Signs/Intake & Output Reviewed Vital Signs: Yes Vital Signs: Vital Signs x48h Temp Pulse Pulse Pulse Resp BP BP 04/13/24 08:29 37.0 C 87 18 129/82 04/13/24 06:35 36.0 C L 70 18 110/69 04/13/24 06:00 68 17 105/73 04/13/24 04:35 80 19 113/83 04/13/24 03:30 80 14 110/65 04/13/24 01:55 96 H 18 121/67 04/13/24 01:55 93 H 13 121/67 04/13/24 01:27 101 H 12 128/72 04/13/24 01:13 99 H 21 141/72 H 04/13/24 01:01 117 H 140/102 H 04/13/24 01:00 Pulse Ox O2 Flow Rate 04/13/24 08:29 96 2 04/13/24 06:35 97 2 04/13/24 06:00 94 3 04/13/24 04:35 96 04/13/24 03:30 94 3 04/13/24 01:55 96 3 04/13/24 01:55 96 3 04/13/24 01:27 98 4 04/13/24 01:13 97 04/13/24 01:01 96 04/13/24 01:00 55 L Intake & Output: Intake & Output 04/11/24 04/12/24 04/13/24 04/14/24 05:59 05:59 05:59 05:59 Intake Total 500 / 500 Output Total 400 / 400 Balance 100 / 100 Weight (kg) 89.9 kg 83.5 kg Objective General Appearance: positive No acute distress and Alert Eyes Bilateral: positive Normal inspection ENT: positive ENT inspection nml and Dry mucous membranes Neck: positive Nml inspection Respiratory: positive Chest non-tender, No respiratory distress and Breath sounds nml Cardiovascular: positive Regular rate & rhythm Abdomen: positive Non-tender, No distention and Other (hypoactive bowel sounds) Back: positive Nml inspection Skin: positive Color nml Extremities: positive Non-tender Neurologic/Psychiatric: positive Oriented x3 Lab Results 04/12/24 22:56 04/12/24 22:56 Other Labs: Lab Results x24hrs 04/13/24 04/12/24 Range/Units 08:05 22:56 WBC 6.6 (4.8-10.8) x10^3/uL RBC 5.82 (4.70-6.10) 10^6/uL Hgb 16.3 (14.0-18.0) g/dL Hct 48.8 (42.0-52.0) % MCV 83.8 (80.0-94.0) fL MCH 28.0 (27.0-31.0) pg MCHC 33.4 (32.0-36.0) g/dL RDW 13.9 (12.0-15.0) % Plt Count 225 (130-450) 10^3/uL MPV 10.7 (7.4-11.4) fL Neut # (Auto) 5.4 (1.5-6.6) 10^3/uL Lymph # (Auto) 0.4 L (1.5-3.5) 10^3/uL [place] # (Auto) 0.7 (0.0-1.0) 10^3/uL Eos # (Auto) 0.0 (0.0-0.7) 10^3/uL Baso # (Auto) 0.0 (0.0-0.1) 10^3/uL Absolute Nucleated RBC 0.00 x10^3/uL Nucleated RBC % 0.0 /100WBC Sodium 145 (135-145) mmol/L Potassium 3.8 (3.5-4.5) mmol/L Chloride 111 (101-111) mmol/L Carbon Dioxide 23 (21-32) mmol/L Anion Gap 11.0 (6-13) BUN 13 (6-20) mg/dL Creatinine 0.7 (0.6-1.3) mg/dL Estimated GFR (MDRD) 128 (>89) Glucose 138 H (74-104) mg/dL Calcium 9.5 (8.5-10.3) mg/dL Total Bilirubin 0.8 (0.2-1.0) mg/dL AST 14 (10-42) IU/L ALT 18 (10-60) IU/L Alkaline Phosphatase 108 (42-121) IU/L Total Protein 6.7 (6.4-8.9) g/dL Albumin 4.0 (3.2-5.5) g/dL Globulin 2.7 (2.1-4.2) g/dL Albumin/Globulin Ratio 1.5 (1.0-2.2) Lipase 11 (11-82) U/L Urine Color YELLOW Urine Clarity CLEAR (CLEAR) Urine pH 5.5 (5.0-7.5) PH Ur Specific [place] 1.015 (1.002-1.030) Urine Protein NEGATIVE (NEGATIVE) mg/dL Urine Glucose (UA) NEGATIVE (NEGATIVE) mg/dL Urine Ketones NEGATIVE (NEGATIVE) mg/dL Urine Occult Blood NEGATIVE (NEGATIVE) Urine Nitrite NEGATIVE (NEGATIVE) Urine Bilirubin NEGATIVE (NEGATIVE) Urine Urobilinogen 0.2 (NORMAL) (NORMAL) E.U./dL Ur Leukocyte Esterase NEGATIVE (NEGATIVE) Ur Microscopic Review NOT INDICATED Urine Culture Comments NOT INDICATED ABX Reporting Has patient been on IV antibiotics over the past 48 hours?: Yes Assessment/Plan Problem List (1) Small bowel obstruction: Impression: With multiple admissions for same. Patient has refused NG tube. He usually does refuse an NG tube. He is not hungry he feels nauseated. He has hypoactive bowel tones. I have ordered Gastrografin for the patient to drink. I will obtain an abdominal x-ray about 6 hours after Gastrografin. This can be both diagnostic and therapeutic for small bowel obstruction. On reviewing past records it is clear that this patient should go to the [facility] for any surgical intervention. He has been seen there before. The decision has been not to surgically intervene. (2) Vomiting: Impression: Intermittent vomiting due to small bowel obstruction. Patient refuses NG tube placement. Qualifiers: Nausea presence: with nausea Vomiting type: unspecified Qualified Code(s): R11.2 - Nausea with vomiting, unspecified (3) Pneumonia: Impression: Bibasilar opacities seen on CT abdomen pelvis. Patient will be treated for community-acquired pneumonia. He is day 1 of 3 Zithromax, day 1 of 5 Rocephin. Qualifiers: Laterality: bilateral Lung location: lower lobe of lung Pneumonia type: due to unspecified organism Qualified Code(s): J18.9 - Pneumonia, unspecified organism
[2024-04-13] MEDS: AZITHROMYCIN INJ 500 MG in SODIUM CHLORIDE 0.9% 250 ML IV SCH (09:14)
--- NOTE | 2024-04-13 09:17 | XRAY Report ---
PROCEDURE: XR Chest 1V INDICATIONS: pna TECHNIQUE: One view of the chest was acquired. COMPARISON: 08/21/2020 Correlation is made with the accompanying abdomen and pelvis CT. FINDINGS: Surgical changes and devices: None. Lungs and pleura: An incomplete inspiratory result is noted, with low lung volumes and crowding of t he vascular markings. No large pneumothorax or large pleural effusion can be seen. Streaky opacities can be seen at the lung bases. Mediastinum: Mediastinal contours appear normal. Heart size is normal. Bones and chest wall: No suspicious bony lesions. Prominent gas-filled loops of bowel are seen withi n the upper abdomen, measuring greater than 7 cm. IMPRESSION: There is a mild amount of streaky opacity seen at the lung bases. Atelectasis is suspected, although a potential diagnosis includes infection. The posterior lung bases are better seen on the accompanyin g CT of the abdomen and pelvis. Dilated loops of bowel partially seen. Reviewed by: Julio C Bullard MD on 04/13/2024 8:16 AM KAVITHA Approved by: Julio C Bullard MD on 04/13/2024 8:16 AM KAVITHA Station ID: [id number]
[2024-04-13 09:28] LABS: INFLUENZA A- RESP PCR PANEL NOT DETECTED; INFLUENZA B - RESP PCR PANEL NOT DETECTED; RSV- RESP PCR PANEL NOT DETECTED; SARS-CoV-2 -RESP PCR PANEL NOT DETECTED
[2024-04-13 10:01] LABS: THYROID STIMULATING HORMONE 1.39 uIU/mL (0.34-5.60)
[2024-04-13 10:35] LABS: ESTIMATED AVERAGE GLUCOSE 94 mg/dL (70-100); HEMOGLOBIN A1c% 4.9 % (4.27-6.07)
[2024-04-13] MEDS: DIATR MEGLU/DIATRIZOATE SODIUM 120 ML BOTTLE PO ONE (12:48)
--- NOTE | 2024-04-13 13:58 | PHARMACY PROGRESS NOTE ---
Best Possible Medication History Admit Date and Time: 04/13/24 [id number] Processed by: Pharmacy Medications reviewed in ED?: Yes Medication History completed: Yes Patient Interview: Pt unable to participate Secondary Source(s): Insurance records and Previous admit records [facility] Statement: As the person ultimately responsible for medication therapy, providers are able to order a medication from an existing home medication list in [facility] via the "Reconcile Routine" prior to Confirmation of that medication by cell support operator. Such practice is discouraged except when the physician, in their clinical judgment, deems that a medical need exists for a medication without regard to previous use.
[2024-04-13] MEDS ORDERED: ONDANSETRON 4 MG/2 ML VIAL IVP PRN (18:32)
[2024-04-13] MEDS ORDERED: MORPHINE 2 MG/ML CARPUJECT IVP PRN (18:32)
--- NOTE | 2024-04-13 23:50 | XRAY Report ---
PROCEDURE: XR Abdomen 1 V INDICATIONS: gastrografin challenge TECHNIQUE: 1 view of the abdomen were acquired. COMPARISON: None. FINDINGS: Surgical changes and devices: None. Bowel: Dilated loops of small bowel noted some of which contain Gastrografin. Diameter up to 5.3 cm i t. Nevertheless, Gastrografin noted within the colon and rectum Soft tissues: No masses; visualized solid organ contours appear normal in size. No suspicious abdom inal calcifications. Bones: No suspicious bony abnormalities. IMPRESSION: Dilated loops of small bowel with contrast in the colon and rectum. Differential would be small bowel ileus versus recently resolved obstruction Reviewed by: Antonio Kilgore MD on 04/13/2024 10:48 PM AKRUSTY Approved by: Antonio Kilgore MD on 04/13/2024 10:48 PM AKRUSTY Station ID: [id number]
[2024-04-14 05:20] LABS: BASOPHILS % (AUTO) 0.2 %; EOSINOPHILS % (AUTO) 0.8 %; HGB - HEMOGLOBIN 13.4 g/dL (14.0-18.0); LYMPHOCYTES # (AUTO) 0.7 10^3/uL (1.5-3.5); LYMPHOCYTES % (AUTO) 14.3 %; MEAN CORPUSCULAR HEMOGLOBIN 28.2 pg (27.0-31.0); MEAN CORPUSCULAR HGB CONC 31.9 g/dL (32.0-36.0); MEAN CORPUSCULAR VOLUME 88.2 fL (80.0-94.0); MEAN PLATELET VOLUME 10.8 fL (7.4-11.4); MONOCYTES # (AUTO) 0.6 10^3/uL (0.0-1.0); MONOCYTES % (AUTO) 11.7 %; NEUTROPHILS # (AUTO) 3.6 10^3/uL (1.5-6.6); NEUTROPHILS % (AUTO) 72.8 %; PLT - PLATELET COUNT 178 10^3/uL (130-450); RED BLOOD COUNT 4.76 10^6/uL (4.70-6.10); RED CELL DISTRIBUTION WIDTH 14.3 % (12.0-15.0); WHITE BLOOD COUNT 4.9 x10^3/uL (4.8-10.8)
[2024-04-14 05:37] LABS: ALBUMIN 3.1 g/dL (3.2-5.5); ALBUMIN/GLOBULIN RATIO 1.4 (1.0-2.2); BILIRUBIN,TOTAL 0.4 mg/dL (0.2-1.0); CALCIUM 8.3 mg/dL (8.5-10.3); CREATININE 0.6 mg/dL (0.6-1.3); MAGNESIUM 2.1 mg/dL (1.7-2.3); POTASSIUM 3.6 mmol/L (3.5-4.5); TOTAL PROTEIN 5.3 g/dL (6.4-8.9)
[2024-04-14 06:35] VITALS: O2SAT 93
--- NOTE | 2024-04-14 11:19 | Discharge Summary ---
Discharge Summary Admit Date: 04/13/24 Discharge Date: 04/14/24 Discharging Provider: Vaughn Nguyễn Primary Care Provider: Kamala Oconnell Code Status: Attempt Resuscitation DIAGNOSES Admission Diagnoses: SBO Lung infiltrate on CT Discharge Diagnoses with Status of Each Condition: SBOresolved Lung infiltrate on CTactive HPI History of Present Illness: 38-year-old male with past medical history of cerebral palsy and multiple admissions for small bowel obstruction presented to the ER withNausea, vomiting, abdominal pain times several days. Workup was positive for small bowel obstruction. HOSPITAL COURSE Hospital Course: While in CT, he had an episode of apnea likely secondary to pain medication. CT incidentally showed bibasilar opacities concerning for pneumonia, so he was initiated on antibiotics for community acquired pneumonia ALLERGIES Allergies Allergy/AdvReac Type Severity Reaction Status Date / Time promethazine HCl * (From AdvReac Unknown Anxiety Verified 04/12/24 22:56 Phenergan) Sulfa (Sulfonamide AdvReac Unknown Rash Verified 04/12/24 22:56 Antibiotics) MEDICATIONS Ambulatory Orders Medication Instructions Recorded Confirmed omeprazole 20 mg capsule,delayed 20 mg PO DAILY 08/09/13 04/13/24 release oxycodone-acetaminophen 5 mg-325 1 tab PO Q4H PRN pain 04/13/24 04/13/24 mg tablet amoxicillin 500 mg capsule 1,000 mg (2 x 500 mg) PO TID 3 04/14/24 days #18 caps azithromycin 500 mg tablet 500 mg PO DAILY 1 day #1 tab 04/14/24 PHYSICAL EXAM AT DISCHARGE General Appearance: positive No acute distress Respiratory: positive Chest non-tender and No respiratory distress Cardiovascular: positive Regular rate & rhythm Abdomen: positive Non-tender Skin: positive Color nml Extremities: positive Non-tender Neurologic/Psychiatric: positive Oriented x3 LABS 04/14/24 05:10 04/14/24 05:10 DIAGNOSTIC IMAGING Diagnostic Imaging Results: Final report reviewed Diagnostic Imaging Results Comments: CT abdomen/pelvisSBO, bibasilar opacities Abdomen x-ray likely resolution of SBO SEPSIS Current Stage of Sepsis: Ruled out TIME SPENT Time Spent in Discharge (Minutes): 25 Discharge Plan Discharge Patient Disposition: 01 Home, Self Care Condition: Fair Medically Cleared Date:: 04/14/24 Prescriptions: New azithromycin 500 mg tablet 500 mg PO DAILY 1 Days Qty: 1 0RF amoxicillin 500 mg capsule 1,000 mg PO TID 3 Days Qty: 18 0RF Continued omeprazole 20 MG capsule,delayed release(DR/EC) 20 mg PO DAILY oxycodone-acetaminophen 5-325 mg tablet 1 tab PO Q4H PRN (Reason: pain) Patient Comments: take 1 tablet by mouth every 4 hours if needed for pain Diet: Regular Health Concerns: You are a 38-year-old male with past medical history of cerebral palsy and multiple small bowel obstructions. You came to the hospital for a small bowel obstruction. While you were here, CT scan was concerning for pneumonia, so we are covering you for pneumonia Care Plan Goals: You are familiar with foods that can trigger small bowel obstruction. I encourage you to manage your diet as you see fit. I would like you to finish the antibiotics I have prescribed for a possible pneumonia Plan of Treatment: Amoxicillin, azithromycin for possible pneumonia Print Language: Croatian Patient Instructions: Obstruction Sm Bowel Stand Alone Forms: PCP List
== END 2024-04-14 14:21 | disposition home or self-care (01) ==
LOC: MS2 22:47 → ED 22:47 → MS2 04-13 06:32
PROVIDERS: ADMIT Student in an Organized Health Care Education/Training Program; ATTEND Student in an Organized Health Care Education/Training Program
DX: K56.609 Unspecified intestinal obstruction, unspecified as to partial versus complete obstruction; R06.81 Apnea, not elsewhere classified; R91.8 Other nonspecific abnormal finding of lung field; J18.9 Pneumonia, unspecified organism; G80.9 Cerebral palsy, unspecified

== ENCOUNTER 2025-03-03 16:46 | Inpatient (IN) ==
--- NOTE | 2025-03-03 16:48 | ED Physician Documentation ---
PD HPI ABD PAIN Stated complaint Stated Complaint: ABD PX Chief complaint Chief Complaint: Abd Pain Additional information Additional information: 39-year-old male with cerebral palsy presents emergency department via EMS for severe abdominal pain. Patient says that he has had this abdominal pain before and last time it was due to a small bowel obstruction. He has nausea vomiting diffuse acute abdominal pain no recent trauma to the abdomen no history of abd ominal surgeries lives with parents who are not at bedside. Meds/Allgy Home Medications Ambulatory Orders Medication Instructions Recorded Confirmed omeprazole 20 mg capsule,delayed 20 mg PO BID acid ref lux 08/09/13 12/18/24 release Allergies Allergies Allergy/AdvReac Type Severity Reaction Status Date / Time promethazine HCl * (From AdvReac Unknown Anxiety Verified 03/03/25 16:51 Phenergan) Sulfa (Sulfonamide AdvReac Unknown Rash Verified 03/03/25 16:51 Antibiotics) PFSH Active Problems All Active Problems (Updated 03/03/25 @ 19:07 by Mily Kerr DNP) SBO (small bowel obstruction) (Acute) Neurogenic bowel (Acute) SBO (small bowel obstruction) (Acute) Pneumonia (Acute) Small bowel mass (Acute) Abdominal mass (Acute) Ambulatory dysfunction (Acute) Hyperglycemia (Acute) Hypokalemia (Acute) Hiatal hernia (Acute) Cerebral palsy (Acute) Back pain (Acute) Flank pain (Acute) Right lower quadrant pain (Acute) Appendicitis, acute (Acute) Contusion, upper arm (Acute) Right wrist sprain (Acute) Chest pain (Acute) Ileus (Acute) Vomiting (Acute) Medical History Medical History (Updated 03/03/25 @ 19:07 by Mily Kerr DNP) Small bowel obstruction Intestinal obstruction Social History Social History Smoking Status: Smoker current status unk Second hand tobacco smoke exposure: No Do you dip or chew tobacco?: No Do you vape?: No Patient requests smoking cessation consult: No Initiate information on smoking cessation: No Living arrangement: Assisted living Living Condition: With family Level: Assisted Do you feel safe in your home environment?: Yes History of physical, verbal, emotional, or financial abuse?: No Substance Use: denies use Are you sexually active?: No POLST Patient has POLST: No Exam Exam Vital Signs: Vital Signs x48h Temp Pulse Resp BP Pulse Ox O2 Flow Rate 03/03/25 18:51 92 20 120/79 99 6 03/03/25 16:49 36.5 C 95 18 125/85 97 03/03/25 16:48 96 6 03/03/25 16:47 91 12 125/85 80 L Constitutional normal general appearance, no apparent distress, average body habitus, limitations noted (Developmental delay) and alert HENMT normocephalic and head/scalp atraumatic Eyes PERRL Chest inspection of chest normal Respiratory breath sounds equal bilaterally and normal respiratory effort Cardiovascular normal heart rate noted Gastrointestinal abdomen normal to inspection, abdomen soft to palpation, tender to palpation (Generalized abdominal tenderness with palpation) and nondistended Genitourinary no CVA tenderness Extremities normal to inspection Skin Pale Results Vitals Vitals: Vital Signs - 24 hr 03/03/25 16:47 03/03/25 16:48 03/03/25 16:49 Temperature 36.5 C Temperature Source Temporal Artery Scan Pulse Rate 91 95 Respiratory Rate 12 18 Blood Pressure 125/85 125/85 O2 Saturation 80 L 96 97 O2 Source Room air Simple Mask Room air If not protocol: Oxygen Flow, liters/minute 6 Pain Intensity 10 03/03/25 16:51 03/03/25 17:04 03/03/25 18:51 Temperature Temperature Source Pulse Rate 92 Respiratory Rate 20 Blood Pressure 120/79 O2 Saturation 99 O2 Source Simple Mask If not protocol: Oxygen Flow, liters/minute 6 Pain Intensity 10 10 Oxygen O2 Source Simple Mask Labs Labs: Laboratory Tests 03/03/25 17:00 WBC 9.2 RBC 6.47 H Hgb 15.5 Hct 51.4 MCV 79.4 L MCH 24.0 L MCHC 30.2 L RDW 18.2 H Plt Count 313 MPV 10.4 Neut # (Auto) 7.8 H Lymph # (Auto) 0.9 L [place] # (Auto) 0.4 Eos # (Auto) 0.0 Baso # (Auto) 0.0 Absolute Nucleated RBC 0.00 Nucleated RBC % 0.0 Sodium 144 Potassium 3.7 Chloride 106 Carbon Dioxide 28 Anion Gap 10.0 BUN 19 Creatinine 0.7 Estimated GFR (MDRD) 127 Glucose 119 H Calcium 9.9 Total Bilirubin 0.4 AST 22 ALT 31 Alkaline Phosphatase 135 H Total Protein 7.0 Albumin 4.4 Globulin 2.6 Albumin/Globulin Ratio 1.7 Lipase 21 Rads (name of study) CT abdomen pelvis with: Relevant Findings:: Final report received and EMP independent interpretation of test Interpretation: IMPRESSION: Small bowel obstruction, with dilated loops of small bowel proximally measuring up to 5.5 cm. The distal small bowel loops are decompressed. There may be a transition point within the upper mid abdomen, epiphysis and self-confidence. 2.5 cm small bowel nodule again seen. PD Medical Decision Making ED course ED course: 39-year-old male presents emergency department via EMS for severe diffuse abdominal pain. Patient is found to have a small bowel obstruction on CT according to my chart review this has happened 17 other times this may be his 18th or 19th hospital visit for this. He is having nausea vomiting he is declining a NG tube. Labs do not show any acute abnormalities aside from his baseline spoke with hospitalist JONNA Nguyễn who has graciously agreed to admit the patient for observation. Pain was well-controlled with 1 dose of IV Dilaudid of note he did become quite hypoxic desatting to 50% on room air he responded well to a simple mask and supplemental oxygen of 6 L. Patient is agreeable to stay for hospitalization. Discharge Plan Discharge Patient Disposition: 66 [facility] DC/Xfer Condition: Stable Clinical Impression: SBO (small bowel obstruction) Interventions: ED Admission Assessment Last Done: 03/03/25 19:42
--- OUTSIDE RECORDS SUMMARY | 2025-03-03 17:01 | EXTERNAL MEDICAL SUMMARY RPT | Continuity of Care Document ---
Author Organization [facility] Address [address] [place] [id number] Phone Problems date description facility 2024-12-18 02:05 Cerebral palsy, unspecified [facility] 2024-12-18 02:05 Unspecified intestin al obstruction, unspecified as to partial versus complete [facility] 2024-12-18 03:18 Cerebral palsy, unspecified [facility] 2024-12-18 03:18 Unspecified intestin al obstruction, unspecified as to partial versus complete obstruction [facility] 2024-12-18 03:18 Unspecified abdominal pain [email or web address] 2024-12-18 08:17 Cerebral palsy, unspecified [facility] 2024-12-18 08:17 Unspecified intestin al obstruction, unspecified as to partial versus complete obstruction [facility] 2024-12-18 08:17 Unspecified abdominal pain [email or web address] 2024-12-18 08:53 Cerebral palsy, unspecified [facility] 2024-12-18 08:53 Unspecified intestin al obstruction, unspecified as to partial versus complete obstruction [facility] 2024-12-18 08:53 Unspecified abdominal pain [email or web address] 2024-12-18 16:31 Cerebral palsy, unspecified [facility] 2024-12-18 16:31 Unspecified intestin al obstruction, unspecified as to partial versus complete obstruction [facility] 2024-12-18 16:31 Unspecified abdominal pain [email or web address] 2024-12-21 12:08 Cerebral palsy, unspecified [facility] 2024-12-21 12:08 Unspecified intestin al obstruction, unspecified as to partial versus complete obstruction [facility] 2024-12-21 12:08 Neurogenic bowel, not elsewhere classified [facility] 2024-12-21 12:08 Unspecified abdominal pain [email or web address] 2024-12-21 12:10 Cerebral palsy, unspecified [facility] 2024-12-21 12:10 Unspecified intestin al obstruction, unspecified as to partial versus complete obstruction [facility] 2024-12-21 12:10 Neurogenic bowel, not elsewhere classified [facility] 2024-12-21 12:10 Unspecified abdominal pain [facility] 2024-12-21 12:13 Cerebral palsy, unspecified [facility] 2024-12-21 12:13 Unspecified intestin al obstruction, unspecified as to partial versus complete obstruction [facility] 2024-12-21 12:13 Neurogenic bowel, not elsewhere classified [facility] 2024-12-21 12:13 Unspecified abdominal pain [facility] 2024-12-21 12:16 Cerebral palsy, unspecified [facility] 2024-12-21 12:16 Unspecified intestin al obstruction, unspecified as to partial versus complete obstruction [facility] 2024-12-21 12:16 Neurogenic bowel, not elsewhere classified [facility] 2024-12-21 12:16 Unspecified abdominal pain [facility] 2024-12-21 12:32 Cerebral palsy, unspecified [facility] 2024-12-21 12:32 Unspecified intestin al obstruction, unspecified as to partial versus complete obstruction [facility] 2024-12-21 12:32 Neurogenic bowel, not elsewhere classified [facility] 2024-12-21 12:32 Unspecified abdominal pain [facility] 2025-01-09 10:53 Nausea with vomiting, unspecifi ed [facility] Results/Labs test date facility value unit notes Result panel 1 NUCLEATED RED BLOOD CELLS AUTO 2024-12-17 20:50 [facility] 0.0 /100wbc (missing) BASOPHILS # (AUTO) 2024-12-17 20:50 [facility] 0.0 10 3/ul (missing) NRBC ABSOLUTE COUNT (AUTO) 2024-12-17 20:50 [facility] 0.00 x10 3/ul (missing) EOSINOPHILS # (AUTO) 2024-12-17 20:50 [facility] 0.1 10 3/ul (missing) BILIRUBIN,TOTAL 2024-12-17 20:50 [facility] 0.4 mg /dl As of December 2022 testing method has changed, this may include reference ranges. CREATININE 2024-12-17 20:50 [facility] 0.8 mg/dl As of December 2022 testing method has changed, this may include reference ranges. MONOCYTES # (AUTO) 2024-12-17 20:50 [facility] 0.9 10 3/ul (missing) LYMPHOCYTES # (AUTO) 2024-12-17 20:50 [facility] 1.0 10 3/ul (missing) ALBUMIN/GLOBULIN RATIO 2024-12-17 20:50 [facility] 1.5 (missing) (missing) ANION GAP 2024-12-17 20:50 [facility] 10.0 (missing ) (missing) MEAN PLATELET VOLUME 2024-12-17 20:50 [facility] 10.2 fl (missing) CALCIUM 2024-12-17 20:50 [facility] 10.2 mg/dl As of December 2022 testing method has changed, this may include reference ranges. WHITE BLOOD COUNT 2024-12-17 20:50 [facility] 10.7 x10 3/ul (missing) CHLORIDE 2024-12-17 20:50 [facility] 105 mmol/l As of December 2022 testing method has changed, this may include reference ranges. GFR - MDRD 2024-12-17 20:50 [facility] 109 (benson g) Social History date description facility
[2025-03-03 17:04] LABS: HCT - HEMATOCRIT 51.4 % (42.0-52.0); HGB - HEMOGLOBIN 15.5 g/dL (14.0-18.0); MEAN PLATELET VOLUME 10.4 fL (7.4-11.4); NRBC ABSOLUTE COUNT (AUTO) 0.00 x10^3/uL; NUCLEATED RED BLOOD CELLS AUTO 0.0 /100WBC; PLT - PLATELET COUNT 313 10^3/uL (130-450); RED CELL DISTRIBUTION WIDTH 18.2 % (12.0-15.0)
[2025-03-03] MEDS: ONDANSETRON 4 MG/2 ML VIAL IVP STA ×2 (17:04→19:18)
[2025-03-03] MEDS: HYDROmorphone 0.5 MG/0.5 ML SYRINGE IM STA (17:04)
[2025-03-03] MEDS: SODIUM CHLORIDE 0.9% 500 ML IV ONE ×2 (17:05→18:58)
[2025-03-03 17:22] LABS: ALT ALANINE AMINOTRANSFERASE 31.0 IU/L (10-60); AST ASPARTATE AMINOTRANSFERASE 22.0 IU/L (10-42); BUN - BLOOD UREA NITROGEN 19.0 mg/dL (6-20); CARBON DIOXIDE - CO2 28.0 mmol/L (21-32); CREATININE 0.7 mg/dL (0.6-1.3); GFR - MDRD 127.0 (>89)
--- NOTE | 2025-03-03 18:34 | CT Report ---
PROCEDURE: CT Abdomen/Pelvis W INDICATIONS: Abdominal pain, acute, nonlocalized CONTRAST: ONNI 300, 100ML TECHNIQUE: After the administration of intravenous contrast, a CT scan of the abdomen and pelvis was performed. Images were recorded and evaluated at appropriate window settings. Reformats: coronal and sagittal. For radiation dose reduction, the following was used: automated exposure control, adjustment of mA and/or kV according to patient size. COMPARISON: 12/17/2024, 07/29/2024 FINDINGS: Image quality: Diagnostic. Lower chest: Likely dependent atelectasis is present. Liver: No solid mass. Gallbladder: Within normal limits. Biliary tree: No intrahepatic or extrahepatic dilation, accounting for age. Spleen: No splenomegaly. Pancreas: No pancreatic ductal dilation. Adrenals: No adrenal nodule. Kidneys and ureters: No hydronephrosis. No renal cystic lesion which requires follow up. No solid mass. Stomach, bowel and peritoneum: Abnormally dilated loops of fluid-filled small bowel can be seen proximally, which measure up to 5.5 cm. The distal small bowel loops are decompressed. The transition point may be within the upper mid abdomen, yet this is not said with confidence. A small bowel nodule is again seen, as demonstrated on series 2 image 67, measuring 2.5 cm. The colon is relatively decompressed. No free air or significant free fluid can be seen. No intraperitoneal abscess is seen. Lymph nodes: No central or retroperitoneal adenopathy. Vessels: No infrarenal aortic aneurysm. Patent portal vein. PELVIS Reproductive organs: Unremarkable. Bladder: No abnormal wall thickening. Pelvic lymph nodes: No pelvic adenopathy by size criteria. Bones: No aggressive osseous abnormality. Other: No significant ventral or inguinal hernia. IMPRESSION: Small bowel obstruction, with dilated loops of small bowel proximally measuring up to 5.5 cm. The distal small bowel loops are decompressed. There may be a transition point within the upper mid abdomen, epiphysis and self-confidence. 2.5 cm small bowel nodule again seen. Reviewed by: Julio C Bullard MD on 03/03/2025 5:32 PM KAVITHA Approved by: Julio C Bullard MD on 03/03/2025 5:32 PM NVRUSTY Station ID: [id number]
--- OUTSIDE RECORDS SUMMARY | 2025-03-03 19:23 | EXTERNAL MEDICAL SUMMARY RPT | Continuity of Care Document ---
Author Organization [facility] Address [address] [place] [id number] Phone Problems date description facility 2024-12-18 02:05 Cerebral palsy, unspecified [facility] 2024-12-18 02:05 Unspecified intestin al obstruction, unspecified as to partial versus [facility] 03:18 Cerebral palsy, unspecified [facility] 2024-12-18 03:18 Unspecified intestin al obstruction, unspecified as to partial versus complete [facility]24-[facility]-18 03:18 Unspecified abdominal pain [facility] 2024-12-18 08:17 Cerebral palsy, unspecified [facility] 2024-12-18 08:17 Unspecified intestin al obstruction, unspecified as to partial versus complete [facility] 2024-12-18 08:17 Unspecified abdominal pain [facility] 2024-12-18 08:53 Cerebral palsy, unspecified [facility] 2024-12-18 08:53 Unspecified intestin al obstruction, unspecified as to partial versus complete [facility] 2024-12-18 08:53 Unspecified abdominal pain [facility] 2024-12-18 16:31 Cerebral palsy, unspecified [facility] 2024-12-18 16:31 Unspecified intestin al obstruction, unspecified as to partial versus complete [facility] 2024-12-18 16:31 Unspecified abdominal pain [facility] 2024-12-21 12:08 Cerebral palsy, unspecified [facility] 2024-12-21 12:08 Unspecified intestin al obstruction, unspecified as to partial versus complete [facility] 2024-12-21 12:08 Neurogenic bowel, not elsewhere [facility] 2024-12-21 12:08 Unspecified abdominal pain [facility] 2024-12-21 12:10 Cerebral palsy, unspecified [facility] 2024-12-21 12:10 Unspecified intestin al obstruction, unspecified as to partial versus complete obstruction [facility], [facility] 2024-12-21 12:10 Neurogenic bowel, not elsewhere classified [facility], [facility] 2024-12-21 12:10 Unspecified abdominal pain [facility] 2024-12-21 12:13 Cerebral palsy, unspecified [facility] 2024-12-21 12:13 Unspecified intestin al obstruction, unspecified as to partial versus complete obstruction [facility], [facility] 2024-12-21 12:13 Neurogenic bowel, not elsewhere classified [facility] 2024-12-21 12:13 Unspecified abdominal pain [facility] 2024-12-21 12:16 Cerebral palsy, unspecified [facility] 2024-12-21 12:16 Unspecified intestin al obstruction, unspecified as to partial versus complete obstruction [facility], [facility] 2024-12-21 12:16 Neurogenic bowel, not elsewhere classified [facility], [facility] 2024-12-21 12:16 Unspecified abdominal pain [facility] 2024-12-21 12:32 Cerebral palsy, unspecified [facility] 2024-12-21 12:32 Unspecified intestin al obstruction, unspecified as to partial versus complete obstruction [facility], [facility] 2024-12-21 12:32 Neurogenic bowel, not elsewhere classified [facility], [facility] 2024-12-21 12:32 Unspecified abdominal pain [facility] 2025-01-09 10:53 Nausea with vomiting, [facility]specifi ed [facility] Results/Labs test date facility value unit notes Result panel 1 NUCLEATED RED BLOOD CELLS AUTO 2024-12-17 20[facility] 0.0 /100wbc (missing) BASOPHILS # (AUTO) 2024-12-17 20[facility]0 10 3/ul (missing) NRBC ABSOLUTE COUNT (AUTO) 2024-12-17 20:50 [facility] 0.00 x10 3/ul (missing) EOSINOPHILS # (AUTO) 2024-12-17 20:50 [facility] 0.1 10 3/ul (missing) BILIRUBIN,TOTAL 2024-12-17 20[facility] 0.4 mg /dl As of December 2022 testing method has changed, this may include reference ranges. CREATININE 2024-12-17 20:50 [facility] 0.8 mg/dl As of December 2022 testing method has changed, this may include reference ranges. MONOCYTES # (AUTO) 2024-12-17 20:50 [facility] 0.9 10 3/ul (missing) LYMPHOCYTES # (AUTO) 2024-12-17 20:50 [facility] 1.0 10 3/ul (missing) ALBUMIN/GLOBULIN RATIO 2024-12-17 20:50 [facility] 1.5 (missing) (missing) ANION GAP 2024-12-17 20:50 [facility] 10.0 (missing ) (missing) MEAN PLATELET VOLUME 2024-12-17 20:50 [facility] 10.2 fl (missing) CALCIUM 2024-12-17 20:50 [facility] 10.2 mg/dl As of December 2022 testing method has changed, this may include reference ranges. WHITE BLOOD COUNT 2024-12-17 20:50 [facility] 10.7 x10 3/ul (missing) CHLORIDE 2024-12-17 20:50 [facility] 105 mmol/l As of December 2022 testing method has changed, this may include reference ranges. GFR - MDRD 2024-12-17 20:50 [facility] 109 (benson g) Social History date description facility
--- NOTE | 2025-03-03 19:27 | HISTORY & PHYSICAL EXAMINATION ---
Chief Complaint Chief Complaint Chief Complaint: Abdominal pain History of Present Illness History of Present Illness HPI Comment/Other: 39-year-old male with history of cerebral palsy, myoclonic dystrophy, appendicitis. He has had multiple admissions for small bowel obstruction that all resolved spontaneously. He presents to the hospital today with severe abdominal pain. He also has nausea and vomiting. In the ER, CT abdomen was performed which shows small bowel obstruction with dilated loops of small bowel approximately measuring up to 5.5 cm. Suspected transition point within the upper mid abdomen. General surgery was contacted by ER provider, and recommendation was made to admit to medicine for nonoperative management of his small bowel obstruction Meds/Allgy Home Medications Ambulatory Orders Medication Instructions Recorded Confirmed omeprazole 20 mg capsule,delayed 20 mg PO BID acid ref lux 08/09/13 12/18/24 release Allergies Allergies Allergy/AdvReac Type Severity Reaction Status Date / Time promethazine HCl * (From AdvReac Unknown Anxiety Verified 03/03/25 16:51 Phenergan) Sulfa (Sulfonamide AdvReac Unknown Rash Verified 03/03/25 16:51 Antibiotics) PFSH Active Problems All Active Problems (Updated 03/03/25 @ 19:07 by Mily Kerr DNP) SBO (small bowel obstruction) (Acute) Neurogenic bowel (Acute) SBO (small bowel obstruction) (Acute) Pneumonia (Acute) Small bowel mass (Acute) Abdominal mass (Acute) Ambulatory dysfunction (Acute) Hyperglycemia (Acute) Hypokalemia (Acute) Hiatal hernia (Acute) Cerebral palsy (Acute) Back pain (Acute) Flank pain (Acute) Right lower quadrant pain (Acute) Appendicitis, acute (Acute) Contusion, upper arm (Acute) Right wrist sprain (Acute) Chest pain (Acute) Ileus (Acute) Vomiting (Acute) Medical History Medical History (Updated 03/03/25 @ 19:07 by Mily Kerr DNP) Small bowel obstruction Intestinal obstruction Social History Social History (Updated 03/03/25 @ 19:50 by Mily Kerr DNP) Smoking Status: Smoker current status unk Second hand tobacco smoke exposure: No Do you dip or chew tobacco?: No Do you vape?: No Patient requests smoking cessation consult: No Initiate information on smoking cessation: No Living arrangement: Assisted living Living Condition: With family Level: Assisted Do you feel safe in your home environment?: Yes History of physical, verbal, emotional, or financial abuse?: No Substance Use: denies use Are you sexually active?: No POLST Patient has POLST: No Review of Systems Status of ROS: 10 or more systems reviewed and unremarkable except as noted in history and below Constitutional Denies: Fever or Chills Cardiovascular Denies: Irregular heart rate, chest pain, palpitations or shortness of breath with exertion Respiratory Denies: Shortness of breath Gastrointestinal Reports: Abdominal pain, Nausea and Vomiting Exam Exam Vital Signs: Vital Signs x48h Temp Pulse Resp BP Pulse Ox O2 Flow Rate 03/03/25 19:42 73 18 139/106 H 95 5 03/03/25 18:51 92 20 120/79 99 6 03/03/25 16:49 36.5 C 95 18 125/85 97 03/03/25 16:48 96 6 03/03/25 16:47 91 12 125/85 80 L Constitutional normal general appearance and no apparent distress HENMT normocephalic, head/scalp atraumatic and dentition abnormal other Eyes PERRL Chest inspection of chest normal Respiratory breath sounds equal bilaterally and normal respiratory effort Cardiovascular normal heart rate noted Gastrointestinal abdomen normal to inspection, abdomen soft to palpation, tender to palpation (Generalized abdominal tenderness with palpation) (moderate), nondistended and abnormal bowel sounds noted (hypoactive bowel sounds) Genitourinary no CVA tenderness Extremities normal to inspection Neurology GCS 15 Psychiatry oriented x3 Skin skin color normal Conclusion/Plan Problem List (1) SBO (small bowel obstruction): Plan: Patient has had multiple presentations for small bowel obstruction. At time of his last admission in December, his tally for small bowel obstructions was up to 17. I believe this makes his 18th presentation to hospital for small bowel obstruction Suspect neurogenic bowel General Surgery following NGT refused As per usual, we will treat him conservatively with bowel rest until his bowel function returns. N.p.o. He is having significant abdominal pain. I am attempting to reduce usage of opiates. As such, I have ordered scheduled IV Tylenol and as needed ketorolac. I am ordering morphine 1 mg IV push every 2 hour as needed for very severe pain (2) Cerebral palsy: Plan: He has a history of cerebral palsy. On review of his home med list, it only shows omeprazole Qualifiers: Cerebral palsy type: unspecified type Qualified Code(s): G80.9 - Cerebral palsy, unspecified Plan Admit inpatient med floor Full code His father is his surrogate decision maker Lab Results Lab results reviewed: Yes 03/03/25 17:00 03/03/25 17:00 Diagnostic Imaging Results Diagnostic Imaging Results: positive Final report reviewed Core Measures Anticipated LOS I expect patient to be DC'd or transferred within 96 hours.: Yes DVT/VTE - Prophylaxis VTE/DVT Prophylaxis med ordered at admit?: Yes
[2025-03-03] MEDS ORDERED: ACETAMINOPHEN 325 MG TABLET PO PRN (19:48)
[2025-03-03] MEDS ORDERED: ONDANSETRON ODT 4 MG TABLET TL PRN (19:48)
[2025-03-03] MEDS: SODIUM CHLORIDE 0.9% 1,000 ML IV SCH (20:59)
[2025-03-03] MEDS: KETOROLAC 15 MG/ML VIAL IVP PRN (20:59)
[2025-03-03] MEDS: ACETAMINOPHEN 1,000 MG/100 ML 1,000 MG/100 ML BAG IV SCH (22:49)
[2025-03-03] MEDS: SODIUM CHLORIDE FLUSH 0.9% 10 ML SYRINGE IVP SCH (23:37)
[2025-03-03] MEDS: MORPHINE 2 MG/ML CARPUJECT IVP PRN (23:57)
[2025-03-04 04:17] LABS: GLUCOSE, URINE (UA) NEGATIVE (NEGATIVE); KETONES,URINE (UA) NEGATIVE (NEGATIVE); OCCULT BLOOD,URINE NEGATIVE (NEGATIVE)
[2025-03-04 04:49] LABS: HCT - HEMATOCRIT 45.6 % (42.0-52.0); HGB - HEMOGLOBIN 13.5 g/dL (14.0-18.0); MEAN PLATELET VOLUME 10.6 fL (7.4-11.4); NRBC ABSOLUTE COUNT (AUTO) 0.00 x10^3/uL; NUCLEATED RED BLOOD CELLS AUTO 0.0 /100WBC; PLT - PLATELET COUNT 248 10^3/uL (130-450); RED CELL DISTRIBUTION WIDTH 18.1 % (12.0-15.0)
[2025-03-04 05:05] LABS: BUN - BLOOD UREA NITROGEN 20.0 mg/dL (6-20); CARBON DIOXIDE - CO2 28.0 mmol/L (21-32); CREATININE 0.7 mg/dL (0.6-1.3); GFR - MDRD 127.0 (>89)
--- NOTE | 2025-03-04 06:43 | CONSULTATION NOTE ---
Referring Provider Name of Referring Provider:: Mily Kerr Consult Date: 03/05/25 Chief Complaint Chief Complaint Chief Complaint: Abdominal pain History of Present Illness History of Present Illness HPI Comment/Other: Anthony is a 39 year old patient with cerebral palsy who presents to the ED with generalized abdominal pain last evening. He has had 17 prior admissions for similar episodes of discomfort each of which was due to an ileus likely related to his cerebral palsy. He has never required surgery for these episodes. There is no consistent aggravating factor and each has resolved with conservative management. Similar to previous episodes, a CT sca was obtained and identified distended proximal small bowel with decompressed distal small bowel and a radiographic diagnosis of a small bowel obstruction was made. In the emergency room the patient was not septic, his vital signs were stable and he labs were normal. It was decided to admit the patient to the Medical hospitalist Service for conservative management of this presumed, recurrent ileus and General Surgery was asked to assist in his evaluation and management. The patient refused placement of an NGT. During the evening, the patent slept well and his VS remained normal. he tells me this morning that he feels better and that he has passed flatus. [facility] Active Problems All Active Problems SBO (small bowel obstruction) (Acute) Neurogenic bowel (Acute) SBO (small bowel obstruction) (Acute) Pneumonia (Acute) Small bowel mass (Acute) Abdominal mass (Acute) Ambulatory dysfunction (Acute) Hyperglycemia (Acute) Hypokalemia (Acute) Hiatal hernia (Acute) Cerebral palsy (Acute) Back pain (Acute) Flank pain (Acute) Right lower quadrant pain (Acute) Appendicitis, acute (Acute) Contusion, upper arm (Acute) Right wrist sprain (Acute) Chest pain (Acute) Ileus (Acute) Vomiting (Acute) Medical History Medical History Small bowel obstruction Intestinal obstruction Social History Social History Smoking Status: Smoker current status unk Second hand tobacco smoke exposure: No Do you dip or chew tobacco?: No Do you vape?: No Patient requests smoking cessation consult: No Initiate information on smoking cessation: No Living arrangement: Assisted living Living Condition: With family Level: Assisted Home Mobility Equipment: Walker Do you feel safe in your home environment?: Yes History of physical, verbal, emotional, or financial abuse?: No Substance Use: denies use Are you sexually active?: No POLST Patient has POLST: No Meds/Allgy Home Medications Ambulatory Orders Medication Instructions Recorded Confirmed omeprazole 20 mg capsule,delayed 20 mg PO BID acid ref lux 08/09/13 12/18/24 release Allergies Allergies Allergy/AdvReac Type Severity Reaction Status Date / Time promethazine HCl * (From AdvReac Unknown Anxiety Verified 03/03/25 16:51 Phenergan) Sulfa (Sulfonamide AdvReac Unknown Rash Verified 03/03/25 16:51 Antibiotics) Results Lab Results Lab results reviewed: Yes 03/04/25 04:22 03/04/25 04:22 Other Lab Results: Lab Results x24hrs 03/04/25 03/04/25 03/03/25 Range/Units 04:22 03:55 17:00 WBC 6.0 9.2 (4.8-10.8) x10^3/uL RBC 5.66 6.47 H (4.70-6.10) 10^6/uL Hgb 13.5 L 15.5 (14.0-18.0) g/dL Hct 45.6 51.4 (42.0-52.0) % MCV 80.6 79.4 L (80.0-94.0) fL MCH 23.9 L 24.0 L (27.0-31.0) pg MCHC 29.6 L 30.2 L (32.0-36.0) g/dL RDW 18.1 H 18.2 H (12.0-15.0) % Plt Count 248 313 (130-450) 10^3/uL MPV 10.6 10.4 (7.4-11.4) fL Neut # (Auto) 4.6 7.8 H (1.5-6.6) 10^3/uL Lymph # (Auto) 0.5 L 0.9 L (1.5-3.5) 10^3/uL [place] # (Auto) 0.9 0.4 (0.0-1.0) 10^3/uL Eos # (Auto) 0.0 0.0 (0.0-0.7) 10^3/uL Baso # (Auto) 0.0 0.0 (0.0-0.1) 10^3/uL Absolute Nucleated RBC 0.00 0.00 x10^3/uL Nucleated RBC % 0.0 0.0 /100WBC Sodium 143 144 (135-145) mmol/L Potassium 4.4 3.7 (3.5-4.5) mmol/L Chloride 109 106 (101-111) mmol/L Carbon Dioxide 28 28 (21-32) mmol/L Anion Gap 6.0 10.0 (6-13) BUN 20 19 (6-20) mg/dL Creatinine 0.7 0.7 (0.6-1.3) mg/dL Estimated GFR (MDRD) 127 127 (>89) Glucose 134 H 119 H (74-104) mg/dL Calcium 8.3 L 9.9 (8.5-10.3) mg/dL Total Bilirubin 0.4 (0.2-1.0) mg/dL AST 22 (10-42) IU/L ALT 31 (10-60) IU/L Alkaline Phosphatase 135 H (42-121) IU/L Total Protein 7.0 (6.4-8.9) g/dL Albumin 4.4 (3.2-5.5) g/dL Globulin 2.6 (2.1-4.2) g/dL Albumin/Globulin Ratio 1.7 (1.0-2.2) Lipase 21 (11-82) U/L Urine Color YELLOW Urine Clarity CLEAR (CLEAR) Urine pH 6.0 (5.0-7.5) PH Ur Specific [place] 1.015 (1.002-1.030) Urine Protein NEGATIVE (NEGATIVE) mg/dL Urine Glucose (UA) NEGATIVE (NEGATIVE) mg/dL Urine Ketones NEGATIVE (NEGATIVE) mg/dL Urine Occult Blood NEGATIVE (NEGATIVE) Urine Nitrite NEGATIVE (NEGATIVE) Urine Bilirubin NEGATIVE (NEGATIVE) Urine Urobilinogen 0.2 (NORMAL) (NORMAL) E.U./dL Ur Leukocyte Esterase NEGATIVE (NEGATIVE) Ur Microscopic Review NOT INDICATED Urine Culture Comments NOT INDICATED Diagnostic Imaging Results Diagnostic Imaging Results Comments: CT Abd/Pelvis - No evidence of pneumatosis, mesenteric swirl, closed loop obstruction, free fluid or free air. Distended proximal small bowel and decompressed distal small bowel. Gas and stool in colon. There is an intra- luminal polypoid lesion in the small bowel best seen on the axial view, Image 38. This lesion is surrounded by air and does not appear to be the reason for the current or previous obstructions as the small bowel is distended proximal and distal to the lesion. The transition point on the 03/03/2025 CT scan seems to be in the pelvis best seen on axial view, Images 32-38. A similar finding is not present on the 12/17/2024 exam. Review of Systems Generalized abdominal pain. No emesis, fever, chills. Exam Exam Vital Signs: Vital Signs x48h Temp Pulse Resp BP Pulse Ox 03/03/25 23:35 37.0 C 85 16 105/61 96 Constitutional no apparent distress HENMT hearing grossly normal bilaterally Neck/C-Spine trachea midline Lymph no lymphadenopathy noted Respiratory breath sounds equal bilaterally, normal respiratory effort and clear to auscultation bilaterally Cardiovascular normal heart rate noted, regular rhythm noted and no murmur Gastrointestinal abdomen normal to inspection, abdomen soft to palpation, nontender to palpation, nontender to percussion, nondistended, no hepatosplenomegaly, no masses, no pulsatile mass and no hernia Psychiatry cooperative and affect normal Skin skin color normal and no jaundice Conclusion/Plan Problem List (1) SBO (small bowel obstruction): Plan: The recurrent pattern of this bowel problem seems more consistent with a neurogenic etiology perhaps related to his CP. At this time there is no clinical, lab, or image evidence of bowel ischemia. I suspect that this will resolve with bowel rest given the clinical improvement over the evening without gastric decompression. (2) Cerebral palsy: Plan: 1) NPO except sips and chips until lower GI activity occurs 2) Consider KUB today to determine if gas has passed from the small bowel into the colon 3) SB Challenge study if he does not clinically improve over the next 24-48 hours 4) Surgery will follow Qualifiers: Cerebral palsy type: unspecified type Qualified Code(s): G80.9 - Cerebral palsy, unspecified Lab Results Lab results reviewed: Yes 03/04/25 04:22 03/04/25 04:22
[2025-03-04] MEDS: ENOXAPARIN 40 MG/0.4 ML SYRINGE SUBQ SCH (08:02)
--- NOTE | 2025-03-04 11:32 | PROVIDER PROGRESS NOTE ---
Subjective Prog Note Date Prog Note Date: 03/04/25 Subjective Pt reports feeling: Improved Current Medications Current Medications Current Medications: Current Medications Generic Name Dose Route Start Last Admin Trade Name Freq PRN Reason Stop Dose Admin Enoxaparin Sodium 40 mg 03/04/25 09:00 03/04/25 08:02 Enoxaparin 40 Mg/0.4 Ml Syringe SUBQ 40 mg DAILY YANIRA Administration Sodium Chloride 1,000 mls @ 100 mls/hr 03/03/25 20:00 03/04/25 02:15 Normal Saline 0.9% IV 100 mls/hr .Q10H YANIRA Administration Acetaminophen 1,000 mg in 100 mls @ 400 mls/hr 03/03/25 22:00 03/04/25 05:36 Acetaminophen IV Infused TID YANIRA Infusion Ketorolac Tromethamine 15 mg 03/03/25 20:19 03/04/25 04:46 Ketorolac 15 Mg/Ml Vial IVP 03/08/25 20:18 15 mg Q6HR PRN Administration Severe Pain (Level 7-10) Morphine Sulfate 1 mg 03/03/25 20:27 03/03/25 23:57 Morphine 2 Mg/Ml Carpuject IVP 1 mg Q2HR PRN Administration Severe Pain (Level 7-10) Ondansetron HCl 4 mg 03/03/25 19:48 Ondansetron Odt 4 Mg Tablet TL Q6HR PRN Nausea / Vomiting Ondansetron HCl 4 mg 03/03/25 19:48 Ondansetron 4 Mg/2 Ml Vial IVP Q6HR PRN Nausea / Vomiting Sodium Chloride 10 ml 03/03/25 19:48 Sodium Chloride Flush 0.9% 10 Ml Syringe IVP PRN PRN NEEDED PER PROVIDER ORDERS Sodium Chloride 10 ml 03/04/25 01:00 03/04/25 08:01 Sodium Chloride Flush 0.9% 10 Ml Syringe IVP Not Given 0100,0900,1700 [facility] Objective Vital Signs/Intake & Output Reviewed Vital Signs: Yes Vital Signs: Vital Signs x48h Temp Pulse Resp BP Pulse Ox 03/04/25 07:25 36.6 C 85 18 122/75 94 Intake & Output: Intake & Output 03/01/25 03/02/25 03/03/25 03/04/25 23:59 23:59 23:59 23:59 Intake Total 1100 / 1100 627 / 627 Output Total 300 / 300 50 / 50 Balance 800 / 800 577 / 577 Weight (kg) 91 kg Objective General Appearance: positive No acute distress and Alert Eyes Bilateral: positive Normal inspection Respiratory: positive Chest non-tender and No respiratory distress Cardiovascular: positive Regular rate & rhythm Abdomen: positive Tenderness and Other (Passing flatus, had a small bowel movement last night) Skin: positive Color nml Extremities: positive Non-tender Neurologic/Psychiatric: positive Oriented x3 Lab Results 03/04/25 04:22 03/04/25 04:22 Other Labs: Lab Results x24hrs 03/04/25 03/04/25 03/03/25 Range/Units 04:22 03:55 17:00 WBC 6.0 9.2 (4.8-10.8) x10^3/uL RBC 5.66 6.47 H (4.70-6.10) 10^6/uL Hgb 13.5 L 15.5 (14.0-18.0) g/dL Hct 45.6 51.4 (42.0-52.0) % MCV 80.6 79.4 L (80.0-94.0) fL MCH 23.9 L 24.0 L (27.0-31.0) pg MCHC 29.6 L 30.2 L (32.0-36.0) g/dL RDW 18.1 H 18.2 H (12.0-15.0) % Plt Count 248 313 (130-450) 10^3/uL MPV 10.6 10.4 (7.4-11.4) fL Neut # (Auto) 4.6 7.8 H (1.5-6.6) 10^3/uL Lymph # (Auto) 0.5 L 0.9 L (1.5-3.5) 10^3/uL [place] # (Auto) 0.9 0.4 (0.0-1.0) 10^3/uL Eos # (Auto) 0.0 0.0 (0.0-0.7) 10^3/uL Baso # (Auto) 0.0 0.0 (0.0-0.1) 10^3/uL Absolute Nucleated RBC 0.00 0.00 x10^3/uL Nucleated RBC % 0.0 0.0 /100WBC Sodium 143 144 (135-145) mmol/L Potassium 4.4 3.7 (3.5-4.5) mmol/L Chloride 109 106 (101-111) mmol/L Carbon Dioxide 28 28 (21-32) mmol/L Anion Gap 6.0 10.0 (6-13) BUN 20 19 (6-20) mg/dL Creatinine 0.7 0.7 (0.6-1.3) mg/dL Estimated GFR (MDRD) 127 127 (>89) Glucose 134 H 119 H (74-104) mg/dL Calcium 8.3 L 9.9 (8.5-10.3) mg/dL Total Bilirubin 0.4 (0.2-1.0) mg/dL AST 22 (10-42) IU/L ALT 31 (10-60) IU/L Alkaline Phosphatase 135 H (42-121) IU/L Total Protein 7.0 (6.4-8.9) g/dL Albumin 4.4 (3.2-5.5) g/dL Globulin 2.6 (2.1-4.2) g/dL Albumin/Globulin Ratio 1.7 (1.0-2.2) Lipase 21 (11-82) U/L Urine Color YELLOW Urine Clarity CLEAR (CLEAR) Urine pH 6.0 (5.0-7.5) PH Ur Specific [place] 1.015 (1.002-1.030) Urine Protein NEGATIVE (NEGATIVE) mg/dL Urine Glucose (UA) NEGATIVE (NEGATIVE) mg/dL Urine Ketones NEGATIVE (NEGATIVE) mg/dL Urine Occult Blood NEGATIVE (NEGATIVE) Urine Nitrite NEGATIVE (NEGATIVE) Urine Bilirubin NEGATIVE (NEGATIVE) Urine Urobilinogen 0.2 (NORMAL) (NORMAL) E.U./dL Ur Leukocyte Esterase NEGATIVE (NEGATIVE) Ur Microscopic Review NOT INDICATED Urine Culture Comments NOT INDICATED Assessment/Plan Problem List (1) SBO (small bowel obstruction): Impression: Patient has had multiple presentations for small bowel obstruction. At time of his last admission in December, his tally for small bowel obstructions was up to 17. I believe this makes his 18th presentation to hospital for small bowel obstruction Suspect neurogenic bowel General Surgery following NGT refused As per usual, we will treat him conservatively with bowel rest until his bowel function returns. N.p.o. 03/04: His pain is improved. He had a small bowel movement last night and is passing flatus. Continuing n.p.o. for now, will likely attempt some p.o. intake later today at the discretion of the general surgeon. Continue scheduled Tylenol for 1 more day, as well as as needed morphine and Toradol (2) Cerebral palsy: Impression: This is likely a significant factor in his recurrent small bowel obstructions Qualifiers: Cerebral palsy type: unspecified type Qualified Code(s): G80.9 - Cerebral palsy, unspecified
[2025-03-04] MEDS: ONDANSETRON 4 MG/2 ML VIAL IVP PRN (14:14)
[2025-03-04] MEDS: SODIUM CHLORIDE FLUSH 0.9% 10 ML SYRINGE IVP PRN (16:51)
--- NOTE | 2025-03-04 18:17 | PHARMACY PROGRESS NOTE ---
Best Possible Medication History Admit Date and Time: 03/03/25 [id number] Home Medications Medication Instructions Recorded Confirmed Type omeprazole 20 mg capsule,delayed 20 mg PO BID acid ref lux 08/09/13 12/18/24 History release Processed by: Pharmacy Medications reviewed in ED?: Yes Medication History completed: Yes Patient Interview: Pt unable to participate Secondary Source(s): Insurance records [facility] Statement: As the person ultimately responsible for medication therapy, providers are able to order a medication from an existing home medication list in [facility] via the "Reconcile Routine" prior to Confirmation of that medication by manager support. Such practice is discouraged except when the physician, in their clinical judgment, deems that a medical need exists for a medication without regard to previous use.
[2025-03-05 05:19] LABS: HCT - HEMATOCRIT 41.9 % (42.0-52.0); HGB - HEMOGLOBIN 12.6 g/dL (14.0-18.0); MEAN PLATELET VOLUME 10.8 fL (7.4-11.4); NRBC ABSOLUTE COUNT (AUTO) 0.00 x10^3/uL; NUCLEATED RED BLOOD CELLS AUTO 0.0 /100WBC; PLT - PLATELET COUNT 239 10^3/uL (130-450); RED CELL DISTRIBUTION WIDTH 17.6 % (12.0-15.0)
[2025-03-05 05:35] LABS: BUN - BLOOD UREA NITROGEN 14.0 mg/dL (6-20); CARBON DIOXIDE - CO2 26.0 mmol/L (21-32); CREATININE 0.5 mg/dL (0.6-1.3); GFR - MDRD 187.0 (>89)
--- NOTE | 2025-03-05 06:56 | PROVIDER PROGRESS NOTE ---
Progress Note Progress Note Progress Note: General Surgery Progress Note S: Resting comfortably in chair; No record of lower GI activity O: VSS, afeb; Abdomen soft, non-tender, somewhat distended. Labs normal A: SBO vs ileus - persists P: KUB this morning. If evidence of persistent SB dilation and no significant air in colon, SB challenge will be ordered. Nahum Bryant MD, FACS General Surgery Service
--- NOTE | 2025-03-05 08:22 | PROVIDER PROGRESS NOTE ---
Progress Note Progress Note Progress Note: General Surgery Progress Note KUB -> small bowel dilation with paucity of gas in the colon. SB Challenge study ordered for diagnosis and for possible therapeutic effect. Nahum Bryant MD, FACS General Surgery Service
[2025-03-05] MEDS ORDERED: DIATR MEGLU/DIATRIZOATE SODIUM 120 ML BOTTLE ONE (09:12)
--- NOTE | 2025-03-05 09:55 | XRAY Report ---
PROCEDURE: XR Abdomen 1 V INDICATIONS: SBO vs ileus TECHNIQUE: One view of the abdomen acquired. COMPARISON: CT abdomen pelvis on 03/03/2025. FINDINGS: Surgical changes and devices: None. Bowel: Dilated, stacked, loops of small bowel within the central abdomen measuring up to 4.3 cm in diameter in diameter. No free air or discrete pneumatosis. Soft tissues: No suspicious abdominal calcifications. Visualized solid organ contours appear normal in size. Bones: No suspicious bony lesions. IMPRESSION: Persistent small bowel dilatation consistent with previously seen small bowel obstruction. Reviewed by: Shaan Moon MD on 03/05/2025 9:53 AM PDT Approved by: Shaan Moon MD on 03/05/2025 9:53 AM PDT Station ID: [id number]
--- NOTE | 2025-03-05 14:56 | XRAY Report ---
PROCEDURE: XR SBFT Challenge Panel INDICATIONS: SBO vs ileus COMPARISON: CT abdomen pelvis on 03/03/2025 CONTRAST: 120 cc of Gastrografin FINDINGS: Comparison CT abdomen and pelvis demonstrates multiple dilated loops of small bowel. Multiple radiodense were obtained at the following intervals, immediate post- Gastrografin administration, which opacifies to the third portion of duodenum, 15 minutes, with opacification of a dilated loop of small bowel in the right hemiabdomen, 50 minutes, with further transit of intraluminal contrast into several loops of dilated small bowel within the central abdomen, 2 hours and 20 minutes, with further passage of contrast into small bowel loops, and finally at 3 hours post administration with contrast in the proximal cecum. The small bowel is dilated with prominent plica circularis. IMPRESSION: Dilated loops of small bowel with transit of Gastrografin into the cecum at 3 hours post administration. Reviewed by: Shaan Moon MD on 03/05/2025 2:55 PM PDT Approved by: Shaan Moon MD on 03/05/2025 2:55 PM PDT Station ID: [id number]
--- NOTE | 2025-03-05 16:41 | PROVIDER PROGRESS NOTE ---
Progress Note Progress Note Progress Note: General Surgery Progress Note S: Patient comfortable. No nausea or emesis. Tolerating ice chips and sips. Maybe some flatus. No BM yet. O: VSS, afeb; Sitting in chair in hallway in conversation with nurse. In no distress. Abdomen is soft, not distended, there is no tenderness. SB Challenge - radiology reading is contrast in the cecum by 3 hours. No contrast in other segments of large bowel A: Clinically improved with image evidence of progression of contrast throughout the small bowel with probable passage into the cecum by 3 hours. P: Continue sips, chips, ambulation tonight. If no BM by am, KUB to document further progression of contrast into the colon. If there is progression or if he has a BM tonight, he may begin a liquid diet in the morning. Nahum Bryant MD, FACS General Surgery Service
[2025-03-05] MEDS ORDERED: oxyCODONE 5 MG TABLET PO PRN (21:12)
--- NOTE | 2025-03-05 21:13 | PROVIDER PROGRESS NOTE ---
Subjective Prog Note Date Prog Note Date: 03/05/25 Subjective Pt reports feeling: No change Subjective: He has been asking RNs for more liquids. He has not had a BM today. Current Medications Current Medications Current Medications: Current Medications Generic Name Dose Route Start Last Admin Trade Name Freq PRN Reason Stop Dose Admin Enoxaparin Sodium 40 mg 03/04/25 09:00 03/05/25 08:04 Enoxaparin 40 Mg/0.4 Ml Syringe SUBQ 40 mg DAILY YANIRA Administration Sodium Chloride 1,000 mls @ 100 mls/hr 03/03/25 20:00 03/05/25 12:08 Normal Saline 0.9% IV 100 mls/hr .Q10H YANIRA Administration Acetaminophen 1,000 mg in 100 mls @ 400 mls/hr 03/03/25 22:00 03/05/25 15:25 Acetaminophen IV Infused TID YANIRA Infusion Ketorolac Tromethamine 15 mg 03/03/25 20:19 03/05/25 16:57 Ketorolac 15 Mg/Ml Vial IVP 03/08/25 20:18 15 mg Q6HR PRN Administration Severe Pain (Level 7-10) Lidocaine 1 patch 03/05/25 18:52 03/05/25 20:00 Lidocaine Patch 4% TOP 1 patch DAILY YANIRA Administration Morphine Sulfate 1 mg 03/03/25 20:27 03/05/25 04:30 Morphine 2 Mg/Ml Carpuject IVP 1 mg Q2HR PRN Administration Severe Pain (Level 7-10) Ondansetron HCl 4 mg 03/03/25 19:48 Ondansetron Odt 4 Mg Tablet TL Q6HR PRN Nausea / Vomiting Ondansetron HCl 4 mg 03/03/25 19:48 03/04/25 14:14 Ondansetron 4 Mg/2 Ml Vial IVP 4 mg Q6HR PRN Administration Nausea / Vomiting Sodium Chloride 10 ml 03/03/25 19:48 03/04/25 16:51 Sodium Chloride Flush 0.9% 10 Ml Syringe IVP 10 ml PRN PRN Administration NEEDED PER PROVIDER ORDERS Sodium Chloride 10 ml 03/04/25 01:00 03/05/25 16:57 Sodium Chloride Flush 0.9% 10 Ml Syringe IVP 10 ml 0100,0900,1700 YANIRA Administration Objective Vital Signs/Intake & Output Reviewed Vital Signs: Yes Vital Signs: Vital Signs x48h Temp Pulse Resp BP Pulse Ox 03/05/25 19:18 36.5 C 87 18 132/77 H 98 Intake & Output: Intake & Output 03/02/25 03/03/25 03/04/25 03/05/25 23:59 23:59 23:59 23:59 Intake Total 1100 / 1100 2827 / 2827 1200 / 1200 Output Total 300 / 300 400 / 400 250 / 250 Balance 800 / 800 2427 / 2427 950 / 950 Weight (kg) 91 kg Objective General Appearance: positive No acute distress and Alert Eyes Bilateral: positive Conjunctivae nml ENT: positive ENT inspection nml and Other (very poor dentition) Neck: positive Nml inspection Respiratory: positive No respiratory distress and Breath sounds nml Cardiovascular: positive Regular rate & rhythm Abdomen: positive Non-tender, No distention and Other (quiet, scant bowel tones) Skin: positive Color nml Extremities: positive No pedal edema Neurologic/Psychiatric: positive Slurred/abnml speech (perserverative speech) Lab Results 03/05/25 04:41 03/05/25 04:41 Other Labs: Lab Results x24hrs 03/05/25 Range/Units 04:41 WBC 5.2 (4.8-10.8) x10^3/uL RBC 5.16 (4.70-6.10) 10^6/uL Hgb 12.6 L (14.0-18.0) g/dL Hct 41.9 L (42.0-52.0) % MCV 81.2 (80.0-94.0) fL MCH 24.4 L (27.0-31.0) pg MCHC 30.1 L (32.0-36.0) g/dL RDW 17.6 H (12.0-15.0) % Plt Count 239 (130-450) 10^3/uL MPV 10.8 (7.4-11.4) fL Neut # (Auto) 3.8 (1.5-6.6) 10^3/uL Lymph # (Auto) 0.8 L (1.5-3.5) 10^3/uL [place] # (Auto) 0.6 (0.0-1.0) 10^3/uL Eos # (Auto) 0.0 (0.0-0.7) 10^3/uL Baso # (Auto) 0.0 (0.0-0.1) 10^3/uL Absolute Nucleated RBC 0.00 x10^3/uL Nucleated RBC % 0.0 /100WBC Sodium 146 H (135-145) mmol/L Potassium 3.6 (3.5-4.5) mmol/L Chloride 114 H (101-111) mmol/L Carbon Dioxide 26 (21-32) mmol/L Anion Gap 6.0 (6-13) BUN 14 (6-20) mg/dL Creatinine 0.5 L (0.6-1.3) mg/dL Estimated GFR (MDRD) 187 (>89) Glucose 81 (74-104) mg/dL Calcium 7.9 L (8.5-10.3) mg/dL Assessment/Plan Problem List (1) SBO (small bowel obstruction): Impression: Patient has had multiple presentations for small bowel obstruction. At time of his last admission in December, his tally for small bowel obstructions was up to 17. I believe this makes his 18th presentation to hospital for small bowel obstruction General Surgery following NGT refused today, received gastrografin. there is passage to the cecum. no BM today, but no Vomting and asking for more fluids. He has lost IV access. converting meds to po. his diet is advance to clears. if he does not have BM by AM, check XR KUB. discussed with Dr Bryant today. (2) Cerebral palsy: Impression: Neurogenic bowel a consideration, but this usually presents as a functional problem with large bowel. continue to monitor. I have spent 51 minutes in the care of this patient today. This includes time [id number], review and ordering of diagnostic imaging and laboratory studies and consultation with other providers. Monitoring the patient's signs symptoms, evaluation of medication effectiveness and patient's response to treatment. Qualifiers: Cerebral palsy type: unspecified type Qualified Code(s): G80.9 - Cerebral palsy, unspecified
[2025-03-06] MEDS: ACETAMINOPHEN 325 MG TABLET PO PRN (01:22)
[2025-03-06 07:20] LABS: HCT - HEMATOCRIT 39.0 % (42.0-52.0); HGB - HEMOGLOBIN 11.9 g/dL (14.0-18.0); MEAN PLATELET VOLUME 10.1 fL (7.4-11.4); NRBC ABSOLUTE COUNT (AUTO) 0.00 x10^3/uL; NUCLEATED RED BLOOD CELLS AUTO 0.0 /100WBC; PLT - PLATELET COUNT 222 10^3/uL (130-450); RED CELL DISTRIBUTION WIDTH 17.8 % (12.0-15.0)
[2025-03-06 07:45] LABS: BUN - BLOOD UREA NITROGEN 11.0 mg/dL (6-20); CARBON DIOXIDE - CO2 21.0 mmol/L (21-32); CREATININE 0.5 mg/dL (0.6-1.3); GFR - MDRD 187.0 (>89)
--- NOTE | 2025-03-06 08:35 | XRAY Report ---
PROCEDURE: XR Abdomen 1 V INDICATIONS: SBO TECHNIQUE: One view of the abdomen acquired. COMPARISON: 03/05/2025, 03/03/2025 FINDINGS: Surgical changes and devices: None. Bowel: Persistent dilation of small bowel. Intraluminal contrast within the large bowel. Soft tissues: No suspicious abdominal calcifications. Visualized solid organ contours appear normal in size. Bones: No suspicious bony lesions. IMPRESSION: Persistent dilation of small bowel, with intraluminal contrast within the large bowel. Reviewed by: Subhash Daugherty MD on 03/06/2025 8:33 AM PDT Approved by: Subhash Daugherty MD on 03/06/2025 8:33 AM PDT Station ID: [id number]
--- NOTE | 2025-03-06 08:57 | PROVIDER PROGRESS NOTE ---
Progress Note Progress Note Progress Note: General Surgery Progress Note Am KUB shows contrast throughout colon. Chronic small bowel dilation also present. Patient may resume his diet. Discharge per Medical Hospitalist Team The General Surgery Service will sign off today. Please do not hesitate to contact us if you have further questions or concerns or if you wish to have us continue to follow this patient with you. Nahum Bryant MD, FACS General Surgery Service
--- NOTE | 2025-03-06 16:01 | PROVIDER PROGRESS NOTE ---
Subjective Prog Note Date Prog Note Date: 03/06/25 Subjective Subjective: On AM BMP, some hypoglycemia, this is as diet was transitioning. has been sleeping this afternoon, when he wakes up, tells me that he wants to go home. I am concerned about his glucose and sodium, and would like him to stay until these are in more normal range. Current Medications Current Medications Current Medications: Current Medications Generic Name Dose Route Start Last Admin Trade Name Freq PRN Reason Stop Dose Admin Acetaminophen 650 mg 03/05/25 21:12 03/06/25 01:22 Acetaminophen 325 Mg Tablet PO 650 mg Q4HR PRN Administration Pain or Fever > 38C (100.4F) Enoxaparin Sodium 40 mg 03/04/25 09:00 03/06/25 08:44 Enoxaparin 40 Mg/0.4 Ml Syringe SUBQ 40 mg DAILY YANIRA Administration Hydroxyzine Pamoate 25 mg 03/05/25 21:12 03/06/25 10:43 Hydroxyzine Pamoate 25 Mg Capsule PO 25 mg Q6H PRN Administration Agitation Lidocaine 1 patch 03/05/25 18:52 03/06/25 08:43 Lidocaine Patch 4% TOP 1 patch DAILY YANIRA Administration Ondansetron HCl 4 mg 03/03/25 19:48 Ondansetron Odt 4 Mg Tablet TL Q6HR PRN Nausea / Vomiting Ondansetron HCl 4 mg 03/03/25 19:48 03/04/25 14:14 Ondansetron 4 Mg/2 Ml Vial IVP 4 mg Q6HR PRN Administration Nausea / Vomiting Oxycodone HCl 5 mg 03/05/25 21:12 Oxycodone 5 Mg Tablet PO Q4HR PRN Moderate Pain (Level 4-6) Sodium Chloride 10 ml 03/03/25 19:48 03/04/25 16:51 Sodium Chloride Flush 0.9% 10 Ml Syringe IVP 10 ml PRN PRN Administration NEEDED PER PROVIDER ORDERS Sodium Chloride 10 ml 03/04/25 01:00 03/06/25 08:44 Sodium Chloride Flush 0.9% 10 Ml Syringe IVP Not Given 0100,0900,1700 YANIRA Objective Vital Signs/Intake & Output Reviewed Vital Signs: Yes Vital Signs: Vital Signs x48h Temp Pulse Resp BP Pulse Ox 03/06/25 08:10 36.6 C 74 18 129/81 98 Intake & Output: Intake & Output 03/03/25 03/04/25 03/05/25 03/06/25 23:59 23:59 23:59 23:59 Intake Total 1100 / 1100 2827 / 2827 2087 / 2087 600 / 600 Output Total 300 / 300 400 / 400 250 / 250 800 / 800 Balance 800 / 800 2427 / 2427 1837 / 1837 -200 / -200 Weight (kg) 91 kg Objective General Appearance: positive No acute distress and Alert Eyes Bilateral: positive Conjunctivae nml ENT: positive ENT inspection nml and Other (very poor dentition) Neck: positive Nml inspection Respiratory: positive No respiratory distress and Breath sounds nml Cardiovascular: positive Regular rate & rhythm Abdomen: positive Non-tender, Nml bowel sounds, No distention and Other Skin: positive Color nml Extremities: positive No pedal edema Lab Results 03/06/25 06:55 03/06/25 06:55 Other Labs: Lab Results x24hrs 03/06/25 03/06/25 Range/Units 09:42 06:55 WBC 4.9 (4.8-10.8) x10^3/uL RBC 4.76 (4.70-6.10) 10^6/uL Hgb 11.9 L (14.0-18.0) g/dL Hct 39.0 L (42.0-52.0) % MCV 81.9 (80.0-94.0) fL MCH 25.0 L (27.0-31.0) pg MCHC 30.5 L (32.0-36.0) g/dL RDW 17.8 H (12.0-15.0) % Plt Count 222 (130-450) 10^3/uL MPV 10.1 (7.4-11.4) fL Neut # (Auto) 3.5 (1.5-6.6) 10^3/uL Lymph # (Auto) 0.8 L (1.5-3.5) 10^3/uL [place] # (Auto) 0.4 (0.0-1.0) 10^3/uL Eos # (Auto) 0.1 (0.0-0.7) 10^3/uL Baso # (Auto) 0.0 (0.0-0.1) 10^3/uL Absolute Nucleated RBC 0.00 x10^3/uL Nucleated RBC % 0.0 /100WBC Sodium 149 H (135-145) mmol/L Potassium 3.8 (3.5-4.5) mmol/L Chloride 118 H (101-111) mmol/L Carbon Dioxide 21 (21-32) mmol/L Anion Gap 10.0 (6-13) BUN 11 (6-20) mg/dL Creatinine 0.5 L (0.6-1.3) mg/dL Estimated GFR (MDRD) 187 (>89) Glucose 54 L* (74-104) mg/dL POC Whole Bld Glucose 65 (70-100) mg/dL Calcium 8.1 L (8.5-10.3) mg/dL Assessment/Plan Problem List (1) SBO (small bowel obstruction): Impression: Patient has had multiple presentations for small bowel obstruction. At time of his last admission in December, his tally for small bowel obstructions was up to 17. I believe this makes his 18th presentation to hospital for small bowel obstruction General Surgery signed off this AM, XR shows passage of gastrografin to the colon. discussed briefly with gen surg today NGT refused He has lost IV access. converting meds to po. He is on a low residue diet. . (2) Hypoglycemia: Impression: This AM, BMP showed glucose of 54. he was given juice and increased to 64. he has had some mild hypoglycemia at previous admits for SBO. probably related to depletion of glycogen in the setting of GI dysfunction. He is eating about 25% of his meals. He has been ambulatory in the halls with visitors this afternoon. (3) Hypernatremia: Impression: I have lost IV access,and not worthwhile at this point to make patient miserable getting IV. I am pushing oral intake and anticipate that this will correct. Laboratory Tests 03/04/25 03/05/25 03/06/25 04:22 04:41 06:55 Sodium 143 146 H 149 H I have ordered repeat BMP for the AM/ (4) Cerebral palsy: Impression: Neurogenic bowel a consideration, but this usually presents as a functional problem with large bowel. continue to monitor. This patient's diagnosis and treatment plan was discussed this AM with attending physician as a part of multi disciplinary rounding meeting. I have spent 38 minutes in the care of this patient today. This includes time [id number], review and ordering of diagnostic imaging and laboratory studies and consultation with other providers. Monitoring the patient's signs symptoms, evaluation of medication effectiveness and patient's response to treatment. . Qualifiers: Cerebral palsy type: unspecified type Qualified Code(s): G80.9 - Cerebral palsy, unspecified
[2025-03-07 05:52] LABS: HCT - HEMATOCRIT 38.3 % (42.0-52.0); HGB - HEMOGLOBIN 11.6 g/dL (14.0-18.0); MEAN PLATELET VOLUME 10.2 fL (7.4-11.4); NRBC ABSOLUTE COUNT (AUTO) 0.00 x10^3/uL; NUCLEATED RED BLOOD CELLS AUTO 0.0 /100WBC; PLT - PLATELET COUNT 218 10^3/uL (130-450); RED CELL DISTRIBUTION WIDTH 17.9 % (12.0-15.0)
[2025-03-07 06:09] LABS: BUN - BLOOD UREA NITROGEN 7.0 mg/dL (6-20); CARBON DIOXIDE - CO2 25.0 mmol/L (21-32); CREATININE 0.5 mg/dL (0.6-1.3); GFR - MDRD 187.0 (>89)
[2025-03-07] MEDS: PANTOPRAZOLE 40 MG TABLET PO ONE (08:36)
--- NOTE | 2025-03-07 12:12 | Discharge Summary ---
Discharge Summary Admit Date: 03/03/25 Discharge Date: 03/07/25 Discharging Provider: Shannon Solis PA-C Primary Care Provider: Kamala Oconnell MD Code Status: Attempt Resuscitation DIAGNOSES Discharge Diagnoses with Status of Each Condition: Small bowel obstruction, resolved Hypoglycemia, resolved Hypernatremia, resolved Cerebral palsy, chronic. ALLERGIES Allergies Allergy/AdvReac Type Severity Reaction Status Date / Time promethazine HCl * (From AdvReac Unknown Anxiety Verified 03/03/25 16:51 Phenergan) Sulfa (Sulfonamide AdvReac Unknown Rash Verified 03/03/25 16:51 Antibiotics) MEDICATIONS Ambulatory Orders Medication Instructions Recorded Confirmed omeprazole 20 mg capsule,delayed 20 mg PO BID acid ref lux 08/09/13 12/18/24 release PHYSICAL EXAM AT DISCHARGE Vital Signs: Vital Signs x48h Temp Pulse Resp BP Pulse Ox 03/07/25 13:30 36.5 C 84 16 113/73 97 LABS 03/07/25 05:08 03/07/25 05:08 Discharge Plan Discharge Patient Disposition: 01 Home, Self Care Condition: Stable Prescriptions: Continued omeprazole 20 MG capsule,delayed release(DR/EC) 20 mg PO BID Activity Restrictions: No Restrictions Diet: Regular Health Concerns: You came into the hospital because you are having abdominal pain. You have had multiple small bowel obstructions in the past. You are having nausea and vomiting as well. Abdominal imaging showed that you had another small bowel obstruction. In the past you have had NG tube and you absolutely did not want that. We treated your bowel obstruction with supportive care. You got IV fluids and were able to take ice chips and clear liquid fluids as you wanted. With time and bowel rest your bowel function came back. Looking at the imaging of contrast as it went through your bowel you have some problems related to the nerve function of your bowels. This is likely related to your cerebral palsy. And there is not a lot we can do to make this better. Unfortunately you will probably have small bowel obstructions in the future and we can continue to treat them the way that we have in the past. As you go home you can resume your regular diet. Make sure to drink plenty of fluids as this does help your bowels move. While you has been here you did have some problems with your sodium and potassium but as you have started to eat food again those problems have improved. As always we recommend follow-up with your primary care doctor within about a week of hospital discharge just to go over everything and make sure you are doing okay. I will send a copy of this note to Dr. Oconnell. Print Language: Czech Patient Instructions: Small Bowel Obstruction Follow-up Care: Kamala Oconnell MD [Primary Care Provider, Shot Dropper] Vitals documented within 30 minutes of discharge?: Yes
[2025-03-07 12:42] VITALS: O2SAT 97
[2025-03-07 13:52] VITALS: BP 113/73; TEMP 97.7
--- NOTE | 2025-03-09 20:07 | Discharge Summary ---
"Discharge Summary Admit Date: 03/03/25 Discharge Date: 03/07/25 Discharging Provider: Shannon Solis PA-C Primary Care Provider: Kamala Oconnell MD Code Status: Attempt Resuscitation DIAGNOSES Discharge Diagnoses with Status of Each Condition: Small bowel obstruction, resolved Hypoglycemia, resolved Hypernatremia, resolved Cerebral palsy, chronic. HPI History of Present Illness: 39-year-old male with history of cerebral palsy, myoclonic dystrophy, appendicitis. He has had multiple admissions for small bowel obstruction that all resolved spontaneously. He presents to the hospital today with severe abdominal pain. He also has nausea and vomiting. In the ER, CT abdomen was performed which shows small bowel obstruction with dilated loops of small bowel approximately measuring up to 5.5 cm. Suspected transition point within the upper mid abdomen. General surgery was contacted by ER provider, and recommendation was made to admit to medicine for nonoperative management of his small bowel obstruction CONSULTS | PROCEDURES Procedures: CT abdomen pelvis: Small bowel obstruction with dilated loops of small bowel proximally measuring up to 5.5 cm. The distal small bowel loops are decompressed. There may be a transition point within the upper mid abdomen. HOSPITAL COURSE Hospital Course: 39-year-old male with repeated small bowel obstructions, declines placement of NG tube on admission. Was treated conservatively with bowel rest and supportive care. By hospital day 2 his abdominal pain was improved he was passing flatus but was slow to tolerate oral intake. Has a history of CP which is likely implicated in these recurrent small bowel obstructions. His abdomen remained distended, he received Gastrografin on hospital day 3 with passage to the cecum no vomiting and return of appetite. I advance his diet to clears on the evening of hospital day 3 and check in a.m. 1 view abdominal x-ray. At this point contrast was in the colon. He shortly thereafter had a bowel movement and his diet was advanced. He did have some hypoglycemia on his last morning of being NPO. This resolved with increased oral intake he did have some hypernatremia that also resolved with increased oral intake. This hypernatremia was despite IV fluid resuscitation. However he did lose IV access his last day of hospitalization and refused replacement. At that point he was advancing his diet. ALLERGIES Allergies Allergy/AdvReac Type Severity Reaction Status Date / Time promethazine HCl * (From AdvReac Unknown Anxiety Verified 03/03/25 16:51 Phenergan) Sulfa (Sulfonamide AdvReac Unknown Rash Verified 03/03/25 16:51 Antibiotics) MEDICATIONS Ambulatory Orders Medication Instructions Recorded Confirmed omeprazole 20 mg capsule,delayed 20 mg PO BID acid ref lux 08/09/13 12/18/24 release PHYSICAL EXAM AT DISCHARGE General Appearance: positive No acute distress and Alert Eyes Bilateral: positive Normal inspection ENT: positive ENT inspection nml Neck: positive Nml inspection Respiratory: positive No respiratory distress and Breath sounds nml Cardiovascular: positive Regular rate & rhythm Abdomen: positive Non-tender, Nml bowel sounds and No distention Back: positive Nml inspection Skin: positive Color nml Neurologic/Psychiatric: positive Oriented x3 LABS 03/07/25 05:08 03/07/25 05:08 FOLLOW UP Follow Up: PCP Dr. Oconnell 7 to 10 days. TIME SPENT Time Spent in Discharge (Minutes): 35 Discharge Plan Discharge Patient Disposition: Home, Self Care Condition: Stable Prescriptions: Continued omeprazole 20 MG capsule,delayed release(DR/EC) 20 mg PO BID Activity Restrictions: No Restrictions Diet: Regular Health Concerns: You came into the hospital because you are having abdominal pain. You have had multiple small bowel obstructions in the past. You are having nausea and vomiting as well. Abdominal imaging showed that you had another small bowel obstruction. In the past you have had NG tube and you absolutely did not want that. We treated your bowel obstruction with supportive care. You got IV fluids and were able to take ice chips and clear liquid fluids as you wanted. With time and bowel rest your bowel function came back. Looking at the imaging of contrast as it went through your bowel you have some problems related to the nerve function of your bowels. This is likely related to your cerebral palsy. And there is not a lot we can do to make this better. Unfortunately you will probably have small bowel obstructions in the future and we can continue to treat them the way that we have in the past. As you go home you can resume your regular diet. Make sure to drink plenty of fluids as this does help your bowels move. While you has been here you did have some problems with your sodium and potassium but as you have started to eat food again those problems have improved. As always we recommend follow-up with your primary care doctor within about a week of hospital discharge just to go over everything and make sure you are doing okay. I will send a copy of this note to Dr. Oconnell. Print Language: [place]ian Patient Instructions: Small Bowel Obstruction Follow-up Care: Kamala Oconnell MD [Primary Care Provider, Programming Development Project Manager] Vitals documented within 30 minutes of discharge?: Yes"
== END 2025-03-07 13:45 | disposition home or self-care (01) | DRG 389 ==
LOC: ED 16:46 → MS2 19:17
PROVIDERS: ADMIT Nurse Practitioner Acute Care; ATTEND Nurse Practitioner Acute Care